=== PATIENT | female | born 1960 | race Caucasian/White ===

== ENCOUNTER → 2016-11-30 | Outpatient (CLI) | payer MEDICARE, OTHER | END | disposition home or self-care (01) | LOC: LABPAT 15:49 | PROVIDERS: ATTEND Orthopaedic Surgery | DX: Z01.812 Encounter for preprocedural laboratory examination (principal) | CPT/HCPCS: 87070 ==

== ENCOUNTER 2016-12-05 06:22 | Inpatient (IN) | payer MEDICARE, OTHER ==
[2016-12-01 11:26] VITALS: BMI 29.3
--- NOTE | 2016-12-04 13:38 | HP ---
DATE OF ADMISSION: CHIEF COMPLAINT: Right knee pain. HISTORY OF PRESENT ILLNESS: Patient is a 56-year-old female on permanent disability who presents with right knee pain secondary to osteoarthrosis despite extensive conservative measures. She notes that it severely limits her function and activities. She has had previous injections along with multiple medications with only partial temporary relief. PAST MEDICAL HISTORY: Significant for hypertension, depression, arthritis, reflux disease and hyperlipidemia. PAST SURGICAL HISTORY: Significant for right total hip arthroplasty, lumbar laminectomy, carpal tunnel release, tubal ligation. CURRENT MEDICATIONS: 1. Amitriptyline. 2. Baclofen. 3. Effexor. 4. Oral morphine. 5. Mobic. 6. Neurontin. 7. [place]. 8. Simvastatin. She denies drug allergies. FAMILY HISTORY: Significant for cancer, stroke, diabetes and heart disease. SOCIAL HISTORY: Negative for current tobacco or alcohol use. Sixteen-point review of systems otherwise reviewed and is noncontributory. On examination, the patient is approximately 5 foot 6, 170 pounds of endomorphic habitus. HEENT exam is nonfocal. Neck is supple. She has painless passive motion of her right hip. Straight leg raise is negative. Active motion of the right knee -12 to 110 degrees of flexion. She has a moderate effusion. She is tender about the medial and lateral joint line. Collaterals are stable, Lv's negative, Preethi's is equivocal. Her distal neurovascular exam appears to be intact in the right lower extremity. Previous weight-bearing notch, lateral, and merchant views of the right knee obtained in the office show severe tricompartmental osteoarthrosis. IMPRESSION: 1. Right knee severe tricompartmental osteoarthrosis. 2. Increased body mass index. RECOMMENDATIONS: I talked to the patient at length regarding her treatment options. At this point, she is quite symptomatic despite conservative measures. After thorough discussion, she opts to proceed with surgery. We will plan to proceed with right total knee arthroplasty. Risks and benefits are discussed at length in layman terms. The patient underwent preoperative medical evaluation by Dr. Skinner. We will institute DVT prophylaxis postoperatively.
[~2016-12-05 06:22] MED LIST: ACETAMINOPHEN TAB 500 MG TAB PO ONE; DEXAMETHASONE SOD PHOSPHATE 10 MG/ML 1 ML VIAL IV ONE; HYDROmorphone 1 MG/ML 1 ML SYRINGE IVP PRN; LACTATED RINGERS 1,000 ML IV SCH; LIDOCAINE 1% 20 ML VIAL (10MG/ML) FOR IV START INTRADERMA PRN; MELOXICAM 7.5 MG TAB PO ONE; MIDAZOLAM 2 MG/2 ML VIAL IV PRN; SCOPOLAMINE 1.5MG/72HR PATCH TRANSDERM ONE; TRANEXAMIC ACID 1,000 MG in SODIUM CHLORIDE 0.9% 100 ML IVPB ONE; ceFAZolin 2 GM in SODIUM CHLORIDE 0.9% 100 ML IVPB ONE
[2016-12-05] MEDS: ONDANSETRON 4 MG/2 ML VIAL IVP ONE ×2 (07:36→11:53)
[2016-12-05] MEDS ORDERED: ROPIVACAINE 246.25 MG, EPINEPHrine 0.5 MG, KETOROLAC 30 MG, cloNIDine HCL/PF 80 MCG, WA... MISCELLANE ONE ×5 (07:53)
[2016-12-05] MEDS ORDERED: PROPOFOL 10 MG/ML 20 ML VIAL IV ONE (08:02)
[2016-12-05] MEDS ORDERED: LIDOCAINE 1% INJ 10MG/ML (20 ML MDV) ONE (08:02)
[2016-12-05] MEDS ORDERED: TRANEXAMIC ACID 1,000 MG/10 ML VIAL ONE (08:02)
[2016-12-05] MEDS ORDERED: fentaNYL (PF) 50 MCG/ML 2 ML AMP ONE (08:02)
[2016-12-05] MEDS ORDERED: PHENYLEPHRINE-0.9% NACL SYG 1 MG/10 ML SYRINGE ONE (08:02)
[2016-12-05] MEDS ORDERED: MIDAZOLAM 2 MG/2 ML VIAL ONE (08:02)
[2016-12-05] MEDS ORDERED: SODIUM CHLORIDE 0.9% 100 ML BAG ONE (08:02)
[2016-12-05 08:04] LABS: Basophils % (A) 1 %; CH 30.1; CHCM 34.6; Eosinophils # (A) 0.1 k/uL (0-0.7); Eosinophils % (A) 3 %; HCT 37.4 % (34.0-46.0); HDW 2.99; HGB 12.6 gm/dL (11.4-16.0); Luc # (Auto) 0.12; Luc % (Auto) 2; Lymphocytes # (A) 1.8 k/uL (1.0-4.8); Lymphocytes % (A) 33 %; MCH 29.6 pg (25.0-35.0); MCHC 33.8 g/dL (31.0-37.0); MCV 87.6 fL (80.0-100.0); Mean Platelet Volume 7.4; Monocytes # (A) 0.4 k/uL (0-1.0); Monocytes % (A) 7 %; Neutrophils % (A) 55 %; RBC 4.27 m/uL (3.80-5.40); RDW 13.1 % (11.5-15.5); WBC 5.4 k/uL (3.8-10.6)
[2016-12-05] MEDS ORDERED: ceFAZolin 3,000 MG in SODIUM CHLORIDE 0.9% IRRIGATIO 3,000 ML IRRIGATION ONE (08:37)
[2016-12-05] MEDS ORDERED: LACTATED RINGERS 1,000 ML IV ONE (09:08)
[2016-12-05] MEDS ORDERED: HYDROmorphone 1 MG/ML 1 ML SYRINGE IVP PRN (10:02)
[2016-12-05] MEDS ORDERED: HYDROcodone/APAP 10-325MG 1 EACH TAB PO PRN ×2 (10:02→19:38)
[2016-12-05] MEDS ORDERED: NALOXONE 0.4 MG/ML 1 ML VIAL IV PRN (10:02)
[2016-12-05] MEDS ORDERED: MAGNESIUM HYDROXIDE 2,400 MG/10 ML CUP PO PRN (10:02)
[2016-12-05] MEDS ORDERED: ONDANSETRON 4 MG/2 ML VIAL IVP PRN (10:02)
[2016-12-05] MEDS ORDERED: ROPIVACAINE 1,100 MG, SODIUM CHLORIDE 0.9% 330 ML MISCELLANE PRN ×2 (10:24)
--- NOTE | 2016-12-05 10:27 | P.ONQ ---
Anesthesiology Proc Note - PNB - Peripheral Nerve Block Performed Right Adductor Canal Infusion Time Out Performed: Yes Procedure Start Time: : Procedure Stop Time: :30 Indication: Acute Post-Operative Pain, Requested by physician Sedation Type: Awake Preparation: Sterile Dressing Position: Supine Needle Size: 100mm (4") Needle Gauge: 21 Technique: Ultrasound Injectate: 0.5% Ropivacaine (see comment for volume) (ropi .5% 20cc) Blood Aspirated: No Pain Paresthesia on Injection Noted: No Resistance on Injection: Normal Events: Uneventful and Well Tolerated
--- NOTE | 2016-12-05 10:33 | P.OP ---
Date of Procedure: 12/05/16 Preoperative Diagnosis: Right knee severe tricompartmental osteoarthrosis Postoperative Diagnosis: Same Procedure(s) Performed: Right total knee [id number] substituting Implants: Depuy Attune size 6 cemented femoral component, size 5 cemented tibial component , 9 mm articular surface, 35 mm cemented patellar component. This is a posterior stabilized implant. Anesthesia: regional, local, spinal Surgeon: Angel Moon Carbon Brusher Assembler #1: Dewayne Ramirez Estimated Blood Loss (ml): 50 Pathology: other (Bone fragments) Condition: stable Disposition: PACU Indications for Procedure: Patient is a 56-year-old female presents with progressive right knee pain secondary to osteoarthrosis despite conservative measures. A discussion of the risks and benefits of operative intervention versus continued conservative measures was made with the patient. She opted to proceed with surgery. Operative risks to include infection, neurovascular injury, development of blood clots, possible component loosening, possible component failure and need for subsequent procedures was discussed. Informed consent was obtained. Operative Findings: As below Description of Procedure: The patient was brought to the operating room, and after induction of spinal anesthesia the right lower extremity was prepped and draped in normal fashion. The limb was elevated to facilitate exsanguination. The tourniquet was inflated to 270 mmHg. A longitudinal incision extending 3 finger breaths above the superior pole of the patella extending to the medial aspect of the tibial tubercle was then made. The skin and subcutaneous tissues were divided sharply. Electrocautery was used for hemostasis. A medial parapatellar arthrotomy was performed. The medial soft tissues to include the superficial and deep portions of the medial collateral ligament as well as the medial hamstring tendons were elevated subperiosteally. The proximal medial tibial osteophytes were carefully removed. Patella was everted. The knee was then flexed. The anterior cruciate ligament was sacrificed. A portion of the retropatellar fat pad was excised sharply. A starting hole was made in the distal femur 1 cm anterior to the posterior cruciate ligament origin. An intramedullary femoral guide was gently inserted planning on 5 valgus distal cut with 9 mm distal resection. The cutting block was pinned in place. The distal cut was made. The posterior referencing sizing guide was utilized. I felt size 6 was most appropriate. 3 of external rotation was built into the system and verified off the trans-epicondylar axis and the posterior condyles. The cutting block was pinned in place. The anterior, posterior, and chamfer cuts were then made. The bone fragments were removed. Residual osteophytes were removed. The intercondylar block was placed and the notch cut was made with a reciprocating saw. The bone fragment was removed. The trial size 6 femoral component was placed and was fully seated. There is good anterior to posterior and medial to lateral fit. The distal peg holes were drilled. The trial component was removed. Attention was then paid towards preparing the proximal tibia. An extra medullary guide was utilized in line with the tibial shaft and second metatarsal distally. A 0 posterior slope cutting block was utilized. I planned on 2 mm resection from the medial compartment. The cutting block was pinned in place. The proximal tibial cut was then made. The bone was removed in one fragment. This appeared to be inadequate therefore an additional 2 mm was resected utilizing the cutting block. Bone fragments were removed. The tibia sized most appropriate size 5. The trial femoral and tibial components were placed along with a 9 mm posterior stabilized articular surface. I was able to obtain full flexion and extension with good stability with varus and valgus stress. After several flexion and extension cycles, the tibial rotation was marked in line with the medial one third of the tibial tubercle. Attention was then paid towards preparing the patella. A patella reamer was utilized taking senna 14 mm of bone stock. A good flush cut was made. The patella sized most appropriately 35 mm. The peg holes were drilled. The trial component was placed. The knee was taken through range of motion. I had good patellofemoral tracking with no hands technique. The trial components were then removed. The flexion and extension gaps were checked and felt to be symmetric. The residual osteophytes off the posterior femur were carefully removed with a curved osteotome. The tibia was prepared in the appropriate rotation with appropriate drill and keel punch. The posterior soft tissues were injected with ropivacaine. The bony surfaces were prepared with pulsatile lavage and dried. The tibial component was then cemented in placed and was fully seated. Excess cement was removed. The femoral component was cemented in placed and was fully seated. Excess cement was removed. The trial 9 mm articular surface was placed in the knee was put in full extension. The patella component was cemented in placed and was fully seated. Excess cement was removed. After the cement had sufficiently hardened, the knee was again taken through range of motion. I felt I had good stability in flexion and extension and was able to obtain full motion. The trial articular surface was removed and the final one inserted. This was impacted. Care was taken to avoid any soft tissue interposition. Pulsatile lavage was again utilized. The medial parapatellar arthrotomy was repaired utilizing #2 Ethibond suture. A deep drain was placed exiting laterally. Prior to final arthrotomy closure the tourniquet was deflated with a proximally 70 minutes total tourniquet time. Second dose of IV TXA was given. The subcutaneous tissues were reapproximated with interrupted 2-0 Vicryl sutures. Skin was reapproximated with 3-0 subcuticular strata fix suture. Skin tape and adhesive was applied. A sterile dressing was applied. The patient was awoken from sedation and transferred to the recovery room in good condition. Blood loss was estimated at 50 mL. No complications were incurred. Sponge and needle counts were correct at the end the case.
[2016-12-05] MEDS ORDERED: ROPIVACAINE 5 MG/ML 30 ML VIAL MISCELLANE ONE (10:56)
--- NOTE | 2016-12-05 11:00 | XR ---
EXAMINATION TYPE: XR knee limited RT DATE OF EXAM: 12/05/2016 10:49 AM CLINICAL HISTORY: Right knee pain and arthritis status post total knee replacement. TECHNIQUE: Portable AP and crosstable lateral views of the right knee are obtained immediately posto peratively. COMPARISON: Right knee x-ray May 21, 2012 FINDINGS: Metallic hardware from total right knee arthroplasty is seen and appears satisfactory in a lignment and position. There is evidence of recent surgery with diffuse subcutaneous gas and suprapa tellar surgical drain noted. IMPRESSION: METALLIC HARDWARE FROM TOTAL RIGHT KNEE ARTHROPLASTY IS SATISFACTORY IN ALIGNMENT.
[2016-12-05] MEDS: traMADol 50 MG TAB PO SCH ×3 (13:13→20:55)
[2016-12-05] MEDS: HYDROmorphone 1 MG/ML 1 ML SYRINGE IVP PRN ×3 (14:17→22:06)
[2016-12-05] MEDS: MORPHINE SULFATE ER 30 MG TABLET PO SCH ×2 (16:05→23:40)
[2016-12-05] MEDS: ceFAZolin 2 GM in SODIUM CHLORIDE 0.9% 100 ML IVPB SCH (16:05)
[2016-12-05] MEDS: HYDROcodone/APAP 10-325MG 1 EACH TAB PO PRN (19:35)
[2016-12-05] MEDS ORDERED: MORPHINE SULFATE ER 30 MG TABLET PO SCH (19:45)
--- NOTE | 2016-12-05 19:46 | P.HPIM ---
History of Present Illness H&P Date: 12/05/16 Chief Complaint: Right knee pain Patient is a 56-year-old female with known history of osteoarthritis of the right knee failed conservative management she was evaluated by Dr. Ochoa and decision was made to proceed with right total knee arthroplasty which was done on admission medical consultation was requested for management while hospitalized. Past Medical History Past Medical History: Eye Disorder, Hyperlipidemia, Hypertension, Osteoarthritis (OA), Pneumonia, Renal Disease, Skin Disorder Additional Past Medical History / Comment(s): 06/2015 Rt lung pneumonia, Renal Failure D/T Dehydration, UTI. Osteomylitis after back surgery in 1988. Heart Murmur. LOWER Back Pain, NECK PAIN; HAD NERVE PAIN IN FEET. PIGMENTARY DISPERSION SYNDROME, FELIX. BUG BITES, SORES NOW. Chronic back pain requiring chronic narcotic treatment patient is maintained on morphine and [place] at home History of Any Multi-Drug Resistant Organisms: MRSA Date of last positivie culture/infection: 2009 MDRO Source:: chin Past Surgical History: Back Surgery, Breast Surgery, Section, Joint Replacement, Orthopedic Surgery, Tubal Ligation Additional Past Surgical History / Comment(s): 08/10/15 Total R Hip Arthroplasty Anterior Approach. RF Back Procedures. Mult Breast Biopsies. FELXI CTR. Past Anesthesia/Blood Transfusion Reactions: No Reported Reaction Additional Past Anesthesia/Blood Transfusion Reaction / Comment(s): Pt has never received blood. Past Psychological History: Depression Additional Psychological History / Comment(s): "USUAL BLUES" Smoking Status: Former smoker Past Alcohol Use History: None Reported Additional Past Alcohol Use History / Comment(s): Pt started smoking in 1971, 1 08/14 PPD, Quit in 2007 Past Drug Use History: None Reported - Past Family History Sister(s) Family Medical History: Cancer Additional Family Medical History / Comment(s): BREAST Mother Family Medical History: Cancer Additional Family Medical History / Comment(s): colon cancer. Mother in her 70's. Father Family Medical History: CVA/TIA Medications and Allergies Home Medications Medication Instructions Recorded Confirmed Type Simvastatin [Zocor] 40 mg PO HS 02/18/15 12/05/16 History Venlafaxine HCl 150 mg PO BID 02/18/15 12/05/16 History Gabapentin [Neurontin] 100 mg PO QAM 03/30/15 12/05/16 History Gabapentin [Neurontin] 200 mg PO HS 03/30/15 12/05/16 History Meloxicam 15 mg PO HS 03/30/15 12/05/16 History HYDROcodone/APAP 10-325MG [[place] 1 tab PO Q8H PRN 04/15/15 12/05/16 History 10-325] Ciprofloxacin HCl [Cipro] 250 mg PO Q12HR 12/01/16 12/05/16 History Fenofibrate,Micronized 134 mg PO HS 12/01/16 12/05/16 History [Fenofibrate] Allergies Allergy/AdvReac Type Severity Reaction Status Date / Time No Known Allergies Allergy Verified 12/05/16 13:25 Physical Exam Vitals: Vital Signs Temp Pulse Resp BP BP Pulse Ox 12/05/16 19:28 98.8 F 105 H 17 143/68 95 12/05/16 16:00 16 12/05/16 13:15 90 137/76 12/05/16 13:00 91 134/79 12/05/16 12:45 89 136/87 12/05/16 12:30 86 130/68 12/05/16 12:15 82 121/73 12/05/16 12:00 81 128/70 12/05/16 11:45 97.4 F L 80 16 118/68 91 L 12/05/16 11:14 75 16 140/79 94 L 12/05/16 10:57 78 16 142/75 94 L 12/05/16 10:42 85 16 148/73 96 12/05/16 10:23 97.1 F L 84 16 152/74 98 12/05/16 06:49 96.6 F L 88 16 157/79 98 Intake and Output 12/05/16 12/05/16 12/05/16 06:59 14:59 22:59 Intake Total 1901 Output Total 525 1350 Balance 1376 -1350 Intake: IV 1901 Lactated Ringers 1,000 ml 500 @ 50 mls/hr IV .Q20H [facility] Rx#:[id number] Output: Drainage 150 Right Knee 150 Urine 475 1200 Estimated Blood Loss 50 Other: Voiding Method Indwelling Catheter Weight 82.554 kg Patient Weight 12/06/16 06:59 Weight 82.554 kg In general patient is alert and oriented 3 in no apparent distress HEENT head normocephalic and atraumatic Neck is supple no JVD no goiter no lymphadenopathy Chest exam is clear to auscultation no crackles no wheezing Cardiac exam reveals regular heart sounds no gallops no murmurs Abdomen is soft nontender no organomegaly Extremity exam reveals no edema no cyanosis or clubbing Results CBC & Chem 7: 12/05/16 07:10 Thrombosis Risk Factor Assmnt - Choose All That Apply Each Factor Represents 1 point: Age 41-60 years, Obesity (BMI >25) Each Risk Factor Represents 2 Points: Major surgery Each Risk Factor Represents 5 Points: Elective major lower extremity arthoplasty Thrombosis Risk Factor Assessment Total Risk Factor Score: 9 Thrombosis Risk Factor Assessment Level: High Risk Assessment and Plan Plan: #1 status post right total knee arthroplasty #2 chronic back pain Will resume home medications including morphine and [place] and baclofen #3 recent UTI patient completed a course of Cipro prior to admission Will check urine analysis #4 for DVT prophylaxis patient was started on Cytomel 1210 mg by mouth daily Medication and labs were reviewed will continue was current management will follow closely during this hospitalization
[2016-12-05] MEDS: VENLAFAXINE HCL 75 MG TAB PO SCH (20:42)
[2016-12-05] MEDS: ATORVASTATIN 20 MG TAB PO SCH (20:44)
[2016-12-05] MEDS: FENOFIBRATE 160 MG TAB PO SCH (20:44)
[2016-12-05] MEDS: AMITRIPTYLINE HCL 50 MG TAB PO SCH (20:44)
[2016-12-05] MEDS: GABAPENTIN 100 MG CAP PO SCH (20:44)
[2016-12-05] MEDS: SENNOSIDES-DOCUSATE SODIUM 1 EACH TAB PO SCH (20:45)
[2016-12-05] MEDS: BACLOFEN 10 MG TAB PO SCH (20:51)
[2016-12-06] MEDS: ceFAZolin 2 GM in SODIUM CHLORIDE 0.9% 100 ML IVPB SCH (00:44)
[2016-12-06] MEDS: HYDROcodone/APAP 10-325MG 1 EACH TAB PO PRN ×5 (01:00→21:50)
[2016-12-06] MEDS: HYDROmorphone 1 MG/ML 1 ML SYRINGE IVP PRN ×3 (03:06→17:35)
[2016-12-06] MEDS: MORPHINE SULFATE ER 30 MG TABLET PO SCH ×3 (07:41→23:53)
[2016-12-06] MEDS: GABAPENTIN 100 MG CAP PO SCH ×2 (07:41→20:08)
[2016-12-06] MEDS: FAMOTIDINE 20 MG TAB PO SCH (07:42)
[2016-12-06] MEDS: BACLOFEN 10 MG TAB PO SCH ×3 (07:42→21:42)
[2016-12-06] MEDS: METOPROLOL SUCCINATE (ER) 25 MG TAB.ER.24H PO SCH (07:42)
[2016-12-06] MEDS: VENLAFAXINE HCL 75 MG TAB PO SCH ×2 (07:43→20:06)
[2016-12-06] MEDS: RIVAROXABAN 10 MG TAB PO SCH (07:43)
--- NOTE | 2016-12-06 08:35 | P.PN ---
Progress Note - Text 12/06 651 am 56-year-old female status post total knee replacement by Dr. Moon. Patient seen and evaluated for pain control this morning, patient has an On-Q pump running at . Patient rates the pain score at 8, not comfortable, patient has On -Q pump running at 14 mL an hour. Patient also has a history of chronic pain and use of narcotics.
[2016-12-06 08:50] LABS: Basophils % (A) 0 %; CHCM 33.8; Eosinophils % (A) 0 %; HCT 32.1 % (34.0-46.0); HDW 2.97; HGB 11.2 gm/dL (11.4-16.0); Luc # (Auto) 0.14; Luc % (Auto) 2; Lymphocytes # (A) 2.5 k/uL (1.0-4.8); Lymphocytes % (A) 28 %; MCH 31.2 pg (25.0-35.0); MCV 89.1 fL (80.0-100.0); Mean Platelet Volume 7.5; Monocytes # (A) 0.4 k/uL (0-1.0); Monocytes % (A) 5 %; Neutrophils # (A) 5.8 k/uL (1.3-7.7); Neutrophils % (A) 65 %; RDW 13.1 % (11.5-15.5); WBC (Perox) 9.26
[2016-12-06] MEDS: traMADol 50 MG TAB PO SCH ×4 (08:55→21:42)
[2016-12-06] MEDS ORDERED: MELOXICAM 7.5 MG TAB PO SCH ×2 (09:00→21:00)
[2016-12-06 09:15] LABS: Anion Gap 15 mmol/L; Calcium 9.1 mg/dL (8.4-10.2); Carbon Dioxide 23 mmol/L (22-30); Chloride 100 mmol/L (98-107); Glucose 287 mg/dL (74-99); Non-African American GFR(MDRD) >60 (>60 ml/min/1.73 sqM); Sodium 138 mmol/L (137-145); Total Bilirubin 0.6 mg/dL (0.2-1.3)
[2016-12-06 09:25] LABS: ALT 34 U/L (9-52); AST 31 U/L (14-36); Blood Urea Nitrogen 12 mg/dL (7-17); Potassium 3.8 mmol/L (3.5-5.1)
[2016-12-06 09:26] LABS: Alkaline Phosphatase 70 U/L (38-126)
--- NOTE | 2016-12-06 09:58 | P.PN ---
Subjective Principal diagnosis: s/p right total knee arthroplasty Patient is seen today resting in hospital bed, no acute distress. Slight increase in pain noted. She denies chest pain, shortness of breath, lightheadedness, headaches, fever or chills. Objective - Vital Signs Vital signs: Vital Signs Temp 98.5 F 12/06/16 07:00 Pulse 86 12/06/16 07:00 Resp 16 12/06/16 07:00 BP 166/79 12/06/16 07:00 Pulse Ox 95 12/06/16 07:00 Intake & Output 12/05/16 12/06/16 12/06/16 18:59 06:59 18:59 Intake Total 1901 300 Output Total 1875 1860 2800 Balance 26 -1560 -2800 Weight 82.554 kg Intake: IV 1901 300 Lactated Ringers 1,000 ml 500 200 @ 50 mls/hr IV .Q20H [facility] Rx#:[id number] ceFAZolin 2 gm In Sodium 100 Chloride 0.9% 100 ml @ 100 mls/hr IVPB Q8HR [facility] Rx#:[id number] Output: Drainage 150 160 Right Knee 150 160 Urine 1675 1700 2800 Uretheral (Nieves) 1700 2500 Estimated Blood Loss 50 Other: Voiding Method Indwelling Catheter Indwelling Catheter - Exam Right lower extremity: Incision is clean, dry, and intact. Calf is soft, no tenderness with palpation. Plantar flexion, dorsiflexion, EHL, FHL are intact. Sensory exam to light touch throughout the extremities intact, dorsal pedis pulses 2+ - Labs CBC & Chem 7: 12/06/16 08:28 12/06/16 08:25 Labs: Abnormal Lab Results - Last 24 Hours (Table) 12/06/16 12/06/16 Range/Units 08:25 08:28 RBC 3.60 L (3.80-5.40) m/uL Hgb 11.2 L (11.4-16.0) gm/dL Hct 32.1 L (34.0-46.0) % Glucose 287 H (74-99) mg/dL Assessment and Plan Plan: Assessment: 1. Postop day #1 status post right total knee arthroplasty Plan: 1. Pain control, continue use of oral medication. Okay to utilize IV medication sparingly 2. Continue with therapy 3. Daily dressing changes/ice and elevate 4. Encourage incentive spirometer 5. GI and DVT prophylaxis, continue xarelto 6. Medical management 7. Discharge planning: patient will likely be discharged home tomorrow Time with Patient: Less than 30
--- NOTE | 2016-12-06 18:02 | P.PN ---
Subjective Principal diagnosis: status post right total knee arthroplasty patient is doing well today she is complaining of her right knee pain otherwise no complaints Since yesterday Nieves catheter has been removed Objective - Vital Signs Vital signs: Vital Signs Temp 98.7 F 12/06/16 13:54 Pulse 86 12/06/16 07:00 Resp 16 12/06/16 13:54 BP 183/95 12/06/16 13:54 Pulse Ox 94 L 12/06/16 13:54 Intake & Output 12/05/16 12/06/16 12/06/16 18:59 06:59 18:59 Intake Total 1901 300 Output Total 1875 1860 2800 Balance 26 -1560 -2800 Weight 82.554 kg Intake: IV 1901 300 Lactated Ringers 1,000 ml 500 200 @ 50 mls/hr IV .Q20H [facility] Rx#:[id number] ceFAZolin 2 gm In Sodium 100 Chloride 0.9% 100 ml @ 100 mls/hr IVPB Q8HR [facility] Rx#:[id number] Output: Drainage 150 160 Right Knee 150 160 Urine 1675 1700 2800 Uretheral (Nieves) 1700 2500 Estimated Blood Loss 50 Other: Voiding Method Indwelling Catheter Indwelling Catheter - Exam HEENT head normocephalic and atraumatic Neck is supple no JVD no goiter no lymphadenopathy Chest is clear to auscultation no wheezing Cardiac exam reveals regular heart sounds no murmurs Abdomen is soft nontender no organomegaly Extremity exam reveals minimal edema - Labs CBC & Chem 7: 12/06/16 08:28 12/06/16 08:25 Labs: Abnormal Lab Results - Last 24 Hours (Table) 12/06/16 12/06/16 Range/Units 08:25 08:28 RBC 3.60 L (3.80-5.40) m/uL Hgb 11.2 L (11.4-16.0) gm/dL Hct 32.1 L (34.0-46.0) % Glucose 287 H (74-99) mg/dL Assessment and Plan Plan: #1 status post right total knee arthroplasty #2 chronic back pain Will resume home medications including morphine and [place] and baclofen #3 recent UTI patient completed a course of Cipro prior to admission Will check urine analysis #4 for DVT prophylaxis patient was started on Cytomel 1210 mg by mouth daily Medication and labs were reviewed will continue with current management will follow closely during this hospitalization continue with current management possible discharge to home tomorrow
[2016-12-06] MEDS: ATORVASTATIN 20 MG TAB PO SCH (20:07)
[2016-12-06] MEDS: AMITRIPTYLINE HCL 50 MG TAB PO SCH (20:07)
[2016-12-06] MEDS: FENOFIBRATE 160 MG TAB PO SCH (20:07)
[2016-12-06] MEDS: SENNOSIDES-DOCUSATE SODIUM 1 EACH TAB PO SCH (20:08)
[2016-12-06 22:20] LABS: Appearance,Urine Clear (Clear); Bilirubin,Urine Negative (Negative); Glucose,Urine (UA) 3+ (Negative); Ketones,Urine Negative (Negative); Leukocyte Esterase,Urine Negative (Negative); Nitrite,Urine Negative (Negative); Protein,Urine Negative (Negative); Specific Gravity,Urine 1.004 (1.001-1.035); UA Billing (MACRO vs. MICRO) CHEM; Urobilinogen,Urine <2.0 mg/dL (<2.0)
[2016-12-07 02:01] VITALS: RESP 16
[2016-12-07] MEDS: HYDROcodone/APAP 10-325MG 1 EACH TAB PO PRN ×2 (03:28→10:58)
[2016-12-07 07:41] VITALS: BP 160/76; PULSE 91; TEMP 99.1
[2016-12-07 07:43] LABS: ALT 29 U/L (9-52); AST 22 U/L (14-36); Alkaline Phosphatase 86 U/L (38-126); Anion Gap 11 mmol/L; Blood Urea Nitrogen 10 mg/dL (7-17); Calcium 9.2 mg/dL (8.4-10.2); Carbon Dioxide 29 mmol/L (22-30); Chloride 100 mmol/L (98-107); Glucose 180 mg/dL (74-99); Non-African American GFR(MDRD) >60 (>60 ml/min/1.73 sqM); Potassium 3.6 mmol/L (3.5-5.1); Sodium 140 mmol/L (137-145); Total Bilirubin 0.6 mg/dL (0.2-1.3)
[2016-12-07 08:22] LABS: Basophils % (A) 1 %; CH 30.2; Eosinophils # (A) 0.1 k/uL (0-0.7); Eosinophils % (A) 1 %; HCT 34.3 % (34.0-46.0); HGB 11.7 gm/dL (11.4-16.0); Luc # (Auto) 0.15; Luc % (Auto) 2; Lymphocytes # (A) 2.3 k/uL (1.0-4.8); Lymphocytes % (A) 32 %; MCH 30.4 pg (25.0-35.0); MCV 89.4 fL (80.0-100.0); Mean Platelet Volume 7.3; Monocytes # (A) 0.6 k/uL (0-1.0); Monocytes % (A) 8 %; Neutrophils % (A) 57 %; RBC 3.84 m/uL (3.80-5.40); RDW 13.4 % (11.5-15.5); WBC 7.1 k/uL (3.8-10.6); WBC (Perox) 7.78
[2016-12-07] MEDS: traMADol 50 MG TAB PO SCH (08:26)
[2016-12-07] MEDS: MORPHINE SULFATE ER 30 MG TABLET PO SCH (08:27)
[2016-12-07] MEDS: BACLOFEN 10 MG TAB PO SCH (08:28)
[2016-12-07] MEDS: RIVAROXABAN 10 MG TAB PO SCH (08:28)
[2016-12-07] MEDS: GABAPENTIN 100 MG CAP PO SCH (08:28)
[2016-12-07] MEDS: METOPROLOL SUCCINATE (ER) 25 MG TAB.ER.24H PO SCH (08:29)
[2016-12-07] MEDS: VENLAFAXINE HCL 75 MG TAB PO SCH (08:29)
[2016-12-07] MEDS: FAMOTIDINE 20 MG TAB PO SCH (08:29)
--- NOTE | 2016-12-07 10:44 | P.PN ---
Subjective status post right total knee arthroplasty Patient has no new complaints. She is scheduled for discharge today. Objective - Vital Signs Vital signs: Vital Signs Temp 99.1 F 12/07/16 07:00 Pulse 91 12/07/16 07:00 Resp 16 12/07/16 07:00 BP 160/76 12/07/16 07:00 Pulse Ox 93 L 12/07/16 07:00 Intake & Output 12/06/16 12/07/16 12/07/16 18:59 06:59 18:59 Intake Total 480 Output Total 2800 Balance -2320 Intake: Oral 480 Output: Urine 2800 Uretheral (Nieves) 2500 Other: Voiding Method Indwelling Catheter Toilet Toilet # Voids 2 1 - Labs CBC & Chem 7: 12/07/16 06:51 12/07/16 06:48 Labs: Abnormal Lab Results - Last 24 Hours (Table) 12/06/16 12/07/16 Range/Units 22:00 06:48 Glucose 180 H (74-99) mg/dL Urine Glucose (UA) 3+ H (Negative) Assessment and Plan Plan: #1 status post right total knee arthroplasty. Continue Xarelto for DVT prophylaxis #2 chronic back pain Will resume home medications including morphine and [place] and baclofen #3 recent UTI patient completed a course of Cipro prior to admission . Urinalysis shows no evidence of UTI Patient is medically stable for discharge. We'll patient follow-up with Dr. Skinner are in 1 week.
--- NOTE | 2016-12-07 10:50 | P.PN ---
Subjective Principal diagnosis: s/p right total knee arthroplasty Patient is seen today resting in hospital bed, no acute distress. She denies chest pain, shortness of breath, lightheadedness, headaches, fever or chills. Objective - Vital Signs Vital signs: Vital Signs Temp 99.1 F 12/07/16 07:00 Pulse 91 12/07/16 07:00 Resp 16 12/07/16 07:00 BP 160/76 12/07/16 07:00 Pulse Ox 93 L 12/07/16 07:00 Intake & Output 12/06/16 12/07/16 12/07/16 18:59 06:59 18:59 Intake Total 480 Output Total 2800 Balance -2320 Weight 82.554 kg Intake: Oral 480 Output: Urine 2800 Uretheral (Nieves) 2500 Other: Voiding Method Indwelling Catheter Toilet Toilet # Voids 2 1 - Exam Right lower extremity: Incision is clean, dry, and intact. Calf is soft, no tenderness with palpation. Plantar flexion, dorsiflexion, EHL, FHL are intact. Sensory exam to light touch throughout the extremities intact, dorsal pedis pulses 2+ - Labs CBC & Chem 7: 12/07/16 06:51 12/07/16 06:48 Labs: Abnormal Lab Results - Last 24 Hours (Table) 12/06/16 12/07/16 Range/Units 22:00 06:48 Glucose 180 H (74-99) mg/dL Urine Glucose (UA) 3+ H (Negative) Assessment and Plan Plan: Assessment: 1. Postop day #2 status post right total knee arthroplasty Plan: 1. Pain control, continue use of oral medication 2. Continue with therapy 3. Daily dressing changes/ice and elevate 4. Encourage incentive spirometer 5. GI and DVT prophylaxis, continue xarelto 6. Medical management 7. Discharge planning: Patient will be discharged home today Time with Patient: Less than 30
--- NOTE | 2016-12-07 10:52 | P.DS ---
Providers Date of admission: 12/05/16 06:22 Expected date of discharge: 12/07/16 Attending physician: Agnel Moon Consults: 12/05/16 10:02 Consult Physician Routine Consulting Provider: Milton Skinner Consult Reason/Comments: medical management Do you want consulting provider notified?: Yes Primary care physician: Milton Skinner [facility] Course: Date of admission: 12/05/2016 Date of discharge: 12/07/2016 Admission diagnosis: Status post right total knee arthroplasty Discharge diagnosis: Same Attending physician: Dr. Moon Surgical procedures: Right total knee arthroplasty Brief history: Patient is a 56-year-old female with a history of progressive primary right knee osteoarthritis. At this point patient has failed conservative treatment measures and has opted to proceed with a elective right total knee arthroplasty. Hospital course: Details of patient's surgery can be found in operative report. Patient tolerated the procedure well and was subsequently transported to orthopedic floor. Patient's orthopeidc and medical care was provided daily. Patient had daily laboratory tests performed for evaluation of overall blood counts. Patient had daily physical therapy to include strengthening range of motion as well as education with walker ambulation. Patient had daily CPM usage as part of their physical therapy program. Patient was treated with Xarelto for their postoperative DVT prophylaxis during their inpatient stay. Patient was noted to have a relatively uneventful postoperative course. Patient reported satisfactory pain control with oral pain medications by postoperative day 0. Patient showed satisfactory progress with physical therapy. Patient moved steadily through the program and had no difficulty meeting the goals by postoperative day 2. Given patient's otherwise satisfactory course and having met physical therapy goals, plan is to discharge patient home on postoperative day 2. Discharge condition/disposition: Patient will be discharged home in stable condition. Discharge medications: Instructions are given on resumption of patient's normal daily medications per primary care recommendation, in addition patient will be prescribed [place] 10 mg/325 mg, Xarelto 10 mg. Discharge instructions: 1. Wound care and infection precautions, keep incision dry and covered while showering, no lotions, creams, moisturizers. No soaking, tubs, pools, hottubs. Do not scrub over the incision. 2. Weight-bear as tolerated with walker / cane until follow-up. 3. Ice and elevate when necessary. Do not exceed 20 minutes per hour with ice pack. 4. Utilize compression sleeve until seen at first follow up appointment. 5. Visiting nursing care. 6. Home physical therapy including home CPM. 7. Pain meds and anticoagulants per prescription. 8. Pain medication has potential to cause constipation. Increase oral fluid and fiber intake. Contact primary care provider if you have not had a bowel movement within 48 hours after discharge 9. No anti-inflammatory medication until discussed at first post operative visit, this including Motrin, Aleve, Mobic, Diclofenac. 10. Follow up in office at 2 weeks postop with Sae Ramirez PA-C 11. Follow up with your primary care doctor 7-10 days after discharge. 12. Contact [facility] with any questions, . Procedures: Right total knee arthroplasty Patient Condition at Discharge: Good Plan - Discharge Summary New Discharge Prescriptions: Hydrocodone/Acetaminophen [[place] 10-325] 1 - 2 each PO Q6H PRN #60 tab PRN Reason: Pain Rivaroxaban [Xarelto] 10 mg PO DAILY #12 tab Discharge Medication List Simvastatin [Zocor] 40 mg PO HS 02/18/15 [History] Venlafaxine HCl 150 mg PO BID 02/18/15 [History] Amitriptyline HCl 50 mg PO HS #30 tablet 03/22/15 [Rx] Baclofen [Lioresal] 10 mg PO TID #90 tab 03/22/15 [Rx] Morphine Sulfate ER [Ms Contin] 30 mg PO Q8H #90 tablet 03/22/15 [Rx] Gabapentin [Neurontin] 100 mg PO QAM 03/30/15 [History] Gabapentin [Neurontin] 200 mg PO HS 03/30/15 [History] Meloxicam 15 mg PO HS 03/30/15 [History] Metoprolol Succinate (ER) [Toprol XL] 25 mg PO DAILY #90 tab.er.24h 08/12/15 [Rx ] Fenofibrate,Micronized [Fenofibrate] 134 mg PO HS 12/01/16 [History] Rivaroxaban [Xarelto] 10 mg PO DAILY #12 tab 12/05/16 [Rx] Hydrocodone/Acetaminophen [[place] 10-325] 1 - 2 each PO Q6H PRN #60 tab 12/07/16 [Rx] Follow up Appointment(s)/Referral(s): Dewayne Ramirez PAC [PHYSICIAN DISPLAY MANAGER] - 12/22/16 1:30 pm Milton Skinner MD [Primary Care Provider] - 1 Week Activity/Diet/Wound Care/Special Instructions: pt has Xaralto in pharmacy with a co-pay of $1.44 [facility] - pt has CPM at home already Orthopedic Discharge Instructions: 1. Wound care and infection precautions, keep incision dry and covered while showering, no lotions, creams, moisturizers. No soaking, pools, hot tubs. Do not scrub over incision. 2. Weight-bear as tolerated with walker / cane until follow-up. 3. Ice and elevate when necessary. Do not exceed 20 minutes per hour with ice pack. 4. Utilize compression sleeve until seen at first follow up appointment. 5. Visiting nursing care. 6. Home physical therapy including home CPM. 7. Pain meds and anticoagulants per prescription. 8. Pain medication has potential to cause constipation. Increase oral fluid and fiber intake. Contact primary care provider if you have not had a bowel movement within 48 hours after discharge. 9. No anti-inflammatory medication until discussed at first post operative visit, this including Motrin, Aleve, Mobic, Diclofenac. 10. Follow up in office at 2 weeks postop with Sae Ramirez PA-C 11. Follow up with your primary care doctor 7-10 days after discharge. 12. Contact [facility] with any questions, . Discharge Disposition: HOME WITH HOME HEALTH SERVICES
== END 2016-12-07 13:06 | disposition home health service (06) | DRG 470 ==
LOC: 2ORMAIN 06:22 → 3SUR 10:21
PROVIDERS: ADMIT Orthopaedic Surgery; ATTEND Orthopaedic Surgery
PROC: 0SRC0J9 Replacement of Right Knee Joint with Synthetic Substitute, Cemented, Open Approach (ICD-10-PCS; principal; 2016-12-05 08:00)
DX: M17.11 Unilateral primary osteoarthritis, right knee (principal); I10 Essential (primary) hypertension; F32.9 Major depressive disorder, single episode, unspecified; E78.5 Hyperlipidemia, unspecified; G89.29 Other chronic pain; K21.9 Gastro-esophageal reflux disease without esophagitis; Z79.899 Other long term (current) drug therapy; Z87.891 Personal history of nicotine dependence
CPT/HCPCS: 80053; 81003; 85025; 88300

== ENCOUNTER → 2017-06-21 | Outpatient (CLI) | payer MEDICARE, OTHER ==
--- NOTE | 2017-06-22 14:12 | MM ---
Reason for exam: screening (asymptomatic). Last mammogram was performed 1 year and 3 months ago. History: Patient is postmenopausal. Family history of breast cancer in maternal aunt and breast cancer in sister at age 43. Benign excisional biopsy of both breasts. Physical Findings: A clinical breast exam by your physician is recommended on an annual basis and results should be correlated with mammographic findings. MG 3D Screening Mammo W/Cad Bilateral CC and MLO view(s) were taken. Prior study comparison: March 20, 2016, bilateral MG 3d screening mammo w/cad. August 05, 2014, bilateral MG screening mammo w CAD. The breast tissue is heterogeneously dense. This may lower the sensitivity of mammography. No suspicious abnormality. No significant changes when compared with prior studies. ASSESSMENT: Negative, BI-RAD 1 RECOMMENDATION: Routine screening mammogram of both breasts in 1 year.
== END | disposition home or self-care (01) ==
LOC: RADMAMWWP 10:45
PROVIDERS: ATTEND Internal Medicine
DX: Z12.31 Encounter for screening mammogram for malignant neoplasm of breast (principal)
CPT/HCPCS: 77063; G0202

== ENCOUNTER → 2017-09-25 | Outpatient (CLI) | payer MEDICARE, OTHER ==
--- NOTE | 2017-09-25 11:33 | MR ---
MR left hip HISTORY: Pain in left hip Multiplanar multisequence imaging through the pelvis with small hlpvy-ge-zijy images obtained through the left hip. Correlation to plain film dated 09/07/2017 Susceptibility artifact is present likely due to prior infarct posteriorly on the right. Some degener ative disc changes are noted in the lower lumbar spine, difficult to exclude a disc herniation which is incompletely evaluated. There is associated facet arthropathy. Fibroid uterus noted incidentally. Question some thickening of the rectosigmoid junction, difficult to exclude mucosal lesion. There is marginal spurring in the left hip, there is a joint effusion, difficult to exclude small loo se bodies. Suspect grade 2 to grade III chondromalacia is present, although, there may be some motion artifact on the small vvesq-hl-mthd images, remodeling of the femoral head is present. There may be a component of femoral acetabular impingement. Possible reactive marrow signal change anterior aspect of the femoral head on the left towards the femoral neck. IMPRESSION: Osteoarthritis, degenerative disc disease, correlate for femoral acetabular impingement. Additional findings above, consider bowel surveillance if this has not been performed.
== END | disposition home or self-care (01) ==
LOC: RADMRIMAIN 09:15
PROVIDERS: ATTEND Orthopaedic Surgery
DX: M16.12 Unilateral primary osteoarthritis, left hip (principal)

== ENCOUNTER → 2017-12-31 | Outpatient (CLI) | payer MEDICARE, OTHER | END | disposition home or self-care (01) | LOC: LABPAT 14:33 | PROVIDERS: ATTEND Orthopaedic Surgery | DX: Z01.812 Encounter for preprocedural laboratory examination (principal); M16.12 Unilateral primary osteoarthritis, left hip | CPT/HCPCS: 87070 ==

== ENCOUNTER → 2018-01-02 | Outpatient (CLI) | payer MEDICARE, OTHER ==
[2018-01-02 15:56] LABS: Basophils # (A) 0.1 k/uL (0-0.2); Basophils % (A) 1 %; Eosinophils # (A) 0.2 k/uL (0-0.7); Eosinophils % (A) 2 %; HCT 40.3 % (34.0-46.0); HGB 13.4 gm/dL (11.4-16.0); Lymphocytes # (A) 3.3 k/uL (1.0-4.8); Lymphocytes % (A) 48 %; MCH 28.4 pg (25.0-35.0); MCHC 33.3 g/dL (31.0-37.0); MCV 85.3 fL (80.0-100.0); Mean Platelet Volume 7.1; Monocytes # (A) 0.5 k/uL (0-1.0); Monocytes % (A) 7 %; Neutrophils # (A) 2.7 k/uL (1.3-7.7); Neutrophils % (A) 40 %; Platelet Count 292 k/uL (150-450); RBC 4.72 m/uL (3.80-5.40); RDW 13.6 % (11.5-15.5); WBC 6.8 k/uL (3.8-10.6)
[2018-01-02 16:07] LABS: Partial Thromboplastin Time 22.4 sec (22.0-30.0); Prothrombin Time 9.9 sec (9.0-12.0)
[2018-01-02 16:10] LABS: Potassium 4.3 mmol/L (3.5-5.1)
== END | disposition home or self-care (01) ==
LOC: LABPAT 14:53
PROVIDERS: ATTEND Orthopaedic Surgery
DX: Z01.812 Encounter for preprocedural laboratory examination (principal); M16.12 Unilateral primary osteoarthritis, left hip
CPT/HCPCS: 36415; 80051; 85025; 85610; 85730

== ENCOUNTER 2018-01-08 08:00 | Inpatient (IN) | payer MEDICARE, OTHER ==
[2017-12-26 14:03] VITALS: BMI 28.7
--- NOTE | 2018-01-07 11:57 | HP ---
HISTORY AND PHYSICAL CHIEF COMPLAINT: Left hip pain. HISTORY OF PRESENT ILLNESS: The patient is a 57-year-old female on disability, who presents with progressive left hip pain. She notes worsening pain with weightbearing activities. She has tried medications in addition to therapy without significant relief. She notes she does limp. PAST MEDICAL HISTORY: Significant for vitamin D deficiency, depression, hypertension, diabetes, chronic low back pain, reflux disease, hyperlipidemia. PAST SURGICAL HISTORY: Significant for breast biopsy, lumbar spine surgery, right total hip arthroplasty, left carpal tunnel release. CURRENT MEDICATIONS: Amitriptyline, Effexor, morphine, Mobic, baclofen, [place], metformin, metoprolol. FAMILY HISTORY: Significant for cancer, diabetes and heart disease. SOCIAL HISTORY: Negative for current tobacco or alcohol use. REVIEW OF SYSTEMS: Sixteen point review of systems otherwise reviewed and is noncontributory. PHYSICAL EXAMINATION: GENERAL: On examination, the patient is approximately 5 foot 6, 178 pounds of endomorphic habitus. HEENT exam is nonfocal. NECK is supple. EXTREMITIES: Passive motion left hip flexion 80 degrees, external rotation with the hip flexed 60 degrees, internal rotation 0 degrees with pain. Clinically, she is a 0.5 cm short on the left compared to the right. Her distal neurovascular appears intact in the left lower extremity. An AP of the pelvis obtained in the office shows moderate left hip osteoarthrosis and MRI of the left hip show severe left hip osteoarthrosis with possible loose bodies. IMPRESSION: 1. Left hip osteoarthrosis-symptomatic. 2. History of lumbar radiculopathy. 3. Ipb-skapuev-rwiojnoou diabetes. RECOMMENDATIONS: I talked to the patient at length regarding her condition and treatment options. At this point she notes she is fairly limited because of pain related to her osteoarthrosis despite conservative measures. After thorough discussion, she opts to proceed with surgery. We will plan to proceed with left total hip arthroplasty. We will institute DVT prophylaxis postoperatively. The patient underwent preoperative medical evaluation by Dr. Skinner. MMSEGUNL / SARAN: [id number] /
[~2018-01-08 08:00] MED LIST changes: -DEXAMETHASONE SOD PHOSPHATE 10 MG/ML 1 ML VIAL IV ONE; -HYDROmorphone 1 MG/ML 1 ML SYRINGE IVP PRN; -LACTATED RINGERS 1,000 ML IV SCH; -SCOPOLAMINE 1.5MG/72HR PATCH TRANSDERM ONE; -TRANEXAMIC ACID 1,000 MG in SODIUM CHLORIDE 0.9% 100 ML IVPB ONE; +TRANEXAMIC ACID 1,000 MG in SODIUM CHLORIDE 0.9% 50 ML IVPB ONE; +VANCOMYCIN 1,250 MG in SODIUM CHLORIDE 0.9% 250 ML IVPB ONE; -ceFAZolin 2 GM in SODIUM CHLORIDE 0.9% 100 ML IVPB ONE
[2018-01-08] MEDS: LACTATED RINGERS 1,000 ML IV SCH (11:05)
[2018-01-08 11:10] LABS: Glucose,Whole Blood 122 mg/dL (75-99)
[2018-01-08] MEDS ORDERED: MIDAZOLAM 2 MG/2 ML VIAL ONE (14:06)
[2018-01-08] MEDS ORDERED: PROPOFOL 10 MG/ML 20 ML VIAL IV ONE (14:06)
[2018-01-08] MEDS ORDERED: HEPARIN SODIUM,PORCINE 10,000 UNIT/ML 1 ML VIAL ONE (14:06)
[2018-01-08] MEDS ORDERED: SUCCINYLCHOLINE CHLORIDE 100 MG/5 ML SYR IV ONE (14:06)
[2018-01-08] MEDS ORDERED: ROCURONIUM BROMIDE 10 MG/ML 10 ML VIAL IV ONE (14:06)
[2018-01-08] MEDS ORDERED: SODIUM CHLORIDE 0.9% IRRIG 1,000 ML BTL IRRIGATION ONE (14:06)
[2018-01-08] MEDS ORDERED: TRANEXAMIC ACID 1,000 MG/10 ML VIAL ONE (14:06)
[2018-01-08] MEDS ORDERED: SODIUM CHLORIDE 0.9% 100 ML BAG ONE (14:06)
[2018-01-08] MEDS ORDERED: fentaNYL (PF) 50 MCG/ML 2 ML AMP ONE (14:06)
[2018-01-08] MEDS ORDERED: GLYCOPYRROLATE 0.2 MG/ML 2 ML VIAL ONE (14:06)
[2018-01-08] MEDS ORDERED: NEOSTIGMINE 1 MG/ML 10 ML VIAL ONE (14:06)
[2018-01-08] MEDS ORDERED: ceFAZolin 3,000 MG in SODIUM CHLORIDE 0.9% IRRIGATIO 3,000 ML IRRIGATION ONE (14:56)
[2018-01-08] MEDS ORDERED: LACTATED RINGERS 1,000 ML IV ONE (15:37)
[2018-01-08] MEDS ORDERED: HYDROcodone/APAP 10-325MG 1 EACH TAB PO PRN (16:23)
[2018-01-08] MEDS ORDERED: MORPHINE SULFATE 4 MG/ML SYRINGE IVP PRN ×2 (16:23)
[2018-01-08] MEDS ORDERED: MORPHINE SULFATE 4 MG/ML SYRINGE IV PRN ×2 (16:23)
[2018-01-08] MEDS ORDERED: NALOXONE 0.4 MG/ML 1 ML VIAL IV PRN (16:23)
[2018-01-08] MEDS ORDERED: MAGNESIUM HYDROXIDE 2,400 MG/10 ML CUP PO PRN (16:23)
--- NOTE | 2018-01-08 16:45 | FL ---
EXAMINATION TYPE: FL guidance operating room, XR Hip Limited LT DATE OF EXAM: 01/08/2018 CLINICAL HISTORY: Left hip replacement earlier today. TECHNIQUE: Fluoroscopy. Intraoperative limited views left hip. COMPARISON: MRI left hip September 25, 2017. FINDINGS: Fluoroscopic guidance was provided during left hip replacement procedure performed by Dr. Moon. A total of 26 seconds of fluoroscopic time was utilized during the procedure and single spot intraoperative image is acquired. Single image acquired shows metallic hardware from left hip arthroplasty that appears satisfactory in position on frontal view. IMPRESSION: As Above.
--- NOTE | 2018-01-08 16:51 | P.OP ---
Date of Procedure: 01/08/18 Preoperative Diagnosis: left hip severe osteoarthrosis Postoperative Diagnosis: same Procedure(s) Performed: left total hip arthroplasty- anterior approach Implants: Depuy Corail size 10 standard press-fit collared femoral stem, 32 mm +1 cobalt chrome femoral head, 52 mm Lydia acetabular shell with neutral polyethylene liner. Anesthesia: EDDIE Surgeon: Angel Moon Duct Layer #1: Dewayne Rmairez Estimated Blood Loss (ml): 150 Pathology: other (femoral head) Condition: stable Disposition: PACU Indications for Procedure: the patient's a 57-year-old female who presents with progressive left hip pain secondary to osteoarthrosis despite conservative measures. A discussion of the risks and benefits of continued conservative measures versus operative intervention was made with the patient. She opted to proceed with surgery. Operative risks to include infection, neurovascular injury, fracture, dislocation, possible leg length discrepancy and need for surgical procedures was discussed. Informed consent was obtained. Operative Findings: as below Description of Procedure: the patient was brought to the operating room, felipa spinal was attempted and was unsuccessful and was converted to a general anesthetic. She was then positioned supine on the Mary Lou table. Fluoroscopy was used to check that the pelvis was level.the left hip was then prepped and draped in a normal fashion. Preoperative templating was previously performed to estimate component positioning and sizes.a 12 cm incision was then made starting 3 finger breaths posterior and distal to the ASIS. The skin was incised sharply. Subcutaneous tissues were divided bluntly. Electrocautery was used for hemostasis. The fascia was identified and opened anterior to the perforators. The interval between the sartorius and tensor fascia chandni was then bluntly developed. The posterior fascia was opened. The lateral circumflex vessels were identified and cauterized prior to sectioning. A blunt retractors placed along the superior femoral neck and anterior acetabular rim. the rectus was then elevated off the anterior capsule. A wide capsulotomy was performed. The femoral neck cut was then made at a 45 shaft with a sagittal saw and completed with an osteotome.the femoral head was then extracted.the acetabulum was inspected. An anterior and posterior retractor was placed. The remaining labral capsular tissue was sharply debrided clearly defining the acetabular margins. I began reaming with a 43 mm reamer taking care to initially medialize and then reaming at 45 of abduction and 20 of anteversion. Sequential reaming was performed up to 51 mm. A trial 52 mm acetabular shell was inserted in the same orientation and was verified with fluoroscopy. Good rim fit and stability was noted. The final 52 mm acetabular shell was inserted at 45 of abduction and 20 of anteversion. Again there was good rim fit and stability. A neutral polyethylene liner was gently impacted. Care was taken to avoid any soft tissue interposition.attention was then paid towards preparing the proximal femur. The soft tissue in the saddle region was debrided sharply. The leg was externally rotated 130, then fully extended, then adducted. A retractor was placed along the medial calcar And greater trochanter. A femoral hook was used to elevate the femur. A box chisel was used to open the metaphyseal region. A canal finder was used to find the femoral canal. Sequential broaching was performed up to a size 10 broach. This was parallel to the posterior cortex. A calcar mill was used to fashion a medial calcar. A standard neck along with a 32 mm +1 trial head was placed. The hip was gently reduced. Fluoroscopy was used to check overall component positioning along with leg length. Using the overlay technique I felt I restored previous leg length. The hip was gently dislocated. The trial components were removed. The final size 10 standard collared femoral stem was inserted parallel to the posterior cortex and was fully seated. There was good rotational stability. A 32 mm +1 cobalt chrome femoral head was gently impacted. The hip was gently reduced. Final fluoroscopic view showed adequate placement of the implants along with oriental orthodox of leg length. Stability was checked at 60 of external rotation and 50 of extension. Pulsatile lavage was utilized. The fascia was closed with running 0 Vicryl suture. There was minimal drainage therefore a deep drain was not placed. The subcu tissues were reapproximated interrupted 2-0 Vicryl sutures. Skin was repaired with 3-0 subcuticular strata fix suture. Skin tape and adhesive was applied. A sterile dressing was applied. The patient was then awoken from general anesthesia and transferred to recovery room in good condition. Blood loss was estimated at 150 mL. No complications were incurred. Sponge and needle counts were correct at the end of the case.
[2018-01-08] MEDS ORDERED: HYDROmorphone 0.5 MG/0.5 ML SYRINGE IVP ONE ×3 (16:57→17:32)
[2018-01-08] MEDS ORDERED: MEPERIDINE 50 MG/ML SYRINGE IVP ONE (16:59)
[2018-01-08] MEDS ORDERED: diphenhydrAMINE 50 MG/ML 1 ML VIAL IVP ONE (17:33)
[2018-01-08] MEDS: HYDROcodone/APAP 10-325MG 1 EACH TAB PO PRN (18:15)
--- NOTE | 2018-01-08 18:21 | XR ---
Left hip Limited HISTORY: Post arthroplasty Single frontal view of the left hip Patient is status post left hip arthroplasty. There is anatomic alignment. Lucency present in the sof t tissues. IMPRESSION: Orthopedic follow-up.
[2018-01-08 20:41] LABS: Glucose,Whole Blood 200 mg/dL (75-99)
[2018-01-08] MEDS: INSULIN ASPART 100 UNIT/ML 1 ML 10 ML VIAL SQ SCH (22:03)
[2018-01-08] MEDS: MORPHINE SULFATE ER 30 MG TABLET PO SCH (22:03)
[2018-01-08] MEDS: SENNOSIDES-DOCUSATE SODIUM 1 EACH TAB PO SCH (22:03)
[2018-01-08] MEDS: MUPIROCIN 2% OINT 22 GM TUBE TOPICAL SCH (22:04)
[2018-01-08 22:05] VITALS: RESP 16
[2018-01-08] MEDS: GABAPENTIN 100 MG CAP PO SCH (22:05)
[2018-01-08] MEDS: VENLAFAXINE HCL 75 MG TAB PO SCH (22:05)
[2018-01-08] MEDS: ATORVASTATIN 20 MG TAB PO SCH (22:06)
[2018-01-08] MEDS: AMITRIPTYLINE HCL 50 MG TAB PO SCH (22:06)
[2018-01-08] MEDS: FENOFIBRATE 160 MG TAB PO SCH (22:06)
[2018-01-09] MEDS ORDERED: VANCOMYCIN 1,250 MG in SODIUM CHLORIDE 0.9% 250 ML IVPB ONE ×2
[2018-01-09] MEDS: BACLOFEN 10 MG TAB PO SCH ×3 (00:28→16:02)
[2018-01-09] MEDS: HYDROcodone/APAP 10-325MG 1 EACH TAB PO PRN ×4 (00:28→19:36)
[2018-01-09] MEDS: LACTATED RINGERS 1,000 ML IV SCH ×2 (05:05→22:17)
[2018-01-09 07:32] LABS: Glucose,Whole Blood 167 mg/dL (75-99)
[2018-01-09 07:40] LABS: Basophils % (A) 0 %; Eosinophils # (A) 0.1 k/uL (0-0.7); Eosinophils % (A) 1 %; HCT 31.6 % (34.0-46.0); HGB 10.5 gm/dL (11.4-16.0); Lymphocytes # (A) 1.6 k/uL (1.0-4.8); Lymphocytes % (A) 23 %; MCHC 33.3 g/dL (31.0-37.0); Mean Platelet Volume 6.8; Monocytes # (A) 0.5 k/uL (0-1.0); Monocytes % (A) 7 %; Neutrophils # (A) 4.7 k/uL (1.3-7.7); Neutrophils % (A) 67 %; Platelet Count 189 k/uL (150-450); RBC 3.63 m/uL (3.80-5.40); RDW 13.7 % (11.5-15.5)
[2018-01-09] MEDS: MORPHINE SULFATE ER 30 MG TABLET PO SCH ×2 (08:31→16:02)
[2018-01-09] MEDS: VENLAFAXINE HCL 75 MG TAB PO SCH ×2 (08:32→22:16)
[2018-01-09] MEDS: METOPROLOL SUCCINATE (ER) 25 MG TAB.ER.24H PO SCH (08:32)
[2018-01-09] MEDS: RIVAROXABAN 10 MG TAB PO SCH (08:32)
[2018-01-09] MEDS: INSULIN ASPART 100 UNIT/ML 1 ML 10 ML VIAL SQ SCH ×4 (08:33→22:15)
[2018-01-09] MEDS: MUPIROCIN 2% OINT 22 GM TUBE TOPICAL SCH ×2 (09:47→22:08)
[2018-01-09 11:18] LABS: Glucose,Whole Blood 225 mg/dL (75-99)
--- NOTE | 2018-01-09 12:45 | P.CONS ---
History of Present Illness - Reason for Consult Consult date: 01/09/18 Requesting physician: Angel Moon - History of Present Illness Yuliya North is a 57-year-old female well known to my practice who was admitted to [facility] by Dr. Angel Ochoa for left hip arthroplasty, patient had degenerative osteoarthritis was severe pain that was not improving with medical management, decision was made to proceed with total left hip arthroplasty. Past medical history significant for: #1 degenerative osteoarthritis #2 diabetes mellitus type 2 #3 vitamin D deficiency #4 herniated disc with chronic back pain #5 gastroesophageal reflux disease #6 previous history of MRSA infection #7 history of hyperlipidemia #8 history of hypertension #9 history of depression Past surgical history significant for #1 history of back surgery, with laminectomy L5-S1 #2 history of bilateral breast biopsies #3 previous history of right total knee replacement #4 previous history of right carpal tunnel surgery #5 history of Social history patient lives at home she is able to ambulate and take care of her daily needs, she used to smoke, she quit many years ago she is , she drinks alcohol rarely. Past Medical History Past Medical History: Diabetes Mellitus, Eye Disorder, Hyperlipidemia, Hypertension, Osteoarthritis (OA), Pneumonia Additional Past Medical History / Comment(s): Osteomylitis after back surgery in 1988. 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 on - pt states sores now mostly heeled History of Any Multi-Drug Resistant Organisms: MRSA Year Discovered:: 2009 MDRO Source:: chin Past Surgical History: Back Surgery, Breast Surgery, Section, Joint Replacement, Orthopedic Surgery, Tubal Ligation Additional Past Surgical History / Comment(s): Total R hip arthroplasty anterior approach. rt knee replacement, mult breast biopsies, regina carpal tunnel. regina cataracts Past Anesthesia/Blood Transfusion Reactions: No Reported Reaction Additional Past Anesthesia/Blood Transfusion Reaction / Comm: Pt has never received blood. Past Psychological History: Depression Additional Psychological History / Comment(s): . Smoking Status: Former smoker Past Alcohol Use History: None Reported Additional Past Alcohol Use History / Comment(s): Pt started smoking in 1971 and quit in 2007, 1 PPD Past Drug Use History: None Reported - Past Family History Sister(s) Family Medical History: Cancer Additional Family Medical History / Comment(s): BREAST Mother Family Medical History: Cancer Additional Family Medical History / Comment(s): colon cancer Father Family Medical History: CVA/TIA Medications and Allergies Home Medications Medication Instructions Recorded Confirmed Type Simvastatin [Zocor] 40 mg PO HS 02/18/15 01/08/18 History Venlafaxine HCl 150 mg PO BID 02/18/15 01/08/18 History Amitriptyline HCl 50 mg PO HS #30 tablet 03/22/15 01/08/18 Rx Morphine Sulfate ER [Ms Contin] 30 mg PO Q8H #90 tablet 03/22/15 01/08/18 Rx Gabapentin [Neurontin] 100 mg PO QAM 03/30/15 01/08/18 History Gabapentin [Neurontin] 200 mg PO HS 03/30/15 01/08/18 History Meloxicam 15 mg PO HS 03/30/15 01/08/18 History Metoprolol Succinate (ER) [Toprol 25 mg PO DAILY #90 tab.er.24h 08/12/15 Rx XL] Fenofibrate,Micronized 134 mg PO HS 12/01/16 01/08/18 History [Fenofibrate] Baclofen [Lioresal] 10 mg PO Q8HR 12/26/17 01/08/18 History Hydrocodone/Acetaminophen [[place] 1 tab PO Q8HR PRN 12/26/17 01/08/18 History 10-325] metFORMIN HCL [Glucophage] 500 mg PO BID 12/26/17 01/08/18 History Ergocalciferol [Vitamin D2] 50,000 unit PO FR 01/01/18 01/08/18 History Sulfamethox-Tmp 800-160Mg [Bactrim 1 tab PO Q12HR 01/03/18 01/08/18 History DS 800-160 mg] Mupirocin Calcium 2% Cream 1 applic TOPICAL BID 01/08/18 01/08/18 History [Bactroban 2% Cream] Rivaroxaban [Xarelto] 10 mg PO DAILY #28 tab 01/08/18 Rx Allergies Allergy/AdvReac Type Severity Reaction Status Date / Time No Known Allergies Allergy Verified 01/08/18 18:02 Physical Exam Vitals: Vital Signs Temp Pulse Resp BP Pulse Ox 01/09/18 11:51 96 01/09/18 07:29 110 H 01/09/18 03:40 16 01/09/18 01:05 98.5 F 96 16 139/75 94 L 01/08/18 22:07 97 147/79 01/08/18 20:00 95 143/76 01/08/18 19:30 97 147/75 01/08/18 19:15 97 143/74 01/08/18 19:00 85 145/72 01/08/18 18:45 86 136/67 01/08/18 18:30 83 135/89 01/08/18 18:15 88 129/88 01/08/18 18:00 96.9 F L 78 16 142/78 94 L 01/08/18 17:45 85 14 127/65 96 01/08/18 17:30 88 15 127/65 96 01/08/18 17:15 87 16 136/63 98 01/08/18 17:00 87 16 129/58 99 01/08/18 16:43 97 F L 79 14 140/65 99 Intake and Output 01/08/18 01/09/18 01/09/18 22:59 06:59 14:59 Intake Total 300 650 200 Output Total 975 3100 1850 Balance -675 -2450 -1650 Intake: IV 300 Intake, IV Titration 650 Amount Lactated Ringers 1,000 ml 400 @ 50 mls/hr IV .Q20H [facility] Rx#:[id number] Vancomycin 1,250 mg In 250 Sodium Chloride 0.9% 250 ml @ 125 mls/hr IVPB ONCE ONE Rx#:[id number] Oral 200 Output: Urine 825 3100 1850 Uretheral (Ineves) 2100 1250 Estimated Blood Loss 150 Other: Voiding Method Indwelling Catheter In general patient is alert and oriented 3 in no apparent distress HEENT head normocephalic and atraumatic Neck is supple no JVD no goiter no lymphadenopathy Chest exam reveals a few scattered rhonchi no wheezing Cardiac exam reveals regular heart sounds S1 and S2 no gallops no murmurs Abdomen is soft nontender no organomegaly Extremity exam reveals no edema no cyanosis or clubbing Results CBC & Chem 7: 01/09/18 06:33 05/30/18 06:33 Labs: Abnormal Lab Results - Last 24 Hours (Table) 01/08/18 01/09/18 01/09/18 Range/Units 20:33 06:33 07:30 RBC 3.63 L (3.80-5.40) m/uL Hgb 10.5 L (11.4-16.0) gm/dL Hct 31.6 L (34.0-46.0) % POC Glucose (mg/dL) 200 H 167 H (75-99) mg/dL 01/09/18 Range/Units 11:13 RBC (3.80-5.40) m/uL Hgb (11.4-16.0) gm/dL Hct (34.0-46.0) % POC Glucose (mg/dL) 225 H (75-99) mg/dL Assessment and Plan Plan: #1 osteoarthritis of the left hip status post total left hip arthroplasty #2 underlying history of hypertension well-controlled #3 tox-[id number]-wkljjbkvq diabetes mellitus well-controlled #4 history of chronic back pain, on chronic narcotics for pain management Medication and labs were reviewed continue was current management Will follow while hospitalized
--- NOTE | 2018-01-09 13:59 | P.PN ---
Subjective Progress Note Date: 01/09/18 Principal diagnosis: Status post left total hip arthroplasty Patient seen today resting in her hospital bed, she appears comfortable. She is having some increase in pain of the left hip. She denies any headaches, lightheadedness, chest pain or shortness of breath. Objective - Vital Signs Vital signs: Vital Signs Temp 98.5 F 01/09/18 01:05 Pulse 110 H 01/09/18 07:29 Resp 16 01/09/18 03:40 BP 139/75 01/09/18 01:05 Pulse Ox 96 01/09/18 11:51 Intake & Output 01/08/18 01/09/18 01/09/18 18:59 06:59 18:59 Intake Total 1551 650 200 Output Total 500 3575 1850 Balance 1051 -1210 -1650 Intake: IV 1551 Intake, IV Titration 650 Amount Lactated Ringers 1,000 ml 400 @ 50 mls/hr IV .Q20H [facility] Rx#:[id number] Vancomycin 1,250 mg In 250 Sodium Chloride 0.9% 250 ml @ 125 mls/hr IVPB ONCE ONE Rx#:[id number] Oral 200 Output: Urine 350 3575 1850 Uretheral (Nieves) 2100 1250 Estimated Blood Loss 150 Other: Voiding Method Indwelling Catheter - Exam Left lower extremity: Incision is clean, dry, and intact. The prineo tape is in good condition. There is minimal soft tissue swelling and ecchymosis surrounding the medial and lateral aspects of the incision. Calf is soft, no tenderness with palpation. Plantar flexion, dorsiflexion, EHL, FHL are intact. Sensory exam to light touch throughout the extremity is intact, dorsal pedis pulses 2+. - Labs CBC & Chem 7: 01/09/18 06:33 01/09/18 06:33 Labs: Abnormal Lab Results - Last 24 Hours (Table) 01/08/18 01/09/18 01/09/18 Range/Units 20:33 06:33 07:30 RBC 3.63 L (3.80-5.40) m/uL Hgb 10.5 L (11.4-16.0) gm/dL Hct 31.6 L (34.0-46.0) % POC Glucose (mg/dL) 200 H 167 H (75-99) mg/dL 01/09/18 Range/Units 11:13 RBC (3.80-5.40) m/uL Hgb (11.4-16.0) gm/dL Hct (34.0-46.0) % POC Glucose (mg/dL) 225 H (75-99) mg/dL Assessment and Plan Plan: Assessment: 1. Postop day #1 status post left total hip arthroplasty Plan: Pain control, continue use of oral medication Continue works physical therapy Daily dressing changes GI and DVT prophylaxis, continue Xarelto Encourage incentive spirometer Medical recommendations Plan for discharge home tomorrow Time with Patient: Less than 30
[2018-01-09 17:02] LABS: Glucose,Whole Blood 168 mg/dL (75-99)
[2018-01-09 20:40] LABS: Glucose,Whole Blood 205 mg/dL (75-99)
[2018-01-09] MEDS: GABAPENTIN 100 MG CAP PO SCH (22:16)
[2018-01-09] MEDS: SENNOSIDES-DOCUSATE SODIUM 1 EACH TAB PO SCH (22:16)
[2018-01-09] MEDS: ATORVASTATIN 20 MG TAB PO SCH (22:16)
[2018-01-09] MEDS: FENOFIBRATE 160 MG TAB PO SCH (22:16)
[2018-01-09] MEDS: AMITRIPTYLINE HCL 50 MG TAB PO SCH (22:16)
[2018-01-09 22:17] LABS: Hemoglobin A1C 6.4 % (4.0-6.0)
[2018-01-10] MEDS: BACLOFEN 10 MG TAB PO SCH ×2 (00:01→09:16)
[2018-01-10] MEDS: MORPHINE SULFATE ER 30 MG TABLET PO SCH ×2 (00:02→09:15)
[2018-01-10] MEDS: HYDROcodone/APAP 10-325MG 1 EACH TAB PO PRN ×2 (05:49→12:01)
[2018-01-10 07:25] LABS: Glucose,Whole Blood 179 mg/dL (75-99)
[2018-01-10 07:35] VITALS: BP 143/68; PULSE 106; TEMP 97.8
[2018-01-10] MEDS: INSULIN ASPART 100 UNIT/ML 1 ML 10 ML VIAL SQ SCH ×2 (09:16→13:45)
[2018-01-10] MEDS: MUPIROCIN 2% OINT 22 GM TUBE TOPICAL SCH (09:17)
[2018-01-10] MEDS: METOPROLOL SUCCINATE (ER) 25 MG TAB.ER.24H PO SCH (09:17)
[2018-01-10] MEDS: RIVAROXABAN 10 MG TAB PO SCH (09:17)
[2018-01-10] MEDS: VENLAFAXINE HCL 75 MG TAB PO SCH (09:18)
[2018-01-10] MEDS: LACTATED RINGERS 1,000 ML IV SCH (09:18)
[2018-01-10] MEDS ORDERED: MORPHINE ORAL SOLN 10 MG/5 ML CUP PO PRN ×4 (09:49→09:53)
--- NOTE | 2018-01-10 10:41 | P.PN ---
Subjective Progress Note Date: 01/10/18 Principal diagnosis: Status post left total hip arthroplasty Patient seen today resting in her hospital bed, she appears comfortable. Pain is better controlled today. She denies any headaches, lightheadedness, chest pain or shortness of breath. Objective - Vital Signs Vital signs: Vital Signs Temp 97.8 F 01/10/18 07:05 Pulse 106 H 01/10/18 07:05 Resp 16 01/10/18 07:05 BP 143/68 01/10/18 07:05 Pulse Ox 94 L 01/10/18 07:05 Intake & Output 01/09/18 01/10/18 01/10/18 18:59 06:59 18:59 Intake Total 1160 275 Output Total 1850 Balance -690 275 Intake: Oral 1160 275 Output: Urine 1850 Uretheral (Nieves) 1250 Other: # Voids 3 2 - Exam Left lower extremity: Incision is clean, dry, and intact. The prineo tape is in good condition. There is minimal soft tissue swelling and ecchymosis surrounding the medial and lateral aspects of the incision. Calf is soft, no tenderness with palpation. Plantar flexion, dorsiflexion, EHL, FHL are intact. Sensory exam to light touch throughout the extremity is intact, dorsal pedis pulses 2+. - Labs CBC & Chem 7: 01/09/18 06:33 01/09/18 06:33 Labs: Abnormal Lab Results - Last 24 Hours (Table) 01/09/18 01/09/18 01/09/18 Range/Units 06:33 11:13 16:57 POC Glucose (mg/dL) 225 H 168 H (75-99) mg/dL Hemoglobin A1c 6.4 H (4.0-6.0) % 01/09/18 01/10/18 Range/Units 20:35 07:21 POC Glucose (mg/dL) 205 H 179 H (75-99) mg/dL Hemoglobin A1c (4.0-6.0) % Assessment and Plan Plan: Assessment: 1. Postop day #2 status post left total hip arthroplasty Plan: Pain control, continue use of oral medication Continue works physical therapy Daily dressing changes GI and DVT prophylaxis, continue Xarelto Encourage incentive spirometer Medical recommendations Plan for discharge home today Time with Patient: Less than 30
--- NOTE | 2018-01-10 10:43 | P.DS ---
Providers Date of admission: 01/08/18 10:12 Expected date of discharge: 01/10/18 Attending physician: Angel Moon Primary care physician: Milton Susanne [facility] Course: Date of admission: 01/08/2018 Date of discharge: 01/10/2018 Admission diagnosis: Status post left total hip arthroplasty Discharge diagnosis: Same Attending physician: Dr. Moon Surgical procedures: Left total hip arthroplasty Brief history: Patient is a 57-year-old female with a history of progressive primary left hip osteoarthritis. At this point patient has failed conservative treatment measures and has opted to proceed with a elective left total hip arthroplasty. Hospital course: Details of patient's surgery can be found in operative report. Patient tolerated the procedure well and was subsequently transported to orthopedic floor. Patient's orthopeidc and medical care was provided daily. Patient had daily laboratory tests performed for evaluation of overall blood counts. Patient had daily physical therapy to include strengthening range of motion as well as education with walker ambulation. Patient was treated with Xarelto for their postoperative DVT prophylaxis during their inpatient stay. Patient was noted to have a relatively uneventful postoperative course. Patient reported satisfactory pain control with oral pain medications by postoperative day 0. Patient showed satisfactory progress with physical therapy. Patient moved steadily through the program and had no difficulty meeting the goals by postoperative day 2. Given patient's otherwise satisfactory course and having met physical therapy goals, plan is to discharge patient home on postoperative day 2. Discharge condition/disposition: Patient will be discharged home in stable condition. Discharge medications: Instructions are given on resumption of patient's normal daily medications per primary care recommendation, in addition patient will be prescribed [place] 10 mg/325 mg, Xarelto 10 mg. Discharge instructions: 1. Wound care and infection precautions, keep incision dry and covered while showering, no lotions, creams, moisturizers. No soaking, tubs, pools, hottubs. Do not scrub over the incision. 2. Weight-bear as tolerated with walker / cane until follow-up. 3. Ice and elevate when necessary. Do not exceed 20 minutes per hour with ice pack. 4. Utilize compression sleeve until seen at first follow up appointment. 5. Visiting nursing care. 6. Home physical therapy. 7. Pain meds and anticoagulants per prescription. 8. Pain medication has potential to cause constipation. Increase oral fluid and fiber intake. Contact primary care provider if you have not had a bowel movement within 48 hours after discharge 9. No anti-inflammatory medication until discussed at first post operative visit, this including Motrin, Aleve, Mobic, Diclofenac. 10. Follow up in office at 2 weeks postop with Sae Ramirez PA-C 11. Follow up with your primary care doctor 7-10 days after discharge. 12. Contact [facility] with any questions, . Procedures: Left total hip arthroplasty Patient Condition at Discharge: Good Plan - Discharge Summary Discharge Rx Participant: Yes New Discharge Prescriptions: New Rivaroxaban [Xarelto] 10 mg PO DAILY #28 tab Hydrocodone/Acetaminophen [[place] 10-325] 1 - 2 each PO Q6H PRN #40 tab PRN Reason: Pain No Action Simvastatin [Zocor] 40 mg PO HS Venlafaxine HCl 150 mg PO BID Amitriptyline HCl 50 mg PO HS #30 tablet Morphine Sulfate ER [Ms Contin] 30 mg PO Q8H #90 tablet Meloxicam 15 mg PO HS Gabapentin [Neurontin] 100 mg PO QAM Gabapentin [Neurontin] 200 mg PO HS Metoprolol Succinate (ER) [Toprol XL] 25 mg PO DAILY #90 tab.er.24h Fenofibrate,Micronized [Fenofibrate] 134 mg PO HS metFORMIN HCL [Glucophage] 500 mg PO BID Baclofen [Lioresal] 10 mg PO Q8HR Hydrocodone/Acetaminophen [[place] 10-325] 1 tab PO Q8HR PRN PRN Reason: Breakthrough Pain Ergocalciferol [Vitamin D2] 50,000 unit PO FR Sulfamethox-Tmp 800-160Mg [Bactrim DS 800-160 mg] 1 tab PO Q12HR Mupirocin Calcium 2% Cream [Bactroban 2% Cream] 1 applic TOPICAL BID Discharge Medication List Simvastatin [Zocor] 40 mg PO HS 02/18/15 [History] Venlafaxine HCl 150 mg PO BID 02/18/15 [History] Amitriptyline HCl 50 mg PO HS #30 tablet 03/22/15 [Rx] Morphine Sulfate ER [Ms Contin] 30 mg PO Q8H #90 tablet 03/22/15 [Rx] Gabapentin [Neurontin] 100 mg PO QAM 03/30/15 [History] Gabapentin [Neurontin] 200 mg PO HS 03/30/15 [History] Meloxicam 15 mg PO HS 03/30/15 [History] Metoprolol Succinate (ER) [Toprol XL] 25 mg PO DAILY #90 tab.er.24h 08/12/15 [Rx ] Fenofibrate,Micronized [Fenofibrate] 134 mg PO HS 12/01/16 [History] Baclofen [Lioresal] 10 mg PO Q8HR 12/26/17 [History] metFORMIN HCL [Glucophage] 500 mg PO BID 12/26/17 [History] Ergocalciferol [Vitamin D2] 50,000 unit PO FR 01/01/18 [History] Sulfamethox-Tmp 800-160Mg [Bactrim DS 800-160 mg] 1 tab PO Q12HR 01/03/18 [ History] Mupirocin Calcium 2% Cream [Bactroban 2% Cream] 1 applic TOPICAL BID 01/08/18 [ History] Rivaroxaban [Xarelto] 10 mg PO DAILY #28 tab 01/08/18 [Rx] Hydrocodone/Acetaminophen [[place] 10-325] 1 - 2 each PO Q6H PRN #40 tab 01/10/18 [Rx] Follow up Appointment(s)/Referral(s): Dewayne Ramirez PAC [PHYSICIAN GRINDER SET UP OPERATOR JIG] - 01/23/18 1:50 pm Milton Skinner MD [Primary Care Provider] - 01/15/18 4:00 pm Activity/Diet/Wound Care/Special Instructions: [facility] - [phone] Orthopedic Discharge Instructions: 1. Wound care and infection precautions, keep incision dry and covered while showering, no lotions, creams, moisturizers. No soaking, pools, hot tubs. Do not scrub over incision. 2. Weight-bear as tolerated with walker / cane until follow-up. 3. Ice and elevate when necessary. Do not exceed 20 minutes per hour with ice pack. 4. Utilize compression sleeve until seen at first follow up appointment. 5. Visiting nursing care. 6. Home physical therapy. 7. Pain meds and anticoagulants per prescription. 8. Pain medication has potential to cause constipation. Increase oral fluid and fiber intake. Contact primary care provider if you have not had a bowel movement within 48 hours after discharge. 9. No anti-inflammatory medication until discussed at first post operative visit, this including Motrin, Aleve, Mobic, Diclofenac. 10. Follow up in office at 2 weeks postop with Sae Ramirez PA-C 11. Follow up with your primary care doctor 7-10 days after discharge. 12. Contact [facility] with any questions, . Discharge Disposition: HOME WITH HOME HEALTH SERVICES
[2018-01-10 11:38] LABS: Glucose,Whole Blood 173 mg/dL (75-99)
--- NOTE | 2018-01-10 11:45 | P.PN ---
Subjective Progress Note Date: 01/10/18 Status post left total hip arthroplasty No new complaints. Reports having bowel movements no difficulty urinating. Has been up and ambulating. No chest pain or shortness of breath. Objective - Vital Signs Vital signs: Vital Signs Temp 97.8 F 01/10/18 07:05 Pulse 106 H 01/10/18 07:05 Resp 16 01/10/18 07:05 BP 143/68 01/10/18 07:05 Pulse Ox 94 L 01/10/18 07:05 Intake & Output 01/09/18 01/10/18 01/10/18 18:59 06:59 18:59 Intake Total 1160 275 Output Total 1850 Balance -690 275 Intake: Oral 1160 275 Output: Urine 1850 Uretheral (Nieves) 1250 Other: # Voids 3 2 - Exam Head normocephalic Neck supple Lungs clear to auscultation bilaterally no wheezing or crackles Heart regular rate and rhythm S1-S2, no rub or gallop Abdomen is soft nontender nondistended positive bowel sounds no hepatosplenomegaly Extremities no edema Neuro alert and orientated to 3 - Labs CBC & Chem 7: 01/09/18 06:33 01/09/18 06:33 Labs: Abnormal Lab Results - Last 24 Hours (Table) 01/09/18 01/09/18 01/09/18 Range/Units 06:33 16:57 20:35 POC Glucose (mg/dL) 168 H 205 H (75-99) mg/dL Hemoglobin A1c 6.4 H (4.0-6.0) % 01/10/18 01/10/18 Range/Units 07:21 11:26 POC Glucose (mg/dL) 179 H 173 H (75-99) mg/dL Hemoglobin A1c (4.0-6.0) % Assessment and Plan Assessment: #1 osteoarthritis of the left hip status post total left hip arthroplasty #2 underlying history of hypertension well-controlled #3 hsy-[id number] diabetes mellitus well-controlled #4 history of chronic back pain, on chronic narcotics for pain management #5 suspected acute blood loss anemia after surgery. Hemoglobin 10.5. Patient will be placed on ferrous sulfate 3 and 25 mg daily. Repeat CBC in 1 week Patient is medically stable for discharge. We'll have her follow up with Dr. Skinner in 1 week. I performed an examination of the patient and discussed their management with the physician Salesperson Furniture. I have reviewed the Physician Salesperson Furniture's notes and agree with the documented findings and plan of care
== END 2018-01-10 14:10 | disposition home health service (06) | DRG 470 ==
LOC: 2ORMAIN 10:12 → 3SUR 16:47
PROVIDERS: ADMIT Orthopaedic Surgery; ATTEND Orthopaedic Surgery
PROC: 0SRB02A Replacement of Left Hip Joint with Metal on Polyethylene Synthetic Substitute, Uncemented, Open Approach (ICD-10-PCS; principal; 2018-01-08 13:30)
DX: M16.12 Unilateral primary osteoarthritis, left hip (principal); D62 Acute posthemorrhagic anemia; E11.9 Type 2 diabetes mellitus without complications; E55.9 Vitamin D deficiency, unspecified; E78.5 Hyperlipidemia, unspecified; G89.29 Other chronic pain; I10 Essential (primary) hypertension; K21.9 Gastro-esophageal reflux disease without esophagitis; F32.9 Major depressive disorder, single episode, unspecified; M54.5 Low back pain; I05.9 Rheumatic mitral valve disease, unspecified; Z79.01 Long term (current) use of anticoagulants; Z79.84 Long term (current) use of oral hypoglycemic drugs; Z79.891 Long term (current) use of opiate analgesic; Z79.899 Other long term (current) drug therapy; Z96.651 Presence of right artificial knee joint; Z96.641 Presence of right artificial hip joint; Z87.891 Personal history of nicotine dependence; Z86.14 Personal history of Methicillin resistant Staphylococcus aureus infection; Z83.3 Family history of diabetes mellitus; Z80.0 Family history of malignant neoplasm of digestive organs; Z82.49 Family history of ischemic heart disease and other diseases of the circulatory system; Z98.42 Cataract extraction status, left eye; Z98.41 Cataract extraction status, right eye; Z96.1 Presence of intraocular lens
CPT/HCPCS: 36415; 73501; 82565; 83036; 85025; 86850; 86891; 86900; 86901; 88300; 94760

== ENCOUNTER → 2018-01-21 | Outpatient (CLI) | payer MEDICARE, OTHER ==
[2018-01-21 17:38] LABS: HGB 9.7 gm/dL (11.4-16.0); Hypochromasia Slight; MCH 28.3 pg (25.0-35.0); MCHC 33.4 g/dL (31.0-37.0); MCV 84.7 fL (80.0-100.0); Mean Platelet Volume 6.7; Poikilocytosis Slight; RBC 3.42 m/uL (3.80-5.40); WBC 7.4 k/uL (3.8-10.6)
[2018-01-21 18:13] LABS: Platelet Count 460 k/uL (150-450)
== END | disposition home or self-care (01) ==
LOC: LABWHC1 16:27
PROVIDERS: ATTEND Physician Assistant
DX: M16.12 Unilateral primary osteoarthritis, left hip (principal)
CPT/HCPCS: 36415; 85027

== ENCOUNTER → 2018-04-30 | Outpatient (CLI) | payer MEDICARE, OTHER | END | disposition home or self-care (01) | LOC: LABPAT 14:22 | PROVIDERS: ATTEND Orthopaedic Surgery | DX: Z01.812 Encounter for preprocedural laboratory examination (principal); T84.84XD Pain due to internal orthopedic prosthetic devices, implants and grafts, subsequent encounter; Z96.642 Presence of left artificial hip joint | CPT/HCPCS: 36415; 86850; 86900; 86901 ==

== ENCOUNTER 2018-05-07 08:00 | Inpatient (IN) | payer MEDICARE, OTHER ==
[2018-04-29 14:45] VITALS: BMI 27.1
--- NOTE | 2018-05-06 09:19 | HP ---
HISTORY AND PHYSICAL CHIEF COMPLAINT: Left hip pain. HISTORY OF PRESENT ILLNESS: The patient is a 58-year-old female on disability who underwent previous left total hip arthroplasty in December of 2017, who initially did well, however, has had increasing thigh pain with weightbearing activities over the past month. She denies fevers or chills. She has regressed to using a walker. She does take multiple pain medications for her back. She was started on a Medrol dose pack with initial reasonable relief. PAST MEDICAL HISTORY: Significant for arthritis, hypertension, and chronic low back pain along with non- insulin-dependent diabetes. PAST SURGICAL HISTORY: Significant for lumbar laminectomy with subsequent osteomyelitis, I and D of a left palmar abscess, left carpal tunnel release and left total hip arthroplasty. CURRENT MEDICATIONS: Amitriptyline, Effexor, morphine, Mobic, baclofen, [place], metformin, metoprolol. ALLERGIES: She denies drug allergies. FAMILY HISTORY: Significant for cancers, Alzheimer's, diabetes, stroke and heart disease. SOCIAL HISTORY: Negative for current tobacco or alcohol use. REVIEW OF SYSTEMS: Sixteen-point review of systems otherwise reviewed and is noncontributory. PHYSICAL EXAMINATION: On examination, the patient is approximately 5 feet 6 inches, 171 pounds of endomorphic habitus. HEENT exam is nonfocal. Neck is supple. On examination of her left hip. There is no warmth or erythema. She does have some anterior tenderness. The incision site is well healed. Passive motion, flexion 90 degrees, external rotation with hip flex 60 degrees, internal rotation 20 degrees with pain. She has no significant leg length discrepancy. She has limited lumbar spine motion. Her distal neurovascular exam appears intact. AP and lateral views of the left hip obtained in the office show a total hip arthroplasty in good alignment. There appears to be lucency surrounding the femoral component. IMPRESSION: Painful left total hip arthroplasty with probable aseptic loosening of femoral component. RECOMMENDATIONS: I talked to the patient at length regarding her condition and treatment options. At this point, she does not appear to have ingrowth of her femoral component. She opts to proceed with revision left total hip arthroplasty. Risks and benefits were discussed at length in layman's terms. We will institute DVT prophylaxis postoperatively. MMODL / IJN: [id number] /
[~2018-05-07 08:00] MED LIST changes: +DEXAMETHASONE SOD PHOSPHATE 10 MG/ML 1 ML VIAL IV ONE; -LIDOCAINE 1% 20 ML VIAL (10MG/ML) FOR IV START INTRADERMA PRN; +ONDANSETRON 4 MG/2 ML VIAL IVP ONE; +VANCOMYCIN 1,000 MG in SODIUM CHLORIDE 0.9% 250 ML IVPB ONE; -VANCOMYCIN 1,250 MG in SODIUM CHLORIDE 0.9% 250 ML IVPB ONE; +fentaNYL (PF) 50 MCG/ML 2 ML AMP IV PRN
[2018-05-07 11:08] LABS: Glucose,Whole Blood 165 mg/dL (75-99)
[2018-05-07] MEDS: LACTATED RINGERS 1,000 ML IV SCH (11:12)
[2018-05-07] MEDS ORDERED: PHENYLEPHRINE-0.9% NACL SYG 1 MG/10 ML SYRINGE ONE (14:31)
[2018-05-07] MEDS ORDERED: MIDAZOLAM 2 MG/2 ML VIAL ONE (14:31)
[2018-05-07] MEDS ORDERED: PROPOFOL 10 MG/ML 20 ML VIAL IV ONE (14:31)
[2018-05-07] MEDS ORDERED: ceFAZolin 3,000 MG in SODIUM CHLORIDE 0.9% IRRIGATIO 3,000 ML IRRIGATION ONE (15:07)
[2018-05-07] MEDS ORDERED: LACTATED RINGERS 1,000 ML IV ONE (16:06)
[2018-05-07] MEDS ORDERED: TOBRAMYCIN SULFATE 1.2 GM VIAL MISCELLANE ONE ×2 (16:29→16:30)
[2018-05-07] MEDS ORDERED: VANCOMYCIN 1,000 MG VIAL MISCELLANE ONE ×2 (16:29→16:30)
[2018-05-07] MEDS ORDERED: NALOXONE 0.4 MG/ML 1 ML VIAL IV PRN (17:01)
[2018-05-07] MEDS ORDERED: ONDANSETRON 4 MG/2 ML VIAL IVP PRN (17:01)
[2018-05-07] MEDS ORDERED: HYDROmorphone 1 MG/ML 1 ML SYRINGE IVP PRN (17:01)
[2018-05-07] MEDS ORDERED: MAGNESIUM HYDROXIDE 2,400 MG/10 ML CUP PO PRN (17:01)
[2018-05-07] MEDS ORDERED: HYDROcodone/APAP 10-325MG 1 EACH TAB PO PRN (17:01)
[2018-05-07] MEDS ORDERED: VANCOMYCIN IV PER PHARMACY 1 EACH MISC MISCELLANE SCH (17:15)
--- NOTE | 2018-05-07 17:24 | P.OP ---
Date of Procedure: 05/07/18 Preoperative Diagnosis: Painful left total hip arthroplasty Postoperative Diagnosis: Loosening left total hip arthroplasty/possible deep infection Procedure(s) Performed: Revision left total hip arthroplasty/irrigation and debridement with antibody bead placement Implants: Corail size 12 revision collared femoral stem, 36 mm +5 cobalt chrome femoral head, neutral polyethylene liner Anesthesia: spinal Surgeon: Angel Moon Director Business Integration #1: Dewayne Ramirez Estimated Blood Loss (ml): 100 Pathology: other (Frozen section/synovium/deep cultures) Condition: stable Disposition: PACU Indications for Procedure: The patient is a 58-year-old female who presents with progressive left hip pain for the past month after going a prior total hip arthroplasty 4 months ago. Initially she did quite well. She's had progressive pain recently. X-rays showed possible loosening of the femoral component. Laboratory studies shows slightly elevated C-reactive protein and sed rate with a normal white count. A discussion of the risks and benefits of operative intervention was made with patient. She opted to proceed with surgery. Operative risks to include infection, neurovascular injury, development of blood clots, possible component loosening, possible leg length discrepancy and instability and possible need for subsequent procedures was discussed. Informed consent was obtained. Operative Findings: No gross purulence or fluid collection, fibrous tissue in the femoral canal Description of Procedure: The patient was brought to the operating room, and after induction of spinal anesthesia was placed in the lateral decubitus position. The pelvis was stabilized perpendicular to the floor with a pegboard. The bony prominences were appropriately padded. The left lower extremity was prepped and draped in normal fashion. A lateral incision was then made centered over the greater trochanter extending superiorly to level ASIS and distally in line with the femoral shaft. Skin and subcutaneous tissues were divided sharply. Electrocautery was used for hemostasis. The fascia chandni and gluteus javed fascia was split in line with the skin incision. The muscle fibers were bluntly dissected proximally. A self-retaining retractor was placed. The anterior, posterior margins of the gluteus medius muscles identified and the anti-two thirds detached from the greater trochanter with electrocautery. The gluteus minimus tendon was identified and detached in a similar fashion. The pseudocapsule was identified and excised. There is no significant fluid or purulence in the joint space. Hip was gently dislocated. The head was extracted. The femoral stem was then extracted easily with fibrous tissue noted at the implant bone interface. This tissue was sent for pathology which showed acute inflammation and greater than 5 neutrophils per high powered field. The polyethylene was extracted. The wound was copiously irrigated with 6 L of fluid utilizing a Pulsavac. Deep cultures were obtained. The acetabular component appear well fixed. A neutral polyethylene liner was gently impacted. Care was taken to avoid any soft tissue interposition. The femoral canal was reamed by hand up to a size 12. It was then broached up to a size 12 revision arise stem. The trial components placed with the leg perpendicular to the floor in 15 of anteversion. There was good rotational stability. A 36 mm +5 mL trial head was placed. The hip was gently reduced. I felt there was good stability in flexion and extension with internal and external rotation. I felt there is adequate zoroastrian of soft tissue tension. The hip was gently dislocated. The trial components were then removed. The final size 12 revision femoral stem was inserted again with the leg perpendicular to the floor in 15 of anteversion. This was fully seated. There was good rotational stability. A 36 mm +5 cobalt chrome femoral head was gently impacted. The hip was gently reduced. Again it was taken through range of motion felt to be stable in flexion and extension with internal and external rotation. Again I felt there is adequate zoroastrian of soft tissue tension. Pulsatile lavage was again utilized. Stimulan beads with tobramycin/vancomycin were then placed in the joint space. The gluteus medius/minimus muscles were reattached the greater trochanter with #2 Ethibond suture. The fascia chandni and gluteus javed fascia was closed in a similar fashion. The subcutaneous tissues were reapproximated with interrupted 2-0 Vicryl sutures. Skin was reapproximated with 3-0 subcuticular strata fix suture. Skin tape and adhesive was applied. A sterile dressing was applied. The patient was then awoken from sedation and transferred to recovery room in fair condition. Blood loss was estimated 100 mL. No complications were incurred. Sponge and needle counts were correct at the end the case. Sae FELIPE assisted during the major components this case to include component extraction/exposure/implantation.
--- NOTE | 2018-05-07 17:49 | XR ---
PROCEDURE: XR Hip Limited LT 1 view DATE AND TIME: 05/07/2018 5:27 PM CLINICAL INDICATION: Postoperative chest; Status post hip surgery, assess surgical alignment TECHNIQUE: AP view COMPARISON: 01/08/2018 FINDINGS: Single AP view shows the prosthesis to be in anatomic positioning and alignment as seen. Hi gh density subcentimeter multifocal predominantly rounded opacities are noted lateral to the hip and throughout the overlying lateral soft tissues. Soft tissue emphysema also noted. IMPRESSION: Postoperative AP view.
[2018-05-07 17:56] LABS: Glucose,Whole Blood 171 mg/dL (75-99)
[2018-05-07] MEDS ORDERED: MUPIROCIN 2% OINT 22 GM TUBE TOPICAL PRN (18:25)
[2018-05-07] MEDS: MORPHINE SULFATE ER 30 MG TABLET PO SCH (19:20)
[2018-05-07 20:10] LABS: Glucose,Whole Blood 268 mg/dL (75-99)
[2018-05-07] MEDS: AMITRIPTYLINE HCL 50 MG TAB PO SCH (20:28)
[2018-05-07] MEDS: VENLAFAXINE HCL 75 MG TAB PO SCH (20:29)
[2018-05-07] MEDS: SENNOSIDES-DOCUSATE SODIUM 1 EACH TAB PO SCH (20:29)
[2018-05-07] MEDS: GABAPENTIN 100 MG CAP PO SCH (20:29)
[2018-05-07] MEDS: metFORMIN 500 MG TAB PO SCH (20:29)
[2018-05-07] MEDS: INSULIN ASPART 100 UNIT/ML 1 ML 10 ML VIAL SQ SCH (20:29)
[2018-05-07] MEDS: FENOFIBRATE 160 MG TAB PO SCH (20:29)
[2018-05-07] MEDS: ATORVASTATIN 20 MG TAB PO SCH (20:29)
[2018-05-07] MEDS: HYDROmorphone 1 MG/ML 1 ML SYRINGE IVP PRN ×2 (20:30→23:38)
[2018-05-07] MEDS: BACLOFEN 10 MG TAB PO SCH (23:39)
[2018-05-07] MEDS: VANCOMYCIN 1,500 MG in SODIUM CHLORIDE 0.9% 250 ML IVPB SCH (23:39)
[2018-05-08] MEDS: MORPHINE SULFATE ER 30 MG TABLET PO SCH ×3 (02:54→18:09)
[2018-05-08] MEDS: HYDROmorphone 1 MG/ML 1 ML SYRINGE IVP PRN ×6 (02:59→21:19)
[2018-05-08] MEDS: LACTATED RINGERS 1,000 ML IV SCH (05:54)
[2018-05-08 07:01] LABS: Glucose,Whole Blood 119 mg/dL (75-99)
[2018-05-08 08:01] LABS: Basophils % (A) 0 %; Eosinophils % (A) 0 %; HCT 29.3 % (34.0-46.0); Hypochromasia Moderate; Lymphocytes # (A) 2.5 k/uL (1.0-4.8); Lymphocytes % (A) 32 %; MCH 26.1 pg (25.0-35.0); MCHC 32.4 g/dL (31.0-37.0); MCV 80.8 fL (80.0-100.0); Mean Platelet Volume 6.9; Monocytes # (A) 0.6 k/uL (0-1.0); Monocytes % (A) 8 %; Neutrophils # (A) 4.6 k/uL (1.3-7.7); Neutrophils % (A) 59 %; Platelet Count 285 k/uL (150-450); RBC 3.63 m/uL (3.80-5.40); RDW 15.2 % (11.5-15.5); WBC 7.9 k/uL (3.8-10.6)
[2018-05-08 08:04] LABS: HGB 9.5 gm/dL (11.4-16.0)
[2018-05-08] MEDS: INSULIN ASPART 100 UNIT/ML 1 ML 10 ML VIAL SQ SCH ×4 (08:08→20:24)
[2018-05-08] MEDS: VENLAFAXINE HCL 75 MG TAB PO SCH ×2 (08:14→20:21)
[2018-05-08] MEDS: HYDROcodone/APAP 10-325MG 1 EACH TAB PO PRN ×3 (08:14→20:26)
[2018-05-08] MEDS: BACLOFEN 10 MG TAB PO SCH ×3 (08:16→23:26)
[2018-05-08] MEDS: metFORMIN 500 MG TAB PO SCH ×2 (08:16→20:20)
[2018-05-08] MEDS: RIVAROXABAN 10 MG TAB PO SCH (08:17)
[2018-05-08] MEDS: GABAPENTIN 100 MG CAP PO SCH ×2 (08:17→20:20)
[2018-05-08] MEDS: METOPROLOL SUCCINATE (ER) 25 MG TAB.ER.24H PO SCH (08:18)
[2018-05-08 09:13] LABS: ALT 14 U/L (9-52); AST 20 U/L (14-36); Albumin 3.4 g/dL (3.5-5.0); Alkaline Phosphatase 88 U/L (38-126); Anion Gap 11 mmol/L; Blood Urea Nitrogen 9 mg/dL (7-17); Calcium 9.4 mg/dL (8.4-10.2); Carbon Dioxide 26 mmol/L (22-30); Chloride 103 mmol/L (98-107); Glucose 103 mg/dL (74-99); Sodium 140 mmol/L (137-145); Total Bilirubin 0.3 mg/dL (0.2-1.3); Total Protein 6.5 g/dL (6.3-8.2)
--- NOTE | 2018-05-08 10:41 | P.PN ---
Subjective Progress Note Date: 05/08/18 Principal diagnosis: Status post revision left total hip arthroplasty Patient is examined today at bedside, she appears to be in no acute distress. She is ambulating with therapy. She notes no fevers or chills. She does note some discomfort in the left hip region. Objective - Vital Signs Vital signs: Vital Signs Temp 99.0 F 05/08/18 07:32 Pulse 106 H 05/08/18 07:32 Resp 16 05/08/18 07:32 BP 121/72 05/08/18 07:32 Pulse Ox 94 L 05/08/18 07:32 Intake & Output 05/07/18 05/08/18 05/08/18 18:59 06:59 18:59 Intake Total 1462 363 Output Total 400 1650 1550 Balance 1062 -1287 -1550 Intake: IV 1462 Intake, IV Titration 245 Amount Lactated Ringers 1,000 ml 245 @ 70 mls/hr IV .[id number] [facility] Rx#:[id number] Oral 118 Output: Urine 300 1650 1550 Uretheral (Nieves) 1550 Estimated Blood Loss 100 Other: Voiding Method Indwelling Catheter Indwelling Catheter - Exam Left lower extremity: Incision is clean, dry, and intact. The prineo tape is in good condition. There is minimal soft tissue swelling and ecchymosis surrounding the medial and lateral aspects of the incision. Calf is soft, no tenderness with palpation. Plantar flexion, dorsiflexion, EHL, FHL are intact. Sensory exam to light touch throughout the extremity is intact, dorsal pedis pulses 2+. - Labs CBC & Chem 7: 05/08/18 06:48 05/08/18 06:48 Labs: Abnormal Lab Results - Last 24 Hours (Table) 05/07/18 05/07/18 05/07/18 Range/Units 10:49 17:54 20:08 RBC (3.80-5.40) m/uL Hgb (11.4-16.0) gm/dL Hct (34.0-46.0) % Glucose (74-99) mg/dL POC Glucose (mg/dL) 165 H 171 H 268 H (75-99) mg/dL Albumin (3.5-5.0) g/dL 05/08/18 05/08/18 05/08/18 Range/Units 06:48 06:48 07:00 RBC 3.63 L (3.80-5.40) m/uL Hgb 9.5 L D (11.4-16.0) gm/dL Hct 29.3 L (34.0-46.0) % Glucose 103 H (74-99) mg/dL POC Glucose (mg/dL) 119 H (75-99) mg/dL Albumin 3.4 L (3.5-5.0) g/dL Microbiology - Last 24 Hours (Table) 05/07/18 16:12 Gram Stain - Preliminary Hip - Left Wound Culture - Preliminary 05/07/18 16:12 Gram Stain - Preliminary Hip - Left Wound Culture - Preliminary 05/07/18 16:12 Anaerobic Culture - Preliminary Hip - Left 05/07/18 16:12 Anaerobic Culture - Preliminary Hip - Left Assessment and Plan Plan: Assessment: 1. Postop day #1 status post revision left total hip arthroplasty 2. Possible deep infection left hip Plan: Pain control, continue use of oral medications Daily dressing changes Continue daily work with physical therapy Await culture and sensitivity results. Infectious disease recommendations. I did leave the patient on vancomycin due to the pathology results from surgery GI and DVT prophylaxis, continue current medication Medical recommendations Further recommendations to follow Time with Patient: Less than 30
[2018-05-08 12:21] LABS: Glucose,Whole Blood 193 mg/dL (75-99)
--- NOTE | 2018-05-08 12:42 | CONS ---
CONSULTATION DATE OF SERVICE: 05/08/2018 REASON FOR CONSULTATION: Possible left hip infection. HISTORY OF PRESENT ILLNESS: The patient is a 58-year-old female who is status post left hip arthroplasty in December of 2017. The patient has done well post surgery and the incision has healed. However, the last month the patient seemed to be having more problem with pain to the left hip area, especially on walking in such a position of movement of the hip. The pain describing to be sharp at times dull aching, with at times almost at 10 out of 10 when severe with no radiation down to the leg. The patient denies any associated fever, rigors and chills. With concern for possible loosening of the prosthetic joint, she was advised admission to the hospital for surgery for the same. The patient apparently did have a elevated Sed rate and CRP in the outpatient setting, but the white count was normal. The patient was taken to the OR yesterday and at the time of surgery no purulence or pus was noted on entering the capsule. However, the pathology did show evidence of acute inflammation of more than 5 neutrophils; hence, decision was made for excision arthroplasty and placement of antibiotic spacer. She was started on vancomycin. Infectious Disease was consulted for further recommendation regarding antibiotic therapy. As of this morning, the patient did have a low-grade fever of 99.8, however, denies any high-grade fever, rigors or chills. The patient denies having any headache. Denies having any chest pain, shortness of breath or cough. No abdominal pain. No diarrhea. Pain to the left hip is currently controlled with pain medication. REVIEW OF SYSTEMS: CONSTITUTIONAL: Positive for weakness, but denies any high-grade fever. EYES: No complaint. ENT: No complaint. RESPIRATORY: No complaint. CARDIOVASCULAR: No complaint. GENITOURINARY: No complaint. GASTROINTESTINAL: No complaint. MUSCULOSKELETAL: As per HPI. INTEGUMENTARY: As per HPI. PSYCHOLOGICAL: No complaint. ENDOCRINE: No complaint. NEUROLOGIC: No complaint. PAST MEDICAL HISTORY: Significant for osteoarthritis, hypertension, chronic back pain, and type 2 diabetes mellitus. PAST SURGICAL HISTORY: Lumbar laminectomy and did have osteomyelitis afterwards, I and D of the left palmar abscess, left carpal tunnel release, left hip arthroplasty in December of 2017. SOCIAL HISTORY: Denies smoking, drinking, or drug use. FAMILY HISTORY: No pertinent findings noticed. ALLERGIES: No known drug allergies. MEDICATION: Medications currently include the patient is on [place], Elavil, Lipitor, baclofen, vitamin D2, fenofibrate, Neurontin, Dilaudid, NovoLog, Glucophage, Toprol-XL, MS Contin, Narcan, Zofran, Xarelto, vancomycin and Effexor. PHYSICAL EXAMINATION: On examination, blood pressure is 121/72 with a pulse of 106, temperature of 99, T 99.8. She is 94% on room air. General description is a middle-aged female up in the bed in no distress. No tachypnea or accessory muscle of respiration use. HEENT examination shows slight pallor. No scleral icterus. Oral mucous membrane is dry. No pharyngeal erythema or thrush. NECK: Trachea central. No thyromegaly. LUNGS: Unlabored breathing, clear to auscultation. No wheeze or crackle. HEART: S1, S2. Regular rate and rhythm. ABDOMEN: Soft, no tenderness. No guarding or rigidity. EXTREMITIES: No edema of feet. SKIN EXAMINATION: No rash or mass palpable. NEUROLOGICAL: Patient is awake, alert, oriented x3. Mood and affect normal. MUSCULOSKELETAL: Left hip incision is currently dressed up, no obvious drainage on the dressing. LABS: Hemoglobin is 9.5, white count 7.9 with a BUN of 9, creatinine 0.60. Electrolytes have been normal. Liver enzymes are normal. OR cultures pending. No blood cultures done. DIAGNOSTIC IMPRESSION AND PLAN: The patient admitted to the hospital with left hip pain with concern for possible loosening of the prosthetic joint; however, at time of surgery she was noticed to have inflammation with more than 5 neutrophils per high-power field with concern for possible infected joint, status post I and D in a patient who did not have any high-grade fever and the patient did not have any cellulitis at the site with a question of inflammation related to the loosening of the joint versus an infectious etiology in which case we should have seen a high-grade fever, more purulence at that site. Infection less likely but not entirely excluded. PLAN: 1. Blood cultures x1. 2. We will check a baseline Sed rate and CRP. 3. We will keep the patient on vancomycin pharmacy to dose, target of 15, however, add Fortaz 2 grams q.8 while waiting for the cultures to finalize. 4. Depending upon the clinical response as well as cultures will determine her discharge antibiotic. Thank you for this consultation. Will follow this patient along with you. MMODL / IJN: [id number] /
[2018-05-08] MEDS: VANCOMYCIN 1,500 MG in SODIUM CHLORIDE 0.9% 250 ML IVPB SCH (14:00)
--- NOTE | 2018-05-08 14:39 | P.CONS ---
History of Present Illness - Reason for Consult Consult date: 05/08/18 medical management Requesting physician: Dewayne Ramirez - Chief Complaint Left total hip arthroplasty with debridement - History of Present Illness This is a 58-year-old female patient who recently underwent a previous left total hip arthroplasty on December 2017. Patient had increasing thigh pain with weightbearing activities of the past month. Patient presented to the surgical office in [place] and lateral views of left hips were obtained showing a total hip arthroplasty in good alignment. There appears to be lucency surrounding the femoral component. Patient presented to the hospital for an elective revision left total hip arthroplasty and irrigation and debridement with antibody bead placement. Patient has known past medical history of diabetes mellitus, eye disorder, hyperlipidemia, hypertension, osteoporosis, pneumonia, back surgery, and depression. Dr. Almodovar has been consulted for infectious disease. Patient currently on Fortaz and vancomycin for antibiotic. Left hip wound cultures obtained. At this time patient is resting comfortably bed. Does complain of some pain to hip. Patient denies chest pain or shortness breath. Patient denies any urinary burning or frequency. Patient denies nausea vomiting or diarrhea. Patient has been up walking. 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 rt knee replacement, mult breast biopsies, regina carpal tunnel. regina cataracts, left hip replaced December 2017 Past Anesthesia/Blood Transfusion Reactions: No Reported Reaction Additional Past Anesthesia/Blood Transfusion Reaction / Comm: Pt has never received blood. Past Psychological History: Depression Additional Psychological History / Comment(s): . Smoking Status: Former smoker Past Alcohol Use History: None Reported Additional Past Alcohol Use History / Comment(s): Pt started smoking in 1971 and quit in 2007, 1 PPD Past Drug Use History: Marijuana - Past Family History Sister(s) Family Medical History: Cancer Additional Family Medical History / Comment(s): BREAST Mother Family Medical History: Cancer Additional Family Medical History / Comment(s): colon cancer Father Family Medical History: CVA/TIA Medications and Allergies Home Medications Medication Instructions Recorded Confirmed Type Simvastatin [Zocor] 40 mg PO HS 02/18/15 05/07/18 History Venlafaxine HCl 150 mg PO BID 02/18/15 05/07/18 History Amitriptyline HCl 50 mg PO HS #30 tablet 03/22/15 05/07/18 Rx Morphine Sulfate ER [Ms Contin] 30 mg PO Q8H #90 tablet 03/22/15 05/07/18 Rx Gabapentin [Neurontin] 100 mg PO QAM 03/30/15 05/07/18 History Gabapentin [Neurontin] 200 mg PO HS 03/30/15 05/07/18 History Metoprolol Succinate (ER) [Toprol 25 mg PO DAILY #90 tab.er.24h 08/12/15 Rx XL] Fenofibrate,Micronized 134 mg PO HS 12/01/16 05/07/18 History [Fenofibrate] Baclofen [Lioresal] 10 mg PO Q8HR 12/26/17 05/07/18 History metFORMIN HCL [Glucophage] 500 mg PO BID 12/26/17 05/07/18 History Ergocalciferol [Vitamin D2 50,000 unit PO FR 01/01/18 05/07/18 History (DRISDOL)] Mupirocin Calcium 2% Cream 1 applic TOPICAL BID PRN 01/08/18 05/07/18 History [Bactroban 2% Cream] Meloxicam [Mobic] 15 mg PO DAILY 04/29/18 05/07/18 History Hydrocodone/Acetaminophen [Olden 1 - 2 tab PO Q6H PRN 05/07/18 05/07/18 History 10-325] Allergies Allergy/AdvReac Type Severity Reaction Status Date / Time No Known Allergies Allergy Verified 05/07/18 18:12 Physical Exam Vitals: Vital Signs Temp Pulse Pulse Resp BP Pulse Ox 05/08/18 07:32 99.0 F 106 H 16 121/72 94 L 05/08/18 00:00 99.8 F H 110 H 18 177/61 92 L 05/07/18 20:15 106 H 130/67 05/07/18 20:00 106 H 141/80 05/07/18 19:45 103 H 133/71 05/07/18 19:30 99 127/72 05/07/18 19:15 94 129/74 05/07/18 18:00 85 16 125/71 92 L 05/07/18 17:45 87 16 117/62 92 L 05/07/18 17:30 86 16 118/68 98 05/07/18 17:16 98.5 F 83 14 109/60 100 05/07/18 16:45 88 124/72 05/07/18 16:30 93 115/69 05/07/18 16:15 87 112/54 05/07/18 16:00 98.8 F 92 16 115/80 97 Intake and Output 05/07/18 05/08/18 05/08/18 22:59 06:59 14:59 Intake Total 1425 1650 Output Total 400 1650 1550 Balance 1025 -1650 100 Intake: IV 1062 Intake, IV Titration 245 650 Amount Lactated Ringers 1,000 ml 245 @ 70 mls/hr IV .[id number] [facility] Rx#:[id number] cefTAZidime 2 gm In 650 Sodium Chloride 0.9% 100 ml @ 100 mls/hr IVPB Q8HR [facility] Rx#:[id number] Oral 118 1000 Output: Urine 300 1650 1550 Uretheral (Nieves) 1550 Estimated Blood Loss 100 Other: Voiding Method Indwelling Catheter Indwelling Catheter Head normocephalic Neck supple Lungs clear to auscultation bilaterally no wheezing or crackles Heart regular rate and rhythm S1-S2, no rub or gallop Abdomen is soft nontender nondistended positive bowel sounds no hepatosplenomegaly Extremities no edema. Left hip dressing clean dry and intact Neuro alert and orientated to 3 Results CBC & Chem 7: 05/08/18 06:48 05/08/18 06:48 Labs: Abnormal Lab Results - Last 24 Hours (Table) 05/07/18 05/07/18 05/08/18 Range/Units 17:54 20:08 06:48 RBC 3.63 L (3.80-5.40) m/uL Hgb 9.5 L D (11.4-16.0) gm/dL Hct 29.3 L (34.0-46.0) % ESR (0-20) mm/hr Glucose (74-99) mg/dL POC Glucose (mg/dL) 171 H 268 H (75-99) mg/dL Albumin (3.5-5.0) g/dL 05/08/18 05/08/18 05/08/18 Range/Units 06:48 07:00 10:20 RBC (3.80-5.40) m/uL Hgb (11.4-16.0) gm/dL Hct (34.0-46.0) % ESR 35 H (0-20) mm/hr Glucose 103 H (74-99) mg/dL POC Glucose (mg/dL) 119 H (75-99) mg/dL Albumin 3.4 L (3.5-5.0) g/dL 05/08/18 Range/Units 12:18 RBC (3.80-5.40) m/uL Hgb (11.4-16.0) gm/dL Hct (34.0-46.0) % ESR (0-20) mm/hr Glucose (74-99) mg/dL POC Glucose (mg/dL) 193 H (75-99) mg/dL Albumin (3.5-5.0) g/dL Microbiology - Last 24 Hours (Table) 05/07/18 16:12 Gram Stain - Preliminary Hip - Left Wound Culture - Preliminary 05/07/18 16:12 Gram Stain - Preliminary Hip - Left Wound Culture - Preliminary 05/07/18 16:12 Anaerobic Culture - Preliminary Hip - Left 05/07/18 16:12 Anaerobic Culture - Preliminary Hip - Left Assessment and Plan Assessment: 1. Status post revision of left total hip arthroplasty and irrigation and debridement with antibiotic bead placement. Patient currently on Fortaz and vancomycin. Infectious disease consulted. Left hip wound cultures obtained. Patient currently on Zaroxolyn for DVT prophylaxis. Temp 99.8. White blood cell 7.9. 2. History of diabetes mellitus. Metformin and sliding scale has been ordered 3. History of hyperlipidemia. Continue Lipitor 4. Essential hypertension 5. Osteoarthritis 6. history of depression. Continue Elavil and Effexor 7. History of chronic back pain DVT prophylaxis xarelto. GI prophylaxis Pepcid A.m. labs have been ordered Thank you for this consultation we'll continue to follow patient closely throughout stay Time with Patient: Greater than 30 (Greater than 60% of the total time spent in counseling and coordination of care. I performed an examination of the patient and discussed their management with the Nurse Practitioner. I have reviewed the Nurse Practitioner's notes and agree with the documented findings and plan of care)
[2018-05-08 17:51] LABS: Glucose,Whole Blood 179 mg/dL (75-99)
[2018-05-08 20:02] LABS: Glucose,Whole Blood 204 mg/dL (75-99)
[2018-05-08] MEDS: SENNOSIDES-DOCUSATE SODIUM 1 EACH TAB PO SCH (20:18)
[2018-05-08] MEDS: FENOFIBRATE 160 MG TAB PO SCH (20:20)
[2018-05-08] MEDS: ATORVASTATIN 20 MG TAB PO SCH (20:20)
[2018-05-08] MEDS: AMITRIPTYLINE HCL 50 MG TAB PO SCH (20:21)
[2018-05-09] MEDS: VANCOMYCIN 1,500 MG in SODIUM CHLORIDE 0.9% 250 ML IVPB SCH ×2 (00:42→12:43)
[2018-05-09] MEDS: HYDROmorphone 1 MG/ML 1 ML SYRINGE IVP PRN ×5 (00:52→18:45)
[2018-05-09] MEDS: MORPHINE SULFATE ER 30 MG TABLET PO SCH ×3 (02:34→18:46)
[2018-05-09] MEDS: HYDROcodone/APAP 10-325MG 1 EACH TAB PO PRN ×4 (03:07→22:40)
[2018-05-09] MEDS: LACTATED RINGERS 1,000 ML IV SCH (05:43)
[2018-05-09 06:55] LABS: Glucose,Whole Blood 144 mg/dL (75-99)
[2018-05-09 07:12] LABS: Basophils % (A) 1 %; Eosinophils # (A) 0.2 k/uL (0-0.7); Eosinophils % (A) 2 %; HCT 29.1 % (34.0-46.0); Hypochromasia Moderate; Lymphocytes % (A) 30 %; MCH 25.4 pg (25.0-35.0); MCV 82.1 fL (80.0-100.0); Mean Platelet Volume 6.4; Monocytes # (A) 0.5 k/uL (0-1.0); Monocytes % (A) 8 %; Neutrophils # (A) 3.9 k/uL (1.3-7.7); Neutrophils % (A) 57 %; Platelet Count 239 k/uL (150-450); RBC 3.54 m/uL (3.80-5.40); RDW 15.3 % (11.5-15.5); WBC 6.8 k/uL (3.8-10.6)
[2018-05-09] MEDS: BACLOFEN 10 MG TAB PO SCH ×3 (07:32→23:35)
[2018-05-09 07:46] LABS: ALT 19 U/L (9-52); AST 22 U/L (14-36); Albumin 3.2 g/dL (3.5-5.0); Alkaline Phosphatase 84 U/L (38-126); Anion Gap 6 mmol/L; Blood Urea Nitrogen 8 mg/dL (7-17); Calcium 9.3 mg/dL (8.4-10.2); Carbon Dioxide 32 mmol/L (22-30); Chloride 103 mmol/L (98-107); Glucose 143 mg/dL (74-99); Potassium 4.2 mmol/L (3.5-5.1); Sodium 141 mmol/L (137-145); Total Bilirubin 0.4 mg/dL (0.2-1.3); Total Protein 6.2 g/dL (6.3-8.2)
[2018-05-09] MEDS: INSULIN ASPART 100 UNIT/ML 1 ML 10 ML VIAL SQ SCH ×4 (08:44→20:36)
[2018-05-09] MEDS: metFORMIN 500 MG TAB PO SCH ×2 (08:52→20:37)
[2018-05-09] MEDS: FAMOTIDINE 20 MG TAB PO SCH (08:52)
[2018-05-09] MEDS: GABAPENTIN 100 MG CAP PO SCH ×2 (08:52→20:36)
[2018-05-09] MEDS: RIVAROXABAN 10 MG TAB PO SCH (08:53)
[2018-05-09] MEDS: VENLAFAXINE HCL 75 MG TAB PO SCH ×2 (08:53→20:41)
[2018-05-09] MEDS: METOPROLOL SUCCINATE (ER) 25 MG TAB.ER.24H PO SCH (08:53)
--- NOTE | 2018-05-09 09:07 | P.PN ---
Subjective Progress Note Date: 05/09/18 Principal diagnosis: Status post revision left total hip arthroplasty Patient is examined today at bedside, she appears to be in no acute distress. She is ambulating with therapy. She notes no fevers or chills. She does note some discomfort in the left hip region. Objective - Vital Signs Vital signs: Vital Signs Temp 99.3 F 05/09/18 07:00 Pulse 91 05/09/18 07:00 Resp 14 05/09/18 07:00 BP 152/79 05/09/18 07:00 Pulse Ox 99 05/09/18 07:00 Intake & Output 05/08/18 05/09/18 05/09/18 18:59 06:59 18:59 Intake Total 2250 978 Output Total 1550 Balance 700 978 Intake: Intake, IV Titration 650 560 Amount Lactated Ringers 1,000 ml 560 @ 70 mls/hr IV .[id number] [facility] Rx#:[id number] cefTAZidime 2 gm In 650 Sodium Chloride 0.9% 100 ml @ 100 mls/hr IVPB Q8HR [facility] Rx#:[id number] Oral 1600 118 Other 300 Output: Urine 1550 Uretheral ([place]ieves) 1550 Other: Voiding Method Indwelling Catheter # Voids 1 5 - Exam Left lower extremity: Incision is clean, dry, and intact. The prineo tape is in good condition. There is minimal soft tissue swelling and ecchymosis surrounding the medial and lateral aspects of the incision. Calf is soft, no tenderness with palpation. Plantar flexion, dorsiflexion, EHL, FHL are intact. Sensory exam to light touch throughout the extremity is intact, dorsal pedis pulses 2+. - Labs CBC & Chem 7: 05/09/18 06:40 05/09/18 06:40 Labs: Abnormal Lab Results - Last 24 Hours (Table) 05/08/18 05/08/18 05/08/18 Range/Units 06:48 10:20 10:20 RBC (3.80-5.40) m/uL Hgb (11.4-16.0) gm/dL Hct (34.0-46.0) % ESR 35 H (0-20) mm/hr Carbon Dioxide (22-30) mmol/L Glucose 103 H (74-99) mg/dL POC Glucose (mg/dL) (75-99) mg/dL C-Reactive Protein 19.5 H (<10.0) mg/L Total Protein (6.3-8.2) g/dL Albumin 3.4 L (3.5-5.0) g/dL 05/08/18 05/08/18 05/08/18 Range/Units 12:18 17:50 19:57 RBC (3.80-5.40) m/uL Hgb (11.4-16.0) gm/dL Hct (34.0-46.0) % ESR (0-20) mm/hr Carbon Dioxide (22-30) mmol/L Glucose (74-99) mg/dL POC Glucose (mg/dL) 193 H 179 H 204 H (75-99) mg/dL C-Reactive Protein (<10.0) mg/L Total Protein (6.3-8.2) g/dL Albumin (3.5-5.0) g/dL 05/09/18 05/09/18 05/09/18 Range/Units 06:40 06:40 06:53 RBC 3.54 L (3.80-5.40) m/uL Hgb 9.0 L (11.4-16.0) gm/dL Hct 29.1 L (34.0-46.0) % ESR (0-20) mm/hr Carbon Dioxide 32 H (22-30) mmol/L Glucose 143 H (74-99) mg/dL POC Glucose (mg/dL) 144 H (75-99) mg/dL C-Reactive Protein (<10.0) mg/L Total Protein 6.2 L (6.3-8.2) g/dL Albumin 3.2 L (3.5-5.0) g/dL Microbiology - Last 24 Hours (Table) 05/07/18 16:12 Gram Stain - Preliminary Hip - Left Wound Culture - Preliminary 05/07/18 16:12 Gram Stain - Preliminary Hip - Left Wound Culture - Preliminary Assessment and Plan Plan: Assessment: 1. Postop day #2 status post revision left total hip arthroplasty 2. Possible deep infection left hip Plan: Pain control, continue use of oral medications Daily dressing changes Continue daily work with physical therapy Await culture and sensitivity results. Infectious disease recommendations GI and DVT prophylaxis, continue current medication Medical recommendations Further recommendations to follow Time with Patient: Less than 30
[2018-05-09] MEDS ORDERED: VANCOMYCIN TROUGH DUE 1 EACH MISC MISCELLANE ONE (11:00)
[2018-05-09 12:25] LABS: Glucose,Whole Blood 104 mg/dL (75-99)
--- NOTE | 2018-05-09 13:52 | P.PN ---
Subjective Progress Note Date: 05/09/18 This is a 58-year-old female patient who recently underwent a previous left total hip arthroplasty on December 2017. Patient had increasing thigh pain with weightbearing activities of the past month. Patient presented to the surgical office in [place] and lateral views of left hips were obtained showing a total hip arthroplasty in good alignment. There appears to be lucency surrounding the femoral component. Patient presented to the hospital for an elective revision left total hip arthroplasty and irrigation and debridement with antibody bead placement. Patient has known past medical history of diabetes mellitus, eye disorder, hyperlipidemia, hypertension, osteoporosis, pneumonia, back surgery, and depression. Dr. Almodovar has been consulted for infectious disease. Patient currently on Fortaz and vancomycin for antibiotic. Left hip wound cultures obtained. At this time patient is resting comfortably bed. Does complain of some pain to hip. Patient denies chest pain or shortness breath. Patient denies any urinary burning or frequency. Patient denies nausea vomiting or diarrhea. Patient has been up walking. incentive spirometer encouraged 05/09/2018 patient is still requiring IV Dilaudid to help with pain control that left hip. Cultures are pending. Remains on vancomycin for her hypertension. Hemoglobin has dropped from 9.5 down to 9. She'll be placed on ferrous sulfate. She reports no bowel movement yet. Denies any chest pain shortness of breath. Denies any nausea or vomiting. Denies any burning with urination. Objective - Vital Signs Vital signs: Vital Signs Temp 99.3 F 05/09/18 07:00 Pulse 91 05/09/18 07:00 Resp 14 05/09/18 07:00 BP 152/79 05/09/18 07:00 Pulse Ox 99 05/09/18 07:00 Intake & Output 05/08/18 05/09/18 05/09/18 18:59 06:59 18:59 Intake Total 2250 978 250 Output Total 1550 Balance 700 978 250 Intake: Intake, IV Titration 650 560 250 Amount Lactated Ringers 1,000 ml 560 @ 70 mls/hr IV .[id number] [facility] Rx#:[id number] Vancomycin 1,250 mg In 250 Sodium Chloride 0.9% 250 ml @ 125 mls/hr IVPB Q8H [facility] Rx#:[id number] cefTAZidime 2 gm In 650 Sodium Chloride 0.9% 100 ml @ 100 mls/hr IVPB Q8HR [facility] Rx#:[id number] Oral 1600 118 Other 300 Output: Urine 1550 Uretheral (Nieves) 1550 Other: Voiding Method Indwelling Catheter # Voids 1 5 2 - Exam Head normocephalic Neck supple Lungs clear to auscultation bilaterally no wheezing or crackles Heart regular rate and rhythm S1-S2, no rub or gallop Abdomen is soft nontender nondistended positive bowel sounds no hepatosplenomegaly Extremities tenderness to palpation of the left hip. Incision site clean dry and intact. Neuro alert and orientated to 3 - Labs CBC & Chem 7: 05/09/18 06:40 05/09/18 06:40 Labs: Abnormal Lab Results - Last 24 Hours (Table) 05/08/18 05/08/18 05/08/18 Range/Units 10:20 17:50 19:57 RBC (3.80-5.40) m/uL Hgb (11.4-16.0) gm/dL Hct (34.0-46.0) % Carbon Dioxide (22-30) mmol/L Glucose (74-99) mg/dL POC Glucose (mg/dL) 179 H 204 H (75-99) mg/dL C-Reactive Protein 19.5 H (<10.0) mg/L Total Protein (6.3-8.2) g/dL Albumin (3.5-5.0) g/dL 05/09/18 05/09/18 05/09/18 Range/Units 06:40 06:40 06:53 RBC 3.54 L (3.80-5.40) m/uL Hgb 9.0 L (11.4-16.0) gm/dL Hct 29.1 L (34.0-46.0) % Carbon Dioxide 32 H (22-30) mmol/L Glucose 143 H (74-99) mg/dL POC Glucose (mg/dL) 144 H (75-99) mg/dL C-Reactive Protein (<10.0) mg/L Total Protein 6.2 L (6.3-8.2) g/dL Albumin 3.2 L (3.5-5.0) g/dL 05/09/18 Range/Units 12:23 RBC (3.80-5.40) m/uL Hgb (11.4-16.0) gm/dL Hct (34.0-46.0) % Carbon Dioxide (22-30) mmol/L Glucose (74-99) mg/dL POC Glucose (mg/dL) 104 H (75-99) mg/dL C-Reactive Protein (<10.0) mg/L Total Protein (6.3-8.2) g/dL Albumin (3.5-5.0) g/dL Microbiology - Last 24 Hours (Table) 05/08/18 10:20 Blood Culture - Preliminary Blood No Growth after 24 hours 05/07/18 16:12 Gram Stain - Preliminary Hip - Left Wound Culture - Preliminary 05/07/18 16:12 Gram Stain - Preliminary Hip - Left Wound Culture - Preliminary Assessment and Plan Assessment: 1. Status post revision of left total hip arthroplasty and irrigation and debridement with antibiotic bead placement. Patient currently on Fortaz and vancomycin. Infectious disease consulted. Left hip wound cultures obtained. Patient currently on Xarelto for DVT prophylaxis. Temp 99.8. White blood cell 7.9. 2. History of diabetes mellitus. Metformin and sliding scale has been ordered 3. History of hyperlipidemia. Continue Lipitor 4. Essential hypertension 5. Osteoarthritis 6. history of depression. Continue Elavil and Effexor 7. History of chronic back pain DVT prophylaxis xarelto. GI prophylaxis Pepcid I performed an examination of the patient and discussed their management with the physician On Site Services Specialist. I have reviewed the Physician On Site Services Specialist's notes and agree with the documented findings and plan of care
[2018-05-09 16:53] LABS: Glucose,Whole Blood 172 mg/dL (75-99)
[2018-05-09] MEDS: FERROUS SULFATE 325 MG TAB PO SCH (17:28)
[2018-05-09 20:06] LABS: Glucose,Whole Blood 180 mg/dL (75-99)
[2018-05-09] MEDS: AMITRIPTYLINE HCL 50 MG TAB PO SCH (20:35)
[2018-05-09] MEDS: FENOFIBRATE 160 MG TAB PO SCH (20:36)
[2018-05-09] MEDS: ATORVASTATIN 20 MG TAB PO SCH (20:36)
[2018-05-09] MEDS: SENNOSIDES-DOCUSATE SODIUM 1 EACH TAB PO SCH (20:37)
[2018-05-09] MEDS: VANCOMYCIN 1,250 MG in SODIUM CHLORIDE 0.9% 250 ML IVPB SCH (20:37)
--- NOTE | 2018-05-09 22:34 | PN ---
PROGRESS NOTE DATE OF SERVICE: 05/09/2018 REASON FOR FOLLOWUP: Possible left hip septic arthritis. INTERVAL HISTORY: The patient did have a low-grade fever of 100.2 this afternoon. The patient complaining of pain to the left hip area, more of a throbbing to dull aching pain. The patient denies having any chest pain or shortness of breath or cough. No abdominal pain or diarrhea. PHYSICAL EXAMINATION: Blood pressure 125/71 with a pulse of 106, temperature 100.2. She is 96% on room air. General description is a middle-aged female up in the bed in no distress. RESPIRATORY SYSTEM: Unlabored breathing. Clear to auscultation anteriorly. HEART: S1, S2. Regular rate and rhythm. ABDOMEN: Soft. No tenderness. Left foot wound is currently dressed up; no obvious drainage on the dressing. DIAGNOSTIC IMPRESSION AND PLAN: Patient with left hip pain with initial concern about possible loosening of the prosthesis; at the time of surgery noticed to have a high neutrophil count status post arthroplasty. We are waiting for the culture to finalize to determine discharge antibiotic. Will keep the patient on the Fortaz and vancomycin in view of her new fever. Blood cultures will be repeated and monitored closely. Continue supportive care. MMODL / IJN: [id number] /
[2018-05-10 00:56] VITALS: RESP 16
[2018-05-10] MEDS: MORPHINE SULFATE ER 30 MG TABLET PO SCH ×2 (02:33→10:38)
[2018-05-10] MEDS: HYDROmorphone 1 MG/ML 1 ML SYRINGE IVP PRN ×2 (02:47→09:37)
[2018-05-10] MEDS: VANCOMYCIN 1,250 MG in SODIUM CHLORIDE 0.9% 250 ML IVPB SCH ×2 (04:44→15:40)
[2018-05-10] MEDS: LACTATED RINGERS 1,000 ML IV SCH (05:21)
[2018-05-10] MEDS: HYDROcodone/APAP 10-325MG 1 EACH TAB PO PRN ×2 (06:19→13:04)
[2018-05-10 06:53] LABS: Glucose,Whole Blood 166 mg/dL (75-99)
[2018-05-10] MEDS: FERROUS SULFATE 325 MG TAB PO SCH (07:37)
[2018-05-10] MEDS: INSULIN ASPART 100 UNIT/ML 1 ML 10 ML VIAL SQ SCH ×2 (07:37→13:00)
[2018-05-10] MEDS: BACLOFEN 10 MG TAB PO SCH ×2 (07:37→15:22)
[2018-05-10 08:04] LABS: Basophils % (A) 0 %; Eosinophils # (A) 0.2 k/uL (0-0.7); Eosinophils % (A) 3 %; HCT 28.4 % (34.0-46.0); HGB 8.8 gm/dL (11.4-16.0); Hypochromasia Slight; Lymphocytes # (A) 1.9 k/uL (1.0-4.8); Lymphocytes % (A) 32 %; MCH 24.8 pg (25.0-35.0); MCV 80.1 fL (80.0-100.0); Mean Platelet Volume 7.2; Monocytes # (A) 0.5 k/uL (0-1.0); Monocytes % (A) 8 %; Neutrophils # (A) 3.3 k/uL (1.3-7.7); Neutrophils % (A) 55 %; Platelet Count 248 k/uL (150-450); RBC 3.55 m/uL (3.80-5.40); RDW 15.5 % (11.5-15.5)
[2018-05-10 08:18] LABS: ALT 24 U/L (9-52); AST 25 U/L (14-36); Albumin 3.2 g/dL (3.5-5.0); Alkaline Phosphatase 91 U/L (38-126); Anion Gap 9 mmol/L; Blood Urea Nitrogen 8 mg/dL (7-17); Calcium 9.2 mg/dL (8.4-10.2); Carbon Dioxide 31 mmol/L (22-30); Chloride 101 mmol/L (98-107); Glucose 125 mg/dL (74-99); Potassium 4.3 mmol/L (3.5-5.1); Sodium 141 mmol/L (137-145); Total Bilirubin 0.4 mg/dL (0.2-1.3); Total Protein 6.4 g/dL (6.3-8.2)
[2018-05-10] MEDS: METOPROLOL SUCCINATE (ER) 25 MG TAB.ER.24H PO SCH (10:34)
[2018-05-10] MEDS: GABAPENTIN 100 MG CAP PO SCH (10:34)
[2018-05-10] MEDS: RIVAROXABAN 10 MG TAB PO SCH (10:34)
[2018-05-10] MEDS: FAMOTIDINE 20 MG TAB PO SCH (10:34)
[2018-05-10] MEDS: metFORMIN 500 MG TAB PO SCH (10:35)
[2018-05-10] MEDS: VENLAFAXINE HCL 75 MG TAB PO SCH (10:38)
[2018-05-10 11:27] LABS: Glucose,Whole Blood 115 mg/dL (75-99)
[2018-05-10] MEDS ORDERED: ERGOCALCIFEROL 50,000 UNIT CAP PO SCH (12:00)
--- NOTE | 2018-05-10 12:55 | P.PN ---
Progress Note - Text Progress Note Date: 05/10/18 S: The patient has no complaints. They deny shortness of breath or chest pain. O: Afebrile, vital signs stable Homans negative left lower extremity Distal neurovascular status intact left lower extremity Incision clean, dry , and intact left hip Deep cultures negative/final A/P: Postoperative day 3 status post left revision total hip arthroplasty Discharge home today Weightbearing as tolerated with walker Bactrim DS twice daily as prescribed by infectious disease Follow-up 2 weeks Xarelto as prescribed
--- NOTE | 2018-05-10 13:08 | P.PN ---
Subjective Progress Note Date: 05/10/18 This is a 58-year-old female patient who recently underwent a previous left total hip arthroplasty on December 2017. Patient had increasing thigh pain with weightbearing activities of the past month. Patient presented to the surgical office in [place] and lateral views of left hips were obtained showing a total hip arthroplasty in good alignment. There appears to be lucency surrounding the femoral component. Patient presented to the hospital for an elective revision left total hip arthroplasty and irrigation and debridement with antibody bead placement. Patient has known past medical history of diabetes mellitus, eye disorder, hyperlipidemia, hypertension, osteoporosis, pneumonia, back surgery, and depression. Dr. Almodovar has been consulted for infectious disease. Patient currently on Fortaz and vancomycin for antibiotic. Left hip wound cultures obtained. At this time patient is resting comfortably bed. Does complain of some pain to hip. Patient denies chest pain or shortness breath. Patient denies any urinary burning or frequency. Patient denies nausea vomiting or diarrhea. Patient has been up walking. incentive spirometer encouraged 05/09/2018 patient is still requiring IV Dilaudid to help with pain control that left hip. Cultures are pending. Remains on vancomycin for her hypertension. Hemoglobin has dropped from 9.5 down to 9. She'll be placed on ferrous sulfate. She reports no bowel movement yet. Denies any chest pain shortness of breath. Denies any nausea or vomiting. Denies any burning with urination. 05/10/2018 patient will likely be discharged later today. Wound culture and blood cultures are negative. Infectious diseases recommending Bactrim. Patient was asking for prescription for her pain medications. Hemoglobin is down to 8.8. Continue iron supplement. Recommend checking CBC in 1 week. Temp 100.2 yesterday Objective - Vital Signs Vital signs: Vital Signs Temp 99.2 F 05/10/18 07:00 Pulse 90 05/10/18 07:00 Resp 16 05/10/18 07:00 BP 125/65 05/10/18 07:00 Pulse Ox 96 05/10/18 00:30 Intake & Output 05/09/18 05/10/18 05/10/18 18:59 06:59 18:59 Intake Total 250 350 200 Balance 250 350 200 Intake: Intake, IV Titration 250 350 Amount Vancomycin 1,250 mg In 250 250 Sodium Chloride 0.9% 250 ml @ 125 mls/hr IVPB Q8H [facility] Rx#:[id number] cefTAZidime 2 gm In 100 Sodium Chloride 0.9% 100 ml @ 100 mls/hr IVPB Q8HR [facility] Rx#:[id number] Oral 200 Other: Voiding Method Toilet # Voids 2 5 - Exam Head normocephalic Neck supple Lungs clear to auscultation bilaterally no wheezing or crackles Heart regular rate and rhythm S1-S2, no rub or gallop Abdomen is soft nontender nondistended positive bowel sounds no hepatosplenomegaly Extremities tenderness to palpation of the left hip. Incision site clean dry and intact. Neuro alert and orientated to 3 - Labs CBC & Chem 7: 05/10/18 07:03 05/10/18 07:03 Labs: Abnormal Lab Results - Last 24 Hours (Table) 05/09/18 05/09/18 05/10/18 Range/Units 16:52 20:05 06:51 RBC (3.80-5.40) m/uL Hgb (11.4-16.0) gm/dL Hct (34.0-46.0) % MCH (25.0-35.0) pg Carbon Dioxide (22-30) mmol/L Glucose (74-99) mg/dL POC Glucose (mg/dL) 172 H 180 H 166 H (75-99) mg/dL Albumin (3.5-5.0) g/dL 05/10/18 05/10/18 05/10/18 Range/Units 07:03 07:03 11:18 RBC 3.55 L (3.80-5.40) m/uL Hgb 8.8 L (11.4-16.0) gm/dL Hct 28.4 L (34.0-46.0) % MCH 24.8 L (25.0-35.0) pg Carbon Dioxide 31 H (22-30) mmol/L Glucose 125 H (74-99) mg/dL POC Glucose (mg/dL) 115 H (75-99) mg/dL Albumin 3.2 L (3.5-5.0) g/dL Microbiology - Last 24 Hours (Table) 05/08/18 10:20 Blood Culture - Preliminary Blood No Growth after 48 hours 05/07/18 16:12 Anaerobic Culture - Preliminary Hip - Left 05/07/18 16:12 Gram Stain - Final Hip - Left Wound Culture - Final 05/07/18 16:12 Gram Stain - Final Hip - Left Wound Culture - Final Assessment and Plan Assessment: 1. Status post revision of left total hip arthroplasty and irrigation and debridement with antibiotic bead placement. Patient currently on Fortaz and vancomycin. Infectious disease consulted. Wound cultures and blood cultures negative. Patient currently on Xarelto for DVT prophylaxis. White count normal. Patient did have a low-grade temperature yesterday 100.2. Infectious diseases recommending Bactrim 2. History of diabetes mellitus. Metformin and sliding scale has been ordered 3. History of hyperlipidemia. Continue Lipitor 4. Essential hypertension 5. Osteoarthritis 6. history of depression. Continue Elavil and Effexor 7. History of chronic back pain 8. Expected acute blood loss anemia secondary to surgery. Recommend continuing ferrous sulfate 325 mg twice a day. Hemoglobin is 8.8. We'll check a CBC in 1 week. DVT prophylaxis xarelto. GI prophylaxis Pepcid We'll have patient follow up with Dr. Skinner in 1 week I performed an examination of the patient and discussed their management with the physician Showcase Maker. I have reviewed the Physician Showcase Maker's notes and agree with the documented findings and plan of care
--- NOTE | 2018-05-10 13:54 | PN ---
PROGRESS NOTE DATE OF SERVICE: 05/10/2018 REASON FOR FOLLOWUP: Possible left hip septic arthritis. INTERVAL HISTORY: The patient is currently afebrile. She is breathing comfortably. She currently complained of pain to the left hip area, though no worsening. No nausea or vomiting. No abdominal pain. No diarrhea. PHYSICAL EXAMINATION: On examination, blood pressure 125/65 with a pulse of 90, temperature 98.2. She is 96% on room air. General description is a middle-aged female lying in bed in no distress. RESPIRATORY SYSTEM: Unlabored breathing, clear to auscultation anteriorly. HEART: S1, S2. Regular rate and rhythm. ABDOMEN: Soft, no tenderness. Left hip wound is currently dressed up, no obvious drainage on the dressing. LABS: The left hip culture remains to be negative. DIAGNOSTIC IMPRESSION AND PLAN: Patient admitted to the hospital with painful left hip with concern for loosening of the prosthesis with evidence of elevated concern for possible septic arthritis. However, the patient clinically not behaving as such with no fever and no significant elevated sedimentation rate. The intraoperative cultures remain to be negative. The patient was not on antibiotic in the outpatient setting, making it to be less likely a septic arthritis. Case was discussed in detail with the surgeon and Dr. Moon on the floor. She will be given a short course of oral Bactrim DS and close outpatient follow up. Questions and concerns were answered. MMODL / IJN: [id number] /
[2018-05-10 14:44] VITALS: BP 114/66; PULSE 94; TEMP 98.2
[2018-05-11] MEDS ORDERED: VANCOMYCIN TROUGH DUE 1 EACH MISC MISCELLANE ONE (04:00)
== END 2018-05-10 16:10 | disposition home health service (06) | DRG 467 ==
LOC: 2ORMAIN 10:06 → 3SUR 16:58
PROVIDERS: ADMIT Orthopaedic Surgery; ATTEND Orthopaedic Surgery
PROC: 3E0U029 Introduction of Other Anti-infective into Joints, Open Approach (ICD-10-PCS; principal; 2018-05-07 13:25)
PROC: 0SRB02A Replacement of Left Hip Joint with Metal on Polyethylene Synthetic Substitute, Uncemented, Open Approach (ICD-10-PCS; principal; 2018-05-07 13:25)
PROC: 0SPB0JZ Removal of Synthetic Substitute from Left Hip Joint, Open Approach (ICD-10-PCS; principal; 2018-05-07 13:25)
DX: T84.52XA Infection and inflammatory reaction due to internal left hip prosthesis, initial encounter (principal); D62 Acute posthemorrhagic anemia; Y79.2 Prosthetic and other implants, materials and accessory orthopedic devices associated with adverse incidents; E11.9 Type 2 diabetes mellitus without complications; E78.5 Hyperlipidemia, unspecified; I10 Essential (primary) hypertension; M19.90 Unspecified osteoarthritis, unspecified site; M81.0 Age-related osteoporosis without current pathological fracture; Z79.1 Long term (current) use of non-steroidal anti-inflammatories (NSAID); Z79.4 Long term (current) use of insulin; Z80.0 Family history of malignant neoplasm of digestive organs; Z82.0 Family history of epilepsy and other diseases of the nervous system; Z82.3 Family history of stroke; Z83.3 Family history of diabetes mellitus; Z87.891 Personal history of nicotine dependence; Z96.641 Presence of right artificial hip joint; Z96.651 Presence of right artificial knee joint; Z98.42 Cataract extraction status, left eye; Z98.41 Cataract extraction status, right eye
CPT/HCPCS: 36415; 73501; 80053; 80202; 83036; 85025; 85652; 86140; 86850; 86900; 86901; 87040; 87070; 87075; 87205; 88305; 88331

== ENCOUNTER → 2018-10-04 | Outpatient (CLI) | payer MEDICARE, OTHER ==
--- NOTE | 2018-10-07 10:28 | MM ---
Reason for exam: screening (asymptomatic). Last mammogram was performed 1 year and 3 months ago. History: Patient is postmenopausal. Family history of breast cancer in maternal aunt and breast cancer in sister at age 43. Benign excisional biopsy of both breasts. Physical Findings: A clinical breast exam by your physician is recommended on an annual basis and results should be correlated with mammographic findings. MG 3D Screening Mammo W/Cad Bilateral CC and MLO view(s) were taken. Prior study comparison: June 21, 2017, bilateral MG 3d screening mammo w/ cad. March 20, 2016, bilateral MG 3d screening mammo w/cad. The breast tissue is extremely dense which could obscure a lesion on mammography. There are benign appearing round calcifications bilaterally. Increased right breast skin thickening verses left and versus other older studies. ASSESSMENT: Incomplete: need additional imaging evaluation, BI-RAD 0 RECOMMENDATION: Ultrasound of the right breast. Manage on a clinical basis with regard to new right breast diffuse skin thickening consider venous obstruction or arterial narrowing. Surgical consultation to assess for possible punch biopsy. [facility] will attempt to contact patient to return for ultrasound. GEETHA
== END | disposition home or self-care (01) ==
LOC: RADMAMWWP 11:01
PROVIDERS: ATTEND Internal Medicine
DX: Z12.31 Encounter for screening mammogram for malignant neoplasm of breast (principal)
CPT/HCPCS: 77063; 77067

== ENCOUNTER → 2018-10-11 | Outpatient (CLI) | payer MEDICARE, OTHER ==
--- NOTE | 2018-10-11 12:11 | USB ---
Reason for exam: additional evaluation requested from abnormal screening. History: Patient is postmenopausal. Family history of breast cancer in maternal aunt at age 50 and breast cancer in sister at age 43. Benign excisional biopsy of both breasts. Physical Findings: Nurse Summary: 1.5cm firm nodule right breast 12 o'clock orange peel appearance prominent nipple puckered thickening, 1cm nodule 11 o'clock axilla (nurse mj). US Breast Workup RT Right complete breast ultrasound includes all four quadrants, the retroareolar region and axilla. Finding demonstrates a 1.0 x 1.0 x 1.1cm irregular, hypoechoic, vascular lesion at 12 o'clock BB. These results were verbally communicated with the patient and result sheet given to the patient on 10/11/18. ASSESSMENT: Suspicious, BI-RAD 4 RECOMMENDATION: Ultrasound core biopsy of the right breast. Called Dr. Skinner with mammographic findings and has scheduled an appointment for the patient for 11/22/18 at 8:[address] Rodriguez. Biopsy scheduled for 10/30/18 at 2:00. PRELIMINARY REPORT CALLED AND FAXED TO DR. RODRIGUEZ ON 10/11/18.
== END | disposition home or self-care (01) ==
LOC: RADUSWWP 10:11
PROVIDERS: ATTEND Internal Medicine
DX: R92.8 Other abnormal and inconclusive findings on diagnostic imaging of breast (principal)

== ENCOUNTER → 2018-10-30 | Day surgery (SDC) | payer MEDICARE, OTHER ==
[2018-10-30 13:18] VITALS: RESP 16; BMI 29.0
[2018-10-30 14:37] VITALS: BP 150/82; PULSE 82; TEMP 98.4
--- NOTE | 2018-10-30 14:41 | USB ---
EXAMINATION TYPE: US biopsy breast VAD RT, MG diagnostic mammo RT wo CAD DATE OF EXAM: 10/30/2018 CLINICAL HISTORY: R92.8 ABN Mammogram. TECHNIQUE: Ultrasound guided core biopsy of right breast. COMPARISON: NONE FINDINGS: The procedure of ultrasound guided core biopsy was explained to the patient. Benefits, alternatives, and risks were discussed. An informed consent was then obtained. The patient was placed in supine positioning for imaging and for the procedure. The overlying skin was prepped and draped in usual sterile fashion. Lidocaine buffered with bicarbonate was used as anesthetic into the skin and subcutaneous tissue up to area of concern in the right breast. A radhames was made with surgical scalpel. Under ultrasound guidance, a 12-gauge vacuum assisted biopsy gun device was used to obtain 5 core samples. Following this, a biopsy clip was left in lesion. Postprocedural mammogram demonstrates appropriate deployment of clip marker device. The patient tolerated the procedure well without any immediate complication. The patient was kept in the radiology department for short stay after the procedure and then discharged home in stable condition. IMPRESSION: Successful, uncomplicated ultrasound guided core biopsy of area of concern in the right breast, full pathology results to follow. 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 Recommendation Surgical consult of the right breast. Breast MRI is recommended prior to surgical intervention as greater extent of disease is suspected. Punch biopsy could also be considered as there is extensive skin thickening. MTDD
== END | disposition home or self-care (01) ==
LOC: RADUSWWP 12:45
PROVIDERS: ATTEND Surgery
DX: C50.211 Malignant neoplasm of upper-inner quadrant of right female breast (principal)
CPT/HCPCS: 77065; 88305; 88341; 88342

== ENCOUNTER → 2018-11-25 | Outpatient (CLI) | payer MEDICARE, OTHER ==
--- NOTE | 2018-11-27 06:23 | BMR ---
EXAMINATION TYPE: MR breast BILAT wo/w con DATE OF EXAM: 11/25/2018 COMPARISON: Mammograms dated 11/25/2018, 10/30/2018, 10/04/2018 and 09/25/2017. Ultrasound dated 10/11/2018 and 10/30/2018. HISTORY: Breast cancer rt breast, left breast thickening at nipple per patient TECHNIQUE: A series of fat and water weighted images in the long and short axis views of both breasts are obtained in conjunction with dynamic contrast MRI with subtraction technique. The patient was i njected with 7.5 mL intravenous Gadavist gadolinium contrast. Three-dimensional and additional post processing imaging is created on independent workstation and reviewed during official interpretation of this study. FINDINGS: The breasts are composed of extreme fibroglandular tissue, which limits sensitivity of exam ination. There is mild slightly asymmetric chronic parenchymal enhancement. At the 12:00 position the re is susceptibility artifact from a biopsy marker placed on the ultrasound guided core needle biopsy of 10/30/2018. There is asymmetric right breast trabecular and skin thickening. Skin thickening measures up to 4 mm. Within the trabecular thickening there are numerous enhancing right breast foci throughout the super ior breast with no focal enhancing mass seen. No suspicious mass or nonmass enhancement is seen withi n the left breast. No suspicious internal mammary or intramammary lymph nodes are seen within either breast. Axillary lymph nodes are within normal limits however cortical thickness on the right is slig htly greater than on the left. There is only minimal residual enhancement surrounding the posterior lateral aspect of the biopsy mar ker at 12:00 from the known adenocarcinoma. No suspicious enhancement or marked thickening is seen around the left nipple areolar complex. IMPRESSION: 1. BI-RADS 4-Suspicious. Asymmetric right breast skin thickening and trabecular thickening in the sup erior right breast is not fitting with this patient's localized disease (1.1 cm moderately differenti ated infiltrating ductal adenocarcinoma at 12:00). Inflammatory breast carcinoma remains a considerat ion and skin punch biopsy is recommended. Lymphatic obstruction, venous outlet obstruction, asymmetri c fluid overload, or lymphoma or other considerations. In addition to punch biopsy further workup con siderations could be given to second look superior right breast ultrasound and axillary ultrasound or MR guided superior breast biopsy to include some of the multiple enhancing foci. 2. No MRI evidence of malignancy on the left.
== END | disposition home or self-care (01) ==
LOC: RADMRIMAIN 19:35
PROVIDERS: ATTEND Surgery
DX: C50.911 Malignant neoplasm of unspecified site of right female breast (principal)
CPT/HCPCS: C8908; A9585; 77049

== ENCOUNTER → 2018-11-27 | Day surgery (SDC) | payer MEDICARE, OTHER ==
[~2018-11-27] MED LIST changes: -ACETAMINOPHEN TAB 500 MG TAB PO ONE; +ALPRAZolam 0.5 MG TAB PO ONE; -DEXAMETHASONE SOD PHOSPHATE 10 MG/ML 1 ML VIAL IV ONE; -MELOXICAM 7.5 MG TAB PO ONE; -MIDAZOLAM 2 MG/2 ML VIAL IV PRN; -ONDANSETRON 4 MG/2 ML VIAL IVP ONE; -TRANEXAMIC ACID 1,000 MG in SODIUM CHLORIDE 0.9% 50 ML IVPB ONE; -VANCOMYCIN 1,000 MG in SODIUM CHLORIDE 0.9% 250 ML IVPB ONE; -fentaNYL (PF) 50 MCG/ML 2 ML AMP IV PRN
[2018-11-27 09:53] VITALS: TEMP 98.2
[2018-11-27 11:28] VITALS: RESP 16
[2018-11-27 11:43] VITALS: BP 143/74; PULSE 83
--- NOTE | 2018-11-27 12:43 | US ---
ULTRASOUND GUIDED CORE BIOPSY LYMPH NODE RIGHT AXILLA: CLINICAL HISTORY: Right axillary lymphadenopathy FINDINGS: The procedure was explained to the patient. The risks, complications, benefits and alternatives were discussed and any questions were answered. Informed consent was obtained. Patient was placed supin e on the ultrasound table and prepped and draped in the usual sterile fashion. Utilizing a 18 gauge needle, 4 passes were made into the axilla lymphadenopathy. Patient was stable throughout the procedure. Pathology is pending. All elements of maximal barrier technique were utilized. IMPRESSION: 1. Successful ultrasound guided core biopsy right axillary lymphadenopathy
== END | disposition home or self-care (01) ==
LOC: RADPROMAIN 09:34
PROVIDERS: ATTEND Surgery
DX: C77.3 Secondary and unspecified malignant neoplasm of axilla and upper limb lymph nodes (principal); Z85.3 Personal history of malignant neoplasm of breast
CPT/HCPCS: 38505; A4648; 76942; 88305; 88341; 88342

== ENCOUNTER → 2018-12-07 | Outpatient (CLI) | payer MEDICARE, OTHER | END | disposition home or self-care (01) | LOC: RADPETMAIN 07:51 | PROVIDERS: ATTEND Internal Medicine Hematology & Oncology | DX: Z53.9 Procedure and treatment not carried out, unspecified reason (principal) ==

== ENCOUNTER → 2018-12-13 | Outpatient (CLI) | payer MEDICARE, OTHER ==
--- NOTE | 2018-12-13 19:03 | PE ---
EXAMINATION TYPE: PET CT fusion skull to thigh DATE OF EXAM: 12/13/2018 COMPARISON: Breast MRI November 25, 2018 HISTORY: Biopsy-proven right-sided breast cancer October 30, 2018 TECHNIQUE: Following the intravenous administration of 15.459 mCi of F-18 FDG, whole body images are performed from the skull base to the midthigh. Images are reviewed on the computer in the coronal, axial, and sagittal planes. Reconstructed rotating images are created on independent workstation and reviewed on the computer. A noncontrast CT is performed in conjunction with the PET scan. SCAN: Initial Scan FINDINGS: SKULL BASE AND NECK: No suspicious radiotracer uptake identified. CHEST, MEDIASTINUM, AND HILAR REGION: Biopsy clip right breast axial image 106 is noted. Asymmetric s kin thickening inferior to medial right breast is redemonstrated. No suspicious hypermetabolic uptake is seen near clip or in the area of abnormal skin thickening. No suspicious hypermetabolic uptake in either breast or axillary region. No suspicious hypermetabolic uptake in the thorax. ABDOMEN AND PELVIS: No suspicious hypermetabolic uptake. OSSEOUS STRUCTURES: No suspicious hypermetabolic uptake. Some mild uptake along the left hip prosthes is could reflect inflammatory change, correlate clinically. OTHER CT: There is right internal jugular Mediport catheter terminating in SVC. Mild to moderate coronary artery calcification which is noted marked underlying coronary artery disea se. Liver is diffusely low dense consistent with fatty infiltration. Metallic hardware from bilateral hip arthroplasties causes streak artifact limiting evaluation of pel candi structures. There is retroverted uterus with calcifications suggesting possible fibroid. IMPRESSION: No areas of suspicious hypermetabolic uptake even at area of biopsy-proven carcinoma in t he right breast. Would still advise punch biopsy of the abnormal skin thickening if has not been perf ormed mid to lower right breast. No abnormal hypermetabolic metastatic malignancy present.
== END | disposition home or self-care (01) ==
LOC: RADPETMAIN 16:09
PROVIDERS: ATTEND Internal Medicine Hematology & Oncology
DX: C50.111 Malignant neoplasm of central portion of right female breast (principal)
CPT/HCPCS: 78815; A9552

== ENCOUNTER 2019-05-08 10:41 | Day surgery (SDC) | payer MEDICARE, OTHER ==
[~2019-05-08 10:41] MED LIST changes: -ALPRAZolam 0.5 MG TAB PO ONE; +DEXAMETHASONE SOD PHOSPHATE 10 MG/ML 1 ML VIAL IV ONE; +HEPARIN SODIUM,PORCINE 5,000 UNIT/ML 1 ML VIAL SQ ONE; +LIDOCAINE 1% 20 ML VIAL (10MG/ML) FOR IV START INTRADERMA PRN; +MIDAZOLAM 2 MG/2 ML VIAL IV PRN; +ONDANSETRON 4 MG/2 ML VIAL IVP ONE; +Pre Op ABX Message 1 EACH MISC MISCELLANE ONE; +fentaNYL (PF) 50 MCG/ML 2 ML AMP IV PRN
--- NOTE | 2019-05-08 10:41 | P.GSHP ---
History of Present Illness H&P Date: 05/08/19 Chief Complaint: Right breast cancer 59-year-old female known to our service. Patient diagnosed in the spring with right breast cancer with regional adriel metastasis. Patient underwent biopsy of both the enlarged lymph node in the right breast abnormality. Additionally the patient had a skin biopsy benign. Patient's receptor status showed cancer to be ER/AL negative, HER-2/qaun positive. She has recently completed her neoadjuvant therapy regimen. PET scan had been negative other than known malignancy. Initially the patient was interested in mastectomy but has decided now on breast conservation. 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 History of Any Multi-Drug Resistant Organisms: MRSA Date of last positivie culture/infection: 2009 MDRO Source:: chin Past Surgical History: Back Surgery, Breast Surgery, Section, Joint Replacement, Orthopedic Surgery, Tubal Ligation Additional Past Surgical History / Comment(s): Total right hip, total right knee replacements, total left hip replacement with revision, multiple breast biopsies, bilateral carpal tunnel surgery, bilateral cataracts removed. Past Anesthesia/Blood Transfusion Reactions: No Reported Reaction Additional Past Anesthesia/Blood Transfusion Reaction / Comment(s): Pt has never received blood. Past Psychological History: Depression Smoking Status: Former smoker Past Alcohol Use History: None Reported Additional Past Alcohol Use History / Comment(s): Pt started smoking in 1971 and quit in 2007, 1 PPD. Past Drug Use History: Marijuana Additional Drug Use History / Comment(s): Occasional marijuana use. Aware no use 24 hrs prior to procedure. - Past Family History Sister(s) Family Medical History: Cancer Additional Family Medical History / Comment(s): BREAST Cancer. Mother Family Medical History: Cancer Additional Family Medical History / Comment(s): Colon cancer. Father Family Medical History: CVA/TIA Medications and Allergies Home Medications Medication Instructions Recorded Confirmed Type Simvastatin [Zocor] 40 mg PO HS 02/18/15 05/06/19 History Venlafaxine HCl 150 mg PO BID 02/18/15 05/06/19 History Amitriptyline HCl 50 mg PO HS #30 tablet 03/22/15 05/06/19 Rx Morphine Sulfate ER [Ms Contin] 30 mg PO Q8H #90 tablet 03/22/15 05/06/19 Rx Gabapentin [Neurontin] 300 mg PO TID 03/30/15 05/06/19 History Fenofibrate,Micronized 134 mg PO HS 12/01/16 05/06/19 History [Fenofibrate] Baclofen [Lioresal] 10 mg PO Q8HR 12/26/17 05/06/19 History metFORMIN HCL [Glucophage] 500 mg PO BID 12/26/17 05/06/19 History Ergocalciferol (Vitamin D2) 50,000 unit PO WEEKLY 10/14/18 05/06/19 History [Vitamin D2] Hydrocodone/Acetaminophen [[place] 1 tab PO TID 10/14/18 05/06/19 History 10-325] Meloxicam 15 mg PO DAILY 10/14/18 05/06/19 History Colestipol HCl 2 tab PO BID 05/06/19 05/06/19 History Metoprolol Succinate (ER) [Toprol 25 mg PO QAM 05/06/19 05/06/19 History XL] Omeprazole [PriLOSEC] 40 mg PO QAM 05/06/19 05/06/19 History hydrOXYzine HCL [Atarax] 10 mg PO TID 05/06/19 05/06/19 History Allergies Allergy/AdvReac Type Severity Reaction Status Date / Time No Known Allergies Allergy Verified 05/06/19 09:11 Surgical - Exam Physical exam: General: Well-developed, well-nourished HEENT: Normocephalic, sclerae nonicteric Left breast: No masses, no adenopathy Right breast: No residual edema, no masses, no adenopathy, right-sided Port-A-Cath induration Abdomen: Nontender, nondistended Extremities: No edema Neuro: Alert and oriented Assessment and Plan (1) Breast cancer, right Narrative/Plan: 59-year-old female with right breast cancer. Patient recently completed neoadjuvant regimen. Since her office visit I have discussed her case with oncology. Because of the receptor status and the associated breast edema and initially axillary adriel dissection for over sentinel biopsy. We'll proceed with right breast lumpectomy with wire localization, right axillary node dissection with wire localization of previously positive lymph node, Port-A-Cath removal and replacement, Port-A-Cath and complications reviewed. She understands and wishes to proceed Status: Acute Code(s): C50.911 - MALIGNANT NEOPLASM OF UNSP SITE OF RIGHT FEMALE BREAST SNOMED Code(s): 584957209
[2019-05-08] MEDS ORDERED: ALPRAZolam 0.5 MG TAB PO ONE (11:04)
[2019-05-08] MEDS: LACTATED RINGERS 1,000 ML IV SCH (11:10)
[2019-05-08 11:11] LABS: Glucose,Whole Blood 111 mg/dL (75-99)
[2019-05-08] MEDS ORDERED: LIDOCAINE 1% INJ 10MG/ML (20 ML MDV) SQ ONE (13:10)
[2019-05-08] MEDS ORDERED: HEPARIN SODIUM,PORCINE 5,000 UNIT/ML 1 ML VIAL SQ ONE (13:27)
[2019-05-08] MEDS ORDERED: ROCURONIUM BROMIDE 10 MG/ML 10 ML VIAL IV ONE (13:28)
[2019-05-08] MEDS ORDERED: NEOSTIGMINE 1 MG/ML 10 ML VIAL ONE (13:28)
[2019-05-08] MEDS ORDERED: MIDAZOLAM 2 MG/2 ML VIAL ONE (13:28)
[2019-05-08] MEDS ORDERED: SUCCINYLCHOLINE CHLORIDE 100 MG/5 ML SYR IV ONE (13:28)
[2019-05-08] MEDS ORDERED: fentaNYL (PF) 50 MCG/ML 2 ML AMP ONE (13:28)
[2019-05-08] MEDS ORDERED: PROPOFOL 10 MG/ML 20 ML VIAL IV ONE (13:28)
[2019-05-08] MEDS ORDERED: LIDOCAINE 1% INJ 10MG/ML (20 ML MDV) ONE (13:28)
[2019-05-08] MEDS ORDERED: GLYCOPYRROLATE 0.2 MG/ML 2 ML VIAL ONE (13:28)
--- NOTE | 2019-05-08 14:00 | NM ---
EXAMINATION TYPE: NM sentinel node injection DATE OF EXAM: 05/08/2019 COMPARISON: Right breast biopsy dated 10/30/2018 HISTORY: Right breast cancer with request for sentinel node injection. TECHNIQUE AND FINDINGS: The procedure of sentinel lymph node injection was explained to the patient. The benefits, alternatives, and risks were discussed. An informed consent was then obtained. Prepro cedural timeout was performed. Overlying skin is cleaned with sterile alcohol. Following this, 485 uCi Tc99m Tilmanocept was inject ed in the upper outer aspect of the right nipple intradermally. The patient tolerated the procedure well without any immediate complication. The patient was kept in the radiology department for short stay after the procedure and then taken to surgery for surgical p rocedure what is presumed intraoperative gamma probe will be used for sentinel lymph node detection. IMPRESSION: Right breast radiotracer injection for sentinel node localization as above.
[2019-05-08] MEDS ORDERED: LACTATED RINGERS 1,000 ML IV ONE (14:25)
[2019-05-08] MEDS ORDERED: LIDOCAINE (PF) 10 MG/ML 2 ML VIAL SQ ONE (14:26)
[2019-05-08] MEDS ORDERED: HEPARIN SODIUM,PORCINE 100 UNIT/ML 5 ML VIAL IV ONE ×3 (14:26)
--- NOTE | 2019-05-08 15:05 | USB ---
Attempt was made to localize the previously biopsied right axillary lymph node, however after chemoth erapy no definitive abnormal lymph node is seen and the biopsy marker is not identified. This was dis cussed with the surgeon. The decision was made to perform axillary node dissection. Ultrasound-guided needle localization of the right axillary lymph node was canceled. This was also discussed with the patient.
--- NOTE | 2019-05-08 16:10 | MM ---
EXAMINATION TYPE: MG pre op needle loc RT, MG surgical specimen RT DATE OF EXAM: 05/08/2019 COMPARISON: Right breast biopsy dated 10/30/2018 CLINICAL HISTORY: Right breast cancer with request for needle localization prior to lumpectomy. TECHNIQUE: Needle localization with wire placement and surgical excision of area of concern in the right breast. FINDINGS: The procedure of needle localization with wire placement and than surgical excision was explained to the patient. Benefits, alternatives, and risks were discussed. An informed consent was then obtained. Preprocedural timeout was performed. The shortest pathway for procedure was chosen. Shortest pathway was craniocaudal from above approach. The overlying skin was prepped and draped in usual sterile fashion. 10 cc of 1% lidocaine was used as anesthetic into the skin and subcutaneous tissue up to the level of area of concern. A 7 cm needle was used. It was placed via a CC from above approach under mammographic guidance. Subsequent 90 degrees mammogram show the needle to be in satisfactory position relative to the targeted area. At this point, wire was placed and the needle was withdrawn. The wire was fixed to patient's skin. Images were marked for surgeon. The patient tolerated the procedure well without any immediate complication. The patient was kept in the radiology department for short stay after the procedure and then taken to surgery for surgical excision. Targeted biopsy marker and wire are identified in specimen mammogram. The patient was kept in hospital for short stay after the procedure and then discharged home in stable condition. IMPRESSION: Successful, uncomplicated needle localization with wire placement and surgical excision of a biopsy marker demarcating the biopsy-proven right breast carcinoma, full pathology results to follow. Pathology Results: Malignant A. RIGHT BREAST LESION, NEEDLE LOCALIZATION, EXCISION: No residual adenocarcinoma following adjuvant chemotherapy. Zero of eight lymph nodes are involved by metastatic adenocarcinoma. See Surgical Pathology Summary Report. B. RIGHT BREAST, AXILLARY NODE CONTENTS: Eight lymph nodes negative for carcinoma, two nodes positive for scarring. Recommendation Surgical consult of the right breast. [facility]
[2019-05-08] MEDS ORDERED: ONDANSETRON 4 MG/2 ML VIAL IVP PRN (16:43)
[2019-05-08] MEDS ORDERED: NALOXONE 0.4 MG/ML 1 ML VIAL IV PRN (16:43)
[2019-05-08] MEDS ORDERED: HYDROcodone/APAP 5-325MG 1 EACH TAB PO PRN (16:43)
--- NOTE | 2019-05-08 16:54 | P.OP ---
Date of Procedure: 05/08/19 Procedure(s) Performed: REOPERATIVE DIAGNOSIS: Right breast cancer POSTOPERATIVE DIAGNOSIS: Same, infected right IJ Port-A-Cath PROCEDURE: Right Breast wire localization lumpectomy with axillary node dissection, Port-A-Cath removal, Port-A-Cath placement SURGEON: Jennifer EBL: Minimal ANESTHESIA: General COMPLICATIONS: None OPERATIVE PROCEDURE: Patient was placed on the operating room table in the supine position. The chest was prepped and draped in usual sterile fashion. The right axilla was addressed at that time. An incision was made in the right axilla along the inferior hairline. Dissection through the subcutaneous tissues took place using electrocautery. Entrance through the deltopectoral fascia took place. There were no clinically suspicious nodes. The course of the axillary vein was identified. This was protected throughout. Using a combination of 3-0 silk ties, Ligaclip, and Harmonic Scalpel the axillary contents were dissected and removed. The course of the thoracodorsal and long thoracic nerves were identified and preserved. Once the axillary contents were excised I performed an x-ray to evaluate for the clip placed at time of lymph node biopsy. Unfortunately there was not a clip seen in the specimen. We had fluoroscopy in the room for the upcoming Port-A-Cath placement. Using fluoroscopy I was able to identify that the previously biopsied node was inferior on the chest wall. This was able to be excised at that time and an x-ray of that specimen did reveal the clip present. The operative field was inspected. No bleeding was seen. A drain was placed exiting inferiorly. This drain was sutured to the skin using a 3-0 silk stitch. Subcutaneous tissues closed using 3-0 Vicryl sutures. Skin closed using a running 4-0 Monocryl stitch. The wire entrance site was then addressed. This was present at the 11:00 location. A curvilinear incision was made adjacent to the wire entrance site. I followed the wire down into the breast tissue. An adequate lumpectomy specimen then took place around the wire. Margins of 1.5-2 cm worth attempted to be achieved. The specimen was then painted the appropriate 6 colors. Clips were used to identify the lumpectomy cavity. The clip was confirmed to be within the lumpectomy specimen by radiology. The subcutaneous tissues were closed using 3-0 Vicryl sutures. The skin was closed using a running 4-0 Monocryl stitch. Skin glue and sterile dressings were then applied to both incision sites. Following that a new port was placed on the left chest. The ultrasound probe was used to identify the location of the left internal jugular vein. The Seldinger needle was advanced into the IJ under ultrasound guidance. The wire was advanced through the needle under fluoroscopic guidance into the superior vena cava. A port pocket was created in the left infraclavicular location. The catheter was tunneled from the wire entrance site to the port pocket. The port was then connected to the catheter. The dilator introducer was threaded over the guidewire. The guidewire and dilator were then removed. The catheter was advanced through the introducer and introducer was then removed. The tip was seen to be in the right atrial junction. Port was flushed with both saline and a Hep-Lock solution. There was good flow both in and out of the port. The port was sutured in underlying tissues using 3-0 silk sutures. The subcutaneous tissues were reapproximated using 3-0 Vicryl sutures and the skin at both locations using 4-0 Monocryl sutures. Skin glue and sterile dressings then applied. Following that after we had skin glue on all incisions the previous port incision was re- incised. As soon as I entered into the space around the port cloudy fluid that had a semi-purulent appearance was seen. Cultures were taken. The port was actually flipped upside down. The previously placed 3-0 silk sutures were no longer adherent to the chest wall. The port was removed bluntly. The catheter was fully intact. The course of the catheter was sutured using a 3-0 Vicryl [id number] stitch. The area was irrigated with saline. I then reapproximated skin using only 2 separate interrupted 4-0 Monocryl sutures. Sterile dressings were applied. DISPOSITION: Stable to recovery room
[2019-05-08] MEDS: HYDROmorphone 0.5 MG/0.5 ML SYRINGE IVP PRN ×5 (17:11→19:47)
[2019-05-08] MEDS ORDERED: KETOROLAC 30 MG/ML 1 ML VIAL IVP ONE (17:15)
--- NOTE | 2019-05-08 17:29 | XR ---
EXAMINATION TYPE: XR chest 1V DATE OF EXAM: 05/08/2019 COMPARISON: 10/05/2015 HISTORY: Catheter placement TECHNIQUE: Single frontal view of the chest is obtained. FINDINGS: Heart and mediastinum are normal. Lungs are clear. Diaphragm is normal. Bony thorax is int act. There is left-sided central venous catheter with tip in the superior vena cava. IMPRESSION: Normal chest. No change.
--- NOTE | 2019-05-08 18:02 | FL ---
Fluoroscopy HISTORY: Port-A-Cath placement and lumpectomy 2 minutes 21 seconds fluoroscopy time supplied to the referring clinician. 2 intraoperative C-arm i mages document the procedure. See dictated report from general surgery.
[2019-05-08] MEDS ORDERED: MORPHINE SULFATE ER 30 MG TABLET PO SCH (20:00)
[2019-05-08] MEDS: D5-0.45% NACL WITH KCL 20MEQ/L 1,000 ML IV SCH (21:59)
[2019-05-08] MEDS: FENOFIBRATE 160 MG TAB PO SCH (21:59)
[2019-05-08] MEDS: VENLAFAXINE HCL 75 MG TAB PO SCH (21:59)
[2019-05-08] MEDS: ATORVASTATIN 20 MG TAB PO SCH (22:00)
[2019-05-08] MEDS: AMITRIPTYLINE HCL 50 MG TAB PO SCH (22:00)
[2019-05-08] MEDS: GABAPENTIN 300 MG CAP PO SCH (22:00)
[2019-05-08] MEDS: hydrOXYzine HCL 10 MG TAB PO SCH (22:00)
[2019-05-08] MEDS: DIPHENOX-ATROP 2.5-0.025 MG 1 EACH TAB PO SCH (22:00)
[2019-05-08] MEDS: DOCUSATE 100 MG CAP PO SCH (22:17)
[2019-05-09] MEDS: MORPHINE SULFATE ER 30 MG TABLET PO SCH ×3 (00:27→16:30)
[2019-05-09] MEDS: HEPARIN SODIUM,PORCINE 5,000 UNIT/ML 1 ML VIAL SQ SCH ×3 (00:28→16:30)
[2019-05-09] MEDS: HYDROcodone/APAP 10-325MG 1 EACH TAB PO PRN (04:27)
[2019-05-09] MEDS: LACTATED RINGERS 1,000 ML IV SCH (05:40)
[2019-05-09 06:48] LABS: Basophils % (A) 0 %; Eosinophils % (A) 1 %; HCT 29.2 % (34.0-46.0); HGB 9.5 gm/dL (11.4-16.0); Hypochromasia Slight; Lymphocytes # (A) 1.7 k/uL (1.0-4.8); Lymphocytes % (A) 35 %; MCH 29.4 pg (25.0-35.0); MCHC 32.5 g/dL (31.0-37.0); MCV 90.4 fL (80.0-100.0); Mean Platelet Volume 8.3; Monocytes # (A) 0.3 k/uL (0-1.0); Monocytes % (A) 7 %; Neutrophils # (A) 2.8 k/uL (1.3-7.7); Neutrophils % (A) 56 %; Platelet Count 172 k/uL (150-450); RBC 3.23 m/uL (3.80-5.40); RDW 15.4 % (11.5-15.5)
[2019-05-09 07:06] LABS: African American GFR (CKD) >90 (>60 ml/min/1.73 sqM); Anion Gap 7 mmol/L; Blood Urea Nitrogen 19 mg/dL (7-17); Calcium 8.7 mg/dL (8.4-10.2); Carbon Dioxide 30 mmol/L (22-30); Chloride 105 mmol/L (98-107); Glucose 131 mg/dL (74-99); Potassium 3.7 mmol/L (3.5-5.1); Sodium 142 mmol/L (137-145)
[2019-05-09] MEDS: hydrOXYzine HCL 10 MG TAB PO SCH ×3 (08:08→20:13)
[2019-05-09] MEDS: DIPHENOX-ATROP 2.5-0.025 MG 1 EACH TAB PO SCH ×2 (08:09→20:13)
[2019-05-09] MEDS: METOPROLOL SUCCINATE (ER) 25 MG TAB.ER.24H PO SCH (08:09)
[2019-05-09] MEDS: DOCUSATE 100 MG CAP PO SCH ×3 (08:10→20:17)
[2019-05-09] MEDS: metFORMIN 500 MG TAB PO SCH ×2 (08:10→16:30)
[2019-05-09] MEDS: GABAPENTIN 300 MG CAP PO SCH ×3 (08:10→20:13)
[2019-05-09] MEDS: PANTOPRAZOLE 40 MG/10 ML VIAL IV SCH (08:11)
[2019-05-09] MEDS: VENLAFAXINE HCL 75 MG TAB PO SCH ×2 (08:11→20:12)
[2019-05-09] MEDS: MELOXICAM 7.5 MG TAB PO SCH (08:12)
[2019-05-09] MEDS: BACLOFEN 10 MG TAB PO PRN ×2 (08:28→17:05)
[2019-05-09] MEDS ORDERED: NON FORMULARY DRUG (Omeprazole 40 MG) PO SCH (09:00)
--- NOTE | 2019-05-09 10:56 | P.CONS ---
History of Present Illness - Reason for Consult Consult date: 05/09/19 Medical management Requesting physician: Ry Rodriguez - History of Present Illness This is a 59-year-old female patient with a known past medical history of right breast cancer with regional nodule metastasis. Patient was diagnosed in November. Patient recently completed her neoadjuvant therapy regime. Patient presented today for an right breast wire localization lumpectomy with axillary node dissection and Port-A-Cath removal and placement. Patient has a past medical history of diabetes mellitus, GERD, hyperlipidemia, essential hypertension, osteoarthritis, osteomyelitis, acute kidney injury, mitral valve leak and depression. Concerns for possible infection at all port site. Cultures were obtained. Patient maintained on cefazol. Patient has been afebrile. white Blood cell 5.0. At this time patient is resting comfortably in bed. Patient is complaining of some mild discomfort at surgical site. patient denies chest pain or shortness of breath. Patient denies nausea vomiting or diarrhea. Patient denies any urinary burning or frequency. 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 History of Any Multi-Drug Resistant Organisms: MRSA Year Discovered:: 2009 MDRO Source:: chin Past Surgical History: Back Surgery, Breast Surgery, Section, Joint Replacement, Orthopedic Surgery, Tubal Ligation Additional Past Surgical History / Comment(s): Total right hip, total right knee replacements, total left hip replacement with revision, multiple breast biopsies, bilateral carpal tunnel surgery, bilateral cataracts removed. Past Anesthesia/Blood Transfusion Reactions: No Reported Reaction Additional Past Anesthesia/Blood Transfusion Reaction / Comm: Pt has never received blood. Past Psychological History: Depression Additional Psychological History / Comment(s): . Smoking Status: Former smoker Past Alcohol Use History: None Reported Additional Past Alcohol Use History / Comment(s): Pt started smoking in 1971 and quit in 2007, 1 PPD. Past Drug Use History: Marijuana Additional Drug Use History / Comment(s): Occasional marijuana use. Aware no use 24 hrs prior to procedure. - Past Family History Sister(s) Family Medical History: Cancer Additional Family Medical History / Comment(s): BREAST Cancer. Mother Family Medical History: Cancer Additional Family Medical History / Comment(s): Colon cancer. Father Family Medical History: CVA/TIA, Diabetes Mellitus Additional Family Medical History / Comment(s): alcoholism Medications and Allergies Home Medications Medication Instructions Recorded Confirmed Type Simvastatin [Zocor] 40 mg PO HS 02/18/15 05/08/19 History Venlafaxine HCl 150 mg PO BID 02/18/15 05/08/19 History Amitriptyline HCl 50 mg PO HS #30 tablet 03/22/15 05/08/19 Rx Morphine Sulfate ER [Ms Contin] 30 mg PO Q8H #90 tablet 03/22/15 05/08/19 Rx Gabapentin [Neurontin] 300 mg PO TID 03/30/15 05/08/19 History Fenofibrate,Micronized 134 mg PO HS 12/01/16 05/08/19 History [Fenofibrate] Baclofen [Lioresal] 10 mg PO Q8HR 12/26/17 05/08/19 History metFORMIN HCL [Glucophage] 500 mg PO BID 12/26/17 05/08/19 History Ergocalciferol (Vitamin D2) 50,000 unit PO WEEKLY 10/14/18 05/08/19 History [Vitamin D2] Hydrocodone/Acetaminophen [[place] 1 tab PO TID 10/14/18 05/08/19 History 10-325] Meloxicam 15 mg PO DAILY 10/14/18 05/08/19 History Colestipol HCl 2 tab PO BID 05/06/19 05/08/19 History Metoprolol Succinate (ER) [Toprol 25 mg PO QAM 05/06/19 05/08/19 History XL] Omeprazole [PriLOSEC] 40 mg PO QAM 05/06/19 05/08/19 History hydrOXYzine HCL [Atarax] 10 mg PO TID 05/06/19 05/08/19 History Allergies Allergy/AdvReac Type Severity Reaction Status Date / Time No Known Allergies Allergy Verified 05/06/19 09:11 Physical Exam Vitals: Vital Signs Temp Pulse Pulse Pulse Resp BP BP 05/09/19 07:00 98.5 F 99 12 138/76 05/09/19 00:59 97.8 F 89 14 127/72 05/09/19 00:30 14 05/08/19 20:15 101 H 144/87 05/08/19 20:00 95 139/86 05/08/19 19:54 16 05/08/19 19:45 94 138/82 05/08/19 19:30 94 143/84 05/08/19 19:15 99 128/75 05/08/19 19:00 99 151/83 05/08/19 18:45 94 05/08/19 18:30 98 05/08/19 18:15 97.9 F 101 H 15 05/08/19 17:35 94 18 05/08/19 17:19 92 18 05/08/19 17:02 86 18 05/08/19 16:42 97 F L 85 16 05/08/19 12:54 98.0 F 82 12 116/73 05/08/19 12:03 98.4 F 89 12 134/78 05/08/19 11:10 98.4 F 92 17 BP Pulse Ox 05/09/19 07:00 97 05/09/19 00:59 97 05/09/19 00:30 05/08/19 20:15 05/08/19 20:00 05/08/19 19:54 05/08/19 19:45 05/08/19 19:30 05/08/19 19:15 05/08/19 19:00 05/08/19 18:45 144/79 05/08/19 18:30 156/90 05/08/19 18:15 164/76 94 L 05/08/19 17:35 140/65 94 L 05/08/19 17:19 168/75 95 05/08/19 17:02 131/63 100 05/08/19 16:42 144/81 97 05/08/19 12:54 05/08/19 12:03 05/08/19 11:10 1152/72 95 Intake and Output 05/08/19 05/09/19 05/09/19 22:59 06:59 14:59 Intake Total 400 Output Total 25 40 Balance 375 -40 Intake: IV 100 Oral 300 Output: Drainage 40 Right Breast 40 Estimated Blood Loss 25 Other: Voiding Method Toilet Toilet Toilet # Voids 1 1 Head normocephalic Neck supple Lungs clear to auscultation bilaterally no wheezing or crackles Heart regular rate and rhythm S1-S2, no rub or gallop Abdomen is soft nontender nondistended positive bowel sounds no hepatosplenomega ly Extremities no edema Neuro alert and orientated to 3 Right chest wall dressing is clean dry and intact. Incision showing no signs of drainage. Results CBC & Chem 7: 05/09/19 06:34 05/09/19 06:34 Labs: Abnormal Lab Results - Last 24 Hours (Table) 05/08/19 05/09/19 05/09/19 Range/Units 11:09 06:34 06:34 RBC 3.23 L (3.80-5.40) m/uL Hgb 9.5 L (11.4-16.0) gm/dL Hct 29.2 L (34.0-46.0) % BUN 19 H (7-17) mg/dL Glucose 131 H (74-99) mg/dL POC Glucose (mg/dL) 111 H (75-99) mg/dL Microbiology - Last 24 Hours (Table) 05/08/19 16:20 Gram Stain - Preliminary Chest Wound Culture - Preliminary 05/08/19 16:20 Anaerobic Culture - Preliminary Chest Assessment and Plan Assessment: 1. Right breast cancer with regional nodule metastasis. Patient was diagnosed in November 2018. Patient has recently completed her neoadjuvant therapy regime. Status post right breast wire localization lumpectomy with axillary node dissection, Port-A-Cath removal and Port-A-Cath placement. Patient is currently postop day 1 2. Infected right IJ Port-A-Cath. Removed and cultures obtained per surgical services. Infectious disease has been consulted. Patient has been maintained on kefzol 3. History of essential hypertension 4. History of hyperlipidemia. maintained on statin 5. History of osteoarthritis with total right hip and total right knee replacement 6. History of osteomyelitis after back surgery 1988 7. History of diabetes mellitus type 2 8. History of depression DVT prophylaxis heparin. Protonix for GI prophylaxis Thank you for this consultation we will continue to follow patient closely throughout stay Time with Patient: Greater than 30 (Greater than 60% of the total time spent in counseling and coordination of care. I performed an examination of the patient and discussed their management with the Nurse Practitioner. I have reviewed the Nurse Practitioner's notes and agree with the documented findings and plan of care)
--- NOTE | 2019-05-09 11:19 | P.PN ---
<Kenya Denney A - Last Filed: 05/09/19 11:13> Subjective Progress Note Date: 05/09/19 CHIEF COMPLAINT: Right breast cancer HISTORY OF PRESENT ILLNESS: 59-year-old female who is status post right breast wire localization lumpectomy with axillary node dissection, right Port-A-Cath removal and left chest wall Port-A-Cath placement. POD #1. Patient examined this morning at the bedside. She reports her pain is tolerable. Tolerating diet. Denies nausea or vomiting. URIEL with serosanguineous drainage. WBC 5.0. Hemoglobin 9.5. Vital signs stable. Afebrile. PHYSICAL EXAM: VITAL SIGNS: Reviewed. GENERAL: Well-developed in no acute distress. HEENT: No sclera icterus. Extraocular movements grossly intact. Moist buccal mucosa. Head is atraumatic, normocephalic. ABDOMEN: Soft. Nondistended. Nontender. NEUROLOGIC: Alert and oriented. Cranial nerves II through XII grossly intact. SKIN: Left port a cath site clean dry intact. Minimal tenderness. Right port a cath removal site dressing clean dry intact. Surgical sites on right breast and axilla clean dry intact. No drainage. Breast soft. No hematoma palpated. Mild tenderness near axillary incision site. URIEL drain noted with serosanguineous drainage ASSESSMENT: 1. Right breast cancer, status post right breast wire localization lumpectomy with axillary node dissection, right Port-A-Cath removal and left chest wall Port-A-Cath placement PLAN: 1. Pain control 2. Diet as tolerated 3. Activity as tolerated 4. Incentive spirometry 5. Continue antibiotics. Wound cultures pending 6. Possible discharge home this afternoon Nurse practitioner note has been reviewed by physician. Signing provider agrees with the documented findings, assessment, and plan of care. Objective - Vital Signs Vital signs: Vital Signs Temp 98.5 F 05/09/19 07:00 Pulse 99 05/09/19 07:00 Resp 12 05/09/19 07:00 BP 138/76 05/09/19 07:00 Pulse Ox 97 05/09/19 07:00 Intake & Output 05/08/19 05/09/19 05/09/19 18:59 06:59 18:59 Intake Total 1900 300 Output Total 25 40 Balance 1875 260 Intake: IV 1900 Oral 300 Output: Drainage 40 Right Breast 40 Estimated Blood Loss 25 Other: Voiding Method Toilet Toilet # Voids 1 - Labs CBC & Chem 7: 05/09/19 06:34 05/09/19 06:34 Labs: Abnormal Lab Results - Last 24 Hours (Table) 05/09/19 05/09/19 Range/Units 06:34 06:34 RBC 3.23 L (3.80-5.40) m/uL Hgb 9.5 L (11.4-16.0) gm/dL Hct 29.2 L (34.0-46.0) % BUN 19 H (7-17) mg/dL Glucose 131 H (74-99) mg/dL Microbiology - Last 24 Hours (Table) 05/08/19 16:20 Gram Stain - Preliminary Chest Wound Culture - Preliminary 05/08/19 16:20 Anaerobic Culture - Preliminary Chest <Ry Rodriguez - Last Filed: 05/09/19 12:19> Subjective As above. Patient doing well today. Possible discharge later today or tomorrow morning. Prescription for antibiotic and pain medication will be provided. Objective - Vital Signs Vital signs: Vital Signs Temp 98.5 F 05/09/19 07:00 Pulse 99 05/09/19 07:00 Resp 12 05/09/19 07:00 BP 138/76 05/09/19 07:00 Pulse Ox 97 05/09/19 07:00 Intake & Output 05/08/19 05/09/19 05/09/19 18:59 06:59 18:59 Intake Total 1900 300 Output Total 25 40 Balance 1875 260 Intake: IV 1900 Oral 300 Output: Drainage 40 Right Breast 40 Estimated Blood Loss 25 Other: Voiding Method Toilet Toilet # Voids 1 - Labs CBC & Chem 7: 05/09/19 06:34 05/09/19 06:34 Labs: Abnormal Lab Results - Last 24 Hours (Table) 05/09/19 05/09/19 Range/Units 06:34 06:34 RBC 3.23 L (3.80-5.40) m/uL Hgb 9.5 L (11.4-16.0) gm/dL Hct 29.2 L (34.0-46.0) % BUN 19 H (7-17) mg/dL Glucose 131 H (74-99) mg/dL Microbiology - Last 24 Hours (Table) 05/08/19 16:20 Gram Stain - Preliminary Chest Wound Culture - Preliminary 05/08/19 16:20 Anaerobic Culture - Preliminary Chest Assessment and Plan (1) Breast cancer, right Current Visit: No Status: Acute Code(s): C50.911 - MALIGNANT NEOPLASM OF UNSP SITE OF RIGHT FEMALE BREAST SNOMED Code(s): 791811612
[2019-05-09] MEDS: D5-0.45% NACL WITH KCL 20MEQ/L 1,000 ML IV SCH ×2 (11:55→21:39)
[2019-05-09] MEDS: HYDROmorphone 0.5 MG/0.5 ML SYRINGE IVP PRN ×2 (11:56→20:14)
[2019-05-09 13:20] VITALS: BMI 26.6
[2019-05-09] MEDS: FENOFIBRATE 160 MG TAB PO SCH (20:13)
[2019-05-09] MEDS: ATORVASTATIN 20 MG TAB PO SCH (20:13)
[2019-05-09] MEDS: AMITRIPTYLINE HCL 50 MG TAB PO SCH (20:14)
--- NOTE | 2019-05-09 23:52 | P.CONS ---
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 in November 2018 the patient is status post Port-A-Cath placement for chemotherapy the patient mentioned 1 end of the wound never completely healed she denies any pain to the Mediport site or any redness or drainage the patient has received chemotherapy through that port without any problem patient electively admitted this admission to the hospital for right breast lumpectomy and axillary node dissection patient and also for removal of right chest wall Port-A-Cath removal and placement of a new one on the left chest wall, review of the operative report did not show there was any evidence of purulence at the site of previous Port-A-Cath , however per discussion with the surgeon on the phone , did mention there was some purulent materail at the site of previous port which was cultured , that port has been removed she did have blood cultures obtained which are currently pending the patient also has some local cultures obtained from her previous Port-A-Cath site which are currently pending as well patient is on IV cefazolin I was asked to see the patient for possible right chest wall Port-A-Cath site infection Review of Systems Positive point has been mentioned in the HPI rest of the systems are negative Past Medical History Past Medical History: Cancer, Diabetes Mellitus, Eye Disorder, GERD/Reflux, Hyp erlipidemia, Hypertension, Musculoskeletal Disorder, Osteoarthritis (OA), Pneumonia Additional Past Medical History / Comment(s): Osteomylitis after back surgery in 1988, 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 History of Any Multi-Drug Resistant Organisms: MRSA Year Discovered:: 2009 MDRO Source:: chin Past Surgical History: Back Surgery, Breast Surgery, Section, Joint Replacement, Orthopedic Surgery, Tubal Ligation Additional Past Surgical History / Comment(s): Total right hip, total right knee replacements, total left hip replacement with revision, multiple breast biopsies, bilateral carpal tunnel surgery, bilateral cataracts removed. Past Anesthesia/Blood Transfusion Reactions: No Reported Reaction Additional Past Anesthesia/Blood Transfusion Reaction / Comm: Pt has never received blood. Past Psychological History: Depression Additional Psychological History / Comment(s): . Smoking Status: Former smoker Past Alcohol Use History: None Reported Additional Past Alcohol Use History / Comment(s): Pt started smoking in 1971 and quit in 2007, 1 PPD. Past Drug Use History: Marijuana Additional Drug Use History / Comment(s): Occasional marijuana use. Aware no use 24 hrs prior to procedure. - Past Family History Sister(s) Family Medical History: Cancer Additional Family Medical History / Comment(s): BREAST Cancer. Mother Family Medical History: Cancer Additional Family Medical History / Comment(s): Colon cancer. Father Family Medical History: CVA/TIA, Diabetes Mellitus Additional Family Medical History / Comment(s): alcoholism Medications and Allergies Home Medications Medication Instructions Recorded Confirmed Type Simvastatin [Zocor] 40 mg PO HS 02/18/15 05/08/19 History Venlafaxine HCl 150 mg PO BID 02/18/15 05/08/19 History Amitriptyline HCl 50 mg PO HS #30 tablet 03/22/15 05/08/19 Rx Morphine Sulfate ER [Ms Contin] 30 mg PO Q8H #90 tablet 03/22/15 05/08/19 Rx Gabapentin [Neurontin] 300 mg PO TID 03/30/15 05/08/19 History Fenofibrate,Micronized 134 mg PO HS 12/01/16 05/08/19 History [Fenofibrate] Baclofen [Lioresal] 10 mg PO Q8HR 12/26/17 05/08/19 History metFORMIN HCL [Glucophage] 500 mg PO BID 12/26/17 05/08/19 History Ergocalciferol (Vitamin D2) 50,000 unit PO WEEKLY 10/14/18 05/08/19 History [Vitamin D2] Hydrocodone/Acetaminophen [[place] 1 tab PO TID 10/14/18 05/08/19 History 10-325] Meloxicam 15 mg PO DAILY 10/14/18 05/08/19 History Colestipol HCl 2 tab PO BID 05/06/19 05/08/19 History Metoprolol Succinate (ER) [Toprol 25 mg PO QAM 05/06/19 05/08/19 History XL] Omeprazole [PriLOSEC] 40 mg PO QAM 05/06/19 05/08/19 History hydrOXYzine HCL [Atarax] 10 mg PO TID 05/06/19 05/08/19 History Amoxicillin/Potassium Clav 1 tab PO BID 5 Days #10 tab 05/09/19 Rx [Augmentin 875-125 Tablet] Allergies Allergy/AdvReac Type Severity Reaction Status Date / Time No Known Allergies Allergy Verified 05/06/19 09:11 Physical Exam Vitals: Vital Signs Temp Pulse Pulse Resp BP BP BP 05/09/19 07:00 98.5 F 99 12 138/76 05/09/19 00:59 97.8 F 89 14 127/72 05/09/19 00:30 14 05/08/19 20:15 101 H 144/87 05/08/19 20:00 95 139/86 05/08/19 19:54 16 05/08/19 19:45 94 138/82 05/08/19 19:30 94 143/84 05/08/19 19:15 99 128/75 05/08/19 19:00 99 151/83 05/08/19 18:45 94 144/79 05/08/19 18:30 98 156/90 05/08/19 18:15 97.9 F 101 H 15 164/76 05/08/19 17:35 94 18 140/65 05/08/19 17:19 92 18 168/75 05/08/19 17:02 86 18 131/63 05/08/19 16:42 97 F L 85 16 144/81 05/08/19 12:54 98.0 F 82 12 116/73 Pulse Ox 05/09/19 07:00 97 05/09/19 00:59 97 05/09/19 00:30 05/08/19 20:15 05/08/19 20:00 05/08/19 19:54 05/08/19 19:45 05/08/19 19:30 05/08/19 19:15 05/08/19 19:00 05/08/19 18:45 05/08/19 18:30 05/08/19 18:15 94 L 05/08/19 17:35 94 L 05/08/19 17:19 95 05/08/19 17:02 100 05/08/19 16:42 97 05/08/19 12:54 Intake and Output 05/08/19 05/09/19 05/09/19 22:59 06:59 14:59 Intake Total 400 Output Total 25 40 Balance 375 -40 Intake: IV 100 Oral 300 Output: Drainage 40 Right Breast 40 Estimated Blood Loss 25 Other: Voiding Method Toilet Toilet Toilet # Voids 1 1 GENERAL DESCRIPTION: Middle-aged female lying in bed, no distress. No tachypnea or accessory muscle of respiration use. HEENT: Shows Pallor , no scleral icterus. Oral mucous membrane is dry. No pharyngeal erythema or thrush NECK: Trachea central, no thyromegaly. LUNGS: Unlabored breathing. Clear to auscultation anteriorly. No wheeze or crackle. HEART: S1, S2, regular rate and rhythm. No loud murmur ABDOMEN: Soft, no tenderness , guarding or rigidity, no organomegaly EXTREMITIES: No edema of feet. SKIN: Right chest wall previous Port-A-Cath site currently with no swelling no redness no tenderness or any drainage NEUROLOGICAL: The patient is awake, alert, oriented x3, mood and affect normal. Results CBC & Chem 7: 05/09/19 06:34 05/09/19 06:34 Labs: Abnormal Lab Results - Last 24 Hours (Table) 05/09/19 05/09/19 Range/Units 06:34 06:34 RBC 3.23 L (3.80-5.40) m/uL Hgb 9.5 L (11.4-16.0) gm/dL Hct 29.2 L (34.0-46.0) % BUN 19 H (7-17) mg/dL Glucose 131 H (74-99) mg/dL Microbiology - Last 24 Hours (Table) 05/08/19 16:20 Gram Stain - Preliminary Chest Wound Culture - Preliminary 05/08/19 16:20 Anaerobic Culture - Preliminary Chest Assessment and Plan Assessment: 1-patient with a nonhealing wound to Port-A-Cath that was placed in November 2018 the patient has received chemotherapy through the same port without any problem, now presented to hospital for lumpectomy and lymph node dissection and is status post removal of the previous Port-A-Cath with mention of purulence at the site of the port whcih has been cultured , this patient currently not running any fever and did not have any elevated white count and clinical suspicion is low for underlying deep or systemic infection Plan: [id number] q8hr to continue for now 2-both blood and local cultures will be followed closely during this hospital admission We will follow on clinical condition and cultures to further adjust medication if needed Thank you for this consultation will follow this patient with you Time with Patient: Greater than 30
[2019-05-10] MEDS: HEPARIN SODIUM,PORCINE 5,000 UNIT/ML 1 ML VIAL SQ SCH ×3 (01:23→17:15)
[2019-05-10] MEDS: MORPHINE SULFATE ER 30 MG TABLET PO SCH ×3 (01:23→17:15)
[2019-05-10] MEDS: D5-0.45% NACL WITH KCL 20MEQ/L 1,000 ML IV SCH ×2 (04:48→20:50)
[2019-05-10] MEDS: HYDROmorphone 0.5 MG/0.5 ML SYRINGE IVP PRN ×3 (04:52→20:48)
[2019-05-10] MEDS: LACTATED RINGERS 1,000 ML IV SCH (06:42)
[2019-05-10 06:53] LABS: Basophils % (A) 0 %; Eosinophils # (A) 0.1 k/uL (0-0.7); Eosinophils % (A) 2 %; HGB 9.5 gm/dL (11.4-16.0); Hypochromasia Slight; Lymphocytes # (A) 1.7 k/uL (1.0-4.8); Lymphocytes % (A) 50 %; MCH 30.2 pg (25.0-35.0); MCV 88.8 fL (80.0-100.0); Mean Platelet Volume 6.2; Monocytes # (A) 0.2 k/uL (0-1.0); Monocytes % (A) 6 %; Neutrophils # (A) 1.4 k/uL (1.3-7.7); Neutrophils % (A) 40 %; Platelet Count 189 k/uL (150-450); Poikilocytosis Slight; RBC 3.16 m/uL (3.80-5.40); RDW 15.1 % (11.5-15.5); WBC 3.5 k/uL (3.8-10.6)
[2019-05-10 07:08] LABS: ALT 21 U/L (9-52); AST 27 U/L (14-36); African American GFR (CKD) >90 (>60 ml/min/1.73 sqM); Albumin 3.5 g/dL (3.5-5.0); Alkaline Phosphatase 104 U/L (38-126); Anion Gap 8 mmol/L; Blood Urea Nitrogen 12 mg/dL (7-17); Calcium 8.7 mg/dL (8.4-10.2); Carbon Dioxide 29 mmol/L (22-30); Chloride 105 mmol/L (98-107); Glucose 134 mg/dL (74-99); Potassium 3.5 mmol/L (3.5-5.1); Sodium 142 mmol/L (137-145); Total Bilirubin 0.3 mg/dL (0.2-1.3); Total Protein 6.4 g/dL (6.3-8.2)
[2019-05-10] MEDS: metFORMIN 500 MG TAB PO SCH ×2 (08:10→17:15)
[2019-05-10] MEDS: VENLAFAXINE HCL 75 MG TAB PO SCH ×2 (08:10→22:12)
[2019-05-10] MEDS: hydrOXYzine HCL 10 MG TAB PO SCH ×3 (08:10→22:13)
[2019-05-10] MEDS: DIPHENOX-ATROP 2.5-0.025 MG 1 EACH TAB PO SCH ×2 (08:10→22:14)
[2019-05-10] MEDS: GABAPENTIN 300 MG CAP PO SCH ×3 (08:10→22:13)
[2019-05-10] MEDS: BACLOFEN 10 MG TAB PO PRN ×2 (08:10→17:14)
[2019-05-10] MEDS: METOPROLOL SUCCINATE (ER) 25 MG TAB.ER.24H PO SCH (08:11)
[2019-05-10] MEDS: PANTOPRAZOLE 40 MG/10 ML VIAL IV SCH (08:11)
[2019-05-10] MEDS: DOCUSATE 100 MG CAP PO SCH ×2 (08:11→22:14)
[2019-05-10] MEDS: MELOXICAM 7.5 MG TAB PO SCH (08:12)
--- NOTE | 2019-05-10 13:17 | P.PN ---
Subjective Progress Note Date: 05/10/19 CHIEF COMPLAINT: Breast cancer HISTORY OF PRESENT ILLNESS: The patient is a 59-year-old female status post port removal and right lumpectomy, 05/09/19. POD 1. She was seen and evaluated along side Dr Almodovar. No fevers or chills. No signs of infection. ROS: No reports of nausea and vomiting. No bowel movements. No fevers or chills. No new chest pain. No productive sputum PHYSICAL EXAM: VITAL SIGNS: Reviewed CONSTITUTIONAL: Well developed and in no acute distress. EYES: Conjuctivae without sclera icterus. Extraocular movements grossly intact. HEAD, EARS, NOSE, THROAT: Moist buccal mucosa. Head is atraumatic, normocephalic. Hears conversational speech. No nasal drainage. NECK: Supple. No thyroidomegaly. RESPIRATORY: Non-labored respirations and equal bilateral excursions. Chest i ncision clean, dry and intact. Clean incision without erythema. CARDIOVASCULAR: Palpable 2+ radial pulses. Regular rate. Regular rhythm. ABDOMEN: Soft. No peritonitis. MUSCULOSKELETAL: No gross deformity of the lower extremities noted. No clubbing. No cyanosis. SKIN: Good skin turgor. Well perfused. NEUROLOGIC: Cranial nerves I through XII grossly intact. No focal or lateralizing signs. PSYCH: Appropriate affect. Alert and oriented to person, place and time. CLINCAL LABS: White blood cell count low 3,500 MICROBIOLOGY: Cultures are still pending. ASSESSMENT: 1. Breast cancer with port site infection PLAN: 1. Discharge pending growth of cultures 2. Continue IV antibiotics 3. Discharge goals reviewed with patient who understood treatment plan. Objective - Vital Signs Vital signs: Vital Signs Temp 98.3 F 05/10/19 07:00 Pulse 90 05/10/19 07:00 Resp 16 05/10/19 07:00 BP 131/76 05/10/19 07:00 Pulse Ox 94 L 05/10/19 07:00 Intake & Output 05/09/19 05/10/19 05/10/19 18:59 06:59 18:59 Intake Total 600 Output Total 50 21 Balance -50 -21 600 Weight 74.843 kg Intake: Intake, IV Titration 600 Amount D5-0.45% NaCl with KCl 500 20Meq/l 1,000 ml @ 75 mls /hr IV .[id number] [facility] Rx#: [id number] ceFAZolin 2 gm In Sodium 100 Chloride 0.9% 50 ml @ 100 mls/hr IVPB Q8HR [facility] Rx# :[id number] Output: Drainage 50 20 Right Breast 50 20 Stool 1 Other: Voiding Method Toilet Toilet # Voids 1 1 # Bowel Movements 1 - Labs CBC & Chem 7: 05/10/19 06:38 05/10/19 06:38 Labs: Abnormal Lab Results - Last 24 Hours (Table) 05/10/19 05/10/19 Range/Units 06:38 06:38 WBC 3.5 L (3.8-10.6) k/uL RBC 3.16 L (3.80-5.40) m/uL Hgb 9.5 L (11.4-16.0) gm/dL Hct 28.0 L (34.0-46.0) % Glucose 134 H (74-99) mg/dL Microbiology - Last 24 Hours (Table) 05/09/19 11:03 Blood Culture - Preliminary Blood No Growth after 24 hours 05/08/19 16:20 Gram Stain - Preliminary Chest Wound Culture - Preliminary Assessment and Plan (1) Infection due to Port-A-Cath Current Visit: Yes Status: Acute Code(s): T80.219A - UNSP INFECTION DUE TO CENTRAL VENOUS CATHETER, INIT ENCNTR SNOMED Code(s): 321566562 (2) Breast cancer, right Current Visit: No Status: Acute Code(s): C50.911 - MALIGNANT NEOPLASM OF UNSP SITE OF RIGHT FEMALE BREAST SNOMED Code(s): 146718029
--- NOTE | 2019-05-10 14:59 | P.PN ---
Subjective Progress Note Date: 05/10/19 This is a 59-year-old female patient with a known past medical history of right breast cancer with regional nodule metastasis. Patient was diagnosed in November. Patient recently completed her neoadjuvant therapy regime. Patient presented today for an right breast wire localization lumpectomy with axillary node dissection and Port-A-Cath removal and placement. Patient has a past medical history of diabetes mellitus, GERD, hyperlipidemia, essential hypertension, osteoarthritis, osteomyelitis, acute kidney injury, mitral valve leak and depression. Concerns for possible infection at all port site. Cultures were obtained. Patient maintained on cefazol. Patient has been afebrile. white Blood cell 5.0. At this time patient is resting comfortably in bed. Patient is complaining of some mild discomfort at surgical site. patient denies chest pain or shortness of breath. Patient denies nausea vomiting or diarrhea. Patient denies any urinary burning or frequency. On 05/10/2019 patient was seen and examined on the medical floor she is alert and oriented 3 in no apparent distress pain is well-controlled she denies any symptoms at this time there is no fever or chills no headache or dizziness no chest pain no shortness of breath no cough no nausea or vomiting no abdominal pain no diarrhea and no urinary symptoms Objective - Vital Signs Vital signs: Vital Signs Temp 98.3 F 05/10/19 07:00 Pulse 90 05/10/19 07:00 Resp 16 05/10/19 07:00 BP 131/76 05/10/19 07:00 Pulse Ox 94 L 05/10/19 07:00 Intake & Output 05/09/19 05/10/19 05/10/19 18:59 06:59 18:59 Intake Total 600 Output Total 50 21 Balance -50 -21 600 Weight 74.843 kg Intake: Intake, IV Titration 600 Amount D5-0.45% NaCl with KCl 500 20Meq/l 1,000 ml @ 75 mls /hr IV .[id number] [facility] Rx#: [id number] ceFAZolin 2 gm In Sodium 100 Chloride 0.9% 50 ml @ 100 mls/hr IVPB Q8HR [facility] Rx# :[id number] Output: Drainage 50 20 Right Breast 50 20 Stool 1 Other: Voiding Method Toilet Toilet # Voids 1 1 # Bowel Movements 1 - Exam Head normocephalic and atraumatic Neck supple, no JVD no goiter Lungs clear to auscultation bilaterally no wheezing or crackles Heart regular rate and rhythm S1-S2, no rub or gallop Abdomen is soft nontender nondistended positive bowel sounds no h epatosplenomegaly Extremities no edema, no cyanosis or clubbing Neuro alert and orientated to 3 Right chest wall dressing is clean dry and intact. Incision showing no signs of drainage. - Labs CBC & Chem 7: 05/10/19 06:38 05/10/19 06:38 Labs: Abnormal Lab Results - Last 24 Hours (Table) 05/10/19 05/10/19 Range/Units 06:38 06:38 WBC 3.5 L (3.8-10.6) k/uL RBC 3.16 L (3.80-5.40) m/uL Hgb 9.5 L (11.4-16.0) gm/dL Hct 28.0 L (34.0-46.0) % Glucose 134 H (74-99) mg/dL Microbiology - Last 24 Hours (Table) 05/09/19 11:03 Blood Culture - Preliminary Blood No Growth after 24 hours 05/08/19 16:20 Gram Stain - Preliminary Chest Wound Culture - Preliminary Assessment and Plan Plan: 1. Right breast cancer with regional nodule metastasis. Patient was diagnosed in November 2018. Patient has recently completed her neoadjuvant therapy regime. Status post right breast wire localization lumpectomy with axillary node dissection, Port-A-Cath removal and Port-A-Cath placement. Patient is currently postop day 1 2. Infected right IJ Port-A-Cath. Removed and cultures obtained per surgical services. Infectious disease has been consulted. Patient has been maintained on kefzol 3. History of essential hypertension 4. History of hyperlipidemia. maintained on statin 5. History of osteoarthritis with total right hip and total right knee replacement 6. History of osteomyelitis after back surgery 1988 7. History of diabetes mellitus type 2 8. History of depression DVT prophylaxis heparin. Protonix for GI prophylaxis
--- NOTE | 2019-05-10 16:17 | PN ---
PROGRESS NOTE DATE OF SERVICE: 05/10/2019 REASON FOR FOLLOWUP: Port-A-Cath site infection. INTERVAL HISTORY: The patient is currently afebrile. The patient has been breathing comfortably. The patient denies having any worsening pain to the right chest wall Port-A-Cath site, which has been discontinued. No nausea, no vomiting. No abdominal pain or diarrhea. PHYSICAL EXAMINATION: Blood pressure 131/76, pulse of 90, temperature 98.3. She is 94% on room air. General description is a middle-aged female lying in bed in no distress. HEENT EXAMINATION: Slight pallor. No scleral icterus. RIGHT CHEST WALL: Minimal bruise but no redness or warmth. No drainage. LUNGS: Unlabored breathing. Clear to auscultation anteriorly. HEART: S1, S2. Regular rate and rhythm. ABDOMEN: Soft. No tenderness. LABS: Hemoglobin 9.4, white count 3.5, BUN of 12, creatinine 0.66. The wound cultures are currently pending. DIAGNOSTIC IMPRESSION AND PLAN: Patient with right chest wall Port-A-Cath removal with evidence of some purulent secretions. Cultures are currently pending. Currently on cefazolin; to continue while monitoring clinical course closely. Discussed with surgeon. MMODL / IJN: [id number] /
[2019-05-10] MEDS: HYDROcodone/APAP 10-325MG 1 EACH TAB PO PRN (17:14)
[2019-05-10] MEDS: AMITRIPTYLINE HCL 50 MG TAB PO SCH (22:13)
[2019-05-10] MEDS: FENOFIBRATE 160 MG TAB PO SCH (22:14)
[2019-05-10] MEDS: ATORVASTATIN 20 MG TAB PO SCH (22:14)
[2019-05-11] MEDS: HEPARIN SODIUM,PORCINE 5,000 UNIT/ML 1 ML VIAL SQ SCH ×2 (00:57→08:50)
[2019-05-11] MEDS: BACLOFEN 10 MG TAB PO PRN ×2 (00:57→08:51)
[2019-05-11] MEDS: MORPHINE SULFATE ER 30 MG TABLET PO SCH ×2 (00:57→08:51)
[2019-05-11] MEDS: LACTATED RINGERS 1,000 ML IV SCH (04:18)
[2019-05-11] MEDS: HYDROmorphone 0.5 MG/0.5 ML SYRINGE IVP PRN ×2 (06:03→11:54)
[2019-05-11 07:10] LABS: ALT 22 U/L (9-52); AST 30 U/L (14-36); African American GFR (CKD) >90 (>60 ml/min/1.73 sqM); Albumin 3.9 g/dL (3.5-5.0); Alkaline Phosphatase 121 U/L (38-126); Anion Gap 10 mmol/L; Blood Urea Nitrogen 12 mg/dL (7-17); Calcium 9.5 mg/dL (8.4-10.2); Carbon Dioxide 33 mmol/L (22-30); Chloride 99 mmol/L (98-107); Glucose 136 mg/dL (74-99); Potassium 3.9 mmol/L (3.5-5.1); Sodium 142 mmol/L (137-145); Total Bilirubin 0.3 mg/dL (0.2-1.3); Total Protein 7.1 g/dL (6.3-8.2)
[2019-05-11 07:40] LABS: Basophils % (A) 1 %; Eosinophils # (A) 0.1 k/uL (0-0.7); Eosinophils % (A) 2 %; HCT 31.8 % (34.0-46.0); HGB 10.7 gm/dL (11.4-16.0); Hypochromasia Slight; Lymphocytes # (A) 1.5 k/uL (1.0-4.8); Lymphocytes % (A) 48 %; MCHC 33.8 g/dL (31.0-37.0); Mean Platelet Volume 6.2; Monocytes # (A) 0.2 k/uL (0-1.0); Monocytes % (A) 8 %; Neutrophils # (A) 1.2 k/uL (1.3-7.7); Neutrophils % (A) 40 %; Platelet Count 212 k/uL (150-450); RBC 3.57 m/uL (3.80-5.40); RDW 14.7 % (11.5-15.5); WBC 3.1 k/uL (3.8-10.6)
[2019-05-11 08:49] VITALS: RESP 16
[2019-05-11] MEDS: DIPHENOX-ATROP 2.5-0.025 MG 1 EACH TAB PO SCH (08:50)
[2019-05-11] MEDS: GABAPENTIN 300 MG CAP PO SCH (08:50)
[2019-05-11] MEDS: MELOXICAM 7.5 MG TAB PO SCH (08:50)
[2019-05-11] MEDS: METOPROLOL SUCCINATE (ER) 25 MG TAB.ER.24H PO SCH (08:51)
[2019-05-11] MEDS: metFORMIN 500 MG TAB PO SCH (08:51)
[2019-05-11] MEDS: hydrOXYzine HCL 10 MG TAB PO SCH (08:51)
[2019-05-11] MEDS: VENLAFAXINE HCL 75 MG TAB PO SCH (08:51)
[2019-05-11] MEDS: DOCUSATE 100 MG CAP PO SCH (08:52)
[2019-05-11] MEDS: PANTOPRAZOLE 40 MG/10 ML VIAL IV SCH (08:52)
[2019-05-11] MEDS: D5-0.45% NACL WITH KCL 20MEQ/L 1,000 ML IV SCH (11:03)
[2019-05-11] MEDS ORDERED: LOSARTAN 50 MG TAB PO SCH (12:15)
[2019-05-11 13:26] VITALS: BP 144/90; PULSE 86; TEMP 98
--- NOTE | 2019-05-11 14:04 | P.PN ---
Subjective Progress Note Date: 05/11/19 CHIEF COMPLAINT: Breast cancer HISTORY OF PRESENT ILLNESS: The patient is a 59-year-old female status post port removal and right lumpectomy, 05/09/19. POD 2. She is tolerating diet. No nausea or vomiting. No fevers or chills. ROS: No new chest pain. No productive sputum PHYSICAL EXAM: VITAL SIGNS: Reviewed CONSTITUTIONAL: Well developed and in no acute distress. EYES: Conjuctivae without sclera icterus. Extraocular movements grossly intact. HEAD, EARS, NOSE, THROAT: Moist buccal mucosa. Head is atraumatic, normocephalic. Hears conversational speech. No nasal drainage. NECK: Supple. No thyroidomegaly. RESPIRATORY: Non-labored respirations and equal bilateral excursions. Chest incision clean, dry and intact. CARDIOVASCULAR: Palpable 2+ radial pulses. Regular rate. Regular rhythm. ABDOMEN: Soft. No peritonitis. MUSCULOSKELETAL: No gross deformity of the lower extremities noted. No clubbing. No cyanosis. SKIN: Good skin turgor. Well perfused. NEUROLOGIC: Cranial nerves I through XII grossly intact. No focal or lateralizing signs. PSYCH: Appropriate affect. Alert and oriented to person, place and time. CLINCAL LABS: White blood cell count low from 3500 to 3,100 MICROBIOLOGY: Cultures wound cultures are no growth. ASSESSMENT: 1. Breast cancer with port site infection PLAN: 1. No growth from wound culture 2. Discharge home Objective - Vital Signs Vital signs: Vital Signs Temp 98 F 05/11/19 13:25 Pulse 86 05/11/19 13:25 Resp 16 05/11/19 13:25 BP 144/90 05/11/19 13:25 Pulse Ox 96 05/11/19 13:25 Intake & Output 05/10/19 05/11/19 05/11/19 18:59 06:59 18:59 Intake Total 600 Output Total 60 60 30 Balance 540 -60 -30 Intake: Intake, IV Titration 600 Amount D5-0.45% NaCl with KCl 500 20Meq/l 1,000 ml @ 75 mls /hr IV .[id number] [facility] Rx#: [id number] ceFAZolin 2 gm In Sodium 100 Chloride 0.9% 50 ml @ 100 mls/hr IVPB Q8HR [facility] Rx# :[id number] Output: Drainage 60 60 30 Right Breast 60 60 30 Other: # Voids 2 - Labs CBC & Chem 7: 05/11/19 06:01 05/11/19 06:01 Labs: Abnormal Lab Results - Last 24 Hours (Table) 05/11/19 05/11/19 Range/Units 06:01 06:01 WBC 3.1 L (3.8-10.6) k/uL RBC 3.57 L (3.80-5.40) m/uL Hgb 10.7 L (11.4-16.0) gm/dL Hct 31.8 L (34.0-46.0) % Neutrophils # 1.2 L (1.3-7.7) k/uL Carbon Dioxide 33 H (22-30) mmol/L Glucose 136 H (74-99) mg/dL Microbiology - Last 24 Hours (Table) 05/09/19 11:03 Blood Culture - Preliminary Blood No Growth after 48 hours 05/08/19 16:20 Gram Stain - Final Chest Wound Culture - Final Assessment and Plan (1) Infection due to Port-A-Cath Status: Acute Code(s): T80.219A - UNSP INFECTION DUE TO CENTRAL VENOUS CATHETER, INIT ENCNTR SNOMED Code(s): 221336761 (2) Breast cancer, right Status: Acute Code(s): C50.911 - MALIGNANT NEOPLASM OF UNSP SITE OF RIGHT FEMALE BREAST SNOMED Code(s): 307440659
--- NOTE | 2019-05-11 14:18 | PN ---
PROGRESS NOTE DATE OF SERVICE: 05/11/2019. REASON FOR FOLLOWUP: Possible Port-A-Cath site infection. INTERVAL HISTORY: The patient is currently afebrile. Patient has been breathing comfortably. Patient denies having any chest pain. No cough. No pain to the right upper chest wall area. No diarrhea. PHYSICAL EXAMINATION: Blood pressure 144/90 with a pulse of 83, temperature 98. She is 96% on room air. General description is a middle-aged female lying in bed in no distress. Respiratory system: Unlabored breathing. Clear to auscultation anteriorly. Heart S1, S2. Regular rate and rhythm. Abdomen soft. No tenderness. LABS: White count 3.1. The chest wall wound culture negative. Blood culture negative. DIAGNOSTIC IMPRESSION AND PLAN: Patient with right chest wall Port-A-Cath site some purulent material, however, culture remains to be negative. The patient is afebrile. Blood culture negative as well. Antibiotic can be safely discontinued. Monitor clinical course closely. MMODL / IJN: [id number] /
--- NOTE | 2019-05-11 14:38 | P.DS ---
Providers Date of admission: 05/08/2019 Expected date of discharge: 05/11/19 Attending physician: Ry Rodriguez Consults: 05/08/19 16:43 Consult Physician Routine Consulting Provider: Milton Skinner Consult Reason/Comments: Medical management Do you want consulting provider notified?: Yes 05/09/19 10:42 Consult Physician Routine Consulting Provider: Suellen Almodovar Consult Reason/Comments: Possible infected port Do you want consulting provider notified?: Yes Primary care physician: Milton Skinner - Discharge Diagnosis(es) (1) Infection due to Port-A-Cath Status: Acute (2) Breast cancer, right Status: Acute Hospital Course: CHIEF COMPLAINT: Breast cancer HISTORY OF PRESENT ILLNESS: The patient is a 59-year-old female who was noted with infection along her Port-A-Cath. She underwent status post port removal and right lumpectomy, 05/09/19. POD 2. During admission, consultations with infectious disease was obtained to prevent systemic infection. She was placed on antibiotics. Cultures grew back no significant organisms. Prior to discharge she was hemodynamically stable. She was afebrile. ROS: No new chest pain. No productive sputum PHYSICAL EXAM: VITAL SIGNS: Reviewed CONSTITUTIONAL: Well developed and in no acute distress. EYES: Conjuctivae without sclera icterus. Extraocular movements grossly intact. HEAD, EARS, NOSE, THROAT: Moist buccal mucosa. Head is atraumatic, normocephalic. Hears conversational speech. No nasal drainage. NECK: Supple. No thyroidomegaly. RESPIRATORY: Non-labored respirations and equal bilateral excursions. Chest incision clean, dry and intact. CARDIOVASCULAR: Palpable 2+ radial pulses. Regular rate. Regular rhythm. ABDOMEN: Soft. No peritonitis. MUSCULOSKELETAL: No gross deformity of the lower extremities noted. No clubbing. No cyanosis. SKIN: Good skin turgor. Well perfused. NEUROLOGIC: Cranial nerves I through XII grossly intact. No focal or lateralizing signs. PSYCH: Appropriate affect. Alert and oriented to person, place and time. CLINCAL LABS: White blood cell count low from 3500 to 3,100 MICROBIOLOGY: Cultures wound cultures are no growth. ASSESSMENT: 1. Breast cancer with port site infection PLAN: 1. No growth from wound culture 2. Discharge home Patient Condition at Discharge: Stable Plan - Discharge Summary Discharge Rx Participant: Yes New Discharge Prescriptions: New Amoxicillin/Potassium Clav [Augmentin 875-125 Tablet] 1 tab PO BID 5 Days #10 tab Continue Hydrocodone/Acetaminophen [[place] 10-325] 1 tab PO TID No Action Simvastatin [Zocor] 40 mg PO HS Venlafaxine HCl 150 mg PO BID Amitriptyline HCl 50 mg PO HS #30 tablet Morphine Sulfate ER [Ms Contin] 30 mg PO Q8H #90 tablet Gabapentin [Neurontin] 300 mg PO TID Fenofibrate,Micronized [Fenofibrate] 134 mg PO HS metFORMIN HCL [Glucophage] 500 mg PO BID Baclofen [Lioresal] 10 mg PO Q8HR Meloxicam 15 mg PO DAILY Ergocalciferol (Vitamin D2) [Vitamin D2] 50,000 unit PO WEEKLY Metoprolol Succinate (ER) [Toprol XL] 25 mg PO QAM Colestipol HCl 2 tab PO BID hydrOXYzine HCL [Atarax] 10 mg PO TID Omeprazole [PriLOSEC] 40 mg PO QAM Discharge Medication List Simvastatin [Zocor] 40 mg PO HS 02/18/15 [History] Venlafaxine HCl 150 mg PO BID 02/18/15 [History] Amitriptyline HCl 50 mg PO HS #30 tablet 03/22/15 [Rx] Morphine Sulfate ER [Ms Contin] 30 mg PO Q8H #90 tablet 03/22/15 [Rx] Gabapentin [Neurontin] 300 mg PO TID 03/30/15 [History] Fenofibrate,Micronized [Fenofibrate] 134 mg PO HS 12/01/16 [History] Baclofen [Lioresal] 10 mg PO Q8HR 12/26/17 [History] metFORMIN HCL [Glucophage] 500 mg PO BID 12/26/17 [History] Ergocalciferol (Vitamin D2) [Vitamin D2] 50,000 unit PO WEEKLY 10/14/18 [Hi story] Hydrocodone/Acetaminophen [[place] 10-325] 1 tab PO TID 10/14/18 [History] Meloxicam 15 mg PO DAILY 10/14/18 [History] Colestipol HCl 2 tab PO BID 05/06/19 [History] Metoprolol Succinate (ER) [Toprol XL] 25 mg PO QAM 05/06/19 [History] Omeprazole [PriLOSEC] 40 mg PO QAM 05/06/19 [History] hydrOXYzine HCL [Atarax] 10 mg PO TID 05/06/19 [History] Amoxicillin/Potassium Clav [Augmentin 875-125 Tablet] 1 tab PO BID 5 Days #10 tab 05/09/19 [Rx] Follow up Appointment(s)/Referral(s): Ry Rodriguez MD [Medical Doctor] - 05/15/19 10:40 am Patient Instructions/Handouts: *Surgery [facility] - (Anesthesia) Discharge Instructions Outpatient Surgery Discharge Disposition: HOME SELF-CARE
[2019-05-12] MEDS ORDERED: PANTOPRAZOLE 40 MG TABLET PO SCH (07:30)
[2019-05-15] MEDS ORDERED: ERGOCALCIFEROL 50,000 UNIT CAP PO SCH (09:00)
== END 2019-05-11 15:15 | disposition home or self-care (01) ==
LOC: OR 10:41 → 4SSUR 16:42 → OR 05-11 15:15
PROVIDERS: ATTEND Surgery
DX: C50.911 Malignant neoplasm of unspecified site of right female breast (principal); C77.3 Secondary and unspecified malignant neoplasm of axilla and upper limb lymph nodes; T80.212A Local infection due to central venous catheter, initial encounter; Z92.21 Personal history of antineoplastic chemotherapy; E11.42 Type 2 diabetes mellitus with diabetic polyneuropathy; K21.9 Gastro-esophageal reflux disease without esophagitis; E78.5 Hyperlipidemia, unspecified; I10 Essential (primary) hypertension; M19.90 Unspecified osteoarthritis, unspecified site; F32.9 Major depressive disorder, single episode, unspecified; Z86.14 Personal history of Methicillin resistant Staphylococcus aureus infection; N17.9 Acute kidney failure, unspecified; I05.9 Rheumatic mitral valve disease, unspecified; H21.233 Degeneration of iris (pigmentary), bilateral; G89.29 Other chronic pain; M54.2 Cervicalgia; M54.9 Dorsalgia, unspecified; R41.3 Other amnesia; Z87.891 Personal history of nicotine dependence; Z96.643 Presence of artificial hip joint, bilateral; Z96.651 Presence of right artificial knee joint; Z98.42 Cataract extraction status, left eye; Z98.41 Cataract extraction status, right eye; Z98.51 Tubal ligation status; Z80.3 Family history of malignant neoplasm of breast; Z80.0 Family history of malignant neoplasm of digestive organs; Z83.3 Family history of diabetes mellitus; Z82.3 Family history of stroke; Z81.1 Family history of alcohol abuse and dependence; Z87.01 Personal history of pneumonia (recurrent); Z79.84 Long term (current) use of oral hypoglycemic drugs; Z79.1 Long term (current) use of non-steroidal anti-inflammatories (NSAID); Z79.891 Long term (current) use of opiate analgesic; Z79.899 Other long term (current) drug therapy
CPT/HCPCS: 80053; 80048; 85025 ×2; 88307; 87040; 87070; 87205; 87075; 77001; 71045; 76098; 76641; 38792; 19302; 19281; C1788; A9520; J2250; J1644 ×4; J1642; J1100; J2710; J0690 ×3; J2405; J2001; J3010; J1885; J0330; J2704; C9113 ×3; J1170 ×4

== ENCOUNTER → 2019-10-21 | Outpatient (CLI) | payer MEDICARE, OTHER ==
--- NOTE | 2019-10-21 11:05 | MM ---
Reason for exam: follow-up at short interval from prior study. Last mammogram was performed 1 year ago. History: Patient is postmenopausal and has history of breast cancer at age 59. Family history of breast cancer in maternal aunt at age 50 and breast cancer in sister at age 43. Malignant MG pre op needle loc RT of the right breast, May 08, 2019. Lumpectomy of the right breast, May 08, 2019. US discontinued breast loc RT of the right breast, May 08, 2019. Malignant US biopsy breast VAD RT of the right breast, October 30, 2018. Chemotherapy, 2019. Radiation therapy of the right breast, 2019. Benign excisional biopsy of both breasts. Physical Findings: Nurse did not find any significant physical abnormalities on exam. MG 3D Diag Mammo W/Cad FELIX Bilateral CC and MLO view(s) were taken. Prior study comparison: October 30, 2018, right breast MG diagnostic mammo RT wo CAD. October 04, 2018, bilateral MG 3d screening mammo w/cad. The breast tissue is extremely dense which could obscure a lesion on mammography. Finding: There is a mass in the upper quadrant, middle position presumed post treatment changes. Mild/severe diffuse skin thickening lumpectomy changes. There are few benign appearing round bilateral calcifications. There is no discrete abnormality on the left breast. Right axillary surgical changes. These results were verbally communicated with the patient and result sheet given to the patient on 10/21/19. ASSESSMENT: Benign, BI-RAD 2 RECOMMENDATION: Breast MRI of both breasts. Annual breast MRI should be considered/recommended by ACR in patient dense breast and history of concern. Follow-up diagnostic mammogram of both breasts in 1 year.
== END | disposition home or self-care (01) ==
LOC: RADMAMWWP 09:33
PROVIDERS: ATTEND Surgery
DX: Z08 Encounter for follow-up examination after completed treatment for malignant neoplasm (principal); Z85.3 Personal history of malignant neoplasm of breast
CPT/HCPCS: 77066; G0279; 77062

== ENCOUNTER → 2020-02-03 | Outpatient (CLI) | payer MEDICARE, OTHER ==
--- NOTE | 2020-02-05 11:03 | BMR ---
EXAMINATION TYPE: MR breast BILAT wo/w con DATE OF EXAM: 02/03/2020 COMPARISON: Prior MRI bilateral breast November 25, 2018 BI-RADS 4 right breast. Bilateral diagnostic ma mmogram October 21, 2019 BI-RADS 2. HISTORY: History of right-sided breast cancer in 2019 and multiple prior biopsies and excisions. CONTRAST: Multiplanar, multisequence images of the breasts were acquired utilizing 7.5 mL intravenous Gadavist gadolinium contrast. TECHNIQUE: A series of fat and water weighted images in the long and short axis views of both breasts are obtained in conjunction with dynamic contrast MRI with subtraction technique. Three-dimensional and additional postprocessing imaging is created on independent workstation and reviewed during offi cial interpretation of this study. FINDINGS: Heterogeneously dense fibroglandular tissue is redemonstrated throughout both breasts makin g evaluation somewhat suboptimal. There is persistent and even more prominent increased size to the r ight breast versus the opposite left breast with abnormal increased skin thickening and diffuse trabe culation and edema including some deep subcutaneous edema along the pectoralis muscle. There is susce ptibility artifact from prior excision in the anterior aspect 12:00 position right breast seen best i mage 58 series 601 new from Prior MRI at site of biopsy-proven carcinoma with known distortion. Delay ed postcontrast images show no convincing evidence of suspicious internal mammary adenopathy. There i s suggestion of some anterior pulmonary linear atelectasis and/or scarring. There is persistent susce ptibility artifact laterally in the left breast near image 43 of uncertain etiology unchanged from pr ior study. There is new central Mediport catheter in the upper left breast. Benign-appearing bilatera l axillary lymph nodes with new scar tissue in the right axilla. No definitive new abnormal adenopath y bilaterally. Postcontrast images show some crossing small vessels bilaterally. I do not see evidence of new suspic ious enhancement or enhancing masses. No new suspicious enhancement at level of scar and surgery ante rior right upper breast 12:00 position noted. Chest wall is intact bilaterally. IMPRESSION: No convincing MRI evidence for recurrent or new invasive malignancy in either breast BI-RADS 2 benign findings right and left breast. Recommendation: Annual diagnostic bilateral breast mammogram due October 2020
== END | disposition home or self-care (01) ==
LOC: RADMRIMAIN 17:17
PROVIDERS: ATTEND Internal Medicine Hematology & Oncology
DX: C50.111 Malignant neoplasm of central portion of right female breast (principal)
CPT/HCPCS: C8937; C8908; A9585; 77049

== ENCOUNTER 2020-02-28 10:46 | Observation (INO) | payer MEDICARE, OTHER ==
[2020-02-28] MEDS ORDERED: ACETAMINOPHEN TAB 500 MG TAB PO STA (11:07)
[2020-02-28] MEDS ORDERED: SODIUM CHLORIDE 0.9% 1,000 ML IV STA (11:07)
[2020-02-28 11:39] LABS: Appearance,Urine Cloudy (Clear); Bacteria,Urine Few /hpf; Bilirubin,Urine Negative (Negative); Blood,Urine Trace (Negative); Color,Urine Yellow; Glucose,Urine (UA) 3+ (Negative); Ketones,Urine Trace (Negative); Leukocyte Esterase,Urine Large (Negative); Nitrite,Urine Negative (Negative); PH, Urine 7.5 (5.0-8.0); Protein,Urine 1+ (Negative); RBC,Urine 6 /hpf (0-5); Specific Gravity,Urine 1.013 (1.001-1.035); Squamous Epithelial Cell,Urine 2 /hpf (0-4); WBC,Urine 129 /hpf (0-5)
[2020-02-28] MEDS ORDERED: cefTRIAXone IN SWFI 1,000 MG/10 ML SYRINGE IVP STA (11:44)
--- NOTE | 2020-02-28 11:44 | ED ---
Fever HPI - General Source: patient, RN notes reviewed Mode of arrival: ambulatory Limitations: no limitations <Hi Quinn - Last Filed: 02/28/20 12:54> <Maxime De Paz - Last Filed: 02/28/20 13:19> - General Chief Complaint: Fever Stated Complaint: fever Time Seen by Provider: 02/28/20 11:01 - History of Present Illness Initial Comments: 52-year-old female presents emergency Department with chief complaint of fever. Patient states symptoms started yesterday states that she does have body aches all over. Patient states she knew she had a fever. Patient has a 102 fever on presentation emergency room no recent Tylenol Motrin. She states she's had intermittent headaches no current headache no neck pain or neck stiffness. Patient denies any cough, URI symptoms, sore throat, nausea, vomiting diarrhea c onstipation or dysuria no sick contacts. Patient states that she has a history of hypertension diabetes and states that she has a history of breast cancer though cancer free since December. (Hi Quinn) - Related Data Home Medications Medication Instructions Recorded Confirmed Simvastatin [Zocor] 40 mg PO HS 02/18/15 05/08/19 Venlafaxine HCl 150 mg PO BID 02/18/15 05/08/19 Gabapentin [Neurontin] 300 mg PO TID 03/30/15 05/08/19 Fenofibrate,Micronized 134 mg PO HS 12/01/16 05/08/19 [Fenofibrate] Baclofen [Lioresal] 10 mg PO Q8HR 12/26/17 05/08/19 metFORMIN HCL [Glucophage] 500 mg PO BID 12/26/17 05/08/19 Ergocalciferol (Vitamin D2) 50,000 unit PO WEEKLY 10/14/18 05/08/19 [Vitamin D2] Hydrocodone/Acetaminophen [[place] 1 tab PO TID 10/14/18 05/08/19 10-325] Meloxicam 15 mg PO DAILY 10/14/18 05/08/19 Colestipol HCl 2 tab PO BID 05/06/19 05/08/19 Metoprolol Succinate (ER) [Toprol 25 mg PO QAM 05/06/19 05/08/19 XL] Omeprazole [PriLOSEC] 40 mg PO QAM 05/06/19 05/08/19 hydrOXYzine HCL [Atarax] 10 mg PO TID 05/06/19 05/08/19 Previous Rx's Medication Instructions Recorded Amitriptyline HCl 50 mg PO HS #30 tablet 03/22/15 Morphine Sulfate ER [Ms Contin] 30 mg PO Q8H #90 tablet 03/22/15 Amoxicillin/Potassium Clav 1 tab PO BID 5 Days #10 tab 05/09/19 [Augmentin 875-125 Tablet] Allergies Allergy/AdvReac Type Severity Reaction Status Date / Time No Known Allergies Allergy Verified 05/06/19 09:11 Review of Systems ROS Other: All systems not noted in ROS Statement are negative. <Hi Quinn - Last Filed: 02/28/20 12:54> ROS Other: All systems not noted in ROS Statement are negative. <Maxime De Paz - Last Filed: 02/28/20 13:19> ROS Statement: Those systems with pertinent positive or pertinent negative responses have been documented in the HPI. 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 breast cancer right side History of Any Multi-Drug Resistant Organisms: MRSA Date of last positivie culture/infection: 2009 MDRO Source:: chin Past Surgical History: Back Surgery, Breast Surgery, Section, Joint Replacement, Orthopedic Surgery, Tubal Ligation Additional Past Surgical History / Comment(s): Total R hip arthroplasty anterior approach. rt knee replacement, mult breast biopsies, regina carpal tunnel. regina cataracts, left hip replaced x2 Past Anesthesia/Blood Transfusion Reactions: No Reported Reaction Additional Past Anesthesia/Blood Transfusion Reaction / Comment(s): Pt has never received blood. Past Psychological History: Depression Smoking Status: Former smoker Past Alcohol Use History: None Reported Past Drug Use History: Marijuana - Past Family History Sister(s) Family Medical History: Cancer Additional Family Medical History / Comment(s): BREAST Cancer. Mother Family Medical History: Cancer Additional Family Medical History / Comment(s): Colon cancer. Father Family Medical History: CVA/TIA, Diabetes Mellitus Additional Family Medical History / Comment(s): alcoholism <Hi Quinn - Last Filed: 02/28/20 12:54> General Exam Limitations: no limitations General appearance: alert, in no apparent distress Head exam: Present: atraumatic, normocephalic, normal inspection Eye exam: Present: normal appearance, PERRL, EOMI. Absent: scleral icterus, conjunctival injection, periorbital swelling ENT exam: Present: normal exam, normal oropharynx, mucous membranes moist, TM's normal bilaterally Neck exam: Present: normal inspection, full ROM. Absent: tenderness, meningismus, lymphadenopathy Respiratory exam: Present: normal lung sounds bilaterally. Absent: respiratory distress, wheezes, rales, rhonchi, stridor Cardiovascular Exam: Present: normal rhythm, tachycardia, normal heart sounds. Absent: systolic murmur, diastolic murmur, rubs, gallop, clicks GI/Abdominal exam: Present: soft, normal bowel sounds. Absent: distended, tenderness, guarding, rebound, rigid Back exam: Absent: CVA tenderness (R), CVA tenderness (L) Neurological exam: Present: alert, oriented X3 Skin exam: Present: warm, dry, intact, normal color. Absent: rash <Hi Quinn - Last Filed: 02/28/20 12:54> Course <Maxime De Paz - Last Filed: 02/28/20 13:19> Vital Signs 02/28/20 02/28/20 02/28/20 10:51 11:36 12:54 Temperature 102.6 F H 101.1 F H Pulse Rate 121 H 121 H 102 H Respiratory 20 20 20 Rate Blood Pressure 149/71 168/74 143/87 O2 Sat by Pulse 96 96 96 Oximetry - Reevaluation(s) Reevaluation #1: 02/28/20 13:18 PA supervision: I personally evaluate this case patient does present with complaints of fever and body aches she does have history diabetes as well as a history of breast cancer. Patient does have evidence of UTI she'll be admitted. I did discuss case with Dr. Skinner (Maxime De Paz) Medical Decision Making - Lab Data Result diagrams: 02/28/20 11:34 02/28/20 11:34 <Hi Quinn - Last Filed: 02/28/20 12:54> - Lab Data Result diagrams: 02/28/20 11:34 02/28/20 11:34 <Maxime De Paz - Last Filed: 02/28/20 13:19> - Medical Decision Making 52-year-old female presented for fever of 103. Patient found to have only source of infection is urinary tract infection. This is concerning with her fever, infection concerning for bacteremia. Patient does have that report in. Patient will be admitted for IV antibiotics pending cultures. (Hi Quinn) - Lab Data Lab Results 02/28/20 02/28/20 02/28/20 Range/Units 11:19 11:34 11:34 WBC 8.5 (3.8-10.6) k/uL RBC 3.68 L (3.80-5.40) m/uL Hgb 11.2 L (11.4-16.0) gm/dL Hct 32.8 L (34.0-46.0) % MCV 89.3 D (80.0-100.0) fL MCH 30.5 (25.0-35.0) pg MCHC 34.2 (31.0-37.0) g/dL RDW 12.7 (11.5-15.5) % Plt Count 176 (150-450) k/uL Neutrophils % 78 % Lymphocytes % 11 % Monocytes % 8 % Eosinophils % 1 % Basophils % 0 % Neutrophils # 6.6 (1.3-7.7) k/uL Lymphocytes # 0.9 L (1.0-4.8) k/uL Monocytes # 0.7 (0-1.0) k/uL Eosinophils # 0.1 (0-0.7) k/uL Basophils # 0.0 (0-0.2) k/uL Sodium 134 L (137-145) mmol/L Potassium 3.8 (3.5-5.1) mmol/L Chloride 100 (98-107) mmol/L Carbon Dioxide 22 (22-30) mmol/L Anion Gap 12 mmol/L BUN 12 (7-17) mg/dL Creatinine 0.78 (0.52-1.04) mg/dL Est GFR (CKD-EPI)AfAm >90 (>60 ml/min/1.73 sqM) Est GFR (CKD-EPI)NonAf 84 (>60 ml/min/1.73 sqM) Glucose 231 H (74-99) mg/dL Plasma Lactic Acid Ronald (0.7-2.0) mmol/L Calcium 9.2 (8.4-10.2) mg/dL Total Bilirubin 0.9 (0.2-1.3) mg/dL AST 31 (14-36) U/L ALT 21 (4-34) U/L Alkaline Phosphatase 77 (38-126) U/L Total Protein 7.4 (6.3-8.2) g/dL Albumin 4.4 (3.5-5.0) g/dL Lipase 68 (23-300) U/L Urine Color Yellow Urine Appearance Cloudy H (Clear) Urine pH 7.5 (5.0-8.0) Ur Specific [place] 1.013 (1.001-1.035) Urine Protein 1+ H (Negative) Urine Glucose (UA) 3+ H (Negative) Urine Ketones Trace H (Negative) Urine Blood Trace H (Negative) Urine Nitrite Negative (Negative) Urine Bilirubin Negative (Negative) Urine Urobilinogen 4.0 (<2.0) mg/dL Ur Leukocyte Esterase Large H (Negative) Urine RBC 6 H (0-5) /hpf Urine WBC 129 H (0-5) /hpf Ur Squamous Epith Cells 2 (0-4) /hpf Urine Bacteria Few H (None) /hpf 02/28/20 Range/Units 11:34 WBC (3.8-10.6) k/uL RBC (3.80-5.40) m/uL Hgb (11.4-16.0) gm/dL Hct (34.0-46.0) % MCV (80.0-100.0) fL MCH (25.0-35.0) pg MCHC (31.0-37.0) g/dL RDW (11.5-15.5) % Plt Count (150-450) k/uL Neutrophils % % Lymphocytes % % Monocytes % % Eosinophils % % Basophils % % Neutrophils # (1.3-7.7) k/uL Lymphocytes # (1.0-4.8) k/uL Monocytes # (0-1.0) k/uL Eosinophils # (0-0.7) k/uL Basophils # (0-0.2) k/uL Sodium (137-145) mmol/L Potassium (3.5-5.1) mmol/L Chloride (98-107) mmol/L Carbon Dioxide (22-30) mmol/L Anion Gap mmol/L BUN (7-17) mg/dL Creatinine (0.52-1.04) mg/dL Est GFR (CKD-EPI)AfAm (>60 ml/min/1.73 sqM) Est GFR (CKD-EPI)NonAf (>60 ml/min/1.73 sqM) Glucose (74-99) mg/dL Plasma Lactic Acid Ronald 0.8 (0.7-2.0) mmol/L Calcium (8.4-10.2) mg/dL Total Bilirubin (0.2-1.3) mg/dL AST (14-36) U/L ALT (4-34) U/L Alkaline Phosphatase (38-126) U/L Total Protein (6.3-8.2) g/dL Albumin (3.5-5.0) g/dL Lipase (23-300) U/L Urine Color Urine Appearance (Clear) Urine pH (5.0-8.0) Ur Specific [place] (1.001-1.035) Urine Protein (Negative) Urine Glucose (UA) (Negative) Urine Ketones (Negative) Urine Blood (Negative) Urine Nitrite (Negative) Urine Bilirubin (Negative) Urine Urobilinogen (<2.0) mg/dL Ur Leukocyte Esterase (Negative) Urine RBC (0-5) /hpf Urine WBC (0-5) /hpf Ur Squamous Epith Cells (0-4) /hpf Urine Bacteria (None) /hpf Disposition <Hi Quinn - Last Filed: 02/28/20 12:54> <Maxime De Paz - Last Filed: 02/28/20 13:19> Clinical Impression: Urinary tract infection, Sepsis Disposition: ADMITTED IP TO THIS HOSP Condition: Fair Referrals: Milton Skinner MD [Primary Care Provider] - 1-2 days
[2020-02-28 12:00] LABS: ALT 21 U/L (4-34); AST 31 U/L (14-36); African American GFR (CKD) >90 (>60 ml/min/1.73 sqM); Albumin 4.4 g/dL (3.5-5.0); Alkaline Phosphatase 77 U/L (38-126); Anion Gap 12 mmol/L; Blood Urea Nitrogen 12 mg/dL (7-17); Calcium 9.2 mg/dL (8.4-10.2); Carbon Dioxide 22 mmol/L (22-30); Chloride 100 mmol/L (98-107); Glucose 231 mg/dL (74-99); Non-African American GFR(CKD) 84 (>60 ml/min/1.73 sqM); Potassium 3.8 mmol/L (3.5-5.1); Sodium 134 mmol/L (137-145); Total Bilirubin 0.9 mg/dL (0.2-1.3); Total Protein 7.4 g/dL (6.3-8.2)
[2020-02-28 12:06] LABS: Basophils % (A) 0 %; Eosinophils # (A) 0.1 k/uL (0-0.7); Eosinophils % (A) 1 %; HCT 32.8 % (34.0-46.0); HGB 11.2 gm/dL (11.4-16.0); Lymphocytes # (A) 0.9 k/uL (1.0-4.8); Lymphocytes % (A) 11 %; MCH 30.5 pg (25.0-35.0); MCHC 34.2 g/dL (31.0-37.0); Mean Platelet Volume 7.6; Monocytes # (A) 0.7 k/uL (0-1.0); Monocytes % (A) 8 %; Neutrophils # (A) 6.6 k/uL (1.3-7.7); Neutrophils % (A) 78 %; Platelet Count 176 k/uL (150-450); RBC 3.68 m/uL (3.80-5.40); RDW 12.7 % (11.5-15.5); WBC 8.5 k/uL (3.8-10.6)
[2020-02-28 12:18] LABS: MCV 89.3 fL (80.0-100.0)
[2020-02-28] MEDS ORDERED: NALOXONE 0.4 MG/ML 1 ML VIAL IV PRN (12:56)
[2020-02-28] MEDS ORDERED: IBUPROFEN 400 MG TAB PO PRN (12:56)
--- NOTE | 2020-02-28 13:14 | XR ---
EXAMINATION TYPE: XR chest 2V DATE OF EXAM: 02/28/2020 HISTORY: fever. REFERENCE: Previous study dated 05/08/2019. FINDINGS: A left internal jugular catheter remains in place. Its tip is in the superior vena cava. No pneumothorax is seen. The lungs are clear. Pleural spaces are clear. Heart size upper limits of norm al. IMPRESSION: NO ACTIVE INTRATHORACIC DISEASE.
[2020-02-28] MEDS: SODIUM CHLORIDE 0.9% 1,000 ML IV SCH ×2 (14:47→20:11)
[2020-02-28 17:45] LABS: Glucose,Whole Blood 189 mg/dL (75-99)
[2020-02-28] MEDS: GABAPENTIN 300 MG CAP PO SCH (17:45)
[2020-02-28] MEDS: MORPHINE SULFATE ER 30 MG TABLET PO SCH (17:45)
[2020-02-28] MEDS: ACETAMINOPHEN TAB 325 MG TAB PO PRN (20:07)
[2020-02-28 20:21] LABS: Glucose,Whole Blood 202 mg/dL (75-99)
[2020-02-28] MEDS: VENLAFAXINE HCL 75 MG TAB PO SCH (20:44)
[2020-02-28] MEDS: AMITRIPTYLINE HCL 50 MG TAB PO SCH (20:44)
[2020-02-28] MEDS: FENOFIBRATE 160 MG TAB PO SCH (20:44)
[2020-02-28] MEDS: ATORVASTATIN 20 MG TAB PO SCH (20:44)
[2020-02-28] MEDS: metFORMIN 500 MG TAB PO SCH (20:58)
[2020-02-28] MEDS: HYDROcodone/APAP 10-325MG 1 EACH TAB PO SCH (22:38)
[2020-02-29] MEDS: MORPHINE SULFATE ER 30 MG TABLET PO SCH ×4 (00:44→20:59)
[2020-02-29] MEDS: GABAPENTIN 300 MG CAP PO SCH ×4 (00:44→21:01)
[2020-02-29] MEDS: BACLOFEN 10 MG TAB PO PRN ×3 (00:49→20:58)
[2020-02-29] MEDS: SODIUM CHLORIDE 0.9% 1,000 ML IV SCH ×4 (02:46→18:31)
[2020-02-29] MEDS: ACETAMINOPHEN TAB 325 MG TAB PO PRN ×2 (04:30→23:22)
[2020-02-29 06:34] LABS: Glucose,Whole Blood 152 mg/dL (75-99)
[2020-02-29] MEDS: MELOXICAM 7.5 MG TAB PO SCH (07:59)
[2020-02-29] MEDS: HYDROcodone/APAP 10-325MG 1 EACH TAB PO SCH ×3 (08:01→21:00)
[2020-02-29] MEDS: VENLAFAXINE HCL 75 MG TAB PO SCH ×2 (08:01→20:06)
[2020-02-29] MEDS: metFORMIN 500 MG TAB PO SCH ×2 (08:02→20:06)
[2020-02-29] MEDS: METOPROLOL SUCCINATE (ER) 25 MG TAB.ER.24H PO SCH (08:02)
--- NOTE | 2020-02-29 12:39 | P.HPIM ---
History of Present Illness H&P Date: 02/29/20 Yuliya North, is a 60-year-old female, who presented to [facility] emergency room with a chief complaint of fever and generalized body ache, she was evaluated in emergency room, her temperature on presentation was 102.6 pulse 121 respiration 20 blood pressure 149/71, chest x-ray did not reveal any evidence of any active intrathoracic disease, urine analysis was done and revealed evidence of urinary tract infection, she was started on IV antibiotic Rocephin and was admitted to medical floor, Covid 19 testing was done and is still pending. Patient has a known history of hypertension, hyperlipidemia, mdw-xtmqiut-pzhixcnoi diabetes mellitus, severe degenerative disc disease with history of chronic pain syndrome requiring long-term use of narcotics, history of depression and history of breast cancer. On review of systems patient is alert and oriented 3 in no apparent distress, she was complaining of fever and chills, and generalized body ache, otherwise she denies any complaints there was no headache or dizziness no chest pain no shortness of breath no cough no nausea or vomiting no abdominal pain no diarrhea no burning with urination no frequency or urgency and no hematuria. 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 breast cancer right side History of Any Multi-Drug Resistant Organisms: MRSA Date of last positivie culture/infection: 2009 MDRO Source:: chin Past Surgical History: Back Surgery, Breast Surgery, Section, Joint Replacement, Orthopedic Surgery, Tubal Ligation Additional Past Surgical History / Comment(s): Total R hip arthroplasty anterior approach. rt knee replacement, mult breast biopsies, regina carpal tunnel. regina cataracts, left hip replaced x2 Past Anesthesia/Blood Transfusion Reactions: No Reported Reaction Additional Past Anesthesia/Blood Transfusion Reaction / Comment(s): Pt has never received blood. Past Psychological History: Depression Additional Psychological History / Comment(s): . Smoking Status: Former smoker Past Alcohol Use History: None Reported Additional Past Alcohol Use History / Comment(s): Pt started smoking in 1971 and quit in 2007, 1 PPD Past Drug Use History: Marijuana Additional Drug Use History / Comment(s): occasional marijuana use - Past Family History Sister(s) Family Medical History: Cancer Additional Family Medical History / Comment(s): BREAST Cancer. Mother Family Medical History: Cancer Additional Family Medical History / Comment(s): Colon cancer. Father Family Medical History: CVA/TIA, Diabetes Mellitus Additional Family Medical History / Comment(s): alcoholism Medications and Allergies Home Medications Medication Instructions Recorded Confirmed Type Simvastatin [Zocor] 40 mg PO HS 02/18/15 02/28/20 History Venlafaxine HCl 150 mg PO BID 02/18/15 02/28/20 History Amitriptyline HCl 50 mg PO HS #30 tablet 03/22/15 02/28/20 Rx Gabapentin [Neurontin] 300 mg PO TID 03/30/15 02/28/20 History Fenofibrate,Micronized 134 mg PO HS 12/01/16 02/28/20 History [Fenofibrate] Baclofen [Lioresal] 10 mg PO TID PRN 12/26/17 02/28/20 History metFORMIN HCL [Glucophage] 500 mg PO BID 12/26/17 02/28/20 History Ergocalciferol (Vitamin D2) 50,000 unit PO FR 10/14/18 02/28/20 History [Vitamin D2] Hydrocodone/Acetaminophen [Center 1 tab PO TID 10/14/18 02/28/20 History 10-325] Meloxicam 15 mg PO DAILY 10/14/18 02/28/20 History Metoprolol Succinate (ER) [Toprol 25 mg PO QAM 05/06/19 02/28/20 History XL] Chlorhexidine Gluconate [Peridex] 15 ml PO BID 02/28/20 02/28/20 History Morphine Sulfate ER [Ms Contin] 30 mg PO TID 02/28/20 02/28/20 History Allergies Allergy/AdvReac Type Severity Reaction Status Date / Time No Known Allergies Allergy Verified 05/06/19 09:11 Physical Exam Vitals: Vital Signs Temp Pulse Pulse Resp BP BP Pulse Ox 02/29/20 08:00 18 02/29/20 07:31 100.0 F H 111 H 18 161/89 02/29/20 05:48 99.7 F H 02/29/20 04:25 100 F H 99 139/78 98 02/29/20 00:39 98.9 F 75 16 105/57 96 02/28/20 20:59 100 F H 02/28/20 19:41 100.6 F H 104 H 16 149/73 93 L 02/28/20 16:00 98.9 F 98 16 129/77 100 02/28/20 13:54 99.6 F 97 16 158/73 02/28/20 12:54 101.1 F H 102 H 20 143/87 96 Intake and Output 02/28/20 02/29/20 02/29/20 22:59 06:59 14:59 Intake Total 590 1000 Balance 590 1000 Intake: Oral 590 1000 Other: # Voids 1 In general patient is alert and oriented 3 HEENT head normocephalic and atraumatic Neck is supple no JVD no goiter no lymphadenopathy Chest exam reveals a few scattered rhonchi no wheezing Cardiac exam reveals regular heart sounds S1 and S2 no gallops no murmurs Abdomen is soft nontender no organomegaly was normal bowel sounds Extremity exam reveals no edema no cyanosis or clubbing Neurological examination reveals no gross focal deficit Results CBC & Chem 7: 02/28/20 11:34 02/28/20 11:34 Labs: Abnormal Lab Results - Last 24 Hours (Table) 02/28/20 02/28/20 02/29/20 Range/Units 17:44 20:18 06:33 POC Glucose (mg/dL) 189 H 202 H 152 H (75-99) mg/dL Microbiology - Last 24 Hours (Table) 02/28/20 11:19 Urine Culture - Preliminary Urine,Voided Thrombosis Risk Factor Assmnt - Choose All That Apply Other Risk Factors: No Other congenital or acquired thrombophilia - If yes, enter type in comment: No Assessment and Plan Plan: 1. Urinary tract infection, urine culture done and results are still pending, patient started on IV Rocephin awaiting culture results. 2. Febrile illness, Covid 19 testing done and results are still pending 3. Underlying history of hypertension well-controlled medications reviewed and reordered 4. Underlying history of hyperlipidemia maintained on simvastatin continue 5. Underlying history of wsg-qisydkl-zzubjdnqw diabetes mellitus maintained on metformin continue 6. Underlying history of depression maintained on venlafaxine 7. Underlying history of severe degenerative disc disease was previous history of spine surgery, with chronic pain syndrome maintained on narcotics medication reviewed and reordered At this time will continue with current management continue IV antibiotics Awaiting urine culture results, awaiting Covid 19 testing results For DVT prophylaxis subcu Lovenox, for GI prophylaxis Protonix Will follow in a.m.
[2020-02-29] MEDS: ENOXAPARIN 40 MG/0.4 ML SYRINGE SQ SCH (14:05)
[2020-02-29 17:07] LABS: Glucose,Whole Blood 166 mg/dL (75-99)
[2020-02-29 19:55] LABS: Glucose,Whole Blood 206 mg/dL (75-99)
[2020-02-29] MEDS: FENOFIBRATE 160 MG TAB PO SCH (20:06)
[2020-02-29] MEDS: ATORVASTATIN 20 MG TAB PO SCH (20:07)
[2020-02-29] MEDS: AMITRIPTYLINE HCL 50 MG TAB PO SCH (20:07)
[2020-03-01] MEDS: SODIUM CHLORIDE 0.9% 1,000 ML IV SCH ×2 (04:38→07:51)
[2020-03-01] MEDS: BACLOFEN 10 MG TAB PO PRN (06:32)
[2020-03-01 06:34] LABS: Glucose,Whole Blood 152 mg/dL (75-99)
[2020-03-01] MEDS ORDERED: PANTOPRAZOLE 40 MG TABLET PO SCH (07:30)
[2020-03-01 07:32] LABS: Basophils % (A) 0 %; Eosinophils # (A) 0.1 k/uL (0-0.7); Eosinophils % (A) 2 %; HCT 35.4 % (34.0-46.0); HGB 11.5 gm/dL (11.4-16.0); Lymphocytes % (A) 18 %; MCH 29.8 pg (25.0-35.0); MCHC 32.4 g/dL (31.0-37.0); Mean Platelet Volume 7.5; Monocytes # (A) 0.4 k/uL (0-1.0); Monocytes % (A) 7 %; Neutrophils # (A) 3.8 k/uL (1.3-7.7); Neutrophils % (A) 69 %; Platelet Count 210 k/uL (150-450); RBC 3.85 m/uL (3.80-5.40); RDW 12.6 % (11.5-15.5); WBC 5.5 k/uL (3.8-10.6)
[2020-03-01 07:43] VITALS: RESP 12
[2020-03-01] MEDS: ENOXAPARIN 40 MG/0.4 ML SYRINGE SQ SCH (07:47)
[2020-03-01] MEDS: MELOXICAM 7.5 MG TAB PO SCH (07:48)
[2020-03-01] MEDS: GABAPENTIN 300 MG CAP PO SCH ×2 (07:48→15:21)
[2020-03-01] MEDS: MORPHINE SULFATE ER 30 MG TABLET PO SCH ×2 (07:48→15:21)
[2020-03-01] MEDS: metFORMIN 500 MG TAB PO SCH (07:48)
[2020-03-01] MEDS: VENLAFAXINE HCL 75 MG TAB PO SCH (07:49)
[2020-03-01] MEDS: HYDROcodone/APAP 10-325MG 1 EACH TAB PO SCH ×2 (07:49→15:21)
[2020-03-01] MEDS: METOPROLOL SUCCINATE (ER) 25 MG TAB.ER.24H PO SCH (07:49)
[2020-03-01 08:00] LABS: ALT 24 U/L (4-34); AST 28 U/L (14-36); African American GFR (CKD) >90 (>60 ml/min/1.73 sqM); Albumin 4.2 g/dL (3.5-5.0); Alkaline Phosphatase 89 U/L (38-126); Anion Gap 11 mmol/L; Blood Urea Nitrogen 9 mg/dL (7-17); Calcium 9.5 mg/dL (8.4-10.2); Carbon Dioxide 24 mmol/L (22-30); Chloride 104 mmol/L (98-107); Glucose 159 mg/dL (74-99); Non-African American GFR(CKD) >90 (>60 ml/min/1.73 sqM); Potassium 3.8 mmol/L (3.5-5.1); Sodium 139 mmol/L (137-145); Total Bilirubin 0.5 mg/dL (0.2-1.3); Total Protein 7.6 g/dL (6.3-8.2)
[2020-03-01 11:52] LABS: Glucose,Whole Blood 140 mg/dL (75-99)
[2020-03-01 15:21] VITALS: BP 145/74; PULSE 91; TEMP 99.7
--- NOTE | 2020-03-01 15:39 | P.DS ---
Providers Date of admission: 02/28/20 13:18 Expected date of discharge: 03/01/20 Attending physician: Milton Skinner Primary care physician: Milton Skinner [facility] Course: Diagnosis on discharge: 1. Urinary tract infection, urine culture done and results are still pending, patient started on IV Rocephin awaiting culture results. Patient improved white blood count normal, she was switched to oral Cipro and was discharged home on 03/01/2020 blood culture results are still pending, will follow as outpatient and adjust antibiotics if needed for culture results. 2. Febrile illness, Covid 19 testing done and was negative 3. Underlying history of hypertension well-controlled medications reviewed and reordered 4. Underlying history of hyperlipidemia maintained on simvastatin continue 5. Underlying history of lgw-vvbnewo-domuhykdk diabetes mellitus maintained on metformin continue 6. Underlying history of depression maintained on venlafaxine 7. Underlying history of severe degenerative disc disease was previous history of spine surgery, with chronic pain syndrome maintained on narcotics medication reviewed and reordered Hospital course: Yuliya North, is a 60-year-old female, who presented to [facility] emergency room with a chief complaint of fever and generalized body ache, she was evaluated in emergency room, her temperature on presentation was 102.6 pulse 121 respiration 20 blood pressure 149/71, chest x-ray did not reveal any evidence of any active intrathoracic disease, urine analysis was done and revealed evidence of urinary tract infection, she was started on IV antibiotic Rocephin and was admitted to medical floor, Covid 19 testing was done and is still pending. Patient has a known history of hypertension, hyperlipidemia, eyk-xmlgydx-znbdklcqs diabetes mellitus, severe degenerative disc disease with history of chronic pain syndrome requiring long-term use of narcotics, history of depression and history of breast cancer. On review of systems patient is alert and oriented 3 in no apparent distress, she was complaining of fever and chills, and generalized body ache, otherwise she denies any complaints there was no headache or dizziness no chest pain no shortness of breath no cough no nausea or vomiting no abdominal pain no diarrhea no burning with urination no frequency or urgency and no hematuria. On 03/01/2020 patient was seen and examined in the observation unit, she is alert and oriented 3 in no apparent distress, she is feeling better she is still having low-grade fever of 99.5 otherwise she denies any complaints, Covid 19 testing was negative, patient has urinary tract infection and has received Rocephin since admission, she will be switched to oral Cipro 250 mg twice daily for 7 days, she will be followed in our office on 03/04/2020, culture results are still pending will follow as outpatient and adjust antibiotics if needed Patient Condition at Discharge: Fair Plan - Discharge Summary New Discharge Prescriptions: New Ciprofloxacin HCl [Cipro] 250 mg PO Q12HR 7 Days #14 tab Continue Simvastatin [Zocor] 40 mg PO HS Venlafaxine HCl 150 mg PO BID Amitriptyline HCl 50 mg PO HS #30 tablet Gabapentin [Neurontin] 300 mg PO TID Fenofibrate,Micronized [Fenofibrate] 134 mg PO HS metFORMIN HCL [Glucophage] 500 mg PO BID Baclofen [Lioresal] 10 mg PO TID PRN PRN Reason: Muscle Spasm Meloxicam 15 mg PO DAILY Ergocalciferol (Vitamin D2) [Vitamin D2] 50,000 unit PO FR Hydrocodone/Acetaminophen [[place] 10-325] 1 tab PO TID Metoprolol Succinate (ER) [Toprol XL] 25 mg PO QAM Chlorhexidine Gluconate [Peridex] 15 ml PO BID Morphine Sulfate ER [Ms Contin] 30 mg PO TID Discharge Medication List Simvastatin [Zocor] 40 mg PO HS 02/18/15 [History] Venlafaxine HCl 150 mg PO BID 02/18/15 [History] Amitriptyline HCl 50 mg PO HS #30 tablet 03/22/15 [Rx] Gabapentin [Neurontin] 300 mg PO TID 03/30/15 [History] Fenofibrate,Micronized [Fenofibrate] 134 mg PO HS 12/01/16 [History] Baclofen [Lioresal] 10 mg PO TID PRN 12/26/17 [History] metFORMIN HCL [Glucophage] 500 mg PO BID 12/26/17 [History] Ergocalciferol (Vitamin D2) [Vitamin D2] 50,000 unit PO FR 10/14/18 [History] Hydrocodone/Acetaminophen [[place] 10-325] 1 tab PO TID 10/14/18 [History] Meloxicam 15 mg PO DAILY 10/14/18 [History] Metoprolol Succinate (ER) [Toprol XL] 25 mg PO QAM 05/06/19 [History] Chlorhexidine Gluconate [Peridex] 15 ml PO BID 02/28/20 [History] Morphine Sulfate ER [Ms Contin] 30 mg PO TID 02/28/20 [History] Ciprofloxacin HCl [Cipro] 250 mg PO Q12HR 7 Days #14 tab 03/01/20 [Rx] Follow up Appointment(s)/Referral(s): Milton Skinner MD [Primary Care Provider] - 1-2 days Patient Instructions/Handouts: Urinary Tract Infection in Women (DC)
[2020-03-05] MEDS ORDERED: ERGOCALCIFEROL 50,000 UNIT CAP PO SCH (09:00)
== END 2020-03-01 16:32 | disposition home or self-care (01) ==
LOC: EC 10:46 → 1SOBS 13:18
PROVIDERS: ADMIT Internal Medicine; ATTEND Internal Medicine
DX: N39.0 Urinary tract infection, site not specified (principal); I10 Essential (primary) hypertension; E11.9 Type 2 diabetes mellitus without complications; E78.5 Hyperlipidemia, unspecified; M19.90 Unspecified osteoarthritis, unspecified site; I34.0 Nonrheumatic mitral (valve) insufficiency; H21.23 Degeneration of iris (pigmentary); G89.4 Chronic pain syndrome; M54.9 Dorsalgia, unspecified; M54.2 Cervicalgia; F32.9 Major depressive disorder, single episode, unspecified; Z20.828 Contact with and (suspected) exposure to other viral communicable diseases; Z79.84 Long term (current) use of oral hypoglycemic drugs; Z79.1 Long term (current) use of non-steroidal anti-inflammatories (NSAID); Z79.899 Other long term (current) drug therapy; Z79.891 Long term (current) use of opiate analgesic; Z85.3 Personal history of malignant neoplasm of breast; Z87.01 Personal history of pneumonia (recurrent); Z86.14 Personal history of Methicillin resistant Staphylococcus aureus infection; Z96.651 Presence of right artificial knee joint; Z96.643 Presence of artificial hip joint, bilateral; Z98.51 Tubal ligation status; Z98.891 History of uterine scar from previous surgery; Z87.891 Personal history of nicotine dependence; Z98.42 Cataract extraction status, left eye; Z98.41 Cataract extraction status, right eye; Z80.3 Family history of malignant neoplasm of breast; Z80.0 Family history of malignant neoplasm of digestive organs; Z83.3 Family history of diabetes mellitus; Z81.1 Family history of alcohol abuse and dependence; Z82.3 Family history of stroke
CPT/HCPCS: 96361 ×3; 96365; 96366 ×3; 96372 ×2; 96376; 99284; 36415; 80053 ×2; 83605; 83690; 85025 ×2; 81001; 87040; 87086; 87077; 87186; 71046; G0378 ×3; U0003; J1650 ×2; J0696 ×3

== ENCOUNTER 2020-03-22 06:31 | Day surgery (SDC) | payer MEDICARE, OTHER ==
[2020-03-16 13:48] VITALS: BMI 27.4
[~2020-03-22 06:31] MED LIST changes: +LACTATED RINGERS 1,000 ML IV SCH; +LIDOCAINE 1% (10MG/ML) FOR IV START INTRADERMA PRN; -LIDOCAINE 1% 20 ML VIAL (10MG/ML) FOR IV START INTRADERMA PRN; -ONDANSETRON 4 MG/2 ML VIAL IVP ONE; -Pre Op ABX Message 1 EACH MISC MISCELLANE ONE
[2020-03-22 07:09] VITALS: RESP 16; TEMP 96.2
[2020-03-22] MEDS ORDERED: ONDANSETRON 4 MG/2 ML VIAL ONE (07:16)
[2020-03-22] MEDS ORDERED: HEPARIN SODIUM,PORCINE 5,000 UNIT/ML 1 ML VIAL ONE (07:16)
[2020-03-22 07:20] LABS: Glucose,Whole Blood 247 mg/dL (75-99)
[2020-03-22] MEDS ORDERED: DEXAMETHASONE SOD PHOSPHATE 10 MG/ML 1 ML VIAL IV ONE (07:25)
[2020-03-22] MEDS ORDERED: INSULIN ASPART (NovoLOG) 100 UNIT/ML VIAL SQ ONE (07:34)
[2020-03-22] MEDS ORDERED: PROPOFOL 10 MG/ML 20 ML VIAL IV ONE (07:53)
[2020-03-22] MEDS ORDERED: fentaNYL (PF) 50 MCG/ML 2 ML AMP ONE (07:53)
[2020-03-22] MEDS ORDERED: MIDAZOLAM 2 MG/2 ML VIAL ONE (07:53)
[2020-03-22] MEDS ORDERED: KETAMINE 10 MG/ML 20 ML VIAL ONE (07:53)
[2020-03-22] MEDS ORDERED: LIDOCAINE 1% INJ 10MG/ML (20 ML MDV) ONE (07:53)
--- NOTE | 2020-03-22 07:57 | P.GSHP ---
History of Present Illness H&P Date: 03/22/20 Chief Complaint: Breast cancer 60-year-old female known to our service. Patient with history of breast cancer. Was treated with chemotherapy. She is here today for port removal. No new complaints. No issues with this left-sided port. 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 breast cancer right side, finished chemo recently- states is cancer free. History of Any Multi-Drug Resistant Organisms: MRSA Date of last positivie culture/infection: 2009 MDRO Source:: chin Past Surgical History: Back Surgery, Breast Surgery, Section, Joint Replacement, Orthopedic Surgery, Tubal Ligation Additional Past Surgical History / Comment(s): Total R hip arthroplasty anterior approach. rt knee replacement, mult breast biopsies, regina carpal tunnel. regina cataracts, left hip replaced x2, Lumpectomy R breast. Past Anesthesia/Blood Transfusion Reactions: No Reported Reaction Additional Past Anesthesia/Blood Transfusion Reaction / Comment(s): Pt has never received blood. Smoking Status: Former smoker - Past Family History Sister(s) Family Medical History: Cancer Additional Family Medical History / Comment(s): BREAST Cancer. Mother Family Medical History: Cancer Additional Family Medical History / Comment(s): Colon cancer. Father Family Medical History: CVA/TIA, Diabetes Mellitus Additional Family Medical History / Comment(s): alcoholism Medications and Allergies Home Medications Medication Instructions Recorded Confirmed Type Simvastatin [Zocor] 40 mg PO HS 02/18/15 03/22/20 History Venlafaxine HCl 150 mg PO BID 02/18/15 03/22/20 History Amitriptyline HCl 50 mg PO HS #30 tablet 03/22/15 03/22/20 Rx Gabapentin [Neurontin] 300 mg PO TID 03/30/15 03/22/20 History Fenofibrate,Micronized 134 mg PO HS 12/01/16 03/22/20 History [Fenofibrate] Baclofen [Lioresal] 10 mg PO TID PRN 12/26/17 03/22/20 History metFORMIN HCL [Glucophage] 500 mg PO BID 12/26/17 03/22/20 History Ergocalciferol (Vitamin D2) 50,000 unit PO FR 10/14/18 03/22/20 History [Vitamin D2] Hydrocodone/Acetaminophen [[place] 1 tab PO TID 10/14/18 03/22/20 History 10-325] Meloxicam 15 mg PO DAILY 10/14/18 03/22/20 History Metoprolol Succinate (ER) [Toprol 25 mg PO QAM 05/06/19 03/22/20 History XL] Chlorhexidine Gluconate [Peridex] 15 ml PO BID 02/28/20 03/22/20 History Morphine Sulfate ER [Ms Contin] 30 mg PO TID 02/28/20 03/22/20 History Allergies Allergy/AdvReac Type Severity Reaction Status Date / Time No Known Allergies Allergy Verified 03/22/20 07:09 Surgical - Exam Vital Signs Temp Pulse Resp BP Pulse Ox 96.2 F L 98 16 163/74 96 03/22/20 06:57 03/22/20 06:57 03/22/20 06:57 03/22/20 06:57 03/22/20 06:57 Physical exam: General: Well-developed, well-nourished HEENT: Normocephalic, sclerae nonicteric Abdomen: Nontender, nondistended Extremities: No edema Neuro: Alert and oriented Results - Labs Abnormal Lab Results - Last 24 Hours (Table) 03/22/20 Range/Units 07:03 POC Glucose (mg/dL) 247 H (75-99) mg/dL Assessment and Plan (1) Breast cancer, right Narrative/Plan: Will proceed with Port-A-Cath removal at this time. Risks of bleeding, infection, scarring reviewed. She understands and wishes to proceed. Current Visit: No Status: Acute Code(s): C50.911 - MALIGNANT NEOPLASM OF UNSP SITE OF RIGHT FEMALE BREAST SNOMED Code(s): 275859969
[2020-03-22] MEDS ORDERED: LIDOCAINE (PF) 10 MG/ML 5ML AMP SQ ONE ×2 (08:16)
[2020-03-22] MEDS ORDERED: NALOXONE 0.4 MG/ML 1 ML VIAL IV PRN (08:36)
--- NOTE | 2020-03-22 08:36 | P.OP ---
Date of Procedure: 03/22/20 Procedure(s) Performed: PREOPERATIVE DIAGNOSIS: Breast cancer POSTOPERATIVE DIAGNOSIS: Same PROCEDURE: Port-A-Cath removal SURGEON: Jennifer EBL: Minimal ANESTHESIA: Sedation COMPLICATIONS: None OPERATIVE PROCEDURE: Patient was placed in the supine position. The patient was sedated per anesthesia that time. The chest was prepped and draped in the usual sterile fashion. The skin was localized with Marcaine solution. The previous incision was re-incised using a scalpel. The port was easily excised using accommodation of blunt dissection sharp dissection and electrocautery. The subcutaneous tissues were reapproximated using 3-0 Vicryl sutures. The skin was reapproximated using 4-0 Monocryl sutures. Skin glue was then applied. DISPOSITION: Stable to recovery room
[2020-03-22 08:48] LABS: Glucose,Whole Blood 220 mg/dL (75-99)
[2020-03-22 08:58] VITALS: BP 133/63; PULSE 85
== END 2020-03-22 09:17 | disposition home or self-care (01) ==
LOC: OR 06:31
PROVIDERS: ATTEND Surgery
DX: C50.911 Malignant neoplasm of unspecified site of right female breast (principal); E11.9 Type 2 diabetes mellitus without complications; K21.9 Gastro-esophageal reflux disease without esophagitis; I10 Essential (primary) hypertension; Z45.2 Encounter for adjustment and management of vascular access device; E78.5 Hyperlipidemia, unspecified; M19.90 Unspecified osteoarthritis, unspecified site; I05.9 Rheumatic mitral valve disease, unspecified; H21.23 Degeneration of iris (pigmentary); G89.29 Other chronic pain; M54.9 Dorsalgia, unspecified; M54.2 Cervicalgia; Z87.891 Personal history of nicotine dependence; Z86.14 Personal history of Methicillin resistant Staphylococcus aureus infection; F32.9 Major depressive disorder, single episode, unspecified; Z92.21 Personal history of antineoplastic chemotherapy; Z87.01 Personal history of pneumonia (recurrent); Z87.39 Personal history of other diseases of the musculoskeletal system and connective tissue; Z98.42 Cataract extraction status, left eye; Z98.41 Cataract extraction status, right eye; Z98.890 Other specified postprocedural states; Z98.51 Tubal ligation status; Z96.643 Presence of artificial hip joint, bilateral; Z96.651 Presence of right artificial knee joint; Z80.3 Family history of malignant neoplasm of breast; Z80.0 Family history of malignant neoplasm of digestive organs; Z83.3 Family history of diabetes mellitus; Z81.1 Family history of alcohol abuse and dependence; Z82.3 Family history of stroke; Z79.84 Long term (current) use of oral hypoglycemic drugs; Z79.1 Long term (current) use of non-steroidal anti-inflammatories (NSAID); Z79.891 Long term (current) use of opiate analgesic; Z79.899 Other long term (current) drug therapy; Z97.2 Presence of dental prosthetic device (complete) (partial)
CPT/HCPCS: 36590; J2250; J1644; J1100; J0690; J2405; J2001 ×2; J3010; J2704

== ENCOUNTER → 2020-03-31 | Outpatient (CLI) | payer MEDICARE, OTHER ==
--- NOTE | 2020-03-31 13:51 | BD ---
EXAMINATION TYPE: Axial Bone Density DATE OF EXAM: 03/31/2020 COMPARISON: NONE CLINICAL HISTORY: 60 YR OLD FEMALE ....ICD-10 CODE: N95.1 POST MENOPAUSAL Height: 66 Weight: 169 FRAX RISK QUESTIONS: Current Tobacco Use: QUIT 2007 RISK FACTORS HISTORY OF: Surgery to Spine/Hip(right/left)/Wrist (right/left): BOTH HIPS REPLACED, LAMINECTOMY X2 LUMBARSPINE, BOTH WRIST CARPAL TUNNEL SURG Family History of Osteoporosis: UNKNOWN Postmenopausal woman: YES, AT AGE 54 Hyperparathyroidism: NO Adrenal Insufficiency: NO MEDICATIONS: Additional Medications: CALCIUM AND VIT D, REFLUX MEDS, STATIN FOR CHOLESTEROL, BP MEDS, METFORMIN, H X OF CHEMO AND RADIATION, 2019 Additional History: HX OF BREAST CANCER, OSTEO ARTHRITIS EXAM MEASUREMENTS: Bone mineral densitometry was performed using the EVOFEM System. UNABLE TO SCAN LUMBAR SPINE AND HIPS, SURGICAL REPAIR Bone mineral density about the L Wrist (g/cm2): 0.628 T Score values are as follows: -----Dist. R+U: -0.9 -----Prox. R+U: -0.8 -----Radius total: -0.6 Bone mineral density BASELINE STUDY, FIRST BONE DENSITY SCAN IMPRESSION: No evidence for osteoporosis or osteopenia. NOTE: T-SCORE=SD OF THE YOUNG ADULT MEAN.
== END | disposition home or self-care (01) ==
LOC: RADBDWWP 10:40
PROVIDERS: ATTEND Internal Medicine
DX: N95.1 Menopausal and female climacteric states (principal)
CPT/HCPCS: 77081

== ENCOUNTER → 2020-07-28 | Outpatient (CLI) | payer MEDICARE, OTHER ==
--- NOTE | 2020-07-28 09:19 | XR ---
EXAMINATION TYPE: XR shoulder complete LT DATE OF EXAM: 07/28/2020 CLINICAL HISTORY: Limited movement and pain. TECHNIQUE: Three views of the left shoulder are obtained. COMPARISON: PET CT December 13, 2018. FINDINGS: Acromioclavicular joint shows stable moderate to severe narrowing. Distal acromion morpholo gy is unremarkable. There is slight inferior medial glenohumeral subluxation with severe narrowing an d joint space sclerosis, [id number] formation is present with heterotopic ossification extending an teriorly from the osseous glenoid and prominent bony formation posteriorly inferiorly from the raciel l head. Areas of subchondral cystic change are present. No acute fracture or dislocation is seen. Ove rlying soft tissue is unremarkable. IMPRESSION: There is advanced degenerative change left glenohumeral joint with continued interval pr ogression from 2019 PET/CT.
== END | disposition home or self-care (01) ==
LOC: RADXRMAIN 08:47
PROVIDERS: ATTEND Internal Medicine
DX: M19.012 Primary osteoarthritis, left shoulder (principal)

== ENCOUNTER → 2020-09-24 | Outpatient (CLI) | payer MEDICARE, OTHER | END | disposition home or self-care (01) | LOC: LABPAT 11:28 | PROVIDERS: ATTEND Orthopaedic Surgery | DX: Z01.812 Encounter for preprocedural laboratory examination (principal) | CPT/HCPCS: 87070 ==

== ENCOUNTER 2020-09-28 08:00 | Inpatient (IN) | payer MEDICARE, OTHER ==
[2020-09-23 14:50] VITALS: BMI 27.4
--- NOTE | 2020-09-27 09:31 | HP ---
HISTORY AND PHYSICAL CHIEF COMPLAINT: Left shoulder pain. HISTORY OF PRESENT ILLNESS: The patient is a 60-year-old right-hand dominant female who presents with progressive left shoulder pain for the past year. She is having pain with overhead use and significant night symptoms. She had been on multiple pain medications for her back without much relief. She has tried home exercises with worsening of her symptoms. She rates her pain 9/10. PAST MEDICAL HISTORY: Significant for depression, type 2 diabetes, hypertension, breast cancer, and arthritis. PAST SURGICAL HISTORY: Significant for bilateral total hip arthroplasty with subsequent left total hip revision arthroplasty in addition to right total knee arthroplasty. CURRENT MEDICATIONS: 1. Amitriptyline. 2. Effexor. 3. Morphine. 4. Mobic. 5. Baclofen. 6. [place]. 7. Metformin. 8. Metoprolol. 9. Gabapentin. 10.Simvastatin. ALLERGIES: She denies drug allergies. FAMILY HISTORY: Significant for diabetes and cancer. SOCIAL HISTORY: Negative for current tobacco or alcohol use. REVIEW OF SYSTEMS: Sixteen-point review of systems otherwise reviewed and is noncontributory. PHYSICAL EXAMINATION: On examination, the patient is approximately 5 feet 6 inches, 170 pounds of mesomorphic habitus. HEENT exam is nonfocal. Neck is supple. On examination of her left shoulder, she is tender about the anterior subacromial space. She has moderate subacromial crepitus. Active range of motion forward elevation 90 degrees, external rotation with the arm side 15 degrees, internal rotation to L3. Motor strength is 5/5 for abduction and external rotation. Impingement test, Neer test are positive. Her distal neurovascular exam otherwise appears intact in the left upper extremity. X-rays of the left shoulder to include AP and axillary lateral views show severe glenohumeral joint osteoarthrosis with [id number] changes and subchondral sclerosis. There is spurring about the inferior humeral neck. IMPRESSION: 1. Left severe glenohumeral joint osteoarthrosis. 2. History of breast cancer. RECOMMENDATIONS: I talked to the patient at length regarding her condition and treatment options. At this point, she notes significant limitation in pain related to her osteoarthrosis despite previous conservative measures. After thorough discussion, she opts to proceed with surgery. We will plan to proceed with left total shoulder arthroplasty. Risks and benefits were discussed at length in layman's terms. MMODL / IJN: [id number] /
[~2020-09-28 08:00] MED LIST changes: +ACETAMINOPHEN TAB 500 MG TAB PO PRN; -DEXAMETHASONE SOD PHOSPHATE 10 MG/ML 1 ML VIAL IV ONE; +DEXAMETHASONE SOD PHOSPHATE 4 MG/ML 1 ML VIAL IV ONE; -HEPARIN SODIUM,PORCINE 5,000 UNIT/ML 1 ML VIAL SQ ONE; +HYDROmorphone 0.5 MG/0.5 ML SYRINGE IVP PRN; -LACTATED RINGERS 1,000 ML IV SCH; +MELOXICAM 7.5 MG TAB PO PRN; +ONDANSETRON 4 MG/2 ML VIAL IVP ONE; +TRANEXAMIC ACID 1,000 MG in SODIUM CHLORIDE 0.9% 100 ML IVPB PRN; +VANCOMYCIN 1,250 MG in SODIUM CHLORIDE 0.9% 250 ML IVPB PRN
[2020-09-28] MEDS: LACTATED RINGERS 1,000 ML IV SCH (12:45)
[2020-09-28 12:54] LABS: Glucose,Whole Blood 113 mg/dL (75-99)
[2020-09-28] MEDS ORDERED: ROPIVACAINE 5 MG/ML 30 ML VIAL ONE (13:31)
[2020-09-28] MEDS ORDERED: ROCURONIUM 10 MG/ML (5 ML VIAL) IV ONE (13:31)
[2020-09-28] MEDS ORDERED: PHENYLEPHRINE-0.9% NACL SYG 1,000 MCG/10 ML SYRINGE ONE (13:31)
[2020-09-28] MEDS ORDERED: TRANEXAMIC ACID 1,000 MG/10 ML VIAL ONE (13:31)
[2020-09-28] MEDS ORDERED: SODIUM CHLORIDE 0.9% 100 ML BAG ONE (13:31)
[2020-09-28] MEDS ORDERED: fentaNYL (PF) 50 MCG/ML 2 ML AMP ONE (13:31)
[2020-09-28] MEDS ORDERED: PROPOFOL 10 MG/ML 20 ML VIAL IV ONE (13:31)
[2020-09-28] MEDS ORDERED: GLYCOPYRROLATE 0.2 MG/ML 2 ML VIAL ONE (13:31)
[2020-09-28] MEDS ORDERED: MIDAZOLAM 2 MG/2 ML VIAL ONE (13:31)
[2020-09-28] MEDS ORDERED: NEOSTIGMINE 1 MG/ML 10 ML VIAL ONE (13:31)
[2020-09-28] MEDS ORDERED: SUCCINYLCHOLINE CHLORIDE 100 MG/5 ML SYR IV ONE (13:31)
[2020-09-28] MEDS ORDERED: KETAMINE 10 MG/ML 20 ML VIAL ONE (13:31)
--- NOTE | 2020-09-28 13:34 | XR ---
EXAMINATION TYPE: XR chest 1V DATE OF EXAM: 09/28/2020 COMPARISON: 02/28/2020 INDICATION: Post line placement TECHNIQUE: Single frontal view of the chest is obtained. FINDINGS: The heart size is normal. The pulmonary vasculature is normal. The lungs are clear. Catheter is on the right with the tip in the distal superior vena cava region. No pneumothorax is gurmeet dent. IMPRESSION: 1. No acute pulmonary process.
[2020-09-28] MEDS ORDERED: SENNOSIDES-DOCUSATE SODIUM 1 EACH TAB PO PRN (15:29)
[2020-09-28] MEDS ORDERED: HYDROmorphone 0.5 MG/0.5 ML SYRINGE IVP PRN (15:29)
[2020-09-28] MEDS ORDERED: ONDANSETRON 4 MG/2 ML VIAL IVP PRN (15:29)
[2020-09-28] MEDS ORDERED: HYDROcodone/APAP 10-325MG 1 EACH TAB PO PRN (15:31)
--- NOTE | 2020-09-28 15:47 | P.OP ---
Date of Procedure: 09/28/20 Preoperative Diagnosis: Severe left glenohumeral joint osteoarthrosis Postoperative Diagnosis: Same Procedure(s) Performed: Left total shoulder arthroplasty Implants: [employer] size 12 press-fit humeral stem with size 12 body, 44 x 18 mm eccentric humeral head, 40 mm cemented pegged glenoid component. Anesthesia: EDDIE Surgeon: Angel Moon Flower Planter #1: Dewayne Ramirez Estimated Blood Loss (ml): 100 Pathology: other (Humeral head) Condition: stable Disposition: PACU Indications for Procedure: The patient's a 60-year-old female presents with progressive left shoulder pain secondary to severe osteoarthrosis despite conservative measures. He discussion of the risks and benefits of operative intervention versus continued conservative measures was made with the patient. She opted to proceed with surgery. Operative risks to include infection, neurovascular injury, development of blood clots, possible fracture, possible instability and need for subsequent procedures was discussed. Informed consent was obtained. Operative Findings: As below Description of Procedure: The patient was brought to the operating room, and after induction of general anesthesia was placed in the beachchair position. The bony prominences were appropriately padded. The left upper extremity was prepped and draped in normal fashion. A deltopectoral incision was then made lateral to the coracoid process extending approximately 12 cm. The skin was incised sharply. Subcutaneous tissues were divided bluntly. Electrocautery was used for hemostasis. The deltopectoral interval was identified and the cephalic vein gently retracted laterally with the deltoid. Subdeltoid adhesions were bluntly dissected. A self-retaining retractor was placed. The clavipectoral fascia was opened and the conjoined tendon gently retracted medially. The upper one third of the pectoralis major was released to help facilitate exposure. The biceps was identified and the sheath was opened. The rotator interval was opened. The biceps was tenotomized and allowed to retract distally. The lesser tuberosity osteotomy was performed with a small sagittal saw. This completed with an ost eotome. The humeral head was then exposed releasing the capsule off the humeral neck. The shoulder was gently dislocated. A starting hole was made in the head in line with the humeral shaft. The shaft was reamed by hand up to 12 mm. There is good distal chatter. The cutting guide was placed planning on 8 cut flush with the rotator cuff insertion and 30 of retroversion. The cutting block was pinned in place. The humeral head cut was then made. This measured most appropriately at 44 x 18 mm. Residual inferior osteophytes were carefully removed flush with the [place] cortical bone. A posterior glenoid retractor was placed. The glenoid was then exposed releasing the labrum from the 6-12 o'clock position. Residual labral tissue was removed. The glenoid sized most appropriate 40 mm. A guidewire was then inserted planning on the appropriate version. The glenoid was reamed down to a bleeding bony surface. The central pedicle was drilled. The alignment guide was placed in the peripheral peg holes drilled. The trial size 40 mm glenoid was placed and was fully seated. There was good anterior to posterior and inferior to superior fit. The trial component was removed. Pulsatile lavage was utilized. The bony surface was dried. The peripheral peg holes were then pressurized with cement utilizing a syringe. Excess cement was removed. A central peg glenoid was then placed and was fully seated. This was gently impacted. This was held in place until the cement had sufficiently hardened. Attention was then paid again towards preparing the proximal humerus. The appropriate broach was placed in 30 of retroversion and was fully seated. An eccentric 44 x 18 mm humeral head was placed. The shoulder was gently reduced. It was taken through a range of motion. It was felt to be stable in flexion and extension with internal and external rotation. I felt there was adequate denominational of soft tissue tension. The shoulder was gently dislocated. The trial components were then removed. A #2 Ethibond was placed laterally for reattachment of the lesser tuberosity. The humeral stem was inserted in 30 of retroversion and was fully seated. There was good rotational stability. The eccentric 44 x 18 mm humeral head was gently impacted. The shoulder was then gently reduced and taken through range of motion and was felt to be stable. Pulsatile lavage was utilized. Lesser tuberosity was reattached utilizing #2 Ethibond suture. The rotator interval was closed with #2 Ethibond suture. She had minimal drainage at this point therefore a deep drain was not placed. The deltopectoral interval was closed with interrupted 2-0 Vicryl sutures. The subcu tissues were reapproximated with interrupted 2-0 Vicryl sutures. The skin was reprepped with 3-0 subcuticular Prolene suture. Steri-Strips were applied. A sterile dressing was applied in addition to a sling. The patient was then awoken from general anesthesia and transferred to recovery room in good condition. Blood loss was estimated at 100 mL. No complications were incurred. Sponge and needle counts were correct at the end the case. Sae FELIPE assisted during the major components the case to include exposure, resection, implantation, and closure.
[2020-09-28] MEDS ORDERED: HYDROmorphone 1 MG/ML 1 ML SYRINGE IVP ONE ×4 (16:07→16:27)
--- NOTE | 2020-09-28 16:24 | XR ---
EXAMINATION TYPE: XR shoulder limited LT DATE OF EXAM: 09/28/2020 COMPARISON: 07/28/2020 HISTORY: 60-year-old male status post left TSA TECHNIQUE: Single AP view FINDINGS: Interval placement of left total shoulder arthroplasty. The humeral stem component appears well seate d without periprosthetic fracture. There is a suspected large loose body in the subcoracoid recess me asuring up to 2.8 cm. Alignment grossly anatomic. Scattered soft tissue air related to recent operati on. Mild degenerative change at the AC joint. IMPRESSION: Uncomplicated postoperative appearance left TSA. Suspect a large 2.8 cm subcoracoid loose body.
--- NOTE | 2020-09-28 16:38 | P.ANPRN ---
Procedure Note - Anesthesia - Nerve Block Performed Left Interscalene Single Time Out Performed: Yes (1628) Date of Procedure: 09/28/20 Procedure Start Time: 16:29 Procedure Stop Time: 16:39 Location of Patient: PreOp Indication: Acute Post-Operative Pain, Requested by Surgeon Specifically requested for management of pain by DrJuan José: Angel Moon Sedation Type: Sedate with meaningful contact maintained Preparation: Sterile Prep Position: Supine Needle Types: Pajunk Needle Gauge: 20 Ultrasound used to visualize needle placement: Yes Ultrasound used to observe medication spread: Yes Injectate: 0.5% Ropivacaine (see comment for volume) (20 mL) Blood Aspirated: No Pain Paresthesia on Injection Noted: No Resistance on Injection: Normal Image Stored and Saved: Yes Events: Uneventful and Well Tolerated
[2020-09-28] MEDS ORDERED: LACTATED RINGERS 1,000 ML IV ONE (16:43)
[2020-09-28] MEDS ORDERED: diphenhydrAMINE 50 MG/ML 1 ML VIAL IVP ONE (16:44)
[2020-09-28] MEDS ORDERED: BACLOFEN 10 MG TAB PO PRN (16:54)
[2020-09-28 17:08] LABS: Glucose,Whole Blood 162 mg/dL (75-99)
[2020-09-28] MEDS: MORPHINE SULFATE ER 30 MG TABLET PO SCH ×2 (17:14→22:15)
--- NOTE | 2020-09-28 17:19 | P.CONS ---
History of Present Illness - Reason for Consult Consult date: 09/28/20 - History of Present Illness Yuliya North is a 60-year-old female who was admitted to [facility] by Dr. Moon, and underwent left total shoulder arthroplasty, consultation was requested for medical management while hospitalized, patient is well known to my practice. She has a past medical history significant for hypertension, hyperlipidemia, dhs-fpddifo-rvgstexgp diabetes mellitus, osteoarthritis, and degenerative disc disease with chronic pain maintained on long-term narcotic therapy, history of breast cancer, and history of depression. On review of systems patient is alert and oriented 3 in no apparent distress there is no fever or chills no headache or dizziness no chest pain no shortness of breath no cough no nausea or vomiting no abdominal pain no diarrhea no blood in the stools no burning with urination no frequency or urgency and no hematuria. 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 breast cancer right side, finished chemo recently- states is cancer free. History of Any Multi-Drug Resistant Organisms: MRSA Year Discovered:: 2009 MDRO Source:: [place] Past Surgical History: Back Surgery, Breast Surgery, Section, Joint Replacement, Orthopedic Surgery, Tubal Ligation Additional Past Surgical History / Comment(s): Total R hip arthroplasty anterior approach. rt knee replacement, mult breast biopsies, regina carpal tunnel. regina cataracts, left hip replaced x2, Lumpectomy R breast. Past Anesthesia/Blood Transfusion Reactions: No Reported Reaction Additional Past Anesthesia/Blood Transfusion Reaction / Comm: Pt has never received blood. Past Psychological History: Depression - Past Family History Sister(s) Family Medical History: Cancer Additional Family Medical History / Comment(s): BREAST Cancer. Mother Family Medical History: Cancer Additional Family Medical History / Comment(s): Colon cancer. Father Family Medical History: CVA/TIA, Diabetes Mellitus Additional Family Medical History / Comment(s): alcoholism Medications and Allergies Home Medications Medication Instructions Recorded Confirmed Type Simvastatin [Zocor] 40 mg PO HS 02/18/15 09/23/20 History Venlafaxine HCl 150 mg PO BID 02/18/15 09/23/20 History Amitriptyline HCl 50 mg PO HS #30 tablet 03/22/15 09/23/20 Rx Gabapentin [Neurontin] 300 mg PO TID 03/30/15 09/23/20 History Fenofibrate,Micronized 134 mg PO HS 12/01/16 09/23/20 History [Fenofibrate] Baclofen [Lioresal] 10 mg PO TID PRN 12/26/17 09/23/20 History metFORMIN HCL [Glucophage] 500 mg PO BID 12/26/17 09/23/20 History Hydrocodone/Acetaminophen [[place] 1 tab PO TID PRN 10/14/18 09/23/20 History 10-325] Meloxicam 15 mg PO HS 10/14/18 09/23/20 History Metoprolol Succinate (ER) [Toprol 25 mg PO QAM 05/06/19 09/23/20 History XL] Morphine Sulfate ER [Ms Contin] 30 mg PO TID 02/28/20 09/23/20 History Allergies Allergy/AdvReac Type Severity Reaction Status Date / Time No Known Allergies Allergy Verified 09/28/20 17:09 Physical Exam Vitals: Vital Signs Temp Pulse Resp BP BP Pulse Ox 09/28/20 16:30 86 14 173/81 100 09/28/20 16:15 88 14 112/84 100 09/28/20 16:00 78 14 160/89 100 09/28/20 15:52 97.1 F L 76 16 170/65 100 09/28/20 13:27 16 140/63 96 09/28/20 12:01 97.6 F 86 16 140/66 94 L Intake and Output 09/28/20 09/28/20 09/28/20 06:59 14:59 22:59 Intake Total 950 300 Output Total 100 Balance 950 200 Intake: IV 950 300 Output: Estimated Blood Loss 100 Other: Weight 75.5 kg In general patient is alert and oriented 3 in no apparent distress HEENT head normocephalic and atraumatic Neck is supple no JVD no goiter no lymphadenopathy Chest exam reveals a few scattered rhonchi no wheezing Cardiac exam reveals regular heart sounds S1 and S2 no gallops no murmurs Abdomen is soft nontender no organomegaly was normal bowel sounds Extremity exam reveals no edema no cyanosis or clubbing Neurological examination reveals no gross focal deficit Results Labs: Abnormal Lab Results - Last 24 Hours (Table) 09/28/20 Range/Units 12:38 POC Glucose (mg/dL) 113 H (75-99) mg/dL Assessment and Plan Plan: Status post left total knee arthroplasty Underlying history of hypertension Underlying history of hyperlipidemia Underlying history of oym-vggxprw-gywtmgrqr diabetes mellitus Underlying history of osteoarthritis and degenerative disc disease with chronic pain syndrome maintained on long-term narcotic therapy Previous history of breast cancer At this time home medications reviewed and reordered Will check labs and follow-up in a.m.
[2020-09-28 20:45] LABS: Glucose,Whole Blood 228 mg/dL (75-99)
[2020-09-28] MEDS: INSULIN ASPART (NovoLOG) 100 UNIT/ML VIAL SQ SCH (20:50)
[2020-09-28] MEDS: GABAPENTIN 300 MG CAP PO SCH (20:51)
[2020-09-28] MEDS: VENLAFAXINE HCL 75 MG TAB PO SCH (20:51)
[2020-09-28] MEDS: metFORMIN 500 MG TAB PO SCH (20:51)
[2020-09-28] MEDS ORDERED: FENOFIBRATE 160 MG TAB PO SCH (21:00)
[2020-09-28] MEDS ORDERED: ATORVASTATIN 20 MG TAB PO SCH (21:00)
[2020-09-28] MEDS ORDERED: MELOXICAM 7.5 MG TAB PO SCH (21:00)
[2020-09-28] MEDS ORDERED: AMITRIPTYLINE HCL 50 MG TAB PO SCH (21:00)
[2020-09-28] MEDS: HYDROmorphone 1 MG/ML 1 ML SYRINGE IVP PRN (22:16)
[2020-09-29] MEDS ORDERED: VANCOMYCIN 1,250 MG in SODIUM CHLORIDE 0.9% 250 ML IVPB ONE (01:00)
[2020-09-29] MEDS: HYDROmorphone 1 MG/ML 1 ML SYRINGE IVP PRN ×2 (04:21→09:08)
[2020-09-29] MEDS: LACTATED RINGERS 1,000 ML IV SCH (04:45)
[2020-09-29 06:48] LABS: Glucose,Whole Blood 132 mg/dL (75-99)
[2020-09-29] MEDS: INSULIN ASPART (NovoLOG) 100 UNIT/ML VIAL SQ SCH ×2 (07:10→12:41)
[2020-09-29] MEDS: metFORMIN 500 MG TAB PO SCH (08:09)
[2020-09-29] MEDS: GABAPENTIN 300 MG CAP PO SCH (08:09)
[2020-09-29] MEDS: MORPHINE SULFATE ER 30 MG TABLET PO SCH (08:09)
[2020-09-29 08:10] VITALS: BP 156/71; PULSE 87; RESP 17; TEMP 99.7
[2020-09-29] MEDS: VENLAFAXINE HCL 75 MG TAB PO SCH (08:12)
[2020-09-29] MEDS ORDERED: METOPROLOL SUCCINATE (ER) 25 MG TAB.ER.24H PO SCH (09:00)
[2020-09-29] MEDS ORDERED: ASPIRIN 325 MG TAB PO SCH (09:00)
[2020-09-29 09:26] LABS: Basophils # (A) 0.03 X 10*3/uL (0.00-0.10); Basophils % (A) 0.4 %; Eosinophils # (A) 0.06 X 10*3/uL (0.04-0.35); Eosinophils % (A) 0.9 %; HCT 29.2 % (37.2-46.3); HGB 9.5 g/dL (12.0-15.0); Lymphocytes # (A) 1.64 X 10*3/uL (0.90-5.00); Lymphocytes % (A) 23.9 %; MCH 29.6 pg (27.0-32.0); MCHC 32.5 g/dL (32.0-37.0); Mean Platelet Volume 10.1 fL (9.5-12.2); Monocytes # (A) 0.82 X 10*3/uL (0.20-1.00); Neutrophils # (A) 4.29 X 10*3/uL (1.80-7.70); Neutrophils % (A) 62.5 %; Platelet Count 207 X 10*3/uL (140-440); RBC 3.21 X 10*6/uL (4.10-5.20); RDW 13.2 % (11.5-14.5); WBC 6.86 X 10*3/uL (4.50-10.00)
--- NOTE | 2020-09-29 09:35 | P.PN ---
Subjective Progress Note Date: 09/29/20 Principal diagnosis: Status post left total shoulder arthroplasty Patient was evaluated today at bedside, she is resting comfortably. She did have a block placed for pain that was noticed in recovery room after the surgery. This has continued to wear off. She has resumed her normally prescribed pain medication. She currently denies any headaches, lightheadedness, chest pain or shortness of breath. She's utilizing the arm sling at this time. Objective - Vital Signs Vital signs: Vital Signs Temp 99.7 F H 09/29/20 07:13 Pulse 87 09/29/20 07:13 Resp 17 09/29/20 07:13 BP 156/71 09/29/20 07:13 Pulse Ox 95 09/29/20 07:13 Intake & Output 09/28/20 09/29/20 09/29/20 18:59 06:59 18:59 Intake Total 1250 222 Output Total 100 Balance 1150 222 Weight 75.5 kg Intake: IV 1250 Oral 222 Output: Estimated Blood Loss 100 Other: # Voids 1 - Exam Left upper extremity: She is utilizing the arm sling at this time Postoperative bandages removed, minimal ecchymosis present in the upper arm, no drainage noted Sensory exam light touch is intact throughout the extremity. Radial and ulnar pulses are 2+ Extension and flexion are intact at the elbow and wrist, intrinsics and hand are intact - Labs CBC & Chem 7: 09/29/20 06:04 Labs: Abnormal Lab Results - Last 24 Hours (Table) 09/28/20 09/28/20 09/28/20 Range/Units 12:38 17:07 20:44 RBC (4.10-5.20) X 10*6/uL Hgb (12.0-15.0) g/dL Hct (37.2-46.3) % POC Glucose (mg/dL) 113 H 162 H 228 H (75-99) mg/dL 09/29/20 09/29/20 Range/Units 06:04 06:46 RBC 3.21 L (4.10-5.20) X 10*6/uL Hgb 9.5 L (12.0-15.0) g/dL Hct 29.2 L (37.2-46.3) % POC Glucose (mg/dL) 132 H (75-99) mg/dL Assessment and Plan Assessment: Postoperative day #1 status post left total shoulder arthroplasty Plan: Pain control, patient will resume her normally prescribed pain medication after discharge DVT prophylaxis, aspirin 81 mg twice a day for 2 weeks Wound care instructions were discussed Home exercises, activity level restrictions and use of sling were discussed at bedside Medical recommendations Plan for discharge home today Time with Patient: Less than 30
[2020-09-29 09:40] LABS: African American GFR (CKD) 71.9 (60.0-200.0); Albumin 4.2 g/dL (3.80-4.90); Albumin/Globulin Ratio 2.21 (1.60-3.17); Anion Gap 6.9 mmol/L (4.00-12.00); Calcium 8.8 mg/dL (8.7-10.3); Carbon Dioxide 28.1 mmol/L (21.6-31.8); Globulin 1.9 g/dL (1.6-3.3); Non-African American GFR(CKD) 62.1 (60.0-200.0); Potassium 4.1 mmol/L (3.5-5.5); Total Bilirubin 0.2 mg/dL (0.2-1.2); Total Protein 6.1 g/dL (6.2-8.2)
--- NOTE | 2020-09-29 09:40 | P.DS ---
Providers Date of admission: 09/28/20 10:56 Expected date of discharge: 09/29/20 Attending physician: Angel Moon Consults: 09/28/20 15:29 Consult Physician Routine Consulting Provider: Milton Skinner Reason/Comments: medical management Do you want consulting provider notified?: Yes Primary care physician: Milton Skinner [facility] Course: Date of admission: 09/28/2020 Date of discharge: 09/29/2020 Admission diagnosis: Status post left total shoulder arthroplasty Discharge diagnosis: Same Attending physician: Dr. Moon Surgical procedures: Left total shoulder arthroplasty Brief history: Patient is a 60-year-old female with a history of progressive primary left shoulder osteoarthritis. At this point patient has failed conservative treatment measures and has opted to proceed with a elective left total shoulder arthroplasty. Hospital course: Details of patient's surgery can be found in operative report. Patient tolerated the procedure well and was subsequently transported to orthopedic floor. Patient's orthopeidc and medical care was provided daily. Patient had daily laboratory tests performed for evaluation of overall blood counts. Patient had daily physical therapy to include strengthening range of motion as well as education with walker ambulation. Patient was treated with aspirin for their postoperative DVT prophylaxis during their inpatient stay. Patient was noted to have a relatively uneventful postoperative course. Patient reported satisfactory pain control with oral pain medications by postoperative day 0. Patient showed satisfactory progress with physical therapy. Patient moved steadily through the program and had no difficulty meeting the goals by postoperative day 1. Given patient's otherwise satisfactory course and having met physical therapy goals, plan is to discharge patient home on postoperative day 1. Discharge condition/disposition: Patient will be discharged home in stable condition. Discharge medications: Instructions are given on resumption of patient's normal daily medications per primary care recommendation, in addition patient will be prescribed aspirin 81 mg twice a day. Discharge instructions: 1. Wound care and infection precautions, keep incision dry and covered while showering, no lotions, creams, moisturizers. No soaking, tubs, pools, hottubs. Do not scrub over the incision. 2. Utilize arm sling 3. Ice and elevate when necessary. Do not exceed 20 minutes per hour with ice pack. 4. Utilize compression sleeve until seen at first follow up appointment. 5. Visiting nursing care. 7. Pain meds and anticoagulants per prescription. 8. Pain medication has potential to cause constipation. Increase oral fluid and fiber intake. Contact primary care provider if you have not had a bowel movement within 48 hours after discharge 9. No anti-inflammatory medication until discussed at first post operative visit, this including Motrin, Aleve, Mobic, Diclofenac. 10. Follow up in office at 2 weeks postop with Sae Ramirez PA-C 11. Follow up with your primary care doctor 7-10 days after discharge. 12. Contact [facility] with any questions, . Procedures: Left total shoulder arthroplasty Patient Condition at Discharge: Good Plan - Discharge Summary Discharge Rx Participant: Yes New Discharge Prescriptions: New Aspirin [Adult Low Dose Aspirin EC] 81 mg PO BID #60 tablet. No Action Simvastatin [Zocor] 40 mg PO HS Venlafaxine HCl 150 mg PO BID Amitriptyline HCl 50 mg PO HS #30 tablet Gabapentin [Neurontin] 300 mg PO TID Fenofibrate,Micronized [Fenofibrate] 134 mg PO HS metFORMIN HCL [Glucophage] 500 mg PO BID Baclofen [Lioresal] 10 mg PO TID PRN PRN Reason: Muscle Spasm Meloxicam 15 mg PO HS Hydrocodone/Acetaminophen [[place] 10-325] 1 tab PO TID PRN PRN Reason: Pain Metoprolol Succinate (ER) [Toprol XL] 25 mg PO QAM Morphine Sulfate ER [Ms Contin] 30 mg PO TID Discharge Medication List Simvastatin [Zocor] 40 mg PO HS 02/18/15 [History] Venlafaxine HCl 150 mg PO BID 02/18/15 [History] Amitriptyline HCl 50 mg PO HS #30 tablet 03/22/15 [Rx] Gabapentin [Neurontin] 300 mg PO TID 03/30/15 [History] Fenofibrate,Micronized [Fenofibrate] 134 mg PO HS 12/01/16 [History] Baclofen [Lioresal] 10 mg PO TID PRN 12/26/17 [History] metFORMIN HCL [Glucophage] 500 mg PO BID 12/26/17 [History] Hydrocodone/Acetaminophen [[place] 10-325] 1 tab PO TID PRN 10/14/18 [History] Meloxicam 15 mg PO HS 10/14/18 [History] Metoprolol Succinate (ER) [Toprol XL] 25 mg PO QAM 05/06/19 [History] Morphine Sulfate ER [Ms Contin] 30 mg PO TID 02/28/20 [History] Aspirin [Adult Low Dose Aspirin EC] 81 mg PO BID #60 tablet. 09/29/20 [Rx] Follow up Appointment(s)/Referral(s): Dewayne Ramirez PAC [PHYSICIAN SENIOR SYSTEMS SOFTWARE ENGINEER] - 10/13/20 2:30 pm Milton Skinner MD [Primary Care Provider] - 1 Week Activity/Diet/Wound Care/Special Instructions: Orthopedic Discharge Instructions: 1. Wound care and infection precautions, [keep incision dry and covered while showering], no lotions, creams, moisturizers. No soaking, pools, hot tubs. Do not scrub over incision. 2. Utilize arm sling 3. Ice and elevate when necessary. Do not exceed 20 minutes per hour with ice pack. 4. Utilize compression sleeve until seen at first follow up appointment. 5. Pain meds and anticoagulants per prescription. 6. Pain medication has potential to cause constipation. Increase oral fluid and fiber intake. Contact primary care provider if you have not had a bowel movement within 48 hours after discharge. 7. No anti-inflammatory medication until discussed at first post operative visit, this including Motrin, Aleve, Mobic, Diclofenac 8. Follow up in office at 2 weeks postop with Sae Ramirez PA-C 9. Follow up with your primary care doctor 7-10 days after discharge. 10. Contact [facility] with any questions, . Discharge Disposition: HOME WITH HOME HEALTH SERVICES
[2020-09-29 11:13] LABS: Appearance,Urine Clear (Clear); Bilirubin,Urine Negative (Negative); Blood,Urine Negative (Negative); Color,Urine Light Yellow; Glucose,Urine (UA) 3+ (Negative); Ketones,Urine Negative (Negative); Leukocyte Esterase,Urine Negative (Negative); Nitrite,Urine Negative (Negative); PH, Urine 5.5 (5.0-8.0); Protein,Urine Negative (Negative); Specific Gravity,Urine 1.009 (1.001-1.035); Urobilinogen,Urine <2.0 mg/dL (<2.0)
[2020-09-29 11:45] LABS: Glucose,Whole Blood 170 mg/dL (75-99)
--- NOTE | 2020-09-29 12:58 | P.PN ---
Subjective Progress Note Date: 09/29/20 Yuliya North is a 60-year-old female who was admitted to [facility] by Dr. Moon, and underwent left total shoulder arthroplasty, consultation was requested for medical management while hospitalized, patient is well known to my practice. She has a past medical history significant for h ypertension, hyperlipidemia, mkj-epwczmh-ryckbkjap diabetes mellitus, osteoarthritis, and degenerative disc disease with chronic pain maintained on long-term narcotic therapy, history of breast cancer, and history of depression. On review of systems patient is alert and oriented 3 in no apparent distress there is no fever or chills no headache or dizziness no chest pain no shortness of breath no cough no nausea or vomiting no abdominal pain no diarrhea no blood in the stools no burning with urination no frequency or urgency and no hematuria. On 09/29/2020 patient alert and oriented 3. Patient is being DC'd home per surgical services. Patient with low-grade temp of 99.7 yesterday. UA checked negative. Incentive spirometer encouraged white blood cell within normal limits patient denies any acute complaints. Patient denies chest pain or shortness of breath. Patient denies nausea vomiting or diarrhea. Patient denies any urinary burning or frequency. Patient will be DC'd on home regime pain medications and to follow-up in office to maintain current pain medication regime Objective - Vital Signs Vital signs: Vital Signs Temp 99.7 F H 09/29/20 07:13 Pulse 87 09/29/20 07:13 Resp 17 09/29/20 07:13 BP 156/71 09/29/20 07:13 Pulse Ox 95 09/29/20 11:23 Intake & Output 09/28/20 09/29/20 09/29/20 18:59 06:59 18:59 Intake Total 1250 222 Output Total 100 Balance 1150 222 Weight 75.5 kg Intake: IV 1250 Oral 222 Output: Estimated Blood Loss 100 Other: # Voids 1 - Exam In general patient is alert and oriented 3 in no apparent distress HEENT head normocephalic and atraumatic Neck is supple no JVD no goiter no lymphadenopathy Chest exam reveals a few scattered rhonchi no wheezing Cardiac exam reveals regular heart sounds S1 and S2 no gallops no murmurs Abdomen is soft nontender no organomegaly was normal bowel sounds Extremity exam reveals no edema no cyanosis or clubbing Neurological examination reveals no gross focal deficit - Labs CBC & Chem 7: 09/29/20 06:04 09/29/20 06:04 Labs: Abnormal Lab Results - Last 24 Hours (Table) 09/28/20 09/28/20 09/29/20 Range/Units 17:07 20:44 06:04 RBC 3.21 L (4.10-5.20) X 10*6/uL Hgb 9.5 L (12.0-15.0) g/dL Hct 29.2 L (37.2-46.3) % BUN/Creatinine Ratio (12.00-20.00) Ratio Glucose (70-110) mg/dL POC Glucose (mg/dL) 162 H 228 H (75-99) mg/dL Total Protein (6.2-8.2) g/dL Urine Glucose (UA) (Negative) 09/29/20 09/29/20 09/29/20 Range/Units 06:04 06:46 10:05 RBC (4.10-5.20) X 10*6/uL Hgb (12.0-15.0) g/dL Hct (37.2-46.3) % BUN/Creatinine Ratio 22.00 H (12.00-20.00) Ratio Glucose 121 H (70-110) mg/dL POC Glucose (mg/dL) 132 H (75-99) mg/dL Total Protein 6.1 L (6.2-8.2) g/dL Urine Glucose (UA) 3+ H (Negative) 09/29/20 Range/Units 11:43 RBC (4.10-5.20) X 10*6/uL Hgb (12.0-15.0) g/dL Hct (37.2-46.3) % BUN/Creatinine Ratio (12.00-20.00) Ratio Glucose (70-110) mg/dL POC Glucose (mg/dL) 170 H (75-99) mg/dL Total Protein (6.2-8.2) g/dL Urine Glucose (UA) (Negative) Assessment and Plan Plan: Status post left total knee arthroplasty Underlying history of hypertension Underlying history of hyperlipidemia Underlying history of [id number]-ikbybrpdq diabetes mellitus Underlying history of osteoarthritis and degenerative disc disease with chronic pain syndrome maintained on long-term narcotic therapy Previous history of breast cancer Acute expected blood loss anemia secondary to surgery. Hemoglobin 9.9 UA negative Patient to continue on pain medication regime per office
== END 2020-09-29 14:37 | disposition home health service (06) | DRG 483 ==
LOC: EDSTATUS 10:30 → 2ORMAIN 10:56 → 4SSUR 15:26
PROVIDERS: ADMIT Orthopaedic Surgery; ATTEND Orthopaedic Surgery
PROC: 0RRK0JZ Replacement of Left Shoulder Joint with Synthetic Substitute, Open Approach (ICD-10-PCS; principal; 2020-09-28 13:05)
DX: M19.012 Primary osteoarthritis, left shoulder (principal); F32.9 Major depressive disorder, single episode, unspecified; E11.9 Type 2 diabetes mellitus without complications; Z96.643 Presence of artificial hip joint, bilateral; M54.2 Cervicalgia; M54.9 Dorsalgia, unspecified; Z96.651 Presence of right artificial knee joint; G89.4 Chronic pain syndrome; E78.5 Hyperlipidemia, unspecified; I10 Essential (primary) hypertension; Z79.84 Long term (current) use of oral hypoglycemic drugs; Z79.1 Long term (current) use of non-steroidal anti-inflammatories (NSAID); Z79.82 Long term (current) use of aspirin; Z79.891 Long term (current) use of opiate analgesic; Z79.899 Other long term (current) drug therapy; Z85.3 Personal history of malignant neoplasm of breast; Z83.3 Family history of diabetes mellitus; Z87.01 Personal history of pneumonia (recurrent); Z92.21 Personal history of antineoplastic chemotherapy; Z98.42 Cataract extraction status, left eye; Z98.41 Cataract extraction status, right eye; Z86.14 Personal history of Methicillin resistant Staphylococcus aureus infection; Z86.19 Personal history of other infectious and parasitic diseases; Z87.39 Personal history of other diseases of the musculoskeletal system and connective tissue; Z98.51 Tubal ligation status; Z80.0 Family history of malignant neoplasm of digestive organs; Z80.3 Family history of malignant neoplasm of breast; Z82.3 Family history of stroke; Z81.1 Family history of alcohol abuse and dependence
CPT/HCPCS: 64415; 71045; 76942; 80053; 81003; 85025; 88305; 88311; 94760

== ENCOUNTER → 2020-10-21 | Outpatient (CLI) | payer MEDICARE, OTHER ==
--- NOTE | 2020-10-21 11:34 | MM ---
Reason for exam: additional evaluation requested from prior study. Last mammogram was performed 1 year ago. History: Patient is postmenopausal and has history of breast cancer at age 59. Family history of breast cancer in maternal aunt at age 50 and breast cancer in sister at age 43. Malignant MG pre op needle loc RT of the right breast, May 08, 2019. Lumpectomy of the right breast, May 08, 2019. US discontinued breast loc RT of the right breast, May 08, 2019. Malignant US biopsy breast VAD RT of the right breast, October 30, 2018. Chemotherapy, 2019. Radiation therapy of the right breast, 2019. Benign excisional biopsy of both breasts. Taking antineoplastic for 1 year. Physical Findings: Nurse did not find any significant physical abnormalities on exam. MG 3D Diag Mammo W/Cad FELIX Bilateral CC and MLO view(s) were taken. Prior study comparison: October 21, 2019, bilateral MG 3d diag mammo w/cad FELIX. October 30, 2018, right breast MG diagnostic mammo RT wo CAD. The breast tissue is heterogeneously dense. This may lower the sensitivity of mammography. Benign appearing bilateral calcifications. Stable severe skin thickening right breast. Post surgical change right breast. These results were verbally communicated with the patient and result sheet given to the patient on 10/21/20. ASSESSMENT: Benign, BI-RAD 2 RECOMMENDATION: Follow-up diagnostic mammogram of both breasts in 1 year.
== END ==
LOC: RADMAMWWP 10:17
PROVIDERS: ATTEND Surgery
DX: R92.1 Mammographic calcification found on diagnostic imaging of breast (principal); Z78.0 Asymptomatic menopausal state; Z80.3 Family history of malignant neoplasm of breast; N64.59 Other signs and symptoms in breast
CPT/HCPCS: 77066; G0279; 77062

== ENCOUNTER → 2021-03-07 | Outpatient (CLI) | payer MEDICARE, OTHER ==
--- NOTE | 2021-03-09 15:43 | CT ---
EXAMINATION TYPE: CT angio chest DATE OF EXAM: 03/07/2021 COMPARISON: None HISTORY: aneurysm CT DLP: 203.1 mGycm, Automated exposure control for dose reduction was used. CONTRAST: Performed injected with 100 mL of Isovue 370. TECHNIQUE: Axial images were obtained at 5 mm thick sections. Reconstructed images are reviewed on [email or web address] computer in the coronal plane. Three-D reconstructed images performed by the technologist are revi ewed on the computer. FINDINGS: Portion of the thyroid visualized is normal. Aorta: There is a three-vessel arch. The aorta at the aortic root is 3.0 cm. The aorta at the level o f the main pulmonary artery is 3.2 cm. Aorta at the aortic arch transverse measurement is 2.3 cm. Aor ta at the diaphragm is 2.0 cm. Some mild posterior right apical scarring is present. Lung windows otherwise appear clear. No enlarged mediastinal or hilar adenopathy is evident. The ascending aorta diameter at the level o f the main pulmonary artery is 3.2 cm. The main pulmonary artery diameter at the bifurcation is 3.[address] sections are obtained through the upper abdomen. Abdomen is essentially unremarkable. IMPRESSIONS: 1. Very minimal fusiform prominence of the mid ascending thoracic aorta compared to the aortic arch a nd aortic root. Aneurysmal dilatation is not identified.
== END | disposition home or self-care (01) ==
LOC: RADCTMAIN 18:37
PROVIDERS: ATTEND Internal Medicine Interventional Cardiology
DX: I72.9 Aneurysm of unspecified site (principal)
CPT/HCPCS: 82565; 84520; 71275; 36415; Q9967

== ENCOUNTER → 2021-04-22 | Outpatient (CLI) | payer MEDICARE, OTHER ==
--- NOTE | 2021-04-25 07:08 | PE ---
EXAMINATION TYPE: PET CT fusion skull to thigh DATE OF EXAM: 04/22/2021 COMPARISON: CTA chest March 07, 2021. Prior PET/CT December 13, 2018 HISTORY: Right-sided breast cancer October 2018. TECHNIQUE: Following the intravenous administration of 10.75 mCi of F-18 FDG, whole body images are performed from the skull base to the midthigh. Images are reviewed on the computer in the coronal, a xial, and sagittal planes. Reconstructed rotating images are created on independent workstation and reviewed on the computer. A localization and attenuation correction CT is performed in conjunction with the PET scan. SCAN: Subsequent Scan FINDINGS: SKULL BASE AND NECK: No new areas of abnormal hypermetabolic uptake identified. CHEST, MEDIASTINUM, AND HILAR REGION: Postsurgical changes to right breast near axial image 105 now p resent. Asymmetric skin thickening near this level extending inferiorly redemonstrated without signif icant change from prior study. Stable mild hypermetabolic uptake, max SUV less than 2.5. Surgical candy nges to the right axilla near axial image 91. No new areas of abnormal hypermetabolic uptake in the r ight breast or the remainder of the thorax ending opposite left breast. ABDOMEN AND PELVIS: No new areas of abnormal hypermetabolic uptake. OSSEOUS STRUCTURES: Mild uptake redemonstrated bilateral shoulder level. Postsurgical change left kosta ulder now present. Mild uptake near right hip prosthesis. Postsurgical change bilateral hips now pres ent No suspicious new focal osseous hypermetabolic uptake. OTHER CT: Moderate coronary artery calcification is redemonstrated. Gallbladder has distended margins on current study moderate calcified plaque of the distal abdominal aorta extends into branch vessels. Metallic hardware from bilateral hip arthroplasties causes streak artifact limiting evaluation of pel candi structures. There is retroverted uterus with calcifications suggesting possible fibroid redemonstrated. IMPRESSION: No areas of suspicious hypermetabolic uptake to suggest recurrent local or new metastatic malignancy.
== END | disposition home or self-care (01) ==
LOC: RADPETMAIN 10:58
PROVIDERS: ATTEND Internal Medicine Hematology & Oncology
DX: I25.10 Atherosclerotic heart disease of native coronary artery without angina pectoris (principal); K82.8 Other specified diseases of gallbladder; Z85.3 Personal history of malignant neoplasm of breast
CPT/HCPCS: 78815; A9552

== ENCOUNTER → 2021-09-12 | Outpatient (CLI) | payer MEDICARE, OTHER ==
--- NOTE | 2021-09-12 10:00 | MR ---
EXAMINATION TYPE: MR cervical spine wo con DATE OF EXAM: 09/12/2021 COMPARISON: None HISTORY: No prior, RUE heaviness/weakness, history of shopping cart injury 08/02, no surgery history of breast CA 3 years ago TECHNIQUE: Multiplanar, multisequence images of the cervical spine were acquired without contrast. C2-C3: No evidence for degenerative disc disease. No disc bulge/herniation or protrusion. No Canal stenosis. Foramina are patent bilaterally. C3-C4: Bilateral foraminal encroachment is present due to uncovertebral joint hypertrophy. No evident spinal stenosis. Small posterior disc bulge causes slight anterior mass effect on the thecal sac. C4-C5: There is left posterior paracentral disc herniation present causing some deformity of the ante rior cervical cord. Bilateral foraminal encroachment is present right greater than left due to uncove rtebral joint hypertrophy and facet arthropathy. Mild to moderate spinal stenosis is present. C5-C6: Small posterior central right paracentral disc herniation causes some effacement of the anteri or thecal sac. There is bilateral foraminal encroachment due to uncovertebral joint hypertrophy. Only mild spinal stenosis. C6-C7: Small posterior disc bulge is present causing slight anterior mass effect on the thecal sac. U ncovertebral joint hypertrophy results in some right-sided greater than left foraminal encroachment. C7-T1: Bilateral foraminal encroachment is present due to uncovertebral joint hypertrophy. Small disc bulge causes slight anterior mass effect on the thecal sac. No significant spinal stenosis. Cervical segments are intact. There is normal alignment. Cervical spinal cord is of normal signal. Craniovertebral junction relationships are within normal limits. Cervical vertebral bodies show pre served height, there is minimal retrolisthesis grade 1 C4-5. Multilevel spondylosis is present with e ndplate discogenic marrow signal change. Loss of disc height signal greatest at C4-5. IMPRESSION: Degenerative disc disease, disc herniation C4-5 with contact to the anterior cervical cord, possible cord deformity. Multilevel foraminal encroachment. Facet arthropathy.
== END | disposition home or self-care (01) ==
LOC: RADMRIMAIN 08:37
PROVIDERS: ATTEND Internal Medicine
DX: M50.30 Other cervical disc degeneration, unspecified cervical region (principal); M50.221 Other cervical disc displacement at C4-C5 level
CPT/HCPCS: 72141

== ENCOUNTER → 2021-11-11 | Outpatient (CLI) | payer MEDICARE, OTHER ==
--- NOTE | 2021-11-11 08:28 | MM ---
Reason for exam: additional evaluation requested from prior study. Last mammogram was performed 1 year and 1 month ago. History: Patient is postmenopausal and has history of breast cancer at age 59. Family history of breast cancer in maternal aunt at age 50 and breast cancer in sister at age 43. Malignant MG pre op needle loc RT of the right breast, May 08, 2019. Lumpectomy of the right breast, May 08, 2019. US discontinued breast loc RT of the right breast, May 08, 2019. Malignant US biopsy breast VAD RT of the right breast, October 30, 2018. 2 chemotherapies, 2019. Radiation therapy, 2019. Radiation therapy of the right breast, 2019. Benign excisional biopsy of both breasts. Taking antineoplastic for 1 year. Physical Findings: A clinical breast exam by your physician is recommended on an annual basis and results should be correlated with mammographic findings. MG 3D Diag Mammo W/Cad FELIX Bilateral CC and MLO view(s) were taken. XCCL view(s) were taken of the right breast. Prior study comparison: October 21, 2020, bilateral MG 3d diag mammo w/cad FELIX. October 21, 2019, bilateral MG 3d diag mammo w/cad FELIX. The breast tissue is heterogeneously dense. This may lower the sensitivity of mammography. Post therapy changes right breast. Post biopsy changes right breast. No significant changes when compared with prior studies. ASSESSMENT: Benign, BI-RAD 2 RECOMMENDATION: Routine screening mammogram of both breasts in 1 year.
== END | disposition home or self-care (01) ==
LOC: RADMAMWWP 07:37
PROVIDERS: ATTEND Surgery
DX: R92.8 Other abnormal and inconclusive findings on diagnostic imaging of breast (principal); Z78.0 Asymptomatic menopausal state; Z85.3 Personal history of malignant neoplasm of breast; Z80.3 Family history of malignant neoplasm of breast; Z92.3 Personal history of irradiation
CPT/HCPCS: 77066; G0279; 77062

== ENCOUNTER → 2022-01-26 | Outpatient (CLI) | payer MEDICARE, OTHER ==
--- NOTE | 2022-01-26 10:05 | P.PAINPG ---
PQRS Measure Charge Sheet Comment: HISTORY OF PRESENT ILLNESS: 62 yr old female as a referral from Dr. Carmona presents today for severe and chronic neck pain secondary to DHs, disc bulges, DDD, neural foraminal stenoses and facet arthropathy for evaluation. She states her neck pain as 6 out of 10 in intensity, localized to the mid aspect of her cervical spine, dull, achy with shooting pain to the right upper extremity with hyperextension of the neck. Pain is relieved with medications, heat, repositioning, physical therapy for 2 weeks which was discontinued due to insurance, home stretching regimen, massage integrated with PT and rest. Past Medical History: R Breast CA, Diabetes Mellitus, Cataracts, Hyperlipidemia, Hypertension, OA, Pneumonia, MDD Past Surgical History: Back Surgery, R Breast Lumpectomy, Section, BL Cataract Extraction, R Knee Replacement, R Hip Arthroplasty, L Hip Replacement x 2, BL CTR, Orthopedic Surgery, Tubal Ligation Family History: Sister(s)- Breast CA. Mother- Colon CA. Father- CVA/TIA/DM/Alcoholism Social History: Negative x 3 All: NKDA Meds: See list REVIEW OF ORGAN SYSTEMS: CONSTITUTIONAL: No fevers or chills. No recent weight loss. HEENT: No visual acuity loss, eye pain, difficulties with hearing. No nosebleeds. No difficulty swallowing. RESPIRATORY: Denies any troubles with breathing or dyspnea on exertion. CARDIOVASCULAR: Denies any chest pain, palpitations, or recent heart attacks. GASTROINTESTINAL: Denies fatty food intolerance. Has change in bowel habits and gas bloat. GENITOURINARY: Denies any blood in urine. Has increased urinary frequency. NEUROLOGICAL: + numbness and tingling along the distal extremities. No seizure disorders or headaches. MUSCULOSKELETAL: + back pain SKIN: No skin cancer. No rash. PSYCHIATRIC: Denies current depression or suicidal thoughts. ENDOCRINE: Denies current thyroid disorders. Denies any blood sugar glucose intolerance. HEME/LYMPHATIC: Denies any lumps and bumps around the neck. History of deep venous thrombosis. ALLERGY/IMMUNOLOGY: No immunoglobulin therapy. No immune deficiencies. BREAST: Denies current breast lumps, pain or nipple discharge. Physical Examinations : Constitutional : Cooperative , not in acute distress . HEENT: Neck supple. No Lymphadenopathy. Normal thyroid size . Eyes no ptosis , no icterus, no photophobia . Hearing intact. Normal oropharynx. No Thrush. Respiratory : Chest clear to auscultations bilaterally. No wheezing. No rhonchi. Cardiovascular : Regular rate and rhythm , S1 / S2. No S3 . No S4. Gastrointestinal : Abdomen soft. No tenderness. Bowel sounds x 4. No organomegaly . Genitourinary : Deferred. Neurologic : Cranial nerve II to XII intact. No focal neurological deficits. Psychiatric : alert & oriented x 3. Matching mood & appropriate affect. Judgment & insight intact. Lymphatic No Lymphadenopathy. Musculoskeletal : Cervical Spine Motor strength in the deltoid and biceps: Normal right side. Normal Left side Motor strength biceps and the wrist extensors: Normal right side . Normal left side Motor strength in the triceps muscle: Normal right side. Normal left side Deep tendon reflexes: Normal at the biceps. Normal at Brachioradialis. Normal at triceps Vertebral body tenderness to palpation over C4, C5 Cervical facet loading test: positive bilaterally Spurling test: positive bilaterally Neck distraction test: positive bilaterally Chris sign: positive bilaterally Lumbar spine Motor strength lower extremities ,thigh and legs 5/5 Right side , 5/5 Left side Deep tendon reflexes : Normal Knee Jerk. Normal Ankle Jerk Vertebral body tenderness over Lumbar facet Loading Test: positive Right / positive Left Range of motion of the lumbar spine Flexion 30 degrees, extension 10 degrees Straight Leg Raise test: Left/ Right positive at degree Emmanuelle test: positive right / positive left. Severe tenderness over the Sacroiliac joint on the Right / Left sides Gaenslen test: positive bilaterally Seated flexion test: positive bilaterally. Sacral spine : Severe tenderness over the Sacroiliac joint: right side / left side Range of motion: Flexion of the lumbar spine <60 degrees Range of motion: Extension of the lumbar spine <20 degrees Gaenslen's Test positive Jeff's Test positive Emmanuelle test: positive right side / left side Thigh Thrust Test Sacral Thrust Test Imaging: MRI without contrast of the cervical spine from 09/12/21 reviewed Assessment/ Plan : Cervical spondylosis Recommendation of DIMITRI C4-C5 treatment a series of injections, up to 3 within a six-month time period, for optimal pain relief. Risks, benefits of procedure discussed and patient verbalized understanding. Denies aspirin or anti- coagulant use or medical history of diabetes. Patient states she is no longer diabetic and taking metformin as her PCP told her her HG A1c is in the 4s. All questions answered. I have spent greater than 50 minutes on patient care today. Dr Cerna was available by phone for the evaluation of this patient. The time was used to review the medical records including relevant urine studies and Prescription history (MAPs), review of the available imaging, evaluation and examination of the patient, coordination of care with the medical staff and if applicable re [facility] physicians, as well as creation of the medical record PQRS Narrative: Smoking Status Former smoker Home Medications: Ambulatory Orders Simvastatin [Zocor] 40 mg PO HS 02/18/15 Venlafaxine HCl 150 mg PO BID 02/18/15 Amitriptyline HCl 50 mg PO HS #30 tablet 03/22/15 Gabapentin [Neurontin] 300 mg PO TID 03/30/15 Fenofibrate,Micronized [Fenofibrate] 134 mg PO HS 12/01/16 Baclofen [Lioresal] 10 mg PO TID PRN 12/26/17 metFORMIN HCL [Glucophage] 500 mg PO BID 12/26/17 Hydrocodone/Acetaminophen [[place] 10-325] 1 tab PO TID PRN 10/14/18 Meloxicam 15 mg PO HS 10/14/18 Metoprolol Succinate (ER) [Toprol XL] 25 mg PO QAM 05/06/19 Morphine Sulfate ER [Ms Contin] 30 mg PO TID 02/28/20 Aspirin [Adult Low Dose Aspirin EC] 81 mg PO BID #60 tablet. 09/29/20 Controlled Substance Measures - Controlled Substance Measures Is patient prescribed a controlled substance at discharge?: No
[2022-01-26 10:14] VITALS: BP 140/73; PULSE 87; RESP 18; TEMP 97.8
== END ==
LOC: PNWHC3 09:07
PROVIDERS: ATTEND Specialist
DX: M50.10 Cervical disc disorder with radiculopathy, unspecified cervical region (principal); E11.36 Type 2 diabetes mellitus with diabetic cataract; E78.5 Hyperlipidemia, unspecified; I10 Essential (primary) hypertension; M19.90 Unspecified osteoarthritis, unspecified site; Z87.891 Personal history of nicotine dependence
CPT/HCPCS: 99211

== ENCOUNTER 2022-03-09 09:15 | Day surgery (SDC) | payer MEDICARE, OTHER ==
[2022-03-07 14:37] VITALS: BMI 26.1
[~2022-03-09 09:15] MED LIST changes: -ACETAMINOPHEN TAB 500 MG TAB PO PRN; -DEXAMETHASONE SOD PHOSPHATE 4 MG/ML 1 ML VIAL IV ONE; -HYDROmorphone 0.5 MG/0.5 ML SYRINGE IVP PRN; +LACTATED RINGERS 1,000 ML IV SCH; -MELOXICAM 7.5 MG TAB PO PRN; -MIDAZOLAM 2 MG/2 ML VIAL IV PRN; -ONDANSETRON 4 MG/2 ML VIAL IVP ONE; -TRANEXAMIC ACID 1,000 MG in SODIUM CHLORIDE 0.9% 100 ML IVPB PRN; -VANCOMYCIN 1,250 MG in SODIUM CHLORIDE 0.9% 250 ML IVPB PRN; -fentaNYL (PF) 50 MCG/ML 2 ML AMP IV PRN
[2022-03-09 09:43] VITALS: TEMP 97
[2022-03-09] MEDS ORDERED: LACTATED RINGERS 1,000 ML IV ONE (09:49)
[2022-03-09] MEDS ORDERED: fentaNYL (PF) 50 MCG/ML 2 ML AMP ONE (09:56)
[2022-03-09] MEDS ORDERED: MIDAZOLAM 2 MG/2 ML VIAL ONE (09:56)
[2022-03-09] MEDS ORDERED: IOPAMIDOL M200 10 ML VIAL ONE (09:56)
[2022-03-09] MEDS ORDERED: DEXAMETHASONE SOD PHOSPHATE 10 MG/ML 1 ML VIAL ONE (09:56)
--- NOTE | 2022-03-09 10:09 | P.PCN ---
Date of Procedure: 03/09/22 Procedure(s) Performed: . PROCEDURE 1. Cervical epidural steroid injection under fluoroscopic guidance, C4-5 ( Right paramedial )(fluoroscopy images available in the radiology department ) 2. Cervical epidurogram. PREOPERATIVE DIAGNOSIS: 1- Cervical Degenerative Disc Diseases 2-cervical spondylosis with cervical Facet arthropathy without myelopathy POSTOPERATIVE DIAGNOSIS: : 1- Cervical Degenerative Disc Diseases , 2-cervical spondylosis with cervical Facet arthropathy without myelopathy ANESTHESIA: moderate sedation, with Versed 2 mg and Fentanyl 100 mcg. Sedation start time : 09:59 Sedation end time : 10:05 EBL 0 PROCEDURE INDICATION: The patient with neck pain and radiculitis unresponsive to conservative treatment consents for procedure. PROCEDURE DESCRIPTION / TECHNIQUE: The patient was seen and identified in the preoperative area. Risks, benefits, complications, including but not limited to infections ,bleeding , allergic reactions to the medications ,and not complete pain releife, and alternatives were discussed with the patient, the patient agreed to proceed with the procedure and signed the consent. Patient was taken to the OR and time out was completed. The patient was placed in the prone position on the procedure table. A pillow was placed under the patients chest to increase the cervical interlaminar space. The cervical area was prepped and draped in the usual sterile fashion. Vital signs were closely monitored during the procedure. Conscious sedation was used during the procedure to decrease patients anxiety. Using anterior-posterior fluoroscopy, the C4-5 interlaminar space was identified and the skin over this site was marked and then infiltrated with 1% lidocaine subcutaneously. Subsequently, a 20-gauge 3-1/2-inch Tuohy epidural needle was inserted ( Right paramedial ) and advanced toward the epidural space by means of the ``hanging-drop technique and guided by AP and lateral fluoroscopy. The correct needle position in the epidural space was verified with the injection of 2 mL of the water soluble contrast dye Isovue-200 and observing an excellent epidurogram with the epidural spread of the dye, after negative aspiration for blood and CSF and in the absence of paresthesias. then, mixture containing 20 mg Dexamethasone and 2 ml of preservative-free normal saline injected and a washout of epidurogram was seen. Needle was withdrawn intact, skin was cleansed, and bandages were applied. Complications= none. Disposition= patient was placed in supine position and transferred to the recovery room area in stable condition and there was no evidence of upper or lower extremity motor or sensory deficit after the procedure patient was discharged from recovery room after discharge criteria met and home discharge instructions was given by the staff and patient will follow with the pain clinic in 2-4 weeks
[2022-03-09] MEDS ORDERED: IV FLUID CONTINUATION 1,000 ML IV ONE ×2 (10:11)
[2022-03-09 10:19] VITALS: RESP 16
[2022-03-09 10:36] VITALS: BP 125/71; PULSE 87
--- NOTE | 2022-03-09 11:08 | FL ---
Fluoroscopy INDICATION: Pain FINDINGS: Fluoroscopy time: 1 seconds. Images obtained: 1. IMPRESSIONS: 1. Documentation of fluoroscopy.
== END 2022-03-09 10:46 | disposition home or self-care (01) ==
LOC: ORPAIN 09:15
PROVIDERS: ATTEND Specialist
DX: M50.10 Cervical disc disorder with radiculopathy, unspecified cervical region (principal); M47.22 Other spondylosis with radiculopathy, cervical region
CPT/HCPCS: 62321; J2250; J1100; J3010; Q9966

== ENCOUNTER → 2022-03-27 | Outpatient (CLI) | payer MEDICARE, OTHER ==
[2022-03-27 09:53] VITALS: BP 146/78; PULSE 76; RESP 18; TEMP 98.7
--- NOTE | 2022-03-27 14:19 | P.PAINPG ---
PQRS Measure Charge Sheet Comment: A 62 yr old female with a history of severe and chronic neck pain secondary to degenerative disc diseases and spondylosis with facet arthropathy presents today for evaluation s/p DIMITRI C4-C5. She states she experienced 70% pain relief x 3 weeks s/p procedure. Pain level is currently at 5/10 in intensity, constant, shooting, sharp in the neck towards BL shoulders and BUEs to the thumbs. Pain is provoked by . Pain is alleviated with PT 3 visits but stopped as it was not covered by her insurance, heat, medications (MS ER, Mobic, Neurotin, [place]), laying supine, repositioning and rest. Interventional pain procedures completed include DIMITRI C4-C5 x1 Patient is currently on [place], MS ER, Mobic, Neurontin Patient denies any side effects of the medication(s), denies excessive drowsiness or sleepiness, denies suicidal ideation and reports that the current pain medication is helping to control the pain and improve activities of daily living. Patient denies any motor or sensory deficits. Patient denies any fever or night sweats, denies any change in the bowel movements or urination. Physical Examination: -Constitutional: Cooperative. Not in acute distress . - Neurologic: Cranial nerve II to XII intact. No focal neurological deficits. - Psychatric: Alert & oriented x 3. Matching mood & appropriate affect. Judgment and insight intact. - Musculoskeletal: Cervical spine: Muscle bulk/ tone/ strength in the bilateral upper extremities normal Vertebral body tenderness to palpation over C6 Spurling test positive Distraction test positive Facet loading test positive Thoracic spine Muscle bulk / tone/ strength in the bilateral paraspinal muscles normal Vertebral body tender to palpation over Facet loading test positive Lumbar spine: Motor bulk/ tone/ strength lower extremities , thigh and legs : 5/5 Deep tendon reflexes : Normal Knee Jerk. Normal Ankle Jerk . Vertebral body tenderness to palpation over Lumbar Facet Loading Test positive Straight Leg Raise: positive at 30 degrees right side/ left side Gaenslen's Test positive Sacral spine : Severe tenderness over the Sacroiliac joint: right side / left side Range of motion: Flexion of the lumbar spine <60 degrees Range of motion: Extension of the lumbar spine <20 degrees Gaenslen's Test positive Jeff's Test positive Emmanuelle test: positive right side / left side Thigh Thrust Test Sacral Thrust Test Assessment and plan: Chronic neck pain secondary to degenerative disc disease , spondylosis with facet arthropathy without myelopathy Pt received sufficient pain relief s/p procedure. She would like to hold off on any additional injections as she has R shoulder surgery scheduled in 1 mo. She may return to our clinic on an as needed basis. Risks, benefits of procedure discussed and pt verbalized understanding. Denies anticoagulant use or medical history of diabetes. All patient questions answered MAPS reviewed and it was appropriate. I have spent less than 30 minutes on patient care today. Dr Cerna was available by phone for the evaluation of this patient. The time was used to review the medical records including relevant urine studies and Prescription history (MAPs), review of the available imaging, evaluation and examination of the patient, coordination of care with the medical staff and if applicable referring physicians, as well as creation of the medical record - Pain Location Bilateral Lower Neck Non-Pharmacological Interventions: Heat, Inactivity, Physical Therapy Pharmacological Interventions: Epidural, Scheduled Medication PQRS Narrative: Smoking Status Former smoker Hx Alcohol Use (MH) No Home Medications: Ambulatory Orders Simvastatin [Zocor] 40 mg PO HS 02/18/15 Venlafaxine HCl 150 mg PO BID 02/18/15 Amitriptyline HCl 50 mg PO HS #30 tablet 03/22/15 Gabapentin [Neurontin] 300 mg PO TID 03/30/15 Fenofibrate,Micronized [Fenofibrate] 134 mg PO HS 12/01/16 Baclofen [Lioresal] 10 mg PO TID PRN 12/26/17 Hydrocodone/Acetaminophen [[place] 10-325] 1 tab PO TID PRN 10/14/18 Meloxicam 15 mg PO HS 10/14/18 Metoprolol Succinate (ER) [Toprol XL] 25 mg PO QAM 05/06/19 Morphine Sulfate ER [Ms Contin] 30 mg PO TID 02/28/20 Ergocalciferol [Vitamin D2 (1250 Mcg = 65861 Iu)] 1,250 mcg PO SA 03/07/22 Controlled Substance Measures - Controlled Substance Measures Is patient prescribed a controlled substance at discharge?: No
== END ==
LOC: PNWHC3 08:41
PROVIDERS: ATTEND Specialist
DX: M50.30 Other cervical disc degeneration, unspecified cervical region (principal); M47.812 Spondylosis without myelopathy or radiculopathy, cervical region; Z87.891 Personal history of nicotine dependence
CPT/HCPCS: 99211

== ENCOUNTER → 2022-04-25 | Outpatient (CLI) | payer MEDICARE, OTHER | END | disposition home or self-care (01) | LOC: LABPAT 12:59 | PROVIDERS: ATTEND Orthopaedic Surgery | DX: Z01.812 Encounter for preprocedural laboratory examination (principal); M19.011 Primary osteoarthritis, right shoulder; Z22.322 Carrier or suspected carrier of Methicillin resistant Staphylococcus aureus | CPT/HCPCS: 87070 ==

== ENCOUNTER 2022-05-02 08:52 | Observation (INO) | payer MEDICARE, OTHER ==
[2022-04-28 14:12] VITALS: BMI 25.0
--- NOTE | 2022-05-01 08:39 | P.HPOR ---
History of Present Illness H&P Date: 05/01/22 Chief Complaint: Right shoulder pain The patient is a 62-year-old [id number] female who presents with progressive right shoulder pain for the past several years worsening recently. She's had pain with overhead use and at night. She notes significant stiffness. She is on medications for her back. 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 Diet controlled Diabetes. History of Any Multi-Drug Resistant Organisms: MRSA Date of last positivie culture/infection: 2009 MDRO Source:: chin Past Surgical History: Back Surgery, Breast Surgery, Section, Joint Replacement, Orthopedic Surgery, Tubal Ligation Additional Past Surgical History / Comment(s): Total R hip arthroplasty anterior approach. rt knee replacement, mult breast biopsies, regina carpal tunnel. regina cataracts, left hip replaced x2, Lumpectomy R breast., PAIN CLINIC PROCEDURES, left total shoulder arthroplasty Past Anesthesia/Blood Transfusion Reactions: No Reported Reaction Additional Past Anesthesia/Blood Transfusion Reaction / Comment(s): Pt has never received blood. Past Psychological History: Depression Smoking Status: Former smoker Past Alcohol Use History: None Reported Past Drug Use History: Marijuana Additional Drug Use History / Comment(s): occasional marijuana use.-AWARE NO USE 24 HOURS PRIOR TO PROCEDURE - Past Family History Sister(s) Family Medical History: Cancer Additional Family Medical History / Comment(s): BREAST Cancer. Mother Family Medical History: Cancer Additional Family Medical History / Comment(s): Colon cancer. Father Family Medical History: CVA/TIA, Diabetes Mellitus Additional Family Medical History / Comment(s): alcoholism Medications and Allergies Home Medications Medication Instructions Recorded Confirmed Type Simvastatin [Zocor] 40 mg PO HS 02/18/15 04/28/22 History Venlafaxine HCl 150 mg PO BID 02/18/15 04/28/22 History Amitriptyline HCl 50 mg PO HS #30 tablet 03/22/15 04/28/22 Rx Gabapentin [Neurontin] 300 mg PO TID 03/30/15 04/28/22 History Fenofibrate,Micronized 134 mg PO HS 12/01/16 04/28/22 History [Fenofibrate] Baclofen [Lioresal] 10 mg PO TID PRN 12/26/17 04/28/22 History Hydrocodone/Acetaminophen [[place] 1 tab PO BID 10/14/18 04/28/22 History 10-325] Meloxicam 15 mg PO HS 10/14/18 04/28/22 History Metoprolol Succinate (ER) [Toprol 25 mg PO QAM 05/06/19 04/28/22 History XL] Morphine Sulfate ER [Ms Contin] 30 mg PO TID 02/28/20 04/28/22 History Ciprofloxacin HCl [Cipro] 250 mg PO BID 04/28/22 04/28/22 History Allergies Allergy/AdvReac Type Severity Reaction Status Date / Time No Known Allergies Allergy Verified 04/28/22 13:51 Physical Examination - Shoulder right Effusion grade: grade 1 Tenderness with palpation: anterior Pain: with forward flexion ROM: abduction: 100 degrees ROM: forward flexion: 100 degrees ROM: internal rotation: lower lumbar ROM: external rotation: 30 degrees Strength: abduction: 5/5 Strength: forward flexion: 5/5 Tests: internal impingement tests: positive Results The patient is a well-developed well-nourished female approximately 5 foot 6, 170 pounds of mesomorphic habitus. HEENT exam is nonfocal. Neck supple. She's tender about the right shoulder anterior subacromial space. She has moderate crepitus. Her distal neurovascular exam appears intact right upper extremity. - Diagnostic results Shoulder x-ray: image reviewed (3 views of the right shoulder obtained in the office show severe glenohumeral joint space narrowing with [id number] changes and subchondral sclerosis. The humeral head to acromion distance appears to be maintained.) Assessment and Plan Assessment: Right severe glenohumeral joint osteoarthrosis Plan: I talked the patient's length regarding her condition and treatment options. This point she is quite symptomatic and limited because of pain related to her osteoporosis despite conservative measures. After thorough discussion proceed with surgery. We'll plan to proceed with right total shoulder arthroplasty versus a reverse total shoulder arthroplasty. Time with Patient: Less than 30
[~2022-05-02 08:52] MED LIST changes: +ACETAMINOPHEN TAB 500 MG TAB PO PRN; +DEXAMETHASONE SOD PHOSPHATE 4 MG/ML 1 ML VIAL IV ONE; -LACTATED RINGERS 1,000 ML IV SCH; -LIDOCAINE 1% (10MG/ML) FOR IV START INTRADERMA PRN; +MELOXICAM 7.5 MG TAB PO PRN; +ONDANSETRON 4 MG/2 ML VIAL IVP ONE; +TRANEXAMIC ACID IN NACL,ISO-OS 1,000 MG in SALINE 1 100ML.BAG IVPB PRN
[2022-05-02] MEDS: LACTATED RINGERS 1,000 ML IV SCH (09:55)
[2022-05-02] MEDS ORDERED: LIDOCAINE 1% (10MG/ML) FOR IV START INTRADERMA ONE (09:55)
[2022-05-02 10:00] LABS: Glucose,Whole Blood 107 mg/dL (70-110)
[2022-05-02] MEDS ORDERED: MIDAZOLAM 2 MG/2 ML VIAL IV ONE (10:03)
[2022-05-02] MEDS: fentaNYL (PF) 50 MCG/ML 2 ML AMP IV ONE ×2 (10:03→14:03)
[2022-05-02] MEDS ORDERED: fentaNYL (PF) 50 MCG/ML 2 ML AMP ONE (10:32)
[2022-05-02] MEDS ORDERED: MIDAZOLAM 2 MG/2 ML VIAL ONE (10:32)
[2022-05-02] MEDS ORDERED: PROPOFOL 10 MG/ML 20 ML VIAL IV ONE (10:32)
[2022-05-02] MEDS ORDERED: LIDOCAINE 2% INJ 20 MG/ML (2 ML VIAL) ONE (10:32)
[2022-05-02] MEDS ORDERED: SUCCINYLCHOLINE CHLORIDE 200 MG/10 ML VIAL IV ONE (10:32)
[2022-05-02] MEDS ORDERED: DEXAMETHASONE SOD PHOSPHATE 4 MG/ML 1 ML VIAL ONE (10:32)
[2022-05-02] MEDS ORDERED: ROPIVACAINE 5 MG/ML 30 ML VIAL ONE (10:32)
--- NOTE | 2022-05-02 10:33 | P.ANPRN ---
Procedure Note - Anesthesia - Nerve Block Performed Right Interscalene Single Time Out Performed: Yes Date of Procedure: 05/02/22 Procedure Start Time: 10:03 Procedure Stop Time: 10:10 Location of Patient: PreOp Indication: Requested by Surgeon Specifically requested for management of pain by DrJuan José: Angel Moon Sedation Type: Sedate with meaningful contact maintained Preparation: Sterile Prep Position: Supine Needle Types: Pajunk Needle Gauge: 21 Ultrasound used to visualize needle placement: Yes Ultrasound used to observe medication spread: Yes Injectate: 0.5% Ropivacaine (see comment for volume) (24 ml + 4 mg dexamethason) Blood Aspirated: No Pain Paresthesia on Injection Noted: No Resistance on Injection: Normal Image Stored and Saved: Yes Events: Uneventful and Well Tolerated
--- NOTE | 2022-05-02 12:47 | P.OP ---
Date of Procedure: 05/02/22 Preoperative Diagnosis: Right severe glenohumeral joint osteoarthrosis Postoperative Diagnosis: Same Procedure(s) Performed: Right total shoulder arthroplasty Implants: [employer] size 12 press-fit humeral stem, size 12 body, 44 x 18 eccentric humeral head, 44 mm cemented pegged glenoid component. Anesthesia: sanket MORGAN Surgeon: Angel Moon Spaghetti Press Helper #1: Dewayne Ramirez Estimated Blood Loss (ml): 100 Pathology: other (Humeral head) Condition: stable Disposition: PACU Indications for Procedure: The patient's a 62-year-old female presents with progressive right shoulder pain secondary to osteoarthritis despite conservative measures. A discussion of the risks and benefits of operative intervention versus continued conservative measures was made with patient. She opted to proceed with surgery. Operative risks to include infection, neurovascular injury, development of blood clots, fracture, possible component loosening/failure and need for subsequent procedures was discussed. Operative Findings: As below Description of Procedure: The patient was brought to the operating room, and after induction of general anesthesia was placed in the beachchair position. The bony prominences were appropriately padded. The right upper extremity was prepped and draped in normal fashion. A deltopectoral incision was then made lateral to the coracoid process extending approximately 12 cm. The skin was incised sharply. Subcutaneous tissues were divided bluntly. Electrocautery was used for hemostasis. The deltopectoral interval was identified and the cephalic vein gently retracted laterally with the deltoid. Subdeltoid adhesions were bluntly dissected. A self-retaining retractor was placed. The clavipectoral fascia was opened and the conjoined tendon gently retracted medially. The upper one third of the pectoralis major was released to help facilitate exposure. The biceps was identified and the sheath was opened. The rotator interval was opened. The biceps was tenotomized and allowed to retract distally. The subscapularis. Was performed. This was tagged with #2 Ethibond suture. The humeral head was then exposed releasing the capsule off the humeral neck. The shoulder was gently dislocated. A starting hole was made in the head in line with the humeral shaft. The shaft was reamed by hand up to 12 mm. There is good distal chatter. The cutting guide was placed planning on a cut flush with the rotator cuff insertion and 30 of retroversion. The cutting block was pinned in place. The humeral head cut was then made. This measured most appropriately at 44 x 18 mm. Residual inferior osteophytes were carefully removed flush with the [place] cortical bone. A posterior glenoid retractor was placed. The glenoid was then exposed releasing the labrum from the 12-6 o'clock position. Residual labral tissue was removed. The glenoid sized most appropriate 44 mm. A guidewire was then inserted planning on the appropriate version. The glenoid was reamed down to a bleeding bony surface. The central pedicle was drilled. The alignment guide was placed in the peripheral peg holes drilled. The trial size 44 mm glenoid was placed and was fully seated. There was good anterior to posterior and inferior to superior fit. The trial component was removed. Pulsatile lavage was utilized. The bony surface was dried. The peripheral peg holes were then pressurized with cement utilizing a syringe. Excess cement was removed. A central peg glenoid was then placed and was fully seated. This was gently impacted. This was held in place until the cement had sufficiently hardened. Attention was then paid again towards preparing the proximal humerus. The appropriate broach was placed in 30 of retroversion and was fully seated. An eccentric 44 x 18 mm humeral head was placed. The shoulder was gently reduced. It was taken through a range of motion. It was felt to be stable in flexion and extension with internal and external rotation. I felt there was adequate orthodoxy of soft tissue tension. The shoulder was gently dislocated. The trial components were then removed. A #2 Ethibond was placed laterally in the bicipital groove for reattachment of the subscapularis. The humeral stem was inserted in 30 of retroversion and was fully seated. There was good rotational stability. The eccentric [] mm humeral head was gently impacted. The shoulder was then gently reduced and taken through range of motion and was felt to be stable. Pulsatile lavage was utilized. The subscapularis was repaired with #2 Ethibond suture. The rotator interval was closed with #2 Ethibond suture. She had minimal drainage at this point therefore a deep drain was not placed. The deltopectoral interval was closed with interrupted 2-0 Vicryl sutures. The subcu tissues were reapproximated with interrupted 2-0 Vicryl sutures. The skin was reapproximated with 3-0 subcuticular Prolene suture. Steri-Strips were robert lied. A sterile dressing was applied in addition to a sling. The patient was then awoken from general anesthesia and transferred to recovery room in good condition. Blood loss was estimated at 100 mL. No complications were incurred. Sponge and needle counts were correct at the end the case. Sae FELIPE assisted general major component the case to include positioning, exposure, resection, implantation, and closure.
[2022-05-02] MEDS ORDERED: ONDANSETRON 4 MG/2 ML VIAL IVP PRN (12:53)
[2022-05-02] MEDS: HYDROmorphone 0.5 MG/0.5 ML SYRINGE IVP PRN ×4 (13:07→14:03)
--- NOTE | 2022-05-02 13:34 | XR ---
EXAMINATION TYPE: XR shoulder limited RT DATE OF EXAM: 05/02/2022 1:26 PM INDICATION: Patient age:Female; 62 years old; Reason for study: total rt shoulder surgery; COMPARISON: Right shoulder radiograph 03/08/2022 TECHNIQUE: The right shoulder was examined in frontal projection. FINDINGS: Postsurgical changes from right proximal humerus arthroplasty. Hardware appears intact with appropria te alignment. Expected subcutaneous gas. Degenerative changes of the AC joint and glenoid. Surgical c lips demonstrated within the right axilla/breast. The remaining portions of the visualized chest are unremarkable. IMPRESSION: Postsurgical changes from right shoulder arthroplasty. Hardware appears intact with appropriate align ment.
[2022-05-02] MEDS: MORPHINE SULFATE ER 30 MG TABLET PO SCH ×2 (16:36→23:04)
[2022-05-02] MEDS ORDERED: BACLOFEN 10 MG TAB PO PRN (17:50)
[2022-05-02] MEDS: HYDROmorphone 1 MG/ML 1 ML SYRINGE IVP PRN (19:42)
[2022-05-02] MEDS: AMITRIPTYLINE HCL 50 MG TAB PO SCH (20:41)
[2022-05-02] MEDS: HYDROcodone/APAP 10-325MG 1 EACH TAB PO SCH (20:41)
[2022-05-02] MEDS: ATORVASTATIN 20 MG TAB PO SCH (20:41)
[2022-05-02] MEDS: VENLAFAXINE HCL 75 MG TAB PO SCH (20:41)
[2022-05-02] MEDS: FENOFIBRATE 160 MG TAB PO SCH (20:41)
[2022-05-02] MEDS ORDERED: HYDROcodone/APAP 10-325MG 1 EACH TAB PO SCH (21:00)
[2022-05-02] MEDS: GABAPENTIN 300 MG CAP PO SCH (21:35)
[2022-05-02] MEDS ORDERED: MORPHINE SULFATE ER 30 MG TABLET PO SCH (22:00)
[2022-05-03] MEDS: LACTATED RINGERS 1,000 ML IV SCH (02:20)
[2022-05-03] MEDS: HYDROmorphone 1 MG/ML 1 ML SYRINGE IVP PRN ×3 (02:22→16:43)
[2022-05-03] MEDS: MORPHINE SULFATE ER 30 MG TABLET PO SCH ×2 (10:06→15:34)
[2022-05-03] MEDS: VENLAFAXINE HCL 75 MG TAB PO SCH ×2 (10:26→21:23)
[2022-05-03] MEDS: HYDROcodone/APAP 10-325MG 1 EACH TAB PO SCH ×2 (10:26→21:26)
[2022-05-03] MEDS: GABAPENTIN 300 MG CAP PO SCH ×3 (10:26→21:23)
[2022-05-03] MEDS: METOPROLOL SUCCINATE (ER) 25 MG TAB.ER.24H PO SCH (10:26)
[2022-05-03 10:27] LABS: Basophils # (A) 0.01 X 10*3/uL (0.00-0.10); Basophils % (A) 0.2 %; Eosinophils # (A) 0.02 X 10*3/uL (0.04-0.35); Eosinophils % (A) 0.3 %; HCT 29.5 % (37.2-46.3); HGB 9.6 g/dL (12.0-15.0); Immature Grans, Automated 0.2 %; Lymphocytes # (A) 1.17 X 10*3/uL (0.90-5.00); Lymphocytes % (A) 19.1 %; MCH 29.8 pg (27.0-32.0); MCHC 32.5 g/dL (32.0-37.0); MCV 91.6 fL (80.0-97.0); Mean Platelet Volume 10.3 fL (9.5-12.2); Monocytes # (A) 0.84 X 10*3/uL (0.20-1.00); Monocytes % (A) 13.7 %; NRBC Per 100 WBC 0 /100 WBCS (0.0-0.0); Neutrophils # (A) 4.09 X 10*3/uL (1.80-7.70); Neutrophils % (A) 66.5 %; Platelet Count 193 X 10*3/uL (140-440); RBC 3.22 X 10*6/uL (4.10-5.20); RDW 12.8 % (11.5-14.5); WBC 6.14 X 10*3/uL (4.50-10.00)
--- NOTE | 2022-05-03 10:54 | P.PN ---
Subjective Progress Note Date: 05/03/22 Principal diagnosis: Right severe glenohumeral joint osteoarthrosis Patient was seen at bedside this morning with sling to right upper extremity. Patient currently rates her pain as 7 out of 10. Patient feels that she needs to stay 1 more night for pain to get under better control. Patient says she has urinated several times since surgery. Patient says she has not had bowel movement yet, however, patient has been passing gas. Patient denies chest pain, fever, shortness of breath, nausea, vomiting, change in vision, loss of bowel/bladder control. Objective - Vital Signs Vital signs: Vital Signs Temp 98.4 F 05/03/22 08:00 Pulse 83 05/03/22 08:00 Resp 16 05/03/22 08:00 BP 147/66 05/03/22 08:00 Pulse Ox 96 05/03/22 08:00 FiO2 Intake & Output 05/02/22 05/03/22 05/03/22 18:59 06:59 18:59 Intake Total 1350 260 Output Total 100 Balance 1250 260 Weight 71.2 kg Intake: IV 1350 Intake, IV Titration 260 Amount Lactated Ringers 1,000 ml 160 @ 20 mls/hr IV .Q24H CELESTE Rx#:[id number] ceFAZolin 2 gm In Sodium 100 Chloride 0.9% 50 ml @ 100 mls/hr IVPB Q8H CELESTE Rx#: [id number] Output: Estimated Blood Loss 100 Other: Voiding Method Toilet # Voids 2 2 - Labs CBC & Chem 7: 05/03/22 07:03 Labs: Abnormal Lab Results - Last 24 Hours (Table) 05/03/22 Range/Units 07:03 RBC 3.22 L (4.10-5.20) X 10*6/uL Hgb 9.6 L (12.0-15.0) g/dL Hct 29.5 L (37.2-46.3) % Eosinophils # 0.02 L (0.04-0.35) X 10*3/uL Assessment and Plan Assessment: Right severe glenohumeral joint osteoarthrosis Postoperative day 1 status post - Right total shoulder arthroplasty Plan: 1. Severe right glenohumeral joint osteoarthrosis - right total shoulder arthroplasty performed yesterday, 05/02/2022. Patient stable at bedside this morning. We will add Vistaril 25 mg every 6 hours to help with pain control. Plan for discharge home tomorrow. Maintain sling to right upper extremity at this time. Remain non-weightbearing right upper extremity. 2. Appreciate medical management 3. Pain management - [place] 10 mg/325 mg; Morphine; Baclofen; IV pain meds only when necessary 4. DVT ppx - Aspirin 325 mg 5. GI ppx - senna 6. PT/OT - NWB RUE 7. Discharge planning - plan for discharge home tomorrow, , 05/04/2022 Time with Patient: Less than 30
[2022-05-03 10:58] LABS: ALT 12 U/L (8-44); AST 23 U/L (13-35); African American GFR (CKD) 81.2 (60.0-200.0); Albumin 3.8 g/dL (3.8-4.9); Albumin/Globulin Ratio 1.71 (1.60-3.17); Alkaline Phosphatase 61 U/L (41-126); Blood Urea Nitrogen 16.9 mg/dL (9.0-27.0); Calcium 8.7 mg/dL (8.7-10.3); Carbon Dioxide 30.6 mmol/L (20.0-27.5); Chloride 102 mmol/L (96-109); Globulin 2.2 g/dL (1.6-3.3); Glucose 114 mg/dL (70-110); Non-African American GFR(CKD) 70.1 (60.0-200.0); Potassium 3.7 mmol/L (3.5-5.5); Sodium 141 mmol/L (135-145); Total Bilirubin <0.15 mg/dL (0.30-1.20); Total Protein 6.1 g/dL (6.2-8.2)
--- NOTE | 2022-05-03 12:15 | P.CONS ---
History of Present Illness - Reason for Consult Consult date: 05/03/22 Medical management Requesting physician: Angel Moon - Chief Complaint Osteoarthritis to the right shoulder - History of Present Illness This is a 62-year-old female patient who presented for an elective total right shoulder arthroplasty due to severe right glenohumeral joint osteoarthritis with Dr. Ochoa on 05/02/2022. Patient has a past medical history of breast cancer in which she finished chemo and radiation in 2019, diabetes mellitus, hyperlipidemia, hypertension and previous joint replacement. Patient is an ex- smoker quitting in 2006. Patient is currently resting comfortably in bed. Patient having increased pain. Pain medications have been adjusted per surgical services will keep patient additional 24 hours for pain control. At this time patient denies chest pain or shortness breath. Patient denies nausea vomiting or diarrhea. Patient denies any urinary burning or frequency. 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 Diet controlled Diabetes, current UTI History of Any Multi-Drug Resistant Organisms: MRSA Year Discovered:: 2009 MDRO Source:: [place] Past Surgical History: Back Surgery, Breast Surgery, Section, Joint Replacement, Orthopedic Surgery, Tubal Ligation Additional Past Surgical History / Comment(s): Total R hip arthroplasty anterior approach. rt knee replacement, mult breast biopsies, regina carpal tunnel. regina cataracts, left hip replaced x2, Lumpectomy R breast with lymphnode removal, PAIN CLINIC PROCEDURES, left total shoulder arthroplasty Past Anesthesia/Blood Transfusion Reactions: No Reported Reaction Additional Past Anesthesia/Blood Transfusion Reaction / Comm: Pt has never received blood. Past Psychological History: Anxiety, Depression Smoking Status: Former smoker Past Alcohol Use History: None Reported Additional Past Alcohol Use History / Comment(s): Pt started smoking in 1971 and quit in 2006, 1 PPD Past Drug Use History: Marijuana Additional Drug Use History / Comment(s): occasional marijuana use. - Past Family History Sister(s) Family Medical History: Cancer Additional Family Medical History / Comment(s): BREAST Cancer. Mother Family Medical History: Cancer Additional Family Medical History / Comment(s): Colon cancer. Father Family Medical History: CVA/TIA, Diabetes Mellitus Additional Family Medical History / Comment(s): ETOH Medications and Allergies Home Medications Medication Instructions Recorded Confirmed Type Simvastatin [Zocor] 40 mg PO HS 02/18/15 05/03/22 History Venlafaxine HCl 150 mg PO BID 02/18/15 05/03/22 History Amitriptyline HCl 50 mg PO HS #30 tablet 03/22/15 05/03/22 Rx Gabapentin [Neurontin] 300 mg PO TID 03/30/15 05/03/22 History Fenofibrate,Micronized 134 mg PO HS 12/01/16 05/03/22 History [Fenofibrate] Baclofen [Lioresal] 10 mg PO TID PRN 12/26/17 05/03/22 History Hydrocodone/Acetaminophen [[place] 1 tab PO BID 10/14/18 05/03/22 History 10-325] Meloxicam 15 mg PO HS 10/14/18 05/03/22 History Metoprolol Succinate (ER) [Toprol 25 mg PO QAM 05/06/19 05/03/22 History XL] Morphine Sulfate ER [Ms Contin] 30 mg PO TID 02/28/20 05/03/22 History Ciprofloxacin HCl [Cipro] 250 mg PO BID 04/28/22 05/03/22 History Allergies Allergy/AdvReac Type Severity Reaction Status Date / Time No Known Allergies Allergy Verified 05/02/22 10:27 Physical Exam Vitals: Vital Signs Temp Pulse Resp BP Pulse Ox 05/03/22 08:00 98.4 F 83 16 147/66 96 05/03/22 02:11 98.8 F 72 18 137/71 92 L 05/02/22 20:00 75 18 05/02/22 19:30 98.5 F 75 18 159/67 95 05/02/22 15:19 98.2 F 73 16 177/73 94 L 05/02/22 14:48 78 16 163/78 98 05/02/22 14:32 78 16 164/79 98 05/02/22 14:16 80 16 176/84 96 05/02/22 13:48 76 16 176/88 99 05/02/22 13:34 73 16 167/80 100 09/20/22 13:21 73 16 186/86 98 05/02/22 13:12 72 16 206/83 99 05/02/22 12:42 98.0 F 14 169/81 98 Intake and Output 05/02/22 05/03/22 05/03/22 22:59 06:59 14:59 Intake Total 260 Balance 260 Intake: Intake, IV Titration 260 Amount Lactated Ringers 1,000 ml 160 @ 20 mls/hr IV .Q24H [facility] Rx#:[id number] ceFAZolin 2 gm In Sodium 100 Chloride 0.9% 50 ml @ 100 mls/hr IVPB Q8H [facility] Rx#: [id number] Other: Voiding Method Toilet # Voids 2 2 Weight 71.2 kg Head normocephalic Neck supple Lungs clear to auscultation bilaterally no wheezing or crackles Heart regular rate and rhythm S1-S2, no rub or gallop Abdomen is soft nontender nondistended positive bowel sounds no hepatosplenomegaly Extremities no edema. Right shoulder dressing clean dry and intact arm in sling Neuro alert and orientated to 3 Results CBC & Chem 7: 05/03/22 07:03 05/03/22 07:03 Labs: Abnormal Lab Results - Last 24 Hours (Table) 05/03/22 05/03/22 Range/Units 07:03 07:03 RBC 3.22 L (4.10-5.20) X 10*6/uL Hgb 9.6 L (12.0-15.0) g/dL Hct 29.5 L (37.2-46.3) % Eosinophils # 0.02 L (0.04-0.35) X 10*3/uL Carbon Dioxide 30.6 H (20.0-27.5) mmol/L Anion Gap 8.30 L (10.00-18.00) mmol/L Glucose 114 H (70-110) mg/dL Total Bilirubin <0.15 L (0.30-1.20) mg/dL Total Protein 6.1 L (6.2-8.2) g/dL Assessment and Plan Assessment: 1. Right shoulder arthroplasty on 05/02/[address] Ochoa 2. History of breast cancer completed treatment in 2019 3. History of osteoarthritis with previous joint replacement 4. Diabetes mellitus type 2 5. History of hyperlipidemia 6. History of essential hypertension 7. History of anxiety and depression 8. Ex-smoker DVT prophylaxis aspirin per surgical services Pain medications adjusted per surgical services Anticipate discharge tomorrow Time with Patient: Greater than 30 (Greater than 60% of the total time spent in counseling and coordination of care)
[2022-05-03] MEDS ORDERED: MELOXICAM 7.5 MG TAB PO SCH (21:00)
[2022-05-03] MEDS: AMITRIPTYLINE HCL 50 MG TAB PO SCH (21:23)
[2022-05-03] MEDS: ATORVASTATIN 20 MG TAB PO SCH (21:23)
[2022-05-03] MEDS: FENOFIBRATE 160 MG TAB PO SCH (21:26)
[2022-05-04] MEDS: MORPHINE SULFATE ER 30 MG TABLET PO SCH ×2 (00:14→07:50)
[2022-05-04] MEDS: HYDROcodone/APAP 10-325MG 1 EACH TAB PO SCH (07:51)
[2022-05-04] MEDS: GABAPENTIN 300 MG CAP PO SCH (07:51)
[2022-05-04] MEDS: VENLAFAXINE HCL 75 MG TAB PO SCH (07:52)
[2022-05-04] MEDS: METOPROLOL SUCCINATE (ER) 25 MG TAB.ER.24H PO SCH (07:53)
[2022-05-04] MEDS ORDERED: ASPIRIN 325 MG TAB PO SCH (09:00)
[2022-05-04] MEDS ORDERED: SENNOSIDES 8.6 MG TAB PO SCH (09:00)
[2022-05-04] MEDS: LACTATED RINGERS 1,000 ML IV SCH (09:05)
--- NOTE | 2022-05-04 09:28 | P.PN ---
Subjective Progress Note Date: 05/04/22 Principal diagnosis: s/p right total shoulder arthroplasty Patient evaluated at bedside, she is resting in her hospital bed. She is feeling a lot better today, her pain is better controlled. She denies any headaches, lightheadedness, nausea vomiting. She is utilizing arm sling as instructed. Objective - Vital Signs Vital signs: Vital Signs Temp 98.6 F 05/04/22 02:00 Pulse 77 05/04/22 02:00 Resp 13 05/04/22 02:00 BP 145/70 05/04/22 02:00 Pulse Ox 99 05/04/22 02:00 FiO2 Intake & Output 05/03/22 05/04/22 05/04/22 18:59 06:59 18:59 Intake Total 1080 Balance 1080 Intake: Oral 1080 Other: Voiding Method Toilet Toilet # Voids 3 2 - Exam Right upper extremity: Postoperative drainage was removed, Steri-Strips are in good position and condition. Mild ecchymosis and swelling is present in the upper arm. Extension and flexion are intact at the wrist and elbow. Her sensory exam to light touch through the extremity is intact. Radial and ulnar pulses are 2+. - Labs CBC & Chem 7: 05/03/22 07:03 05/03/22 07:03 Labs: Abnormal Lab Results - Last 24 Hours (Table) 05/03/22 05/03/22 Range/Units 07:03 07:03 RBC 3.22 L (4.10-5.20) X 10*6/uL Hgb 9.6 L (12.0-15.0) g/dL Hct 29.5 L (37.2-46.3) % Eosinophils # 0.02 L (0.04-0.35) X 10*3/uL Carbon Dioxide 30.6 H (20.0-27.5) mmol/L Anion Gap 8.30 L (10.00-18.00) mmol/L Glucose 114 H (70-110) mg/dL Total Bilirubin <0.15 L (0.30-1.20) mg/dL Total Protein 6.1 L (6.2-8.2) g/dL Assessment and Plan Assessment: Post operative day #2 s/p right total shoulder arthroplasty Plan: Pain control, patient will resume her normally prescribe pain medication DVT prophylaxis, aspirin 325 mg daily for 2 weeks Wound care instructions were discussed, this to include showering instructions along with icing Sling instructions were discussed with patient Medical recommendations Discharge planning: Patient stable for discharge home today Time with Patient: Less than 30
[2022-05-04 09:34] VITALS: BP 145/74; PULSE 84; RESP 16; TEMP 99.8
--- NOTE | 2022-05-04 09:42 | P.DS ---
Providers Date of admission: 05/03/22 04:43 Expected date of discharge: 05/04/22 Attending physician: Angel Moon Consults: 05/02/22 12:53 Consult Physician Routine Consulting Provider: Milton Skinner Consult Reason/Comments: medical management Do you want consulting provider notified?: Yes Primary care physician: Milton Skinner [facility] Course: Date of admission: 05/02/2022 Date of discharge: 05/04/2022 Admission diagnosis: Status post right total shoulder arthroplasty Discharge diagnosis: Same Attending physician: Dr. Moon Surgical procedures: Right total shoulder arthroplasty Brief history: Patient is a 62-year-old female with a history of progressive primary right shoulder osteoarthritis. At this point patient has failed conservative treatment measures and has opted to proceed with a elective right total shoulder arthroplasty. Hospital course: Details of patient's surgery can be found in operative report. Patient tolerated the procedure well and was subsequently transported to orthopedic floor. Patient's orthopeidc and medical care was provided daily. Patient had daily laboratory tests performed for evaluation of overall blood counts. Patient had daily physical therapy to include strengthening range of motion as well as education with walker ambulation. Patient was treated with aspirin for their postoperative DVT prophylaxis during their inpatient stay. Patient was noted to have a relatively uneventful postoperative course. Patient reported satisfactory pain control with oral pain medications by postoperative day 2. Patient showed satisfactory progress with physical therapy. Patient moved steadily through the program and had no difficulty meeting the goals by postoperative day 2. Given patient's otherwise satisfactory course and having met physical therapy goals, plan is to discharge patient home on postoperative day 2. Discharge condition/disposition: Patient will be discharged home in stable condition. Discharge medications: Instructions are given on resumption of patient's normal daily medications per primary care recommendation, in addition patient will be prescribed aspirin 325 mg. Discharge instructions: 1. Wound care and infection precautions, keep incision dry and covered while showering, no lotions, creams, moisturizers. No soaking, tubs, pools, hottubs. Do not scrub over the incision. 2. Utilize arm sling 3. Ice and elevate when necessary. Do not exceed 20 minutes per hour with ice pack. 4. Utilize compression sleeve until seen at first follow up appointment. 7. Pain meds and anticoagulants per prescription. 8. Pain medication has potential to cause constipation. Increase oral fluid and fiber intake. Contact primary care provider if you have not had a bowel movement within 48 hours after discharge 9. No anti-inflammatory medication until discussed at first post operative visit, this including Motrin, Aleve, Mobic, Diclofenac 10. Follow up in office at 2 weeks postop with Sae Ramirez PA-C/Dago Pickering 11. Follow up with your primary care doctor 7-10 days after discharge. 12. Contact [facility] with any questions, . Procedures: Right total shoulder arthroplasty Patient Condition at Discharge: Good Plan - Discharge Summary Discharge Rx Participant: Yes New Discharge Prescriptions: New Aspirin 325 mg PO DAILY 14 Days #30 tab No Action Simvastatin [Zocor] 40 mg PO HS Venlafaxine HCl 150 mg PO BID Amitriptyline HCl 50 mg PO HS #30 tablet Gabapentin [Neurontin] 300 mg PO TID Fenofibrate,Micronized [Fenofibrate] 134 mg PO HS Baclofen [Lioresal] 10 mg PO TID PRN PRN Reason: Muscle Spasm Meloxicam 15 mg PO HS Hydrocodone/Acetaminophen [[place] 10-325] 1 tab PO BID Metoprolol Succinate (ER) [Toprol XL] 25 mg PO QAM Morphine Sulfate ER [Ms Contin] 30 mg PO TID Ciprofloxacin HCl [Cipro] 250 mg PO BID Discharge Medication List Simvastatin [Zocor] 40 mg PO HS 02/18/15 [History] Venlafaxine HCl 150 mg PO BID 02/18/15 [History] Amitriptyline HCl 50 mg PO HS #30 tablet 03/22/15 [Rx] Gabapentin [Neurontin] 300 mg PO TID 03/30/15 [History] Fenofibrate,Micronized [Fenofibrate] 134 mg PO HS 12/01/16 [History] Baclofen [Lioresal] 10 mg PO TID PRN 12/26/17 [History] Hydrocodone/Acetaminophen [[place] 10-325] 1 tab PO BID 10/14/18 [History] Meloxicam 15 mg PO HS 10/14/18 [History] Metoprolol Succinate (ER) [Toprol XL] 25 mg PO QAM 05/06/19 [History] Morphine Sulfate ER [Ms Contin] 30 mg PO TID 02/28/20 [History] Ciprofloxacin HCl [Cipro] 250 mg PO BID 04/28/22 [History] Aspirin 325 mg PO DAILY 14 Days #30 tab 05/04/22 [Rx] Follow up Appointment(s)/Referral(s): Dago Pearl, RENETTA [PHYSICIAN [employer]PER[employer]] - 2 Weeks Activity/Diet/Wound Care/Special Instructions: Orthopedic discharge instructions: 1. Resume normally prescribed home medications 2. Aspirin 325 mg daily for 2 weeks for DVT prophylaxis 3. Utilize arm sling, okay to remove for stretching of elbow/hand and wrist 4. Keep incision covered and dry while showering 5. Plan for follow-up at [facility] in 2 weeks Discharge Disposition: HOME SELF-CARE
[2022-05-04 10:48] LABS: Basophils # (A) 0.01 X 10*3/uL (0.00-0.10); Basophils % (A) 0.2 %; Eosinophils # (A) 0.03 X 10*3/uL (0.04-0.35); Eosinophils % (A) 0.6 %; HCT 30.9 % (37.2-46.3); HGB 9.9 g/dL (12.0-15.0); Immature Grans, Automated 0.4 %; Lymphocytes # (A) 0.73 X 10*3/uL (0.90-5.00); MCH 29.1 pg (27.0-32.0); MCV 90.9 fL (80.0-97.0); Mean Platelet Volume 10.4 fL (9.5-12.2); Monocytes # (A) 0.73 X 10*3/uL (0.20-1.00); NRBC Per 100 WBC 0 /100 WBCS (0.0-0.0); Neutrophils # (A) 3.68 X 10*3/uL (1.80-7.70); Neutrophils % (A) 70.8 %; Platelet Count 199 X 10*3/uL (140-440); RDW 12.9 % (11.5-14.5)
[2022-05-04 11:07] LABS: African American GFR (CKD) 92.9 (60.0-200.0); Albumin/Globulin Ratio 1.67 (1.60-3.17); Anion Gap 7.2 mmol/L (10.00-18.00); BUN/Creat Ratio 16.38 Ratio (12.00-20.00); Blood Urea Nitrogen 13.1 mg/dL (9.0-27.0); Calcium 9.1 mg/dL (8.7-10.3); Carbon Dioxide 31.8 mmol/L (20.0-27.5); Globulin 2.4 g/dL (1.6-3.3); Non-African American GFR(CKD) 80.1 (60.0-200.0); Potassium 3.5 mmol/L (3.5-5.5); Total Bilirubin 0.5 mg/dL (0.30-1.20); Total Protein 6.4 g/dL (6.2-8.2)
== END 2022-05-04 11:28 | disposition home or self-care (01) ==
LOC: OR 08:52 → 4SSUR 12:33 → OR 05-03 04:43 → 4SSUR 05-03 04:43
PROVIDERS: ADMIT Orthopaedic Surgery; ATTEND Orthopaedic Surgery
DX: M19.011 Primary osteoarthritis, right shoulder (principal); M25.711 Osteophyte, right shoulder; M75.01 Adhesive capsulitis of right shoulder; G89.18 Other acute postprocedural pain; E11.9 Type 2 diabetes mellitus without complications; I10 Essential (primary) hypertension; E78.5 Hyperlipidemia, unspecified; F32.A Depression, unspecified; F41.9 Anxiety disorder, unspecified; Z85.3 Personal history of malignant neoplasm of breast; Z87.891 Personal history of nicotine dependence; Z92.21 Personal history of antineoplastic chemotherapy; Z92.3 Personal history of irradiation; Z96.651 Presence of right artificial knee joint; Z96.643 Presence of artificial hip joint, bilateral; Z79.899 Other long term (current) drug therapy; Z80.3 Family history of malignant neoplasm of breast; Z80.0 Family history of malignant neoplasm of digestive organs; Z83.3 Family history of diabetes mellitus; Z82.3 Family history of stroke
CPT/HCPCS: 64415; 76942; 88305; 80053 ×2; 85025 ×2; 88311; 73020; 23472; G0378 ×2; C1713; C1776; J2250; J0330; J1100; J0690 ×2; J2405; J3010; J1170 ×3; J2795; J2704; J2001

== ENCOUNTER 2022-07-05 11:04 | Emergency (ER) | payer MEDICARE, OTHER ==
[2022-07-05 11:09] VITALS: RESP 18; TEMP 97
[2022-07-05] MEDS ORDERED: ONDANSETRON ODT 4 MG TAB PO STA (11:24)
--- NOTE | 2022-07-05 11:28 | ED ---
Fall HPI - General Chief Complaint: Fall Stated Complaint: fall, facial injury Time Seen by Provider: 07/05/22 11:11 Source: patient, RN notes reviewed Mode of arrival: ambulatory - History of Present Illness Initial Comments: Patient is a 62-year-old female presenting to the ER with a chief complaint of facial pain. Patient states this morning while walking in her yard she fell and hit her face on a piece of cement. Patient states she had a trip and fall. Patient states her left nose and chin are what took the fall. Patient also states her left eyebrow is swollen. She endorses associated nausea, headache, and tinnitus but denies vomiting, visual changes, or neck pain. Denies blood thinner use. She has been icing the left side of her face since fall. Patient is unsure when her last tetanus vaccination was. - Related Data Home Medications Medication Instructions Recorded Confirmed Simvastatin [Zocor] 40 mg PO HS 02/18/15 05/03/22 Venlafaxine HCl 150 mg PO BID 02/18/15 05/03/22 Fenofibrate,Micronized 134 mg PO HS 12/01/16 05/03/22 [Fenofibrate] Baclofen [Lioresal] 10 mg PO TID PRN 12/26/17 05/03/22 Hydrocodone/Acetaminophen [[place] 1 tab PO BID 10/14/18 05/03/22 10-325] Meloxicam 15 mg PO HS 10/14/18 05/03/22 Metoprolol Succinate (ER) [Toprol 25 mg PO QAM 05/06/19 05/03/22 XL] Morphine Sulfate ER [Ms Contin] 30 mg PO TID 02/28/20 05/03/22 Ageless Brain Supplement 1 tab PO BID 07/05/22 07/05/22 Ergocalciferol (Vitamin D2) 1,250 mcg PO MO 07/05/22 07/05/22 [Drisdol (50,000 Iu)] Gabapentin [Neurontin] 300 mg PO TID 07/05/22 07/05/22 Vit C/E/Zn/Coppr/Lutein/Zeaxan 1 cap PO BID 07/05/22 07/05/22 [Preservision Areds 2 Softgel] Previous Rx's Medication Instructions Recorded Amitriptyline HCl 50 mg PO HS #30 tablet 03/22/15 Allergies Allergy/AdvReac Type Severity Reaction Status Date / Time No Known Allergies Allergy Verified 07/05/22 12:26 Review of Systems ROS Statement: Those systems with pertinent positive or pertinent negative responses have been documented in the HPI. ROS Other: All systems not noted in ROS Statement are negative. 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 Diet controlled Diabetes, current UTI History of Any Multi-Drug Resistant Organisms: MRSA Date of last positivie culture/infection: 2009 MDRO Source:: chin Past Surgical History: Back Surgery, Breast Surgery, Section, Joint Replacement, Orthopedic Surgery, Tubal Ligation Additional Past Surgical History / Comment(s): Total R hip arthroplasty anterior approach. rt knee replacement, mult breast biopsies, regina carpal tunnel. regina cataracts, left hip replaced x2, Lumpectomy R breast with lymphnode removal, PAIN CLINIC PROCEDURES, left total shoulder arthroplasty Past Anesthesia/Blood Transfusion Reactions: No Reported Reaction Additional Past Anesthesia/Blood Transfusion Reaction / Comment(s): Pt has never received blood. Past Psychological History: Anxiety, Depression Smoking Status: Former smoker Past Alcohol Use History: None Reported Past Drug Use History: Marijuana - Past Family History Sister(s) Family Medical History: Cancer Additional Family Medical History / Comment(s): BREAST Cancer. Mother Family Medical History: Cancer Additional Family Medical History / Comment(s): Colon cancer. Father Family Medical History: CVA/TIA, Diabetes Mellitus Additional Family Medical History / Comment(s): ETOH General Exam Limitations: no limitations General appearance: alert, in no apparent distress Head exam: Present: atraumatic, normocephalic, normal inspection Eye exam: Present: normal appearance, PERRL, EOMI, other (left supraorbital erythema and edema noted). Absent: scleral icterus, conjunctival injection, periorbital swelling Pupils: Present: normal accommodation ENT exam: Present: mucous membranes moist, other (edema and erythema noted to left cheek and nose; tender to palpation ) Neck exam: Present: normal inspection. Absent: tenderness, meningismus, lymphadenopathy Respiratory exam: Present: normal lung sounds bilaterally. Absent: respiratory distress, wheezes, rales, rhonchi, stridor Cardiovascular Exam: Present: normal rhythm, tachycardia, normal heart sounds GI/Abdominal exam: Present: soft, normal bowel sounds. Absent: distended, tenderness, guarding, rebound, rigid Extremities exam: Present: normal inspection, full ROM, normal capillary refill. Absent: tenderness, pedal edema, joint swelling, calf tenderness Back exam: Present: normal inspection Neurological exam: Present: alert, oriented X3, CN II-XII intact Psychiatric exam: Present: normal affect, normal mood Skin exam: Present: warm, dry, abrasion (multiple abrasions to left chin). Absent: rash Course Vital Signs 07/05/22 11:07 Temperature 97 F L Pulse Rate 103 H Respiratory 18 Rate Blood Pressure 175/83 O2 Sat by Pulse 95 Oximetry Medical Decision Making - Medical Decision Making Patient is a 62 year old female presenting to the ER after falling and hitting the left side of her face on cement. Chest xray shows no acute process. CT of facial bones shows left nasal bone fracture. CT of brain and cervical spine shows no acute process. Patient received Zofran in ER. Supportive treatments/care and return parameters were discussed. ENT referral given. Patient discharged in stable condition. - EKG Data -: EKG Interpreted by Me - Radiology Data Radiology results: report reviewed, image reviewed Disposition Clinical Impression: Nasal bone fracture, Fall, Facial contusion, Head contusion Disposition: HOME SELF-CARE Condition: Stable Instructions (If sedation given, give patient instructions): Nasal Fracture (ED) Additional Instructions: Please return to the Emergency Department if symptoms worsen or any other concerns. Is patient prescribed a controlled substance at d/c from ED?: No Referrals: Milton Skinner MD [Primary Care Provider] - 1-2 days Gonzalez Gonzalez MD [STAFF PHYSICIAN] - 1-2 days Time of Disposition: 12:45
--- NOTE | 2022-07-05 12:33 | CT ---
EXAMINATION TYPE: CT brain cspine wo con CT DLP: 1075.1 mGycm, Automated exposure control for dose reduction was used. DATE OF EXAM: 07/05/2022 12:04 PM COMPARISON: 06/15/2021 CLINICAL INDICATION:Female, 62 years old with history of pain; Fall, facial injury TECHNIQUE: Brain: Multiple axial CT images of the brain were obtained without IV contrast. Cspine: Axial CT images from the skull base to the inferior aspect of T2 we obtained without intraven ous contrast. Coronal and sagittal reformatted images were also reviewed. FINDINGS: Brain: Extra-axial spaces: No abnormal extra-axial fluid collections. Ventricular system: Within normal limits Cerebral parenchyma: No acute intraparenchymal hemorrhage or mass effect. The sanders-white junction is well differentiated. Cerebellum: Unremarkable. Mass effect: No evidence of midline shift. Intracranial vasculature: Atherosclerotic calcifications of the intracranial vessels. Soft tissues: Normal. Calvarium/osseous structures: No depressed skull fracture. Left nasal bone fractures noted. Paranasal sinuses and mastoid air cells: Clear. Visualized orbits: Bilateral aphakia Cervical spine: Fracture: None. Osseous structures: Multilevel degenerative disc disease changes with endplate spurring and disc oste ophyte complex's. Vertebral alignment: Within normal limits. Spinal canal/Neural Foramina: No evidence of significant spinal canal narrowing. No evidence for sign ificant neural foraminal stenosis. Neck soft tissues: Prevertebral soft tissues are within normal limits. Other: The airway is patent. The lung apices are clear. IMPRESSION: 1. No acute intracranial process. 2. Left nasal bone fracture. Please see dedicated CT facial bones for findings regarding the face. 3. No evidence of cervical spine fracture. 4. Mild multilevel degenerative disc disease.
--- NOTE | 2022-07-05 12:33 | XR ---
EXAMINATION TYPE: XR chest 2V DATE OF EXAM: 07/05/2022 12:01 PM COMPARISON: Chest radiographs from 1620 TECHNIQUE: XR chest 2V Frontal and lateral views of the chest. CLINICAL INDICATION:Female, 62 years old with history of pain; FINDINGS: Lungs/Pleura: There is no evidence of pleural effusion, focal consolidation, or pneumothorax. Pulmonary vascularity: Unremarkable. Heart/mediastinum: Cardiomediastinal silhouette is unremarkable. Musculoskeletal: No acute osseous pathology. Bilateral shoulder arthroplasty changes. Hardware appear s intact. Other findings: There are surgical clips in the right breast project over the lung. IMPRESSION: No acute cardiopulmonary disease/process.
--- NOTE | 2022-07-05 12:34 | CT ---
EXAMINATION TYPE: CT facial bones wo con DATE OF EXAM: 07/05/2022 COMPARISON: None HISTORY: Fall, facial injury CT DLP: Included in brain/c-spine mGycm Automated exposure control for dose reduction was used. TECHNIQUE: CT scan of the sinuses is performed without contrast, axial images are obtained, coronal r eformatted images are also reviewed. FINDINGS: There is a displaced left-sided nasal bone fracture. Best noted on axial image 32. Nasal s eptal deviation noted. Orbits are symmetric. Intracranial structures demonstrate generalized degenerative changes. Nasophary nx and oropharynx symmetric. Visualized salivary glands have a normal appearance. Remaining osseous s tructures intact. IMPRESSION: 1. Displaced left nasal bone fracture
[2022-07-05 13:02] VITALS: BP 151/67; PULSE 85
== END 2022-07-05 13:02 | disposition home or self-care (01) ==
LOC: EC 11:04
DX: S02.2XXA Fracture of nasal bones, initial encounter for closed fracture (principal); S00.83XA Contusion of other part of head, initial encounter; E11.9 Type 2 diabetes mellitus without complications; E78.5 Hyperlipidemia, unspecified; I10 Essential (primary) hypertension; Z87.891 Personal history of nicotine dependence; W01.198A Fall on same level from slipping, tripping and stumbling with subsequent striking against other object, initial encounter; Y92.096 Garden or yard of other non-institutional residence as the place of occurrence of the external cause
CPT/HCPCS: 70450; 70486; 71046; 72125; 93005; 99284

== ENCOUNTER → 2022-11-03 | Outpatient (CLI) | payer MEDICARE, OTHER ==
--- NOTE | 2022-11-04 12:11 | MR ---
EXAMINATION TYPE: MR cervical spine wo con DATE OF EXAM: 11/03/2022 INDICATION: Patient age:Female; 62 years old; Reason for study: M48.02, M47.22. NECK PAIN INTO RT ARM/THUMB COMPARISON: Plain film 10/18/2022, CT 07/05/2022. TECHNIQUE: Multi planar, multi sequence imaging was performed utilizing: T1-weighted, T2-weighted, an d turbo inversion recovery imaging of the cervical spine. IV Contrast: None FINDINGS: Motion limits evaluation. Alignment: The cervical vertebral bodies have preserved heights. Alignment is within normal limits gi jani patient positioning. Bones: Scattered Modic endplate changes with osteophytes and disc space narrowing. Multilevel degener ative disc disease is noted and most pronounced at the C5-C7 vertebral levels. Cord: The spinal cord is unremarkable with regards to their signal intensity and morphology. Discs: Multilevel disc desiccation is present. C2-C3: No significant disc pathology. The spinal canal is patent. Bilateral facet and uncovertebral joint arthropathy are present with mild bilateral neural foraminal stenosis. C3-C4: No significant disc pathology. The spinal canal is patent. Bilateral facet and uncovertebral joint arthropathy are present with moderate bilateral neural foraminal stenosis. C4-C5: A disc osteophyte complex is present with mild to moderate spinal canal stenosis. Bilateral f acet and uncovertebral joint arthropathy are present with moderate bilateral neural foraminal stenosi s. C5-C6: A disc osteophyte complex is present with mild spinal canal stenosis. Bilateral facet and unc overtebral joint arthropathy are present with moderate right and mild left neural foraminal stenosis. C6-C7: No significant disc pathology. The spinal canal is patent. Bilateral facet and uncovertebral joint arthropathy are present with mild bilateral neural foraminal stenosis. C7-T1: No significant disc pathology. The spinal canal is patent. No neural foraminal stenosis. IMPRESSION: 1. No evidence for disc herniation or significant spinal canal stenosis. 2. Multilevel disc degeneration with associated osteoarthritic changes with multilevel at least moder ate neural foraminal stenosis, evaluation limited by motion.
== END | disposition home or self-care (01) ==
LOC: RADMRIMAIN 10:53
PROVIDERS: ATTEND Nurse Practitioner Family
DX: M47.22 Other spondylosis with radiculopathy, cervical region (principal); M50.122 Cervical disc disorder at C5-C6 level with radiculopathy; M48.02 Spinal stenosis, cervical region; M99.71 Connective tissue and disc stenosis of intervertebral foramina of cervical region
CPT/HCPCS: 72141

== ENCOUNTER 2023-01-09 10:20 | Inpatient (IN) | payer MEDICARE, OTHER ==
[2023-04-30 08:49] VITALS: BMI 25.8
--- NOTE | 2023-04-30 15:55 | P.HPOR ---
History of Present Illness H&P Date: 04/27/23 Chief Complaint: Neck pain, Arm pain .D:Date: 04/27/23 : 09:56am .T:Title: [facility] Date of :[birth year] Age: 61 year Height: 5'6" Weight: 170 lbs BMI: 27.44 kg/m2 Occupation: Disabled VAS: 8 CHIEF COMPLAINT: Re-check on neck pain DOI: Chronic DOS: Hx of lumbar surgery in 1988 Duration of current treatment regiment:> 6 months HISTORY : Xrays New xrays taken in office today Trauma or injury No Work-Related No Pain description Sharp & shooting Location Diffuse Activity Modification Yes Hand Dominance Right TREATMENTS COMPLETED: 6 weeks of PT completed? Month and Year of last PT date? Yes, 12 sessions with no relief Physician directed home exercise completed? Yes Medications Yes List: Gabapentin, Baclofen, Morphine Sulfate, & Meloxicam all without relief of her symptoms. Alternative interventions Chiropractic:No Massage therapy:No R.I.C.E:Yes Brace:No Injections Yes how many: unknown with mild improvement SUBJECTIVE: Ms. North returns to the office today for a preoperative evaluation preeceding her C4-7 ACDF. The patient is currently taking Baclofen, Gabapentin, Meloxicam, and Morphine Sulfate, all with no significant relief. Of note, the patient reports that she does have a history of breast cancer, but denies going through any treatments for this currently.Otherwise she denies any f/c/sob/cp, denies any bladder or bowel retention/incontinence, no perineal HPI: Ms. North presents to the office on 02/26/2023 for a re-check on her neck pain. The patient notes a sharp, shooting pain throughout the neck that radiates down into the bilateral upper extremities. She notes that her upper extremity pain is associated with numbness, tingling, and weakness. The patient reports decreased hand dexterity over the last 1 to 2 months. The patient notes that she has experienced several falls over the last 3 months. She states that she had fallen approximately 2 months ago and noticed that she was unable to lift the arms fast enough to protect her face from impacting the ground, so she had broken her nose during the fall. The patient notes that her reflexes have been worsening as well over the last 1 month. She also notes worsening imbalance. The patient notes that her current symptoms are exacerbated by all activity, which m akes it very difficult for her to complete many of her activities of daily living. The patient reports experiencing severe sleep disturbances due to her ongoing pain and associated symptoms. The patient has trialed conservative treatment measures in the form of physical therapy, pain management injections/treatments, at home stretches and exercises, at home heat and ice therapies, activity modification, and medication management, all with no significant or sustained relief. The patient is currently taking Baclofen, Gabapentin, Meloxicam, and Morphine Sulfate, all with no significant relief. Of note, the patient reports that she does have a history of breast cancer, but denies going through any treatments for this currently.Otherwise she denies any f/c/sob/cp, denies any bladder or bowel retention/incontinence, no perineal numbness/tingling, and ambulates independently today. Ms. North presents to the office on 11/24/2022 for a follow up of her cervical spine and MRI results for greater than one year. She reports pain ongoing for over a year with no known injury or trauma to indicate an exact onset. With this she notes that her symptoms have progressively worsened over time as well. Regarding her symptoms she reports primarily right sided cervical pain radiating into the right upper extremity with associated diffuse numbness and tingling. She denies any headaches at this time. Overall her symptoms are exacerbated with prolonged standing and ambulation which is increasingly making completion of her daily tasks challenging. As for treatments the patient reports that she has not trialed any modalities but does take Gabapentin, Baclofen, Mobic, [place], and Morphine Sulfate all without relief of her symptoms. Of note the patient reports that she does have a hx of breast cancer but denies going through any treatments for this currently. Otherwise she denies any f/c/sob/cp, denies any bladder or bowel retention/incontinence, no perineal numbness/tingling, and ambulates independently. Ms. North presents to the office on 10/18/2022 for a follow up of her cervical spine for greater than one year. She reports pain ongoing for over a year with no known injury or trauma to indicate an exact onset. With this she notes that her symptoms have progressively worsened over time as well. Regarding her symptoms she reports primarily right sided cervical pain radiating into the right upper extremity with associated diffuse numbness and tingling. She denies any headaches at this time. Overall her symptoms are exacerbated with prolonged standing and ambulation which is increasingly making completion of her daily tasks challenging. As for treatments the patient reports that she has not trialed any modalities but does take Gabapentin, Baclofen, Mobic, [place], and Mor phine Sulfate all without relief of her symptoms. Of note the patient reports that she does have a hx of breast cancer but denies going through any treatments for this currently. Otherwise she denies any f/c/sob/cp, denies any bladder or bowel retention/incontinence, no perineal numbness/tingling, and ambulates independently. Today Ms. North presents to the office for an evaluation of her cervical spine on 01/04/2022. She reports pain ongoing for 5 months with no known injury or trauma to indicate an exact onset. With this she notes that her symptoms have progressively worsened over time as well. Regarding her symptoms she reports primarily right sided cervical pain radiating into the right upper extremity with associated diffuse numbness and tingling. She denies any headaches at this time. Overall her symptoms are exacerbated with prolonged standing and ambulation which is increasingly making completion of her daily tasks challenging. As for treatments the patient reports that she has not trialed any modalities but does take Gabapentin, Baclofen, Mobic, [place], and Morphine Sulfate all without relief of her symptoms. Of note the patient reports that she does have a hx of breast cancer but denies going through any treatments for this currently. Otherwise she denies any f/c/sob/cp, denies any bladder or bowel retention/incontinence, no perineal numbness/tingling, and ambulates independently. The patients' past social, medical, family, surgical history, as well as review of systems, have been reviewed. Please refer to the Neurosurgery History and Physical form that has been scanned in to our electronic medical record system. 16 points review of systems completed and as stated in HPI, all other systems reviewed are negative. Social History:Reviewed, see appropriate section of the chart for details. [id number]:never a smoker P3 Alcohol:none P3 Family History: Reviewed, see appropriate section of the chart for details. P2 Past Medical History: Reviewed, see appropriate section of the chart for details. [id number] Medications: Rx: AMITRIPTYLINE HCL ORAL Tablet, Ref: 11 Rx: EFFEXOR ORAL Tablet, Ref: 11 Rx: MORPHINE SULFATE 30MG ORAL Tablet, Ref: 0 Rx: MOBIC 7.5MG ORAL Tablet, Ref: 11 Rx: baclofen Ref: 0 Rx: NORCO 10-325MG ORAL Tablet, Ref: 0 Rx: fenofibrate nanocrystallized 145 mg tablet Ref: 0 Rx: metFORMIN 500 mg tablet Ref: 0 Rx: metoprolol tartrate Ref: 0 Rx: gabapentin 100 mg capsule Ref: 0 Rx: Nerlynx 40 mg tablet Ref: 0 Rx: simvastatin 40 mg tablet Ref: 0 Rx: venlafaxine 75 mg tablet Ref: 0 Rx: Vitamin D2 1,250 mcg (50,000 unit) capsule Ref: 0 P1 PHYSICALEXAMINATION: General:Awake, alert, appropriate for age, in no acute distress. HEENT:No unusual neck masses around region of lateral neck triangle, thyroid, supraclavicular groove Heart:Regular rate and rhythm, normal S1, S2 and no murmur/gallop. Lungs:Clear to auscultation bilaterally with no use of accessory muscles. Extremities:Skin warm and dry without acute lesions, coloration, temperature, skin intact, no tenderness or erythema Integument: Hairy patches: ABSENT Dorsal skin dimples: ABSENT Cafe au lait spots: ABSENT Surgical incisions: NONE Palpation: Please see Pain drawing on Intake sheet for further detail. Midline spinal tenderness: No E6 Cervical Tenderness: Yes E6 Paralumbar tenderness: No E6 Parathoracic tenderness: No E6 Buttocks tenderness: No E6 Sacroiliac Tenderness: No POSTURAL and MUSCULO-SKELETAL EVALUATION: Coronal Balance: NEUTRAL Recumbent testing: Patient is able to lay flat on back Sagittal Balance: NEUTRAL Shoulder Profile: LEVEL Pelvic Girdle: LEVEL Neck ROM: RESTRICTED Lumbar ROM: UNRESTRICTED Shoulder ROM: Symmetrical Hip ROM: Symmetrical Knee ROM: Symmetrical Hands: Normal appearance, symmetrical Feet: Normal appearance, Symmetrical VASCULAR STATUS : LEFT RIGHT Wrist Pulses INTACT INTACT Pedal Pulses (Dors. pedis & post.tibialis) INTACT INTACT Color NORMAL NORMAL Edema Absent Absent NEUROLOGIC EXAMINATION: Mental Status:Awake and alert, fully oriented, with normal attention, concentration and memory, and fluent, appropriate speech. Cranial Nerves: I: Olfactory not tested. II: Visual acuity normal, no visual field deficit noted with confrontation. III,IV: Normal pupillary reflexes & intact extraocular movements without nystagmus. V,: Intact symmetrical facial sensation. VII: Intact symmetrical facial motor movement VIII: Hearing intact. IX,X: Intact gag, swallow, & normal voice. XI: Sternocleidomastoid, trapezius function intact. XII: Tongue midline with normal movements. L'hermitte's Sign:Negative / absent Spurling'Sign:present bilaterally. Cubital percussion test:Absent bilaterally. Holt-Tinel sign - Carpal region:Absent bilaterally. Straight Leg Raising:Absent bilaterally. Crossed straight leg raise: negative O8 MOTOR EXAM (0-5/5, N/T) UPPER EXTREMITY Shoulder Abduction Biceps Triceps Wrist Extension Hand Intrinsics Steel Loader Right 4/5 4/5 4/5 4/5 4/5 4/5 Left 4/5 4/5 5/5 4/5 4/5 4/5 LOWER EXTREMITY Hip Flexion Knee Extension Knee Flexion DF PF EHL FHL Right 5/5 5/5 5/5 5/5 5/5 5/5 5/5 Left 5/5 5/5 5/5 5/5 5/5 5/5 5/5 REFLEXES(0-4/2, NT)Upper ExtremityLower Extremity Right 2 2 Left 2 2 Pathological Reflexes RIGHT LEFT Holt's present present Clonus Absent Absent Babinski Absent Absent # Indicates mechanical impairment Muscle appearance: Symmetrical, without signs of atrophy or dystrophy. Sensory system (0-4, N/T) Test type RU JON RL LL Joint-Position 2 2 2 2 Vibration 2 2 2 2 Pain & LT sense 2 2 2 2 Dermatomal Deficit: None None None None Gait and Functional Evaluation: Ambulatory aids:Independent Romberg's test: Intact bilaterally Toe heel walk / heel-toe walk intact while maintaining satisfactory balance? yes Squatting/straightening w/o assistance to a min of 60 degree knee flexion? yes Single leg stance:Intact Trendelenburg sign: negative bilaterally Hand and finger dexterity intact bilaterally?No Disdiadochokinesis examination negative bilaterally? yes Myelopathic Gait RADIOGRAPHIC STUDIES: No new imaging completed in office. Please review previous note. IMPRESSI ON: It was my pleasure to have seen and examined Yuliya. I reviewed the patient's clinical syndrome, physical findings, and imaging studies during the appointment today. It is my impression that the patient has a diagnosis of. 1. 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 Upper extremity radiculopathy, bilateral 3. Upper extremity weakness, bilateral 4. Frequent falls I outlined the natural course history without intervention and various interventional options. I discussed the patient at length different options for nonsurgical and surgical treatment. Nonsurgical treatment would include but not be limited to therapy home exercise massage chiropractics acupuncture medications prescription and [id number] injections of which she has tried most of these and they have not functioned well for her. On the surgical arm there is either fusion or disc replacement at this time I do feel that she is a better candidate for anterior cervical discectomy and fusion. The reason for this is the degree of her spondylosis the deformity as well as the collapse. In choosing levels these of the levels that are the most stenotic and most spondylotic. She understands this is comfortable with that willing to proceed. PLAN: Based on my findings I suggest the following course of action: - I discussed treatment options with the patient, including operative and non- operative options, and they have elected to proceed with the following surgical procedure: C4-7 anterior cervical decompression and fusion The indications, risks, benefits, and alternatives to surgery were discussed with the patient and family at length. Specifically, but not limited to, the risks of infection, stiffness, recurrence of symptoms, need for revision surgery, local numbness, neurovascular injury, and blood clots were discussed. The patient's questions were answered. The decision to proceed was made. Consent will be obtained for the procedure. - Ambulate daily. - Take medications as directed. - Ice and rest for pain and swelling control. Spine Surgery Risk Review Ms. North is presenting for evaluation of Cervical pain. It was my pleasure to have seen and examined Ms. North. In our visit today we have had a chance to go over subjective complaints, physical examination findings and treatments including the natural course history without intervention and various interventional options. The patients imaging demonstrates: MRI scan from 11/03/2022 Cervical spine: Images reviewed with the patient This demonstrates C4-7 spondylosis with disc collapse, height loss, degeneration and facet arthropathy. This causes central and b/l foraminal stenosis from C4-7 which is moderate to severe. There are anterior osteophytes and posterior osteophytes that are noted at these levels contributing to the stenosis. This has progressed since previous MRI as shown below. No acute fracture. No lesions. OC and C1-2 are stable. XRay Cervical AP/lateral 2 views taken at [facility] on 10/18/2022 of Cervical Spine: images are reviewed and demonstrate spondylosis from C4 through C7 with anterior disc osteophyte complex Meehan beaking and disc collapse noted at C4 5 which is the worst. C5 6 is disc collapse and spondylosis C6 7 has anterior osteophytic changes as well as disc collapse. There is facet arthrosis which is noted at all these levels as well. No acute fracture is noted. No instability at this time. MRI [id number]/31/2022 of CervicalSpine: Images reviewed C4-7 spondylotic features with disc dessication, height loss, modic changes, anterior and posterior osteophytes Stenosis C4-7 due to disc bulges and C6-7 showing more of disc herniation.This causes moderate to severe central stenosis C4-7 and b/l foraminal stenosis C5-7 No fracture, no lesions On physical exam, Ms. North demonstrates: The patient notes a sharp, shooting pain throughout the neck that radiates down into the bilateral upper extremities. She notes that her upper extremity pain is associated with numbness, tingling, and weakness. The patient reports decreased hand dexterity over the last 1 to 2 months. The patient notes that she has experienced several falls over the last 3 months. She states that she had fallen approximately 2 months ago and noticed that she was unable to lift the arms fast enough to protect her face from impacting the ground, so she had broken her nose during the fall. The patient notes that her reflexes have been worsening as well over the last 1 month. She also notes worsening imbalance. The patient notes that her current symptoms are exacerbated by all activity, which makes it very difficult for her to complete many of her activities of daily living. The patient reports experiencing severe sleep disturbances due to her ongoing pain and associated symptoms. I have explained to the patient that as their condition progresses it will cause further neurological deficits and eventual paralysis. Based on the patients imaging, physical exam, and the rapid progression and disabling nature of their symptoms, at this time I recommend surgery in the form of a: C4-7 ACDF. I discussed the risk and benefits of this procedure at length with Ms. North. The patient and agreed to considered pursuing the procedure above mentioned. Prior to surgery, she should follow up with her PCP (Cardio, ID, IM etc) for clearance. Questions were invited and answered, and the patient wishes to proceed as outlined below. Currently, I am recommendin.C4-7 ACDF 2.Follow up with PCP for surgical clearance 3.Review of surgical risks and benefits as well as an educational packet on the proposed surgical procedure. Risks: All surgical procedures come with inherent risks, including those related to positioning, anesthesia, intraoperative findings, and postoperative complications. It is important to understand that surgery does not come with any guarantee of a successful outcome as complications and adverse events are always possible. The patient was given a handout in office today discussing the surgical procedure and risks associated with the intervention, both of which were discussed with the patient. These risks include but are not limited to the following: * Experiencing same, different or even worse symptoms in back, neck, arms, or legs compared to before surgery. Requiring further surgery or other forms of treatment presently or at some time in the future at same or other levels of the intended spine surgery. On an extreme but fortunately relatively rare basis severe complication such as blindness, stroke, heart attack, temporary and/or permanent nerve injury, paralysis, coma, or may occur, sometimes without known explanation. Surgical complications may include but are not limited to risk of infection, fluid accumulation in the surgical dissection site, including a seroma or hematoma, that requires additional surgery, wound drainage, bleeding, new numbness or weakness, vision changes/loss, spinal fluid leakage, non-healing and/or infected incision, headaches, difficulty or inability to swallow, hoarseness, hemopneumothorax, pneumothorax, impotence, retrograde ejaculation, vaginal dryness; injury to nerves, spinal cord, blood vessels, lymphatics or other vital organs (i.e., bowel injury, injury to the great vessels); heterotopic bone formation; complications related to the hardware such as screws, rods, cages including misplaced hardware, device failure, instrumentation at the wrong spine level, hardware fracture/breakage, or hardware loosening; vertebral failure of the spinal column above or below the newly placed hardware; retained surgical instrumentations or devices and the need for further surgery. * Medical risks of the planned spine surgery include but are not limited to generalized Infections to the whole body or local areas outside of the surgical site (sepsis), heart attack, bleeding, anaphylaxis, meningitis, seizure, epilepsy, hearing loss, burn reynolds, laceration of the head or other areas of the body, bruising, hypersensitivity of the skin, bladder over distension; allergic reaction; shoulder injury related to positioning; fat, blood and air clots to other areas of the body like heart, lungs, brain; failure of internal organs such as lungs, kidneys, liver and excessive bleeding. If blood transfusions are necessary, note that transfusions may cause intolerance reactions such as anaphylaxis or other complex reactions. Despite best efforts, the results of spine surgery might not heal in terms of bone, soft tissues such as skin, fascia, ligaments, and joints. Additionally, in order to achieve best possible results, spine surgery may be carried out beyond the initially planned levels and involve decompression, fusion including insertion of hardware at levels other than the original intended area of surgical interest change some portions of the procedure in order to ensure the best possible outcomes. With spine surgery and spinal fusion, there are different off label uses of instrumentation (devices, implants and hardware) as well as biological substances (bone morphogenic proteins, demineralized bone matrix) as well as using extra bone from allograft sources (i.e. cadaver bone) or autograft (iliac crest bone, ribs, or the spine itself). The patient has been given information about these practices and their inherent risks and benefits. [facility] is an educational center that serves as a training facility for neurosurgical and orthopedic MANAGER [employer] and Nursing students. Physician assistants are medically trained surgical providers who function in the outpatient, inpatient, and operating room setting under the direct supervision of the attending surgeon. [facility] has multiple operating rooms with single and overlapping rooms running daily. They currently function under the required guidelines as produced by the [facility] Finance Committee with regards to the overlapping rooms and will continue to comply with changes to this policy as they occur. The requirements include and are complied with as follows: (1) the critical portions of the overlapping rooms will not occur at the same time, (2) the attending physician will be physically present during the critical portions of the procedure and immediately available during the entire case, and (3) a back-up attending is designated should the primary attending not be immediately available. The patient has had a chance to review all the listed information, has been given print outs detailing this information, and has had all his/her questions answered to their satisfaction. It was my pleasure to have seen and examined Ms. North. In our visit today we have had a chance to go over my understanding of our patient's current condition, the natural course history without intervention and various interventional options. Questions were invited and answered, and the patient wishes to proceed as outlined above. I have seen and examined the patient for 25 minutes and we have spent more than 50% of the time in repeat and detailed counseling about the patient's condition, its natural course history with out and as much as can be predicted with surgery and re-review of various surgical treatment options. In conclusion, Ms. North requested we proceed with the above suggested surgery and are willing to accept risks and limitations of the suggested surgery as nature of the disease process and our best attempts at treatment for the condition. Thank you again for allowing us to be part of your patient's care. Please don't hesitate to contact me if you have any further questions. Follow-up: Post procedure Patient Education: (Informational booklet, instructions, etc) given at today's appointment: Yes Medications Reviewed: YES In our visit today Ms. North and I have had a chance to go over my understanding of the patient's current condition, the natural course history without intervention and various interventional options. Questions were invited and answered, and the patient wishes to proceed as outlined above. I will be sure to keep you updated afterMs. North returns here for further follow-up. Thank you again for your referral. Please do not hesitate to contact me if you have any further questions. Signed and authenticated by: Zain [facility] [address] [place] [id number] This message is confidential, intended only for the named recipient(s) and may contain information that is privileged or exempt from disclosure under applicable law. If you are not the intended recipient(s), you are notified that the dissemination, distribution or copying of this information is strictly prohibited. If you received this message in error, please notify the sender then delete this message. Patient verbalizes understanding of the information discussed. The above note was initiated by Lola Jackson, physician recording assistant dean of students for Dr. Zain Carmona. This note has been reviewed by Dr. Carmona, who has made his personal changes and impressions for this document. CC: DEL REFDR... 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 History of Any Multi-Drug Resistant Organisms: MRSA Date of last positivie culture/infection: 2009 MDRO Source:: chin Past Surgical History: Back Surgery, Breast Surgery, Section, Joint Replacement, Orthopedic Surgery, Tubal Ligation Additional Past Surgical History / Comment(s): Total R hip arthroplasty anterior approach. rt knee replacement, mult breast biopsies, regina carpal tunnel. regina cataracts, left hip replaced x2, Lumpectomy R breast with 8 lymph nodes removed, PAIN CLINIC PROCEDURES, Regina total shoulder arthroplasty, lumpectomies both breasts. Past Anesthesia/Blood Transfusion Reactions: No Reported Reaction Additional Past Anesthesia/Blood Transfusion Reaction / Comment(s): Pt has never received blood. Past Psychological History: Anxiety, Depression Additional Psychological History / Comment(s): . Smoking Status: Former smoker Past Alcohol Use History: None Reported Additional Past Alcohol Use History / Comment(s): Pt started smoking in 1971 and quit in 2006, 1 PPD Past Drug Use History: Marijuana Additional Drug Use History / Comment(s): occasional marijuana use. - Past Family History Sister(s) Family Medical History: Cancer Additional Family Medical History / Comment(s): BREAST Cancer. Mother Family Medical History: Cancer Additional Family Medical History / Comment(s): Colon cancer. Father Family Medical History: CVA/TIA, Diabetes Mellitus Additional Family Medical History / Comment(s): ETOH Medications and Allergies Home Medications Medication Instructions Recorded Confirmed Type Simvastatin [Zocor] 40 mg PO HS 02/18/15 04/30/23 History Venlafaxine HCl 150 mg PO BID 02/18/15 04/30/23 History Amitriptyline HCl 50 mg PO HS #30 tablet 03/22/15 04/30/23 Rx Fenofibrate,Micronized 134 mg PO HS 12/01/16 04/30/23 History [Fenofibrate] Baclofen [Lioresal] 10 mg PO TID 05/16/18 09/18/23 History Meloxicam 15 mg PO HS 10/14/18 04/30/23 History Metoprolol Succinate (ER) [Toprol 25 mg PO DAILY 05/06/19 04/30/23 History XL] Morphine Sulfate ER [Ms Contin] 30 mg PO TID 02/28/20 04/30/23 History Ergocalciferol (Vitamin D2) 1,250 mcg PO MO 07/05/22 04/30/23 History [Drisdol (50,000 Iu)] Gabapentin [Neurontin] 300 mg PO TID 07/05/22 04/30/23 History Vit C/E/Zn/Coppr/Lutein/Zeaxan 1 cap PO BID 07/05/22 04/30/23 History [Preservision Areds 2 Softgel] Allergies Allergy/AdvReac Type Severity Reaction Status Date / Time No Known Allergies Allergy Verified 04/30/23 08:19 Physical Examination Osteopathic Statement: *. No significant issues noted on an osteopathic structural exam other than those noted in the History and Physical/Consult.
[2023-05-01] MEDS ORDERED: ACETAMINOPHEN TAB 500 MG TAB PO PRN (05:00)
[2023-05-01] MEDS ORDERED: TRANEXAMIC 1,000 MG/100ML-NACL 1,000 MG in SALINE 1 100ML.BAG IVPB PRN (05:00)
[2023-05-01] MEDS ORDERED: DEXAMETHASONE SOD PHOSPHATE 4 MG/ML 1 ML VIAL IV ONE (06:06)
[2023-05-01] MEDS ORDERED: ONDANSETRON 4 MG/2 ML VIAL IVP ONE (06:06)
[2023-05-01] MEDS ORDERED: SCOPOLAMINE 1 MG/72 HR PATCH TRANSDERM ONE (06:06)
[2023-05-01] MEDS: LACTATED RINGERS 1,000 ML IV SCH (06:16)
[2023-05-01] MEDS ORDERED: MIDAZOLAM 2 MG/2 ML VIAL IV PRN (07:00)
[2023-05-01] MEDS ORDERED: fentaNYL (PF) 50 MCG/ML 2 ML AMP ONE (07:25)
[2023-05-01] MEDS ORDERED: SUCCINYLCHOLINE CHLORIDE 200 MG/10 ML VIAL IV ONE (07:25)
[2023-05-01] MEDS ORDERED: PROPOFOL 10 MG/ML 20 ML VIAL IV ONE (07:25)
[2023-05-01] MEDS ORDERED: MIDAZOLAM 2 MG/2 ML VIAL ONE (07:25)
[2023-05-01] MEDS ORDERED: LIDOCAINE 2% INJ 20 MG/ML (2 ML VIAL) ONE (07:25)
[2023-05-01] MEDS ORDERED: NEOSTIGMINE 1 MG/ML 10 ML VIAL ONE (07:25)
[2023-05-01] MEDS ORDERED: GLYCOPYRROLATE 0.2 MG/ML 2 ML VIAL ONE (07:25)
[2023-05-01] MEDS ORDERED: KETAMINE 10 MG/ML 20 ML VIAL ONE (07:25)
[2023-05-01] MEDS ORDERED: TRANEXAMIC 1,000 MG/100ML-NACL PREMIX BAG ONE (07:25)
[2023-05-01] MEDS ORDERED: ROCURONIUM 10 MG/ML (5 ML VIAL) IV ONE (07:25)
[2023-05-01] MEDS ORDERED: THROMBIN (BOVINE) 5,000 UNIT VIAL TOPICAL ONE ×2 (07:51→08:02)
[2023-05-01] MEDS ORDERED: GELATIN SPONGE,ABSORB (LARGE) 1 EACH SPONGE TOPICAL ONE ×2 (07:53→08:02)
[2023-05-01] MEDS ORDERED: VANCOMYCIN 1,000 MG VIAL MISCELLANE ONE (09:38)
--- NOTE | 2023-05-01 10:00 | P.OP ---
Date of Procedure: 05/01/23 Preoperative Diagnosis: 1. 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 UE WEAKNESS WITH RADICULOPATHY 3. CERVICAL MYELOPATHY 4. NECK PAIN Postoperative Diagnosis: 1. 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 UE WEAKNESS WITH RADICULOPATHY 3. CERVICAL MYELOPATHY 4. NECK PAIN Procedure(s) Performed: 1. C4-5, C5-6 ANTERIOR CERVICAL INTERBODY ARTHRODESIS WITH DISCECTOMY TOTAL (53020, 14232) 2. APPLICATION OF NON INTEGRATED ANTERIOR PLATE (88967) 3. INSERTION OF BIOMECHANICAL DEVICE C4-5, C5-6 (65173 X 2) USE OF IONM USE OF IO MICROSCOPE Implants: DALILA CASCADIA CAGES 8MM, 9MM DALILA OZARK ANTERIOR PLATE 4 SEGMENT MAGNATOS Anesthesia: GETA Surgeon: Zain Carmona Emery Wheel Molder #1: Dewayne Ramirez (WAS PRESENT AND ASSISTED WITH ALL ASPECTS OF THE CASE FROM POSITION TO CLOSURE) Estimated Blood Loss (ml): 25 IV fluids (ml): 1,200 Urine output (ml): 0 Pathology: none sent Condition: stable Disposition: PACU Indications for Procedure: Ms. North is presenting for evaluation of Cervical pain. It was my pleasure to have seen and examined Ms. North. In our visit today we have had a chance to go over subjective complaints, physical examination findings and treatments including the natural course history without intervention and various interventional options. The patients imaging demonstrates: MRI scan from 11/03/2022 Cervical spine: Images reviewed with the patient This demonstrates C4-7 spondylosis with disc collapse, height loss, degeneration and facet arthropathy. This causes central and b/l foraminal stenosis from C4-7 which is moderate to severe. There are anterior osteophytes and posterior osteophytes that are noted at these levels contributing to the stenosis. This has progressed since previous MRI as shown below. No acute fracture. No lesions. OC and C1-2 are stable. XRay Cervical AP/lateral 2 views taken at [facility] on 10/18/2022 of Cervical Spine: images are reviewed and demonstrate spondylosis from C4 through C7 with anterior disc osteophyte complex Meehan beaking and disc collapse noted at C4 5 which is the worst. C5 6 is disc collapse and spondylosis C6 7 has anterior osteophytic changes as well as disc collapse. There is facet arthrosis which is noted at all these levels as well. No acute fracture is noted. No instability at this time. MRI [id number]/31/2022 of CervicalSpine: Images reviewed C4-7 spondylotic features with disc dessication, height loss, modic changes, anterior and posterior osteophytes Stenosis C4-7 due to disc bulges and C6-7 showing more of disc herniation.This causes moderate to severe central stenosis C4-7 and b/l foraminal stenosis C5-7 No fracture, no lesions On physical exam, Ms. North demonstrates: The patient notes a sharp, shooting pain throughout the neck that radiates down into the bilateral upper extremities. She notes that her upper extremity pain is associated with numbness, tingling, and weakness. The patient reports decreased hand dexterity over the last 1 to 2 months. The patient notes that she has experienced several falls over the last 3 months. She states that she had fallen approximately 2 months ago and noticed that she was unable to lift the arms fast enough to protect her face from impacting the ground, so she had broken her nose during the fall. The patient notes that her reflexes have been worsening as well over the last 1 month. She also notes worsening imbalance. The patient notes that her current symptoms are exacerbated by all activity, which makes it very difficult for her to complete many of her activities of daily living. The patient reports experiencing severe sleep disturbances due to her ongoing pain and associated symptoms. I have explained to the patient that as their condition progresses it will cause further neurological deficits and eventual paralysis. Based on the patients imaging, physical exam, and the rapid progression and disabling nature of their symptoms, at this time I recommend surgery in the form of a: C4-7 ACDF. I discussed the risk and benefits of this procedure at length with Ms. North. The patient and agreed to considered pursuing the procedure above mentioned. Prior to surgery, she should follow up with her PCP (Cardio, ID, IM etc) for clearance. Questions were invited and answered, and the patient wishes to proceed as outlined below. Currently, I am recommendin.C4-7 ANTERIOR CERVICAL DISCECTOMY AND FUSION Description of Procedure: C4-6 ACDF The patient was seen and examined in the preoperative area. All preoperative protocols were followed. Informed consent was obtained, risks and benefits of the procedure were discussed at length. Risks including bleeding infection damage to the surrounding tissue and risk of reoperation were discussed with the patient. Risk of anesthesia up to and including was discussed with the patient. These are outlined in the risk review. They were willing to accept these risks and all the risks of surgery. The patient was given a weight-based dose of antibiotics in the form of 2 g Ancef. The patient was seen and evaluated by the anesthesia team who deemed them fit for surgery. The site was marked, the patient was willing to proceed with the procedure. The patient was transferred to the operative suite by the Department of anesthesia. They were then drifted off to sleep by the department anesthesia and GETA was performed. The patient tolerated this well. Nieves catheter was placed by nursing staff, a-traumatically. Once confirmation of lines and ventilation the patient was transferred to a Supine David table very carefully. All bony prominences including wrists, elbows, axilla, chest, hips, and thighs, and feet were padded very well. Special attention was paid to the genitalia, and these were padded accordingly. SCDs were placed on bilateral lower extremities and were connected. Arms were well padded and placed at their side thumbs up. Once in position, again we confirmed good ventilation capabilities and that lines were running appropriately. The patients Cervical spine was then exposed. 1010s were placed outlining the incision site. Standard alcohol was used to clean the incision site and allowed to dry. C-arm was used to bio-mitzi the patient and confirm level for incision which was marked with a skin marker. Operative briefing was performed with all teams and everyone in agreement to proceed. The patient was then prepped and draped in a normal sterile fashion. Timeout was then performed, and all parties agreed with the procedure to be performed. Transverse skin incision was then made on the right side of the patient's neck 3 cm and dissection taken down to the platysma which was split transversely. Sub platysma flap was made, and an interval identified between SCM and medial structures. Omohyoid was visualized and protected. Blunt dissection taken down to the anterior cervical fascia which was identified. Blunt probe was then placed and lateral image taken which confirmed levels for operation. These levels were then marked with a bovi. Subperiosteal dissection of the longissimus muscles were then done over these levels identifying uncovertebral joints bilaterally. Retractor was then placed deep to these muscles and held in place with a bed arm. Starting at C5-6, Fishtail pins were placed into C5 and C6 and gentle distraction taken out over the levels. Naomi rongeur used to remove disc material. Operating microscope brought in for visualization. Complete discectomy performed at this level with curette, rongeur and pituitary. High speed compa used to remove osteophytes anteriorly and posteriorly until PLL was identified. 6-0 up curette then used to identify the canal and resect the PLL. 2-0 and 3-0 Kerrison used then to remove PLL and disc herniation and performed b/l foraminotomies. Once good decompression was accomplished, meticulous hemostasis was performed. Sizers were then placed under lateral fluoroscopy until the desired height and lordosis. Cage was then selected, packed with autograft and allograft and placed under lateral imaging. Once in good position it was tested and stable. Motors run before and after cage placement were stable. The wound was irrigated, and autograft placed lateral to the cage anteriorly for fusion. Fishtail pin was then removed from C6 and placed into C4. Gentle distraction taken out over C4-5 now. Complete discectomy done at C4-5 as described including decompression, b/l foraminotomies and PLL resection. Burring of endplates was minimal, osteophytes removed as described. Spacers were then sized and placed under lateral imaging. Cage selected, packed with graft and placed under lateral images. Once in position, meticulous hemostasis performed, and motors remained stable before and after cage placement. AP image confirmed good placement of cages. Wound was irrigated. A separate, non-integrated plate was then selected and sized under lateral image. The plate was then placed with screws. Fixed screws drilled into C6 b/l and screws placed. Then into C5 and finally C4 with variable screws. All locking mechanisms were set, and all screws had good purchase. Final AP and lateral images taken confirmed good placement of hardware and good reduction and faith of height. The wound was then irrigated copiously with NSS. Surgicel placed deep in the wound. A deep drain placed out a separate incision and sewed into place. Layered closure then performed with 3-0 Vicryl in the platysma and subQ tissue. 4-0 Strata fix in the subcuticular tissue. The wound was then cleaned, and dried and skin glue placed. Once glue dried an Opifoam was placed. The patient was then transferred back to their hospital bed a-traumatically. The drain continued to hold suction. They were placed in a soft collar. They were then awakened by the department of anesthesia having tolerated the procedure well without complications.
[2023-05-01 10:44] LABS: Glucose,Whole Blood 163 mg/dL (70-110)
[2023-05-01] MEDS: HYDROmorphone 0.5 MG/0.5 ML SYRINGE IVP PRN ×2 (10:49→11:03)
[2023-05-01] MEDS ORDERED: hydrALAZINE HCL 20 MG/ML 1 ML VIAL IVP ONE ×2 (10:51→11:49)
[2023-05-01] MEDS ORDERED: HYDROmorphone 0.5 MG/0.5 ML SYRINGE IVP PRN (11:04)
[2023-05-01] MEDS ORDERED: ONDANSETRON 4 MG/2 ML VIAL IVP PRN (11:04)
[2023-05-01] MEDS ORDERED: MAGNESIUM HYDROXIDE 2,400 MG/30 ML CUP PO PRN (11:04)
[2023-05-01] MEDS ORDERED: SENNOSIDES-DOCUSATE SODIUM 1 EACH TAB PO PRN (11:04)
[2023-05-01] MEDS ORDERED: BACLOFEN 10 MG TAB PO PRN (11:06)
[2023-05-01] MEDS ORDERED: LACTATED RINGERS 1,000 ML IV ONE (11:08)
[2023-05-01] MEDS ORDERED: HYDROmorphone 0.5 MG/0.5 ML SYRINGE IVP ONE ×2 (11:18→11:49)
[2023-05-01] MEDS ORDERED: fentaNYL (PF) 50 MCG/ML 2 ML AMP IVP ONE ×2 (12:26→13:17)
[2023-05-01] MEDS ORDERED: DEXTROSE 50% SYRINGE 50 ML IVP PRN ×2 (15:05)
[2023-05-01] MEDS: MORPHINE SULFATE ER 30 MG TABLET PO SCH ×2 (15:42→23:32)
[2023-05-01] MEDS: GABAPENTIN 300 MG CAP PO SCH ×2 (15:43→21:20)
[2023-05-01] MEDS: BACLOFEN 10 MG TAB PO SCH ×2 (15:43→21:21)
[2023-05-01] MEDS: ACETAMINOPHEN TAB 500 MG TAB PO SCH ×3 (16:11→23:34)
[2023-05-01] MEDS: HYDROmorphone 1 MG/ML 1 ML SYRINGE IVP PRN ×3 (16:41→23:08)
--- NOTE | 2023-05-01 17:03 | P.PN ---
Progress Note - Text Progress Note Date: 05/01/23 Pt s/e in PACU, delayed charting. She is doing very well. No issues at this time. VSS. Dressing CDI. Moving all 4 ext with good strength. Collar in place. She is awaiting floor transfer. Orderes placed.
[2023-05-01] MEDS: INSULIN ASPART (NovoLOG) 100 UNIT/ML VIAL SQ SCH ×2 (18:44→21:24)
[2023-05-01 19:49] LABS: Glucose,Whole Blood 155 mg/dL (70-110)
[2023-05-01] MEDS: ATORVASTATIN 20 MG TAB PO SCH (21:20)
[2023-05-01] MEDS: FENOFIBRATE 160 MG TAB PO SCH (21:20)
[2023-05-01] MEDS: VENLAFAXINE HCL 75 MG TAB PO SCH (21:21)
[2023-05-01] MEDS: AMITRIPTYLINE HCL 50 MG TAB PO SCH (21:21)
--- NOTE | 2023-05-01 22:01 | CONS ---
CONSULTATION I am covering for Dr. Skinner. REASON FOR CONSULTATION: Advice regarding diabetes mellitus and other medical conditions, requested by Orthopedics. HISTORY OF PRESENT ILLNESS: This is a 63-year-old woman with a past medical history of multiple medical problems, being followed Dr. Skinner in the outpatient setting, underwent C4-C5, C5-C6 diskectomy surgery and is being closely monitored. There is no history of any fever, rigors, or chills. No history of headache, or loss of consciousness. PAST MEDICAL HISTORY: Reviewed include diabetes mellitus, hypertension, hyperlipidemia. Rest of the history and rest of the chart is also reviewed. HOME MEDICATIONS: Reviewed include Effexor XR, dose and rest of medications reviewed. ALLERGIES: None. FAMILY HISTORY: History of breast cancer. SOCIAL HISTORY: Previous history of smoking. REVIEW OF SYSTEMS: A 14-point review is negative except as mentioned earlier. PHYSICAL EXAMINATION: VITAL SIGNS: Pulse is 96, blood pressure 160/70, respirations 17. NECK: Status post surgery. CARDIOVASCULAR: S1, S2. RESPIRATIONS: Clear to auscultation. ABDOMEN: Soft. NERVOUS SYSTEM: Nonfocal. SKIN: No ulcer, rash, or bleeding. JOINTS: No active deforming arthropathy. LABORATORY DATA: Accu-Cheks 163. ASSESSMENT: 1. Status post C4-C5, C5-C6 arthrodesis and diskectomy. 2. Diabetes mellitus, type 2. 3. Hypertension. 4. Hyperlipidemia. 5. History of pneumonia. 6. Multiple complex medical issues. 7. History of Methicillin-resistant Staphylococcus aureus. RECOMMENDATIONS AND DISCUSSION: This is a 63-year-old woman, who presented with multiple complex medical issues, we will monitor the patient closely. I would recommend resume the home medication. Monitor blood sugars closely. Accu-Cheks before meals and at bedtime and scale. I would also recommend incentive spirometry. DVT prophylaxis. We will follow the patient closely with you. Repeat labs. The patient may be asked to follow with Dr. Skinner after surgery. MMODL / IJN: [id number] /
[2023-05-02] MEDS: HYDROmorphone 1 MG/ML 1 ML SYRINGE IVP PRN ×5 (04:16→20:50)
[2023-05-02 05:35] LABS: Glucose,Whole Blood 129 mg/dL (70-110)
[2023-05-02] MEDS: ACETAMINOPHEN TAB 500 MG TAB PO SCH ×3 (06:35→19:12)
[2023-05-02] MEDS: INSULIN ASPART (NovoLOG) 100 UNIT/ML VIAL SQ SCH ×4 (06:37→20:44)
[2023-05-02] MEDS: BACLOFEN 10 MG TAB PO SCH (07:50)
[2023-05-02] MEDS: METOPROLOL SUCCINATE (ER) 25 MG TAB.ER.24H PO SCH (07:51)
[2023-05-02] MEDS: MORPHINE SULFATE ER 30 MG TABLET PO SCH ×2 (07:51→16:03)
[2023-05-02] MEDS: VENLAFAXINE HCL 75 MG TAB PO SCH ×2 (07:51→20:52)
[2023-05-02] MEDS: GABAPENTIN 300 MG CAP PO SCH ×3 (07:51→20:52)
[2023-05-02] MEDS: LACTATED RINGERS 1,000 ML IV SCH (07:52)
--- NOTE | 2023-05-02 08:46 | CT ---
EXAMINATION TYPE: CT cervical spine wo con DATE OF EXAM: 05/01/2023 COMPARISON: MRI brain 11/03/2022, CT scan 07/05/2022 HISTORY: s/p cervical fusion CT DLP: 342.1 mGycm Automated exposure control for dose reduction was used. TECHNIQUE: CT scan of the cervical spine is obtained without contrast, axial images are obtained, sa gittal and coronal reformatted images are also reviewed. FINDINGS: Assessment of spinal canal limited due to artifact and resolution. Extensive air within the prevertebral soft tissues which is likely postsurgical. Ingestion of the cole gical drain in position. There is fusion with disc spacers at levels C4-5 C5-C6. Near-anatomic alignment. Hypertrophic and degenerative change C6-C7 there is advanced degenerative change in the atlantoaxial joint. At C2-C3 is uncovertebral joint hypertrophy mild degenerative changes seen to this region. At C3-C4 is uncovertebral joint hypertrophy with mild bilateral foraminal protrusions. Mild facet art hropathy greater on the left. At C4-C5 postsurgical changes. Artifact does limit assessment. There is posterior spondylosis and regina ateral foraminal approach. The C5-C6 there is postsurgical change. There is uncovertebral joint proliferative atrophy. Successfu l spinal canal limited due to artifact. At C6-C7 C7-T1 there is hypertrophic and degenerative change. There is a small subcentimeter nodule in the left thyroid. IMPRESSION: 1. Postsurgical changes of extensive prevertebral soft tissue air likely postsurgical. There is a sma ll amount of fluid attenuation anterior to the C3 level.
--- NOTE | 2023-05-02 09:21 | P.PN ---
Subjective Progress Note Date: 05/02/23 Principal diagnosis: 1. 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 Upper extremity radiculopathy, bilateral 3. Upper extremity weakness, bilateral 4. Frequent falls Patient seen and examined this morning. Patient is sitting up in bed eating breakfast, tolerating well. Surgical incision to the anterior cervical spine is clean dry and intact URIEL drain is present with 30 mL output overnight. Patient reports improvement in her upper extremities since the procedure. Patient states that her pain is moderately managed on the current regimen. Medications have been adjusted. Informed patient that physical therapy will be in to work with her today. No acute concerns at this time. Objective - Vital Signs Vital signs: Vital Signs Temp 98.1 F 05/02/23 00:20 Pulse 88 05/02/23 00:20 Resp 16 05/02/23 00:20 BP 157/76 05/02/23 00:20 Pulse Ox 94 L 05/02/23 00:20 FiO2 Intake & Output 05/01/23 05/02/23 05/02/23 18:59 06:59 18:59 Intake Total 950 Output Total 25 30 Balance 925 -30 Weight 69.3 kg Intake: IV 950 Output: Drainage 30 Neck 30 Estimated Blood Loss 25 Other: Voiding Method Toilet # Voids 3 3 - Exam Inspection: Surgical incision to the anterior cervical spine, dressing is clean dry and intact. URIEL drain is present with 30 mL output overnight. Sensation: Sensation is equal, symmetric, bilaterally intact throughout the upper and lower extremities Palpation: Nontender to palpation throughout bilateral upper and lower extremities and throughout spine exam Range of motion: Patient does have full range of motion bilateral upper and lower extremities on exam Motor: 4/5 in all major motor groups in the bilateral upper and 5/5 lower extremities Special tests: Negative Homans bilaterally. Negative Chris bilaterally. Negative clonus bilaterally. Neurovascular: Radial pulse intact, 2+ bilaterally. Cap refill under 3 seconds in digits upper extremities. - Labs Labs: Abnormal Lab Results - Last 24 Hours (Table) 05/01/23 05/01/23 05/02/23 Range/Units 10:42 19:48 05:33 POC Glucose (mg/dL) 163 H 155 H 129 H (70-110) mg/dL Assessment and Plan Assessment: Postop day 1 C4-C7 ACDF 1. 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 Upper extremity radiculopathy, bilateral 3. Upper extremity weakness, bilateral 4. Frequent falls Plan: -Appreciate farm service consultant and team management. -Activity: Ambulate QID, OOB all meals, up and about, limit lifting bending twisting to less than 5 lbs. Use walker or cane if needed for stability. -Daily PT/OT, increase ambulation strength and balance. -Soft cervical collar at all times, may remove for showers -Pain control: Adequate at this time -Meds: reviewed -GI ppx: senna, Miralax -DVT PPX: OK to restart Heparin tonight -Hygiene: Shower today. Maintain dressing clean and dry. Meticulous cleaning after BMs away from the incision site -Drains: Maintain for now. Continue to monitor and record output q shift. -Encourage IS 10x/hr -Dispo: Anticipate discharge home tomorrow with homecare *I reviewed and discussed this case with my attending Dr. Carmona, whom has reviewed this chart and films and is in agreement with assessment and plan of care as outlined above. I have personally seen and examined the patient, performed the documentation and the assessment and plan as written. Number of minutes spent on the visit: 20m.
[2023-05-02] MEDS: CYCLOBENZAPRINE 10 MG TAB PO SCH ×3 (10:33→20:52)
[2023-05-02] MEDS: amLODIPine 10 MG TAB PO SCH (10:33)
[2023-05-02 11:19] LABS: Basophils # (A) 0.03 X 10*3/uL (0.00-0.10); Basophils % (A) 0.4 %; Eosinophils % (A) 1.5 %; HCT 39.4 % (37.2-46.3); HGB 12.8 d/dL (12.0-15.0); Lymphocytes # (A) 1.28 X 10*3/uL (0.90-5.00); MCH 29.4 pg (27.0-32.0); MCHC 32.5 d/dL (32.0-37.0); MCV 90.4 FL (80.0-97.0); Mean Platelet Volume 10.1 FL (9.5-12.2); Monocytes % (A) 11.9 %; NRBC Per 100 WBC 0 X 10*3/uL (0.00-0.01); Neutrophils # (A) 4.51 X 10*3/uL (1.80-7.70); Neutrophils % (A) 67.1 %; Platelet Count 204 X 10*3/uL (140-440); RBC 4.36 X 10*6/uL (4.10-5.20); RDW 12.6 % (11.5-14.5); WBC 6.73 X 10*3/uL (4.50-10.00)
[2023-05-02 11:19] LABS: Glucose,Whole Blood 116 mg/dL (70-110)
--- NOTE | 2023-05-02 11:22 | FL ---
Intraoperative/procedural fluoroscopic services were provided. Total fluoroscopy time is 28 seconds w ith a total of 6 submitted images to PACS. Please see the operative/procedural note for further detai ls. DAP: 0.4388 Gycm2
[2023-05-02 11:39] LABS: BUN/Creat Ratio 12.38 Ratio (12.00-20.00); Blood Urea Nitrogen 9.9 mg/dL (9.0-27.0); Calcium 9.6 mg/dL (8.7-10.3); Carbon Dioxide 28.1 mmol/L (21.6-31.8); Chloride 99 mmol/L (96-109); Glucose 181 mg/dL (70-110); Potassium 3.1 mmol/L (3.5-5.5); Sodium 141 mmol/L (135-145)
[2023-05-02] MEDS: HYDROcodone/APAP 7.5-325MG 1 EACH TAB PO PRN ×2 (14:41→22:35)
--- NOTE | 2023-05-02 19:42 | P.PN ---
Subjective Progress Note Date: 05/02/23 This is a pleasant 63-year-old female who was admitted under orthopedic services status post C4-5, C5-6 discectomy and is being closely monitored. Patient continues report pain and not currently managed. Patient reports has been up and out of the bed and continues with generalized weakness. Encouraged increased activity as tolerated and also encouraged incentive spirometer use at least 10 times every hour while awake. Patient is afebrile with no reports of chest pain or shortness of breath. Patient is tolerating diet with no reported nausea or vomiting. Patient is being monitored overnight with possible discharge planning in the next 24 hours his pain is under better control. Review of systems: Constitutional: No reports of fatigue, fever, or chills Cardiovascular: No reports of chest pain or palpitations Respiratory: No reports of shortness of breath or cough GI: no reports of nausea, no reports of vomiting : No reports of dysuria or retention Neurovascular: reports of generalized weakness, reports continued neck pain All medications have been reviewed PHYSICAL EXAMINATION: GENERAL: The patient is alert and oriented x4, Well developed, well nourished. HEENT: Pupils are round and equally reacting to light. EOMI. no scleral icterus. No conjunctival pallor. Normocephalic, atraumatic. No pharyngeal erythema. No thyromegaly. Soft cervical collar noted CARDIOVASCULAR: S1 and S2 muffled PULMONARY: diminished breath sounds bilaterally with no wheezing or rhonchi n oted. ABDOMEN: soft. Nontender on exam. non-distended, normoactive bowel sounds. No palpable organomegaly. MUSCULOSKELETAL: No joint swelling or deformity. EXTREMITIES: No cyanosis, clubbing, or pedal edema. NEUROLOGICAL: Gross neurological examination did not reveal any focal deficits. Diffuse weakness SKIN: No rashes. Assessment: Status post anterior C4-5, C5-6 arthrodesis and discectomy History of diabetes mellitus, type II Hypertension Hyperlipidemia History of MRSA GI prophylaxis DVT prophylaxis Full code Plan: Patient was admitted under orthopedic services and is continuing to have pain and will be monitored overnight for further pain control Continue monitoring Accu-Cheks before meals and at bedtime and continue with current medication regimen Encouraged increased activity as tolerated Encouraged oral intake Incentive spirometry ordered and encourage the patient continue using at least 10 times every hour while awake We will continue to follow with orthopedics during hospitalization. Thank you kindly for this consultation. Patient will follow-up with primary care provider Dr. Skinner in the outpatient setting The impression and plan of care has been dictated by Oly Vazquez, nurse practitioner as directed. Dr. Raimundo MD I have performed a history and examination and MDM of this patient, discussed the same with the dictator, and agree with the dictator's assessment and plan as written ,documented as a scribe. Based on total visit time, I have performed more than 50% of the visit. Any additional findings or plans will be noted. Objective - Vital Signs Vital signs: Vital Signs Temp 98.4 F 05/02/23 08:00 Pulse 90 05/02/23 08:00 Resp 14 05/02/23 08:00 BP 205/76 05/02/23 08:00 Pulse Ox 96 05/02/23 08:00 FiO2 Intake & Output 05/01/23 05/02/23 05/02/23 18:59 06:59 18:59 Intake Total 950 Output Total 25 30 Balance 925 -30 Weight 69.3 kg Intake: IV 950 Output: Drainage 30 Neck 30 Estimated Blood Loss 25 Other: Voiding Method Toilet # Voids 3 3 3 - Labs CBC & Chem 7: 05/02/23 06:43 05/02/23 06:43 Labs: Abnormal Lab Results - Last 24 Hours (Table) 05/01/23 05/02/23 05/02/23 Range/Units 19:48 05:33 06:43 Potassium 3.1 L (3.5-5.5) mmol/L Anion Gap 13.90 H (4.00-12.00) mmol/L Glucose 181 H (70-110) mg/dL POC Glucose (mg/dL) 155 H 129 H (70-110) mg/dL 05/02/23 Range/Units 11:19 Potassium (3.5-5.5) mmol/L Anion Gap (4.00-12.00) mmol/L Glucose (70-110) mg/dL POC Glucose (mg/dL) 116 H (70-110) mg/dL
[2023-05-02] MEDS: FENOFIBRATE 160 MG TAB PO SCH (20:50)
[2023-05-02] MEDS: AMITRIPTYLINE HCL 50 MG TAB PO SCH (20:52)
[2023-05-02] MEDS: ATORVASTATIN 20 MG TAB PO SCH (20:52)
[2023-05-03] MEDS: MORPHINE SULFATE ER 30 MG TABLET PO SCH ×2 (00:13→09:10)
[2023-05-03] MEDS: ACETAMINOPHEN TAB 500 MG TAB PO SCH ×3 (00:14→13:03)
[2023-05-03] MEDS: HYDROmorphone 1 MG/ML 1 ML SYRINGE IVP PRN ×2 (03:23→08:45)
[2023-05-03] MEDS: HYDROcodone/APAP 7.5-325MG 1 EACH TAB PO PRN ×2 (05:10→13:11)
[2023-05-03] MEDS: INSULIN ASPART (NovoLOG) 100 UNIT/ML VIAL SQ SCH ×2 (08:57→12:56)
--- NOTE | 2023-05-03 09:05 | P.PN ---
Subjective Progress Note Date: 05/03/23 Principal diagnosis: 1. 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 Upper extremity radiculopathy, bilateral 3. Upper extremity weakness, bilateral 4. Frequent falls Patient seen and examined this morning. Patient is sitting up in bed eating breakfast, tolerating well. Surgical incision to the anterior cervical spine is clean dry and intact. Soft cervical collar intact. Patient states that her pain is moderately managed on the current regimen. She states she is comfortable with being discharged home today. No acute concerns at this time. Objective - Vital Signs Vital signs: Vital Signs Temp 98.6 F 05/03/23 02:00 Pulse 96 05/03/23 02:00 Resp 17 05/03/23 02:00 BP 150/77 05/03/23 02:00 Pulse Ox 93 L 05/03/23 02:00 FiO2 Intake & Output 05/02/23 05/03/23 05/03/23 18:59 06:59 18:59 Intake Total 50 Balance 50 Intake: Intake, IV Titration 50 Amount ceFAZolin 2 gm In Sodium 50 Chloride 0.9% 50 ml @ 100 mls/hr IVPB Q8HR [facility] Rx# :[id number] Other: Voiding Method Toilet # Voids 3 3 - Exam Inspection: Surgical incision to the anterior cervical spine, dressing is clean dry and intact. Soft cervical collar intact. Sensation: Sensation is equal, symmetric, bilaterally intact throughout the upper and lower extremities Palpation: Nontender to palpation throughout bilateral upper and lower extrem ities and throughout spine exam Range of motion: Patient does have full range of motion bilateral upper and lower extremities on exam Motor: 4/5 in all major motor groups in the bilateral upper and 5/5 lower extremities Special tests: Negative Homans bilaterally. Negative Chris bilaterally. Negative clonus bilaterally. Neurovascular: Radial pulse intact, 2+ bilaterally. Cap refill under 3 seconds in digits upper extremities. - Labs CBC & Chem 7: 05/02/23 06:43 05/02/23 06:43 Labs: Abnormal Lab Results - Last 24 Hours (Table) 05/02/23 05/02/23 Range/Units 06:43 11:19 Potassium 3.1 L (3.5-5.5) mmol/L Anion Gap 13.90 H (4.00-12.00) mmol/L Glucose 181 H (70-110) mg/dL POC Glucose (mg/dL) 116 H (70-110) mg/dL Assessment and Plan Assessment: Postop day 2: C4-C7 ACDF 1. 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 Upper extremity radiculopathy, bilateral 3. Upper extremity weakness, bilateral 4. Frequent falls Plan: -Appreciate garden consultant and team management. -Activity: Ambulate QID, OOB all meals, up and about, limit lifting bending twisting to less than 5 lbs. Use walker or cane if needed for stability. -Daily PT/OT, increase ambulation strength and balance. -Soft cervical collar at all times, may remove for showers -Pain control: Adequate at this time -Meds: reviewed -GI ppx: senna, Miralax -DVT PPX: Heparin -Encourage IS 10x/hr -Dispo: Discharge home today with homecare *I reviewed and discussed this case with my attending Dr. Carmona, whom has reviewed this chart and films and is in agreement with assessment and plan of care as outlined above. I have personally seen and examined the patient, performed the documentation and the assessment and plan as written. Number of minutes spent on the visit: 20m.
[2023-05-03] MEDS: CYCLOBENZAPRINE 10 MG TAB PO SCH (09:11)
[2023-05-03] MEDS: METOPROLOL SUCCINATE (ER) 25 MG TAB.ER.24H PO SCH (09:11)
[2023-05-03] MEDS: amLODIPine 10 MG TAB PO SCH (09:11)
[2023-05-03] MEDS: GABAPENTIN 300 MG CAP PO SCH (09:11)
--- NOTE | 2023-05-03 09:11 | P.DS ---
Providers Date of admission: 05/01/23 05:45 Expected date of discharge: 05/03/23 Attending physician: Zain Carmona DO Consults: 05/01/23 11:05 Consult Physician Routine Consulting Provider: Mark Eubanks Reason/Comments: Medical Management Do you want consulting provider notified?: Yes Primary care physician: [facility] Course: Hospital Course: The patient was evaluated preoperatively and found to have the diagnosis of cervical spondylosis with stenosis. They underwent appropriate preoperative care and were willing to undergo the intended procedure. They underwent a successful C4-C7 ACDF, were recovered appropriately and sent to the floor. While on the floor they worked with physical therapy, occupational therapy and nursing to enhance their recovery experience. Their pain was well controlled through their stay and they were started on appropriate medications, DVT ppx modalities, activity and dietary needs. Daily labs were monitored closely, and transfusions were only used when necessary. Medicine as well as other consulting services have made their input and have helped with our team approach and multidisciplinary care. PT milestones have been met and passed and they have made the recommendation of home with home care for this patient and treating providers agree with this care path. The patient will be discharged home with appropriate medications, instructions and follow-up information and in stable condition. Patient Condition at Discharge: Good Plan - Discharge Summary Discharge Rx Participant: Yes New Discharge Prescriptions: New Cyclobenzaprine [Flexeril] 10 mg PO TID #45 tab cefaDROXiL [Duricef] 500 mg PO Q12HR #10 cap HYDROcodone/APAP 7.5-325MG [Garfield 7.5] 1 each PO Q4-6H PRN #42 tab PRN Reason: Pain No Action Simvastatin [Zocor] 40 mg PO HS Venlafaxine HCl 150 mg PO BID Amitriptyline HCl 50 mg PO HS #30 tablet Fenofibrate,Micronized [Fenofibrate] 134 mg PO HS Baclofen [Lioresal] 10 mg PO TID Meloxicam 15 mg PO HS Metoprolol Succinate (ER) [Toprol XL] 25 mg PO DAILY Morphine Sulfate ER [Ms Contin] 30 mg PO TID Ergocalciferol (Vitamin D2) [Drisdol (50,000 Iu)] 1,250 mcg PO MO Gabapentin [Neurontin] 300 mg PO TID Vit C/E/Zn/Coppr/Lutein/Zeaxan [Preservision Areds 2 Softgel] 1 cap PO BID Discharge Medication List Simvastatin [Zocor] 40 mg PO HS 02/18/15 [History] Venlafaxine HCl 150 mg PO BID 02/18/15 [History] Amitriptyline HCl 50 mg PO HS #30 tablet 03/22/15 [Rx] Fenofibrate,Micronized [Fenofibrate] 134 mg PO HS 12/01/16 [History] Baclofen [Lioresal] 10 mg PO TID 12/26/17 [History] Meloxicam 15 mg PO HS 10/14/18 [History] Metoprolol Succinate (ER) [Toprol XL] 25 mg PO DAILY 05/06/19 [History] Morphine Sulfate ER [Ms Contin] 30 mg PO TID 02/28/20 [History] Ergocalciferol (Vitamin D2) [Drisdol (50,000 Iu)] 1,250 mcg PO MO 07/05/22 [History] Gabapentin [Neurontin] 300 mg PO TID 07/05/22 [History] Vit C/E/Zn/Coppr/Lutein/Zeaxan [Preservision Areds 2 Softgel] 1 cap PO BID 07/05/22 [History] Cyclobenzaprine [Flexeril] 10 mg PO TID #45 tab 05/03/23 [Rx] HYDROcodone/APAP 7.5-325MG [Garfield 7.5] 1 each PO Q4-6H PRN #42 tab 05/03/23 [Rx] cefaDROXiL [Duricef] 500 mg PO Q12HR #10 cap 05/03/23 [Rx] Follow up Appointment(s)/Referral(s): Zain Carmona DO [Doctor of Osteopathic Medicine] - 05/15/23 1:30 pm Milton Skinner MD [Primary Care Provider] - 1 Week Activity/Diet/Wound Care/Special Instructions: Spine Discharge and Recovery Instructions Date of Surgery: 05/01/2023 Diagnosis: Cervical spondylosis with stenosis Procedure: C4-C7 ACDF Medications: See medication list All medication refills should be obtained through your primary care doctor or your clinic spine surgeon. Please discuss prescription refills at your follow up appointment. Do not call the hospital for medication refills. Dressing: Leave your dressing in place for a total of 5 days post operatively. Then you may remove your dressing and leave open to air. Keep the area clean and if not able to keep area clean, then cover with sterile gauze and tape. Showering: You may shower 3 days after your procedure allowing soap and water to run over incision. Do not scrub. Do not soak. Blot dry. Follow up: Please confirm a follow up appointment with your surgeon 3 weeks post operatively. Please make an appointment to follow up with your PCP in 1-2 weeks after surgery for evaluation 3 phase, 3-week plan POST OP WEEKS 1-3 1. Lifting/carrying/pushing/pulling limited to less than 5 pounds. 2. Do not sit for longer than 15 minutes at one time. Get up and walk around. Prolonged sitting is NOT advised. If you lay down, see if you can tolerate laying down on you front (belly side) 3. Walk for periods of 15 minutes = 1 mile but no longer; do it multiple times times each day. 4. Ice your low back after activity. POST OP WEEKS 3-6 1. Lifting limited to less than 20 pounds. 2. Do not sit for longer than 30 minutes at a time. Frequently change positions. Use a sit-to stand workstation or take frequent breaks from sitting if you have returned to work. 3. Walk for 30 minutes each day. If possible, do these three or more times a day POST OP WEEKS 6+ At your 6-week appointment we will give you a physical therapy referral to focus on a core stabilization and strengthening program. You should also work on leg & buttock strengthening, hamstring & quadriceps stretching, and continue a low impact aerobic activity program such as swimming, walking, or riding a stationary bicycle. During the initial 6 weeks after your surgery, you are at the highest risk of re-injuring your spine. You should generally avoid BLTs (bending, lifting and twisting combination motions) and follow the above guidelines to reduce the chance of reinjury. You can anticipate post op appointments in our office at approximately 3 weeks and 6 weeks after your surgery. INCISION CARE: If your incision is not draining you do NOT need to cover it with a dressing. Keep your incision clean, dry and intact. In most cases, we apply skin glue, tim or sutures to the incision at the time of surgery. This will be like a crust or have the appearance of a scab and will fall off in time on its own. The stitches or tim need to be removed at 3 weeks post op appointment. You may begin to shower 3 days after surgery (this allows the glue to olsen well). However, please avoid scrubbing the incision site or peeling off any of the skin glue. This will ensure optimal healing of your incision. Also, during this time avoid soaking the incision area in water - this includes swimming pools, hot tubs or baths. No ointments, lotions or oils on the incision until your surgeon allows. Leave tim, sutures or glue in place. Neurological dysfunction that comes on suddenly can also be a sign of a stroke. Below some common symptoms of a stroke are listed: B - balance difficulty such as sudden onset walking or leaning to one side - NEW E - eye problem such as sudden double vision or trouble seeing on one side - NEW F - Facial weakness or numbness on one side - NEW A - Arm or leg weakness or numbness on one side - NEW S - Slurred speech or difficulty with word finding - NEW T - Time is BRAIN! Call 911 as soon as you recognize these symptoms Diet: Consume a regular diet rich in vegetables and lean protein such as chicken or fish. You should consume in a ratio of approximately 20% fats|40% car bohydrates|40%protein. Vegetables, sweet potatoes, brown rice or quinoa are examples of good carbohydrates. Chips, white bread, cookies and sweets/sugar are examples of bad carbohydrates. Limit your bad carbs, go wild with good carbs. "Life's Simple 7" Guidelines as per [place] [employer] These will help you reclaim your life after surgery and ordnance artificer helper in your recovery, keeping in mind your restrictions. (1) Get Active. Physical activity can help people lose weight, control high blood pressure and cholesterol, feel emotionally better, and sleep better. (2) Control Cholesterol. Avoid a diet high in saturated fat, trans fat, & cholesterol. Limit whole milk & cream, ice cream, butter, egg yolks, processed meats (like sausage and hot dogs), and fatty meats. Choose healthy foods that are low in saturated fat, trans fat and cholesterol which include: Fruits and vegetables, fiber rich grain products (like whole grain pasta and brown rice), lean meat such as chicken, fish, nuts, seeds, and legumes. (3) Eat Better. Eat small portions. Shop at the grocery with a list and do not stray from it. Tips for a healthy diet include: Limit sodium intake to less than 1500mg daily, avoid prepackaged, processed, and fast foods, choose a diet rich in fruits, vegetables, and whole grain, high fiber foods, and limit saturated & cholesterol in your diet. (4) Manage Blood Pressure. If you have high blood pressure, you should have a cuff at home so that you can check your blood pressure regularly. Be sure you have a good cuff. An arm one is generally better than a wrist one. Bring the cuff to a doctor's appointment to validate that the measurements that your cuff are taking are accurate. Take your blood pressure twice daily when you are sitting down and relaxing. Record the numbers in a log and bring this log with you to your doctors' appointments. (5) Lose Weight if your BMI is above 25. A healthy BMI is between 19-25. To calculate Your BMI, you may use a Standard BMI Calculator on the NIH BMI website: <www.nhlbi.nih.gov/guidelines/obesity/BMI/bmicalc.htm>. Weigh oneself daily. If you are overweight, set a goal to lose weight. A pound a week loss if needed is a good target. (6) Reduce Blood Sugar. Limit foods and liquids with "added sugars." (Added sugars include sucrose, fructose, glucose, maltose, dextrose, high fructose corn syrup, corn syrup, concentrated fruit juice and honey). (7) Stop Smoking. If you smoke, quitting smoking is one of the best things that you can do for your health. Smoking increases your risk of heart attack, stroke, and peripheral vascular disease, which is a build-up of plaque in your arteries. Please discard all the cigarettes and lighters in your house. Have a plan for what you will do when you have the urge to smoke. Direct and second- hand smoke shortens your life as well as the lives of your family, friends and others around you. For your health and the health of those around you, please consider quitting! Proper Bending Body Mechanics: Maintain a wide stance with one foot slightly in front of the other. Keep your back straight. Bend utilizing the strength in your hips and knees. Do not bend at the waist. Maintain the lifted object at your waist-level close to your body. Avoid lifting weight that causes immediately pain or pain anywhere in the body afterwards. Smoking/Nicotine If there was ever one thing that you could do to increase your overall health, decrease your risk of cardiovascular problems by about 39% the second you make the choice, it is to STOP SMOKING. Your body's most instant gratification is the second you stop smoking. We have all heard the studies, read the articles but it is true, smoking is extremely bad for your overall health, and moreover it is detrimental to your bone health. Nicotine, IN ANY FORM, kills bone cells, prevents your body from healing fractures, and significantly prolongs healing after surgery. In spine surgery specifically, it increases your risk of not healing your bones to create a fusion and increases your risk of having a revision surgery due to this up to 60%. I know it is hard. I know it feels impossible. But there are ways. Take control of your life. We are here to help you through it. And when you are ready, ask us and we can direct you to help if you desire. Use the START Plan to Quit Smoking (please visit the Helpguide.org website listed below for more information): S = Set a quit date. Choose a date within the next 2 weeks, so you have enough time to prepare without losing your motivation to quit. If you mainly smoke at work, quit on the weekend, so you have a few days to adjust to the change. T = Tell family, friends, and co-workers that you plan to quit. Let your friends and family in on your plan to quit smoking and tell them you need their support and encouragement to stop. Look for a quit carson who wants to stop smoking as well. You can help each other get through the rough times. A = Anticipate and plan for the challenges you'll face while quitting. Most people who begin smoking again do so within the first 3 months. You can help yourself make it through by preparing ahead for common challenges, such as nicotine withdrawal and cigarette cravings. R = Remove cigarettes and other tobacco products from your home, car, and work. Throw away all your cigarettes (no emergency pack!), lighters, ashtrays, and matches. Wash your clothes and freshen up anything that smells like smoke. Shampoo your car, clean your drapes and carpet, and steam your furniture. T = Talk to your doctor about getting help to quit. Your doctor can prescribe medication to help with withdrawal and suggest other alternatives. If you can't see a doctor, you can get many products over the coun ter at your local pharmacy or grocery store, including the nicotine patch, nicotine lozenges, and nicotine gum. Resources for Quitting Smoking: <https://www.[place].gov/documents/mdc/Quit_Tob acco_Resources_for_patients_313480_7.pdf> Supplementation: Take recommended dosages of Vitamin D and Calcium to help fortify your bones and help them to heal. See your health maintenance packet for dosages and recommended levels. DVT/VTE prophylaxis: You will be given compression stockings from the hospital. Wear these daily for the first two weeks after surgery. You may take them off at night. You may be prescribed a medication to help thin your blood. Take this as directed. If you are not prescribed this medication, early and frequent ambulation has been shown to be the best prophylaxis to deep vein thrombosis and sequelae related to this event. Discharge Disposition: HOME WITH HOME HEALTH SERVICES
[2023-05-03] MEDS: VENLAFAXINE HCL 75 MG TAB PO SCH (09:19)
[2023-05-03] MEDS: LACTATED RINGERS 1,000 ML IV SCH (11:45)
[2023-05-03 14:25] VITALS: BP 138/88; PULSE 93; RESP 18; TEMP 99
--- NOTE | 2023-05-03 19:40 | P.PN ---
Subjective Progress Note Date: 05/03/23 This is a pleasant 63-year-old female who was admitted under orthopedic services status post C4-5, C5-6 discectomy and is being closely monitored. Patient continues report pain and not currently managed. Patient reports has been up and out of the bed and continues with generalized weakness. Encouraged increased activity as tolerated and also encouraged incentive spirometer use at least 10 times every hour while awake. Patient is afebrile with no reports of chest pain or shortness of breath. Patient is tolerating diet with no reported nausea or vomiting. Patient is being monitored overnight with possible discharge planning in the next 24 hours his pain is under better control. 05/03/2023 Patient is seen in follow-up this morning reporting she continues to have pain although somewhat better managed. Patient reports she is going home today and has been cleared by orthopedics for discharge with close outpatient follow-up. Patient's blood pressure remained slightly elevated although improved on Norvasc and will continue with Norvasc 10 mg daily. Patient has been instructed to follow-up with primary care provider this week to discuss blood pressure. Patient does have history of hypertension although was not taking any medications most recently. Patient encouraged to continue with incentive spirometer use and take home and continue using at least 10 times every hour while awake. Patient is afebrile with no reported chest pain or shortness of breath. Patient is tolerating diet with no reported nausea or vomiting. Patient is medically stable for discharge home today. Review of systems: Constitutional: No reports of fatigue, fever, or chills Cardiovascular: No reports of chest pain or palpitations Respiratory: No reports of shortness of breath or cough GI: no reports of nausea, no reports of vomiting : No reports of dysuria or retention Neurovascular: reports of generalized weakness, reports continued neck pain although somewhat improved All medications have been reviewed PHYSICAL EXAMINATION: GENERAL: The patient is alert and oriented x4, Well developed, well nourished. HEENT: Pupils are round and equally reacting to light. EOMI. no scleral icterus. No conjunctival pallor. Normocephalic, atraumatic. No pharyngeal erythema. No thyromegaly. Soft cervical collar noted CARDIOVASCULAR: S1 and S2 muffled PULMONARY: diminished breath sounds bilaterally with no wheezing or rhonchi noted. ABDOMEN: soft. Nontender on exam. non-distended, normoactive bowel sounds. No palpable organomegaly. MUSCULOSKELETAL: No joint swelling or deformity. EXTREMITIES: No cyanosis, clubbing, or pedal edema. NEUROLOGICAL: Gross neurological examination did not reveal any focal deficits. Diffuse weakness SKIN: No rashes. Assessment: Status post anterior C4-5, C5-6 arthrodesis and discectomy History of diabetes mellitus, type II Hypertension Hyperlipidemia History of MRSA GI prophylaxis DVT prophylaxis Full code Plan: Patient was admitted under orthopedic services and is reporting she is being discharged today. Patient's pain is under better control and continues with some discomfort. Patient will continue with pain management regimen for or thopedics and close outpatient follow-up Continue monitoring Accu-Cheks before meals and at bedtime and continue with current medication regimen Encouraged increased activity as tolerated Encouraged oral intake Incentive spirometry at bedside and encourage the patient to continue using 10 times every hour while awake and bringing home and continuing to use Patient blood pressure is better controlled and will continue on Norvasc 10 mg daily and patient has been instructed to follow-up with primary Regarding hypertension. Patient does have history of hypertension although had not been taking any medications for this. We will continue to follow with orthopedics during hospitalization. Thank you kindly for this consultation. Patient is medically stable for discharge today. The impression and plan of care has been dictated by Oly Vazquez, nurse practitioner as directed. Dr. Raimundo MD I have performed a history and examination and MDM of this patient, discussed the same with the dictator, and agree with the dictator's assessment and plan as written ,documented as a scribe. Based on total visit time, I have performed more than 50% of the visit. Any additional findings or plans will be noted. Objective - Vital Signs Vital signs: Vital Signs Temp 99.0 F 05/03/23 14:15 Pulse 93 05/03/23 14:15 Resp 18 05/03/23 14:15 BP 138/88 05/03/23 14:15 Pulse Ox 93 L 05/03/23 14:15 FiO2 Intake & Output 05/02/23 05/03/23 05/03/23 18:59 06:59 18:59 Intake Total 50 Balance 50 Intake: Intake, IV Titration 50 Amount ceFAZolin 2 gm In Sodium 50 Chloride 0.9% 50 ml @ 100 mls/hr IVPB Q8HR [facility] Rx# :[id number] Other: Voiding Method Toilet Toilet # Voids 3 3 - Labs CBC & Chem 7: 05/02/23 06:43 05/02/23 06:43
[2023-05-07] MEDS ORDERED: ERGOCALCIFEROL 1,250 MCG (50,000 IU) CAPSULE PO SCH (09:00)
== END 2023-05-03 14:46 | disposition home health service (06) | DRG 472 ==
LOC: 2ORMAIN 05-01 05:45 → EDSTATUS 05-01 07:30 → 4SSUR 05-01 13:16
PROVIDERS: ADMIT Orthopaedic Surgery; ATTEND Orthopaedic Surgery
PROC: 0RT30ZZ Resection of Cervical Vertebral Disc, Open Approach (ICD-10-PCS; 2023-05-01)
PROC: 01N10ZZ Release Cervical Nerve, Open Approach (ICD-10-PCS; 2023-05-01)
PROC: 4A11X4G Monitoring of Peripheral Nervous Electrical Activity, Intraoperative, External Approach (ICD-10-PCS; 2023-05-01)
PROC: 8E0WXBF Computer Assisted Procedure of Trunk Region, With Fluoroscopy (ICD-10-PCS; 2023-05-01)
PROC: 0RG20A0 Fusion of 2 or more Cervical Vertebral Joints with Interbody Fusion Device, Anterior Approach, Anterior Column, Open Approach (ICD-10-PCS; principal; 2023-05-01 07:30)
DX: M47.12 Other spondylosis with myelopathy, cervical region (principal); G99.2 Myelopathy in diseases classified elsewhere; M50.023 Cervical disc disorder at C6-C7 level with myelopathy; I10 Essential (primary) hypertension; M50.123 Cervical disc disorder at C6-C7 level with radiculopathy; M47.22 Other spondylosis with radiculopathy, cervical region; M48.02 Spinal stenosis, cervical region; E78.5 Hyperlipidemia, unspecified; E11.9 Type 2 diabetes mellitus without complications; Z79.84 Long term (current) use of oral hypoglycemic drugs; R29.6 Repeated falls; R53.1 Weakness; M25.78 Osteophyte, vertebrae; Z86.14 Personal history of Methicillin resistant Staphylococcus aureus infection
CPT/HCPCS: 72040; 72125; 80048; 83036; 85025; 86850; 86900; 86901

== ENCOUNTER → 2023-01-19 | Outpatient (CLI) | payer MEDICARE, OTHER ==
--- NOTE | 2023-01-22 19:03 | MM ---
Reason for Exam: Screening (asymptomatic). Last mammogram was performed 1 year(s) and 2 month(s) ago. Patient History: Menarche at age 12. First Full-Term at age 23. Postmenopausal. Breast cancer, age 59. Bilateral Benign Excisional Biopsy. 05/08/2019, Lumpectomy on the Right side. 05/08/2019, Malignant Core Biopsy on the right side. 10/30/2018, Malignant Core Biopsy on the right side. 2019, Radiation Therapy. 2019, Chemotherapy. 2019, Chemotherapy. 2019, Radiation Therapy on the right side. 05/08/2019, US discontinued breast loc RT on the right side. Maternal aunt had breast cancer, age 50. Sister had breast cancer, age 43. Prior Study Comparison: 10/21/2019 Bilateral Diagnostic Mammogram, [facility]. 10/21/2020 Bilateral Diagnostic Mammogram, [facility]. 11/11/2021 Bilateral Diagnostic Mammogram, [facility]. Tissue Density: The breast tissue is heterogeneously dense. This may lower the sensitivity of mammography. Findings: Analyzed By CAD. Pattern appears stable. Multiple surgical clips are within the right breast. There are scattered benign-appearing punctate calcifications. Benign spherical calcifications are present bilaterally. No suspicious groups of microcalcifications, spiculated or lobular masses, architectural distortion or other secondary signs of malignancy are mammographically apparent. Overall Assessment: Benign, BI-RAD 2 Management: Screening Mammogram of both breasts in 1 year. A negative mammogram report should not preclude additional follow up of suspicious palpable abnormalities. Patient should continue monthly self breast exam. A clinical breast exam by your physician is recommended on an annual basis and results should be correlated with mammographic findings. Electronically signed and approved by: Sebas Smiley D.O. Radiologis
== END | disposition home or self-care (01) ==
LOC: RADMAMWWP 12:50
PROVIDERS: ATTEND Internal Medicine
DX: Z12.31 Encounter for screening mammogram for malignant neoplasm of breast (principal); Z78.0 Asymptomatic menopausal state; Z80.3 Family history of malignant neoplasm of breast
CPT/HCPCS: 77063; 77067

== ENCOUNTER → 2023-04-24 | Outpatient (CLI) | payer MEDICARE, OTHER | END | disposition home or self-care (01) | LOC: LABPAT 11:40 | PROVIDERS: ATTEND Orthopaedic Surgery | DX: Z01.812 Encounter for preprocedural laboratory examination (principal); M47.812 Spondylosis without myelopathy or radiculopathy, cervical region; M48.02 Spinal stenosis, cervical region; Z22.322 Carrier or suspected carrier of Methicillin resistant Staphylococcus aureus | CPT/HCPCS: 87070 ==

== ENCOUNTER 2023-06-17 06:46 | Emergency (ER) | payer MEDICARE, OTHER ==
[2023-06-17 07:00] VITALS: TEMP 98.7
--- NOTE | 2023-06-17 07:03 | ED ---
Upper Extremity HPI - General Chief Complaint: Extremity Injury, Upper Stated Complaint: Fall, Right Hand Time Seen by Provider: 06/17/23 06:57 Source: patient, family, RN notes reviewed Mode of arrival: wheelchair Limitations: no limitations - History of Present Illness Initial Comments: 63-year-old female presents emergency Department chief complaint right hand pain, swelling. Patient states she fell for catch herself with her hand. She states her fingers bent back she has mid hand pain. No paresthesias no wrist pain no other complaints. - Related Data Home Medications Medication Instructions Recorded Confirmed Simvastatin [Zocor] 40 mg PO HS 02/18/15 05/07/23 Venlafaxine HCl 150 mg PO BID 02/18/15 05/07/23 Fenofibrate,Micronized 134 mg PO HS 12/01/16 05/07/23 [Fenofibrate] Meloxicam 15 mg PO HS 10/14/18 05/07/23 Metoprolol Succinate (ER) [Toprol 25 mg PO DAILY 05/06/19 05/07/23 XL] Morphine Sulfate ER [Ms Contin] 30 mg PO TID 02/28/20 05/07/23 Ergocalciferol (Vitamin D2) 1,250 mcg PO MO 07/05/22 05/07/23 [Drisdol (50,000 Iu)] Gabapentin [Neurontin] 300 mg PO TID 07/05/22 05/07/23 Vit C/E/Zn/Coppr/Lutein/Zeaxan 1 cap PO BID 07/05/22 05/07/23 [Preservision Areds 2 Softgel] HYDROcodone/APAP 7.5-325MG [[place] 1 tab PO Q4-6H PRN 05/07/23 05/07/23 7.5-325] amLODIPine [Norvasc] 10 mg PO DIRECTED 05/07/23 05/07/23 Previous Rx's Medication Instructions Recorded Amitriptyline HCl 50 mg PO HS #30 tablet 03/22/15 Cyanocobalamin [Vitamin B-12] 1,000 mcg PO DAILY 30 Days #30 tab 05/09/23 Cyclobenzaprine [Flexeril] 5 mg PO TID #90 tab 05/09/23 QUEtiapine [SEROquel] 12.5 mg PO BID 30 Days #30 tab 09/27/23 Allergies Allergy/AdvReac Type Severity Reaction Status Date / Time No Known Allergies Allergy Verified 06/17/23 06:56 Review of Systems ROS Statement: Those systems with pertinent positive or pertinent negative responses have been documented in the HPI. ROS Other: All systems not noted in ROS Statement are negative. 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 History of Any Multi-Drug Resistant Organisms: MRSA Date of last positivie culture/infection: 2009 MDRO Source:: chin Past Surgical History: Back Surgery, Breast Surgery, Section, Joint Replacement, Orthopedic Surgery, Tubal Ligation Additional Past Surgical History / Comment(s): Total R hip arthroplasty anterior approach. rt knee replacement, mult breast biopsies, regina carpal tunnel. regina cataracts, left hip replaced x2, Lumpectomy R breast with 8 lymph nodes removed, PAIN CLINIC PROCEDURES, Regina total shoulder arthroplasty, lumpectomies both breasts. Past Anesthesia/Blood Transfusion Reactions: No Reported Reaction Additional Past Anesthesia/Blood Transfusion Reaction / Comment(s): Pt has never received blood. Past Psychological History: Anxiety, Depression Smoking Status: Former smoker Past Alcohol Use History: None Reported Past Drug Use History: Marijuana - Past Family History Sister(s) Family Medical History: Cancer Additional Family Medical History / Comment(s): BREAST Cancer. Mother Family Medical History: Cancer Additional Family Medical History / Comment(s): Colon cancer. Father Family Medical History: CVA/TIA, Diabetes Mellitus Additional Family Medical History / Comment(s): ETOH General Exam Limitations: no limitations General appearance: alert, in no apparent distress Head exam: Present: atraumatic, normocephalic, normal inspection Eye exam: Present: normal appearance, PERRL, EOMI. Absent: scleral icterus, conjunctival injection, periorbital swelling Respiratory exam: Present: normal lung sounds bilaterally. Absent: respiratory distress, wheezes, rales, rhonchi, stridor Cardiovascular Exam: Present: regular rate, normal rhythm, normal heart sounds. Absent: systolic murmur, diastolic murmur, rubs, gallop, clicks Extremities exam: Present: other (Right hand pain, swelling, ecchymosis no wrist tenderness) Course Vital Signs 06/17/23 06:54 Temperature 98.7 F Pulse Rate 90 Respiratory 16 Rate Blood Pressure 131/72 O2 Sat by Pulse 96 Oximetry Medical Decision Making - Medical Decision Making Was pt. sent in by a medical professional or institution ([facility], PYROTECHNIST, urgent care, hospital, or [facility]...) When possible be specific @ -No Did you speak to anyone other than the patient for history (EMS, parent, family, police, friend...)? What history was obtained from this source @ -No Did you review nursing and triage notes (agree or disagree)? Why? @ -I reviewed and agree with nursing and triage notes Were old charts reviewed (outside hosp., previous admission, EMS record, old EKG, old radiological studies, urgent care reports/EKG's, [facility] records)? Report findings @ -No old charts were reviewed Differential Diagnosis (chest pain, altered mental status, abdominal pain women, abdominal pain men, vaginal bleeding, weakness, fever, dyspnea, syncope, headache, dizziness, GI bleed, back pain, seizure, CVA, palpatations, mental health, musculoskeletal)? @ -Hand fracture, hand sprain EKG interpreted by me (3pts min.). @ -none X-rays interpreted by me (1pt min.). @ -X-ray right hand no acute fracture dislocation soft tissue swelling noted. CT interpreted by me (1pt min.). @ -None done U/S interpreted by me (1pt. min.). @ -None done What testing was considered but not performed or refused? (CT, X-rays, U/S, labs)? Why? @ -None What meds were considered but not given or refused? Why? @ -None Did you discuss the management of the patient with other professionals (professionals i.e. [facility], PYROTECHNIST, lab, RT, psych nurse, public health social worker, pill maker, teacher, disbursing officer, keycase assembler)? Give summary @ -No Was smoking cessation discussed for >3mins.? @ -No Was critical care preformed (if so, how long)? @ -No Were there social determinants of health that impacted care today? How? (Homelessness, low income, unemployed, alcoholism, drug addiction, transportation, low edu. Level, literacy, decrease access to med. care, retirement, rehab)? @ -No Was there de-escalation of care discussed even if they declined (Discuss DNR or withdrawal of care, Hospice)? DNR status @ -No What co-morbidities impacted this encounter? (DM, HTN, Smoking, COPD, CAD, Cancer, CVA, ARF, Chemo, Hep., AIDS, mental health diagnosis, sleep apnea, morbid obesity)? @ -None Was patient admitted / discharged? Hospital course, mention meds given and route, prescriptions, significant lab abnormalities, going to OR and other pertinent info. @ -Discharge x-rays are negative for acute fracture patient is right-hand sprain will be discharged in stable condition follow up with orthopedics as needed. Undiagnosed new problem with uncertain prognosis? @ -No Drug Therapy requiring intensive monitoring for toxicity (Heparin, Nitro, Insulin, Cardizem)? @ -No Were any procedures done? @ -No Diagnosis/symptom? @ -[right hand sprain Acute, or Chronic, or Acute on Chronic? @ -acute Uncomplicated (without systemic symptoms) or Complicated (systemic symptoms)? @ -uncomplicated Side effects of treatment? @ -No Exacerbation, Progression, or Severe Exacerbation? @ -No Poses a threat to life or bodily function? How? (Chest pain, [place], NH, pneumonia, PE, COPD, DKA, ARF, appy, cholecystitis, CVA, Diverticulitis, Homicidal, Suicidal, threat to staff... and all critical care pts) @ -No Disposition Clinical Impression: Sprain of right hand Disposition: HOME SELF-CARE Condition: Stable Instructions (If sedation given, give patient instructions): Hand Sprain (ED) Additional Instructions: Please return to the Emergency Department if symptoms worsen or any other concerns. Is patient prescribed a controlled substance at d/c from ED?: No Referrals: Milton Skinner MD [Primary Care Provider] - 1-2 days Ashley Quinones DO [Doctor of Osteopathic Medicine] - 1-2 days Time of Disposition: 07:44
--- NOTE | 2023-06-17 07:35 | XR ---
EXAMINATION TYPE: XR hand complete RT DATE OF EXAM: 06/17/2023 7:19 AM CLINICAL INDICATION:Female, 63 years old with history of pain; fellow, right fourth digit contusion a nd swelling COMPARISON: None TECHNIQUE: XR hand complete RT Frontal, lateral and oblique views were obtained. FINDINGS: 3 views of the hand. No evidence of acute fracture or dislocation. Mild diffuse osteoarthritic change s. Unremarkable soft tissues. No radiopaque foreign body. IMPRESSION: No acute fracture or dislocation.
[2023-06-17 08:30] VITALS: BP 135/65; PULSE 87; RESP 18
== END 2023-06-17 08:25 | disposition home or self-care (01) ==
LOC: EC 06:46
DX: S63.8X1A Sprain of other part of right wrist and hand, initial encounter (principal); E11.9 Type 2 diabetes mellitus without complications; E78.5 Hyperlipidemia, unspecified; I10 Essential (primary) hypertension; M19.90 Unspecified osteoarthritis, unspecified site; F41.9 Anxiety disorder, unspecified; F32.A Depression, unspecified; F12.90 Cannabis use, unspecified, uncomplicated; Z79.899 Other long term (current) drug therapy; W01.198A Fall on same level from slipping, tripping and stumbling with subsequent striking against other object, initial encounter
CPT/HCPCS: 99284

== ENCOUNTER → 2023-10-11 | Outpatient (CLI) | payer MEDICARE, OTHER ==
[2023-10-11 18:19] LABS: HCT 37.2 % (37.2-46.3); HGB 12.2 g/dL (12.0-15.0); MCH 29.5 pg (27.0-32.0); MCHC 32.8 g/dL (32.0-37.0); MCV 90.1 FL (80.0-97.0); Mean Platelet Volume 9.9 FL (9.5-12.2); NRBC Per 100 WBC 0 X 10*3/uL (0.00-0.01); Platelet Count 205 X 10*3/uL (140-440); RBC 4.13 X 10*6/uL (4.10-5.20); RDW 12.7 % (11.5-14.5); WBC 4.07 X 10*3/uL (4.50-10.00)
[2023-10-11 18:35] LABS: Prothrombin Time 10.8 sec (9.9-11.9)
[2023-10-11 18:58] LABS: ALT 16 U/L (8-44); AST 17 U/L (13-35); Albumin 4.5 g/dL (3.8-4.9); Albumin/Globulin Ratio 1.88 Ratio (1.60-3.17); Alkaline Phosphatase 68 U/L (41-126); Blood Urea Nitrogen 18.8 mg/dL (9.0-27.0); Calcium 9.8 mg/dL (8.7-10.3); Carbon Dioxide 30.9 mmol/L (21.6-31.8); Chloride 100 mmol/L (96-109); Globulin 2.4 g/dL (1.6-3.3); Glucose 114 mg/dL (70-110); Potassium 4.1 mmol/L (3.5-5.5); Sodium 140 mmol/L (135-145); Total Bilirubin 0.2 mg/dL (0.3-1.2); Total Protein 6.9 g/dL (6.2-8.2)
== END | disposition home or self-care (01) ==
LOC: LABPAT 14:54
PROVIDERS: ATTEND Orthopaedic Surgery
DX: Z01.818 Encounter for other preprocedural examination (principal); M43.16 Spondylolisthesis, lumbar region; M48.061 Spinal stenosis, lumbar region without neurogenic claudication
CPT/HCPCS: 36415; 80053; 82306; 85027; 85610; 86850; 86900; 86901; 87070

== ENCOUNTER 2023-10-18 11:12 | Observation (INO) | payer MEDICARE, OTHER ==
--- NOTE | 2023-10-18 06:38 | P.HPOR ---
History of Present Illness H&P Date: 10/11/23 .D:Date: 10/11/23 : 08:47am .T:Title: [facility] History and Physical Date of :64 [id number]: NKDA Age: 63 year Height: 5'6" Weight: 160 lbs BP:126/76 BMI: 25.02 kg/m2 BMI: 25.02 kg/m2 Occupation: Disabled Hand:Right IMPRESSION: It was my pleasure to have seen and examined Yuliya. I reviewed the patient's clinical syndrome, physical findings, and imaging studies during the appointment today. It is my impression that the patient has a diagnosis of. 1. L4-5 Grade I spondylolisthesis, unstable 2. L4 spondylolysis 3. Bilateral LE radiculopathy 4. Bilateral LE weakness 5. Low back pain I outlined the natural course history without intervention and various interventional options. Spine Surgery Risk Review Ms. North is presenting for evaluation of low back and bilateral lower extremity pain, bilateral lower extremity numbness, tingling, and weakness. It was my pleasure to have seen and examined Ms. North. In our visit today we have had a chance to go over subjective complaints, physical examination findings and treatments including the natural course history without intervention and various interventional options. The patients imaging demonstrates: AP and Lateral XRay of the Cervical spine reviewed in office today 08/31/23 at [facility] and demonstrates: Post operative changes with ACDF construct at C4-6 with hardware in good position, good reduction of height, lordosis and alignment. No complicating process seen. XRayLumbar Multiview (AP, Lateral, Flexion, Extension) with AP pelvis; 5 views taken at [facility] on 07/25/23 of Lumbar Spine: This is reviewed with the patient and demonstrates. L4-L5 unstable grade 1 spondylolisthesis. Disc degeneration facet arthrosis and spondylosis noted at this level. Bilateral foraminal stenosis which is worsened with flexion. Extension partially reduces. No acute fracture or dislocation otherwise noted. Pseudoarthrosis of L5 on S1 noted. 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 AP pelvis demonstrates postsurgical changes bilateral hip total arthroplasty in place no signs of cup healing process seen. 05/23/2023 MRI lumbar spine done at [facility] is reviewed with patient: This demonstrates again unstable L4-L5 grade 1 spondylolisthesis which was partially reduced in the supine film. Bilateral foraminal stenosis which is moderate to severe. There are pars defects bilaterally this is more of a spondylolysis and spondylolisthesis alone. Ligamental hypertrophy contributes to stenosis. Facet hypertrophy as well as lateral recess stenosis. Pseudoarthrosis L5-S1 noted. No other acute fracture or dislocation noted. On physical exam, Ms. North demonstrates: She has had back pain for some time now and nothing seems to help it.She has tried PT, HEP, Rx and OTC meds without relief.She feels like the back is clicking when she moves and when she bends over it is hard to stand back up due to this and the pain she is having.She also describes pain that shoots down her legs into he feet.It is bilateral but seems to be more on the left side.She denies any into her groin or genital region. She states some paresthesias into legs as well which is bothering her currently. I have explained to the patient that as their condition progresses it will cause further neurological deficits and eventual paralysis. Based on the patients imaging, physical exam, and the rapid progression and disabling nature of their symptoms, at this time I recommend surgery in the form of a: L4-5 minimally invasive posteriolateral and interbody fusion. I discussed the risk and benefits of this procedure at length with Ms. North. The patient agreed to considered pursuing the procedure abovementioned. Prior to surgery, she should follow up with her PCP (Cardio, ID, IM etc) for clearance. Questions were invited and answered, and the patient wishes to proceed as outlined below. Currently, I am recommendin.L4-5 minimally invasive posteriolateral and interbody fusion 2.Review of surgical risks and benefits as well as an educational packet on the proposed surgical procedure. Risks: All surgical procedures come with inherent risks, including those related to positioning, anesthesia, intraoperative findings, and postoperative complications. It is important to understand that surgery does not come with any guarantee of a successful outcome as complications and adverse events are always possible. The patient was given a handout in office today discussing the surgical procedure and risks associated with the intervention, both of which were discussed with the patient. These risks include but are not limited to the following: * Experiencing same, different or even worse symptoms in back, neck, arms, or legs compared to before surgery. Requiring further surgery or other forms of treatment presently or at some time in the future at same or other levels of the intended spine surgery. On an extreme but fortunately relatively rare basis severe complication such as blindness, stroke, heart attack, temporary and/or permanent nerve injury, paralysis, coma, or may occur, sometimes without known explanation. Surgical complications may include but are not limited to risk of infection, fluid accumulation in the surgical dissection site, including a seroma or hematoma, that requires additional surgery, wound drainage, bleeding, new numbness or weakness, vision changes/loss, spinal fluid leakage, non-healing and/or infected incision, headaches, difficulty or inability to swallow, hoarseness, hemopneumothorax, pneumothorax, impotence, retrograde ejaculation, vaginal dryness; injury to nerves, spinal cord, blood vessels, lymphatics or other vital organs (i.e., bowel injury, injury to the great vessels); heterotopic bone formation; complications related to the hardware such as screws, rods, cages including misplaced hardware, device failure, instrumentation at the wrong spine level, hardware fracture/breakage, or hardware loosening; vertebral failure of the spinal column above or below the newly placed hardware; retained surgical instrumentations or devices and the need for further surgery. * Medical risks of the planned spine surgery include but are not limited to generalized Infections to the whole body or local areas outside of the surgical site (sepsis), heart attack, bleeding, anaphylaxis, meningitis, seizure, epilepsy, hearing loss, burn reynolds, laceration of the head or other areas of the body, bruising, hypersensitivity of the skin, bladder over distension; allergic reaction; shoulder injury related to positioning; fat, blood and air clots to other areas of the body like heart, lungs, brain; failure of internal organs such as lungs, kidneys, liver and excessive bleeding. If blood transfusions are necessary, note that transfusions may cause intolerance reactions such as anaphylaxis or other complex reactions. Despite best efforts, the results of spine surgery might not heal in terms of bone, soft tissues such as skin, fascia, ligaments, and joints. Additionally, in order to achieve best possible results, spine surgery may be carried out beyond the initially planned levels and involve decompression, fusion including insertion of hardware at levels other than the original intended area of surgical interest change some portions of the procedure in order to ensure the best possible outcomes. With spine surgery and spinal fusion, there are different off label uses of instrumentation (devices, implants and hardware) as well as biological substances (bone morphogenic proteins, demineralized bone matrix) as well as using extra bone from allograft sources (i.e. cadaver bone) or autograft (iliac crest bone, ribs, or the spine itself). The patient has been given information about these practices and their inherent risks and benefits. [facility] is an educational center that serves as a training facility for neurosurgical and orthopedic [employer]PER[employer] and Nursing students. Physician assistants are medically trained surgical providers who function in the outpatient, inpatient, and operating room setting under the direct supervision of the attending surgeon. [facility] has multiple operating rooms with single and overlapping rooms running daily. They currently function under the required guidelines as produced by the [facility] Finance Committee with regards to the overlapping rooms and will continue to comply with changes to this policy as they occur. The requirements include and are complied with as follows: (1) the critical portions of the overlapping rooms will not occur at the same time, (2) the attending physician will be physically present during the critical portions of the procedure and immediately available during the entire case, and (3) a back-up attending is designated should the primary attending not be immediately available. The patient has had a chance to review all the listed information, has been given print outs detailing this information, and has had all his/her questions answered to their satisfaction. It was my pleasure to have seen and examined Ms. North. In our visit today we have had a chance to go over my understanding of our patient's current condition, the natural course history without intervention and various interventional options. Questions were invited and answered, and the patient wishes to proceed as outlined above. I have seen and examined the patient for 25 minutes and we have spent more than 50% of the time in repeat and detailed counseling about the patient's condition, its natural course history with out and as much as can be predicted with surgery and re-review of various surgical treatment options. In conclusion, Ms. North requested we proceed with the above suggested surgery and are willing to accept risks and limitations of the suggested surgery as nature of the disease process and our best attempts at treatment for the condition. Thank you again for allowing us to be part of your patient's care. Please don't hesitate to contact me if you have any further questions. Signed and authenticated by: INCLUDE[employer]URE P:\\\\ppart\\\\Files\\\\[id number] \\d Zain Carmona DO [facility] Complex and Minimally Invasive Spine Surgery [address] [place], [place] [address] Follow- up: Post procedure Patient Education: (Informational booklet, instructions, etc) given at today's appointment: Yes .ED:Patient Education: Y Medications Reviewed: YES In our visit today Ms. North and I have had a chance to go over my understanding of the patient's current condition, the natural course history without intervention and various interventional options. Questions were invited and answered, and the patient wishes to proceed as outlined above. I will be sure to keep you updated afterMs. North returns here for further follow-up. Thank you again for your referral. Please do not hesitate to contact me if you have any further questions. Signed and authenticated by: Zain Carmona DO [facility] Complex and Minimally Invasive Spine Surgery [address] [place], [place] [id number] This message is confidential, intended only for the named recipient(s) and may contain information that is privileged or exempt from disclosure under applicable law. If you are not the intended recipient(s), you are notified that the dissemination, distribution or copying of this information is strictly prohibited. If you received this message in error, please notify the sender then delete this message. Patient verbalizes understanding of the information discussed. The above note was initiated by Lola Jackson, physician recording mobile sales assistant for Dr. Zain Carmona. This note has been reviewed by Dr. Carmona, who has made his personal changes and impressions for this document. CC: Milton Skinner M.D. # SIGNED BY Zain Carmona ([facility])10/16/2023 09:13AM Past Medical History Past Medical History: Cancer, Dementia, Diabetes Mellitus, Eye Disorder, Hyperlipidemia, Hypertension, Musculoskeletal Disorder, Osteoarthritis (OA), Pneumonia Additional Past Medical History / Comment(s): Osteomylitis after back surgery in 1988. Chronic neck and back pain. 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 Small aortic valve leak. Degenerative Disc Disease. Hx right breast cancer with surgery, chemo & radiation(2019). ? varicose veins, feet chronically cold, numbness in right foot. Hx Diabetes - resolved with weight loss - requests accucheck on arrival. Episode of dementia/delirium after neck surgery, was hositalized. Hx renal failure X1 due to dehydration. History of Any Multi-Drug Resistant Organisms: MRSA Date of last positivie culture/infection: 2009 MDRO Source:: chin Past Surgical History: Back Surgery, Breast Surgery, Section, Joint Replacement, Orthopedic Surgery, Tubal Ligation Additional Past Surgical History / Comment(s): Total right hip arthroplasty anterior approach, right knee replacement, multiple breast biopsies, bilatertal breast lumpectomies, right breast lumpectomies with 8 lymph nodes removed, bilateral carpal tunnel, bilateral cataracts, left hip replacement X2, PAIN CLI SULTANA PROCEDURES, bilateral total shoulder arthroplasty, neck surgery. Past Anesthesia/Blood Transfusion Reactions: No Reported Reaction Additional Past Anesthesia/Blood Transfusion Reaction / Comment(s): Pt has never received blood. Past Psychological History: Anxiety, Depression Smoking Status: Former smoker Past Alcohol Use History: None Reported Additional Past Alcohol Use History / Comment(s): Started smoking in 1971 and quit in 2006, smoked 1 PPD. Past Drug Use History: Marijuana Additional Drug Use History / Comment(s): Occasional Marijuana use. Aware no use 24 hrs prior to procedure. - Past Family History Sister(s) Family Medical History: Cancer Additional Family Medical History / Comment(s): Breast Cancer. Mother Family Medical History: Cancer Additional Family Medical History / Comment(s): Colon cancer. Father Family Medical History: CVA/TIA, Diabetes Mellitus Additional Family Medical History / Comment(s): ETOH. Medications and Allergies Home Medications Medication Instructions Recorded Confirmed Type Simvastatin [Zocor] 40 mg PO HS 02/18/15 10/16/23 History Venlafaxine HCl 150 mg PO BID 02/18/15 10/16/23 History Amitriptyline HCl 50 mg PO HS #30 tablet 03/22/15 10/16/23 Rx Fenofibrate,Micronized 134 mg PO HS 12/01/16 10/16/23 History [Fenofibrate] Meloxicam 15 mg PO HS 10/14/18 10/16/23 History Metoprolol Succinate (ER) [Toprol 25 mg PO HS 05/06/19 10/16/23 History XL] Morphine Sulfate ER [Ms Contin] 30 mg PO TID 02/28/20 10/16/23 History Ergocalciferol (Vitamin D2) 1,250 mcg PO MO 07/05/22 10/16/23 History [Drisdol (50,000 Iu)] Gabapentin [Neurontin] 300 mg PO TID 07/05/22 10/16/23 History Vit C/E/Zn/Coppr/Lutein/Zeaxan 1 cap PO BID 07/05/22 10/16/23 History [Preservision Areds 2 Softgel] HYDROcodone/APAP 7.5-325MG [Grant 1 tab PO BID 05/07/23 10/16/23 History 7.5-325] amLODIPine [Norvasc] 10 mg PO QAM 05/07/23 10/16/23 History Cyclobenzaprine [Flexeril] 5 mg PO TID #90 tab 05/09/23 10/16/23 Rx QUEtiapine [SEROquel] 12.5 mg PO BID 30 Days #30 tab 05/09/23 10/16/23 Rx Aspirin [Adult Low Dose Aspirin EC] 81 mg PO DAILY 10/16/23 10/16/23 History Allergies Allergy/AdvReac Type Severity Reaction Status Date / Time No Known Allergies Allergy Verified 10/16/23 08:50 Physical Examination Osteopathic Statement: *. No significant issues noted on an osteopathic structural exam other than those noted in the History and Physical/Consult.
[~2023-10-18 11:12] MED LIST changes: -ACETAMINOPHEN TAB 500 MG TAB PO PRN; -DEXAMETHASONE SOD PHOSPHATE 4 MG/ML 1 ML VIAL IV ONE; +GABAPENTIN 300 MG CAP PO PRN; -MELOXICAM 7.5 MG TAB PO PRN; -ONDANSETRON 4 MG/2 ML VIAL IVP ONE; +ONDANSETRON 4 MG/2 ML VIAL IVP PRN; +TRANEXAMIC 1,000 MG/100ML-NACL 1,000 MG in SALINE 1 100ML.BAG IVPB PRN; -TRANEXAMIC ACID IN NACL,ISO-OS 1,000 MG in SALINE 1 100ML.BAG IVPB PRN
[2023-10-18] MEDS: LACTATED RINGERS 1,000 ML IV ONE ×2 (11:41→16:04)
[2023-10-18] MEDS: ACETAMINOPHEN TAB 500 MG TAB PO PRN (11:42)
[2023-10-18 11:59] LABS: Glucose,Whole Blood 131 mg/dL (70-110)
[2023-10-18] MEDS: DEXAMETHASONE SOD PHOSPHATE 4 MG/ML 1 ML VIAL IV ONE (12:05)
[2023-10-18] MEDS: ONDANSETRON 4 MG/2 ML VIAL IVP ONE (12:05)
[2023-10-18] MEDS: THROMBIN (BOVINE) 5,000 UNIT VIAL MISCELLANE ONE ×2 (14:12→14:54)
[2023-10-18] MEDS ORDERED: GLYCOPYRROLATE 0.2 MG/ML 2 ML VIAL ONE (14:15)
[2023-10-18] MEDS ORDERED: PROPOFOL 10 MG/ML 20 ML VIAL IV ONE (14:15)
[2023-10-18] MEDS ORDERED: PHENYLEPHRINE-0.9% NACL SYG 1,000 MCG/10 ML SYRINGE ONE (14:15)
[2023-10-18] MEDS ORDERED: NEOSTIGMINE 1 MG/ML 10 ML VIAL ONE (14:15)
[2023-10-18] MEDS ORDERED: LIDOCAINE 1% INJ 10MG/ML (20 ML MDV) ONE (14:15)
[2023-10-18] MEDS ORDERED: fentaNYL (PF) 50 MCG/ML 2 ML AMP ONE (14:15)
[2023-10-18] MEDS ORDERED: SUCCINYLCHOLINE CHLORIDE 200 MG/10 ML VIAL IV ONE (14:15)
[2023-10-18] MEDS ORDERED: TRANEXAMIC 1,000 MG/100ML-NACL PREMIX BAG ONE (14:15)
[2023-10-18] MEDS ORDERED: MIDAZOLAM 2 MG/2 ML VIAL ONE (14:15)
[2023-10-18] MEDS ORDERED: ROCURONIUM 10 MG/ML (5 ML VIAL) IV ONE (14:15)
[2023-10-18] MEDS: LACTATED RINGERS 1,000 ML IV SCH (14:17)
[2023-10-18] MEDS: LIDOCAINE 1%-EPI 1:100,000 50 ML VIAL SQ ONE (16:26)
[2023-10-18] MEDS: BUPIVACAINE (PF) 0.5% 30 ML VIAL SQ ONE (16:27)
[2023-10-18] MEDS ORDERED: HYDROcodone/APAP 5-325MG 1 EACH TAB PO PRN (16:42)
[2023-10-18] MEDS ORDERED: MAGNESIUM HYDROXIDE 2,400 MG/30 ML CUP PO PRN (16:42)
[2023-10-18] MEDS ORDERED: SENNOSIDES-DOCUSATE SODIUM 1 EACH TAB PO PRN (16:42)
--- NOTE | 2023-10-18 16:50 | P.OP ---
Date of Procedure: 10/18/23 Preoperative Diagnosis: 1. L4-5 SPONDYLOLISTHESIS GRADE I UNSTABLE 2. L4-5 SPONDYLOSIS WITH STENOSIS 3. LE RADICULOPATHY 4. LOW BACK PAIN Postoperative Diagnosis: 1. L4-5 SPONDYLOLISTHESIS GRADE I UNSTABLE 2. L4-5 SPONDYLOSIS WITH STENOSIS 3. LE RADICULOPATHY 4. LOW BACK PAIN Procedure(s) Performed: 1. L4-5 POSTERIOLATERAL AND INTERBODY FUSION 2. L4-5 LAMINOFORAMINOTOMY 3. L4-5 INSTRUMENTED FUSION 4. L4-5 PLACEMENT OF BIOMECHANICAL CAGE 5. USE OF DALILA NAVIGATION FOR SCREW PLACEMENT USE OF IONM USE OF IO MICROSCOPE CODES: 90898, 23202, 57753, 27601, 18625 Implants: DALILA EVEREST RODS AND SCREWS GLOBUS SABLE CAGE 9-16 10MM 8 DEG MAGNATOS, ARTHROCELL, IFACTOR, AUTOGRAFT, CONTOUR Anesthesia: GETA Surgeon: Zain Carmona Delivery Driver Assistant #1: Dago Pearl (WAS PRESENT AND ASSISTED WITH ALL ASPECTS OF THE CASE FROM POSITION TO CLOSURE) Estimated Blood Loss (ml): 75 IV fluids (ml): 1,200 Urine output (ml): 150 Pathology: none sent Condition: stable Disposition: PACU Indications for Procedure: Ms. North is presenting for evaluation of low back and bilateral lower extremity pain, bilateral lower extremity numbness, tingling, and weakness. It was my pleasure to have seen and examined Ms. North. In our visit today we have had a chance to go over subjective complaints, physical examination findings and treatments including the natural course history without intervention and various interventional options. The patients imaging demonstrates: AP and Lateral XRay of the Cervical spine reviewed in office today 08/31/23 at [facility] and demonstrates: Post operative changes with ACDF construct at C4-6 with hardware in good position, good reduction of height, lordosis and alignment. No complicating process seen. XRayLumbar Multiview (AP, Lateral, Flexion, Extension) with AP pelvis; 5 views taken at [facility] on 07/25/23 of Lumbar Spine: This is reviewed with the patient and demonstrates. L4-L5 unstable grade 1 spondylolisthesis. Disc degeneration facet arthrosis and spondylosis noted at this level. Bilateral foraminal stenosis which is worsened with flexion. Extension partially reduces. No acute fracture or dislocation otherwise noted. Pseudoarthrosis of L5 on S1 noted. 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 AP pelvis demonstrates postsurgical changes bilateral hip total arthroplasty in place no signs of cup healing process seen. 05/23/2023 MRI lumbar spine done at [facility] is reviewed with patient: This demonstrates again unstable L4-L5 grade 1 spondylolisthesis which was partially reduced in the supine film. Bilateral foraminal stenosis which is moderate to severe. There are pars defects bilaterally this is more of a spondylolysis and spondylolisthesis alone. Ligamental hypertrophy contributes to stenosis. Facet hypertrophy as well as lateral recess stenosis. Pseudoarthrosis L5-S1 noted. No other acute fracture or dislocation noted. On physical exam, Ms. North demonstrates: She has had back pain for some time now and nothing seems to help it.She has tried PT, HEP, Rx and OTC meds without relief.She feels like the back is clicking when she moves and when she bends over it is hard to stand back up due to this and the pain she is having.She also describes pain that shoots down her legs into he feet.It is bilateral but seems to be more on the left side.She denies any into her groin or genital region. She states some paresthesias into legs as well which is bothering her currently. I have explained to the patient that as their condition progresses it will cause further neurological deficits and eventual paralysis. Based on the patients imaging, physical exam, and the rapid progression and disabling nature of their symptoms, at this time I recommend surgery in the form of a: L4-5 minimally inv asive posteriolateral and interbody fusion. I discussed the risk and benefits of this procedure at length with Ms. North. The patient agreed to considered pursuing the procedure abovementioned. Prior to surgery, she should follow up with her PCP (Cardio, ID, IM etc) for clearance. Questions were invited and answered, and the patient wishes to proceed as outlined below. Currently, I am recommendin.L4-5 minimally invasive posteriolateral and interbody fusion Description of Procedure: L4-L5 MIS PLIBF, ALTON The patient was seen and examined in the preoperative area. All preoperative protocols were followed. Informed consent was obtained, risks and benefits of the procedure were discussed at length. Risks including bleeding infection damage to the surrounding tissue and risk of reoperation were discussed with the patient. Risk of anesthesia up to and including was discussed with the patient. These are outlined in the risk review. They were willing to accept these risks and all the risks of surgery. The patient was given a weight-based dose of antibiotics in the form of 2 g Ancef. The patient was seen and evaluated by the anesthesia team who deemed them fit for surgery. The site was marked, the patient was willing to proceed with the procedure. The patient was transferred to the operative suite by the Department of anesthesia. They were then drifted off to sleep by the department anesthesia and GETA was performed. The patient tolerated this well. Nieves catheter was placed by nursing staff, a-traumatically. Once confirmation of lines and ventilation the patient was transferred to a prone David table very carefully. All bony prominences including wrists, elbows, axilla, chest, hips, and thighs, and feet were padded very well. Special attention was paid to the genitalia, and these were padded accordingly. SCDs were placed on bilateral lower extremities and were connected. Arms were well padded and placed on arm boards up and out in the 90/90 position. Once in position, again we confirmed good ventilation capabilities and that lines were running appropriately. The patients Lumbar spine was then exposed. 1010s were placed outlining the incision site. Standard alcohol was used to clean the incision site and allowed to dry. C-arm was used to needle localize the pedicles at L4-5 and bio-mitzi the patient and confirm level for incision which was marked with a skin marker. Operative briefing was performed with all teams and everyone in agreement to proceed. The patient was then prepped and draped in a normal sterile fashion. Timeout was then performed, and all parties agreed with the procedure to be performed. Skin nicks made and pins placed in the PSIS on the right for the [place] tracker. 3D Zheim spin was then registered and confirmed to be accurate. Navigated jamshidi and compa were then used to target pedicles bilaterally at L4 and L5. Once accessed, wires were placed in their void. This was repeated at L5 bilaterally. Skin incision was then made along these wires and a perfect scalpel was used over the wire to create a path and measure screw length. Screws were then placed over wires on the contralateral side. Once the screw was at the back of the body wire was removed. The screws were confirmed to be in good position on AP and lateral. We then tested screws and they all tested above 20 mA. Attention was then turned to interbody fusion at L4-5. Tubular retractor system was placed at the interspace of L4-5 using a biplanar c arm. Once in position and dilated up to 26mm tube it was locked to the bed and confirmed in good position. Microscope was then brought in for visualization. Limited myomectomy was performed and laminectomy, complete facetectomy and foraminotomy performed at L4-5 using high speed compa and Kerrison rongeur. The ligamentum was removed and the dural sac decompressed. Exiting and traversing roots visualized and decompressed. Neural elements were then protected, and disc space accessed with an osteotome. Sequential shaving then done under lateral imaging and complete discectomy performed using stephen, pituitary and curettes. Once good bleeding endplates accomplished and good height mormon with trials, a combination of autograft, allograft and synthetic placed anterior in the disc space. The cage was then selected and impacted into place under lateral imaging. The cage was then expanded restoring height, lordosis and alignment. The cage was backfilled with bone graft through a funnel. The pit steward was removed and the area inspected. Good cage placement, stable cage and no injuries. Area was irrigated copiously, and meticulous hemostasis achieved. The tubular retractor was then removed under direct visualization. Screws were then selected and placed over the previously placed wires on the ipsilateral side. This was done in the fashion described above. Screws were then tested, and all tested above 20 mA. Shells were then placed on the tabs. Roney length was then measured, and rods selected. They were then placed through the MIS tabs, subfascial and locked into L5 bilateral and sequentially reduced into L4 for listhesis reduction. These were then locked into place with set screws and finally tightened. Roney holders removed and images taken showing good placement of rods, good lordosis and mormon of height. Tabs were broken off. Wounds were then copiously irrigated with NSS. [place] used for TP decorti cation and mixture of MagnatOs, allograft and autograft packed posterolateral. Fascia was then closed with 0 Vircyl on a Scorpion suture passer for MIS closure. Deep subq closed with 0 Vicryl. Superficial subq closed with 2-0 Vicryl and skin with tim. Wound edges approximated very well. Wound was then cleaned with alcohol and dried. Wounds dressed in Optifoam dressings. The patient was then transferred off the table back to their hospital bed a- traumatically. They were extubated by the department of anesthesia. They were then transferred to PACU in stable condition having tolerated the procedure with no complications.
[2023-10-18] MEDS: HYDROmorphone 0.5 MG/0.5 ML SYRINGE IVP PRN (17:00)
[2023-10-18] MEDS: MEPERIDINE 50 MG/ML SYRINGE IVP ONE ×5 (17:45→18:04)
[2023-10-18] MEDS: ACETAMINOPHEN TAB 325 MG TAB PO SCH (18:23)
[2023-10-18 20:11] LABS: Glucose,Whole Blood 248 mg/dL (70-110)
[2023-10-18] MEDS: GABAPENTIN 300 MG CAP PO SCH (20:32)
[2023-10-18] MEDS: HYDROmorphone 1 MG/ML 1 ML SYRINGE IVP PRN (20:32)
[2023-10-18] MEDS: INSULIN ASPART (NovoLOG) 100 UNIT/ML VIAL SQ SCH (22:02)
[2023-10-19] MEDS: HYDROcodone/APAP 10-325MG 1 EACH TAB PO PRN (04:00)
[2023-10-19] MEDS: CYCLOBENZAPRINE 10 MG TAB PO PRN (04:00)
[2023-10-19 05:16] LABS: Glucose,Whole Blood 159 mg/dL (70-110)
[2023-10-19] MEDS ORDERED: HYDROcodone/APAP 5-325MG 1 EACH TAB PO PRN (07:26)
[2023-10-19] MEDS: MORPHINE SULFATE ER 30 MG TABLET PO SCH (08:12)
[2023-10-19] MEDS: CYCLOBENZAPRINE 10 MG TAB PO SCH (08:12)
--- NOTE | 2023-10-19 08:12 | P.PN ---
Subjective Progress Note Date: 10/19/23 Principal diagnosis: 1. L4-5 Grade I spondylolisthesis, unstable 2. L4 spondylolysis 3. Bilateral LE radiculopathy 4. Bilateral LE weakness 5. Low back pain Patient seen and examined this morning. Patient is resting in bed. Patient has complaint of moderate low back pain that is radiating into her bilateral hips. Patient reports her pain is not managed on current regimen. Medications have been adjusted, home medication of Morphine 30mg has been initiated. This is to be given in addition to prn pain medication. Utilize ice therapy to assist with pain and swelling. Patient does report that she has been up to bedside commode. Surgical dressings to the paralumbar spine are intact with mild shadowing on the right dressing. Encouraged patient to work with physical therapy today. No acute concerns at this time. Objective - Vital Signs Vital signs: Vital Signs Temp 100.4 F H 10/19/23 00:53 Pulse 103 H 10/19/23 02:00 Resp 20 10/19/23 00:53 BP 137/70 10/19/23 02:00 Pulse Ox 96 10/19/23 00:53 FiO2 Intake & Output 10/18/23 10/19/23 10/19/23 18:59 06:59 18:59 Intake Total 2550 1380 Output Total 75 Balance 2475 1380 Weight 70.3 kg 70.3 kg Intake: IV 2550 Oral 1380 Output: Estimated Blood Loss 75 Other: Voiding Method Bedside Commode # Voids 4 - Exam Physical Examination General: The patient is awake and alert, in no acute distress Skin: Skin is warm and dry with no obvious rashes or lesions. Surgical incisions to the paralumbar spine, dressings are intact. Mild shadowing on the right. Eye: Pupils are equal, round and reactive to light, extra-ocular movements are intact; there is normal conjunctiva bilaterally. Neck: The neck is supple, there is no tenderness and ROM intact. Cardiovascular: There is a regular rate and rhythm. No murmur, rub or gallop is appreciated. Respiratory: Lungs are clear to auscultation, respirations are non-labored, breath sounds are equal. Gastrointestinal: Soft, non-distended, non-tender abdomen. Back: There is moderate tenderness to palpation in the paralumbar region around the incisions. There is no obvious deformity. . Musculoskeletal: ROM limited secondary to pain and stiffness from surgical procedure. Muscle strength in all major muscle groups of bilateral upper extremities 5/5, bilateral lower extremities 4/5. Neurological: CN 2-12 intact. There are no obvious motor or sensory deficits. Movement and coordination equal and intact. Sensory exam to light touch intact C5-T1 and intact from L2-S1. Reflexes 2/4 in bilateral upper and lower extremities. Negative Hoffmans, babinski, and clonus signs. Psychiatric: Cooperative, appropriate mood & affect, normal judgment. - Labs Labs: Abnormal Lab Results - Last 24 Hours (Table) 10/18/23 10/18/23 10/19/23 Range/Units 11:55 20:09 05:15 POC Glucose (mg/dL) 131 H 248 H 159 H (70-110) mg/dL Assessment and Plan Assessment: Postop day 1: Left L4-L5 WI TLIF 1. L4-5 Grade I spondylolisthesis, unstable 2. L4 spondylolysis 3. Bilateral LE radiculopathy 4. Bilateral LE weakness 5. Low back pain Plan: -Appreciate hospice consultant and team management. -Activity: Ambulate QID, OOB all meals, up and about, limit lifting bending twisting to less than 5 lbs. Use walker or cane if needed for stability. -Daily PT/OT, increase ambulation strength and balance. -Pain control: Adequate at this time -Meds: reviewed -GI ppx: senna, Miralax -DVT PPX: OK to restart Heparin tonight -Hygiene: Shower today. Maintain dressing clean and dry. Meticulous cleaning after BMs away from the incision site -Encourage IS 10x/hr -Dispo: Anticipate discharge home tomorrow with homecare *I reviewed and discussed this case with my attending Dr. Carmona, whom has reviewed this chart and films and is in agreement with assessment and plan of care as outlined above. I have personally seen and examined the patient, performed the documentation and the assessment and plan as written. Number of minutes spent on the visit: 20m.
[2023-10-19 09:02] LABS: BUN/Creat Ratio 14.75 Ratio (12.00-20.00); Blood Urea Nitrogen 11.8 mg/dL (9.0-27.0); Chloride 100 mmol/L (96-109); Glucose 137 mg/dL (70-110); Potassium 3.3 mmol/L (3.5-5.5); Sodium 137 mmol/L (135-145)
[2023-10-19] MEDS ORDERED: Potassium Replacement Protocol 1 EACH MISC MISCELLANE PRN (10:32)
--- NOTE | 2023-10-19 10:37 | P.CONS ---
History of Present Illness - Reason for Consult Consult date: 10/19/23 - History of Present Illness This is a 63-year-old female patient who presented for an elective L4 to L5 laminectomy and fusion with Dr. Saavedra on 10/18/2023. patient has a past medical history of low back and bilateral lower extremity pain with lower infection many numbness that failed conservative management. Additional medical history includes, hyperlipidemia, hypertension, diabetes mellitus, osteoarthritis, osteomyelitis, anxiety and depression. At this time patient is currently postop day 1. She is resting comfortably in bed is complaining of some pain and inability to sleep. Patient denies chest pain or shortness of breath. Patient denies nausea vomiting or diarrhea. Patient denies any urinary frequency. Patient does have a low-grade temp at 99.4. Will order a urinary analysis and chest x-ray. Review of Systems Please refer to HPI otherwise unremarkable Past Medical History Past Medical History: Cancer, Dementia, Diabetes Mellitus, Eye Disorder, Hyperlipidemia, Hypertension, Musculoskeletal Disorder, Osteoarthritis (OA), Pneumonia Additional Past Medical History / Comment(s): Osteomylitis after back surgery in 1988. Chronic neck and back pain. 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 Small aortic valve leak. Degenerative Disc Disease. Hx right breast cancer with surgery, chemo & radiation(2019). ? varicose veins, feet chronically cold, numbness in right foot. Hx Diabetes - resolved with weight loss - requests accucheck on arrival. Episode of dementia/delirium after neck surgery, was hos italized. Hx renal failure X1 due to dehydration. History of Any Multi-Drug Resistant Organisms: MRSA Year Discovered:: 2009 MDRO Source:: chin Past Surgical History: Back Surgery, Breast Surgery, Section, Joint Replacement, Orthopedic Surgery, Tubal Ligation Additional Past Surgical History / Comment(s): Total right hip arthroplasty anterior approach, right knee replacement, multiple breast biopsies, bilatertal breast lumpectomies, right breast lumpectomies with 8 lymph nodes removed, bilateral carpal tunnel, bilateral cataracts, left hip replacement X2, PAIN CLINIC PROCEDURES, bilateral total shoulder arthroplasty, neck surgery. Past Anesthesia/Blood Transfusion Reactions: No Reported Reaction Additional Past Anesthesia/Blood Transfusion Reaction / Comm: Pt has never received blood. Past Psychological History: Anxiety, Depression Additional Psychological History / Comment(s): . Smoking Status: Former smoker Past Alcohol Use History: None Reported Additional Past Alcohol Use History / Comment(s): Started smoking in 1971 and quit in 2006, smoked 1 PPD. Past Drug Use History: Marijuana Additional Drug Use History / Comment(s): Occasional Marijuana use. Aware no use 24 hrs prior to procedure. - Past Family History Sister(s) Family Medical History: Cancer Additional Family Medical History / Comment(s): Breast Cancer. Mother Family Medical History: Cancer Additional Family Medical History / Comment(s): Colon cancer. Father Family Medical History: CVA/TIA, Diabetes Mellitus Additional Family Medical History / Comment(s): ETOH. Medications and Allergies Home Medications Medication Instructions Recorded Confirmed Type Simvastatin [Zocor] 40 mg PO HS 02/18/15 10/16/23 History Venlafaxine HCl 150 mg PO BID 02/18/15 10/16/23 History Amitriptyline HCl 50 mg PO HS #30 tablet 03/22/15 10/16/23 Rx Fenofibrate,Micronized 134 mg PO HS 12/01/16 10/16/23 History [Fenofibrate] Meloxicam 15 mg PO HS 10/14/18 10/16/23 History Metoprolol Succinate (ER) [Toprol 25 mg PO HS 05/06/19 10/16/23 History XL] Morphine Sulfate ER [Ms Contin] 30 mg PO TID 02/28/20 10/16/23 History Ergocalciferol (Vitamin D2) 1,250 mcg PO MO 07/05/22 10/16/23 History [Drisdol (50,000 Iu)] Gabapentin [Neurontin] 300 mg PO TID 07/05/22 10/16/23 History Vit C/E/Zn/Coppr/Lutein/Zeaxan 1 cap PO BID 07/05/22 10/16/23 History [Preservision Areds 2 Softgel] HYDROcodone/APAP 7.5-325MG [Moran 1 tab PO BID 05/07/23 10/16/23 History 7.5-325] amLODIPine [Norvasc] 10 mg PO QAM 05/07/23 10/16/23 History Cyclobenzaprine [Flexeril] 5 mg PO TID #90 tab 05/09/23 10/16/23 Rx QUEtiapine [SEROquel] 12.5 mg PO BID 30 Days #30 tab 05/09/23 10/16/23 Rx Aspirin [Adult Low Dose Aspirin EC] 81 mg PO DAILY 10/16/23 10/16/23 History Allergies Allergy/AdvReac Type Severity Reaction Status Date / Time No Known Allergies Allergy Verified 10/16/23 08:50 Physical Exam Vitals: Vital Signs Temp Pulse Pulse Resp BP Pulse Ox 10/19/23 07:53 99.0 F 109 H 18 151/64 98 10/19/23 07:35 109 H 18 10/19/23 02:00 103 H 137/70 10/19/23 01:45 100 147/69 10/19/23 01:30 103 H 134/70 10/19/23 01:00 107 H 129/57 10/19/23 00:53 100.4 F H 105 H 20 134/73 96 10/18/23 19:47 99.4 F 114 H 20 117/51 95 10/18/23 18:28 107 H 16 124/54 96 10/18/23 18:15 110 H 16 133/59 96 10/18/23 18:00 107 H 16 127/53 97 10/18/23 17:45 106 H 16 121/48 99 10/18/23 17:31 108 H 16 124/63 100 10/18/23 17:16 104 H 16 131/64 100 10/18/23 17:00 104 H 16 107/69 100 10/18/23 16:50 97.5 F L 98 10 L 148/61 100 10/18/23 12:04 97.8 F 95 18 133/61 95 Intake and Output 10/18/23 10/19/23 10/19/23 22:59 06:59 14:59 Intake Total 1200 1380 Output Total 75 Balance 1125 1380 Intake: IV 1200 Oral 1380 Output: Estimated Blood Loss 75 Other: Voiding Method Bedside Commode Bedside Commode # Voids 4 Weight 70.3 kg Head normocephalic Neck supple Lungs clear to auscultation bilaterally no wheezing or crackles Heart regular rate and rhythm S1-S2, no rub or gallop Abdomen is soft nontender nondistended positive bowel sounds no hepatosplenomegaly Extremities no edema Neuro alert and orientated to 3 Results CBC & Chem 7: 10/19/23 05:18 Labs: Abnormal Lab Results - Last 24 Hours (Table) 10/18/23 10/18/2310/18/24 Range/Units 11:55 20:09 05:15 Potassium (3.5-5.5) mmol/L Anion Gap (4.00-12.00) mmol/L Glucose (70-110) mg/dL POC Glucose (mg/dL) 131 H 248 H 159 H (70-110) mg/dL 10/19/23 Range/Units 05:18 Potassium 3.3 L (3.5-5.5) mmol/L Anion Gap 13.00 H (4.00-12.00) mmol/L Glucose 137 H (70-110) mg/dL POC Glucose (mg/dL) (70-110) mg/dL Assessment and Plan Assessment: 1. Status post L4 to L5 laminectomy and fusion on 10/18/2023 2. Febrile. UA and chest x-ray ordered 3. Previous history of cervical surgery in 2022 4. History of chronic pain syndrome maintained on morphine 5. History of depression 6. History of peripheral neuropathy 7. History of hypertension 8. History of hyperlipidemia DVT prophylaxis will defer to surgical services GI prophylaxis Protonix Thank you for this consultation we'll continue to follow patient closely throughout stay Chest x-ray and urinary analysis ordered Time with Patient: Greater than 30 (Greater than 60% of the total time spent in counseling and coordination of care)
[2023-10-19 11:04] LABS: Glucose,Whole Blood 170 mg/dL (70-110)
[2023-10-19 11:10] LABS: Basophils # (A) 0.01 X 10*3/uL (0.00-0.10); Basophils % (A) 0.1 %; Eosinophils # (A) 0.01 X 10*3/uL (0.04-0.35); Eosinophils % (A) 0.1 %; HCT 31.5 % (37.2-46.3); HGB 10.5 g/dL (12.0-15.0); Lymphocytes # (A) 0.87 X 10*3/uL (0.90-5.00); MCH 29.8 pg (27.0-32.0); MCHC 33.3 g/dL (32.0-37.0); MCV 89.5 FL (80.0-97.0); Mean Platelet Volume 10.6 FL (9.5-12.2); Monocytes # (A) 0.96 X 10*3/uL (0.20-1.00); Monocytes % (A) 13.2 %; NRBC Per 100 WBC 0 X 10*3/uL (0.00-0.01); Neutrophils # (A) 5.41 X 10*3/uL (1.80-7.70); Neutrophils % (A) 74.3 %; Platelet Count 184 X 10*3/uL (140-440); RBC 3.52 X 10*6/uL (4.10-5.20); RDW 12.5 % (11.5-14.5); WBC 7.28 X 10*3/uL (4.50-10.00)
[2023-10-19] MEDS: QUEtiapine 25 MG TAB PO SCH (11:35)
[2023-10-19] MEDS: POTASSIUM CHLORIDE ER 20 MEQ TAB.ER PO SCH (11:36)
[2023-10-19] MEDS: VENLAFAXINE HCL 75 MG TAB PO SCH (11:36)
[2023-10-19] MEDS: amLODIPine 10 MG TAB PO SCH (11:36)
[2023-10-19 15:40] VITALS: BMI 25.0
--- NOTE | 2023-10-19 15:49 | FL ---
EXAMINATION TYPE: FL guidance operating room, XR lumbar spine 2 or 3V DATE OF EXAM: 10/18/2023 CLINICAL HISTORY: Low back pain. TECHNIQUE: Fluoroscopy. COMPARISON: None. FINDINGS: Fluoroscopic guidance was provided during minimally invasive lumbar surgical fusion proced ure performed by Dr. Carmona. A total of 50 seconds of fluoroscopic time was utilized during the procedure and 8 spot images was acquired. Total dose area product (DAP) in uGy*m?, mGy*cm? (or simil ar: 3631.81. Intraoperative images show posterior interpedicular rods and screws and metallic disc ma terial placed in the lumbar spine. IMPRESSION: As Above.
--- NOTE | 2023-10-19 15:54 | XR ---
EXAMINATION TYPE: XR chest 1V portable DATE OF EXAM: 10/19/2023 COMPARISON: 05/07/2023. HISTORY: Fever. TECHNIQUE: Single frontal view of the chest is obtained. FINDINGS: Bilateral shoulder arthroplasties are present. There is no focal air space opacity, pleural effusion, or pneumothorax seen. The cardiac silhouette it is mildly enlarged and the pulmonary vess els are within normal limits.. The osseous structures are intact. IMPRESSION: No acute process.
[2023-10-19] MEDS ORDERED: GABAPENTIN 300 MG CAP PO SCH (16:00)
[2023-10-19] MEDS ORDERED: CYCLOBENZAPRINE 5 MG TAB PO SCH (16:00)
[2023-10-19 16:33] LABS: Glucose,Whole Blood 200 mg/dL (70-110)
--- NOTE | 2023-10-19 17:51 | CT ---
EXAMINATION TYPE: CT lumbar spine wo con DATE OF EXAM: 10/19/2023 COMPARISON: None HISTORY: 63-year-old female s/p L4-L5 MIS PLIF TECHNIQUE: Contiguous axial scanning of the lumbar spine without IV contrast. Coronal and sagittal re constructions performed. CT DLP: 730.3 mGycm Automated exposure control for dose reduction was used. FINDINGS: Postsurgical change of L4-L5 posterior and interbody fusion. Suspect left-sided foraminotomy as well. There is interbody ankylosis across L5-S1. Metal artifact along the surgical level obscures assessment of the spinal canal. 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 Along the nonfused levels, no large focal disc herniation or significant spinal canal stenosis is see n. Large anterior endplate spondylosis T11-T12. Hypertrophic facet arthropathy mid to lower lumbar spine. On the left, there has been enlargement of the L4-L5 neuroforamen. On the right, there is mild neural foraminal stenosis L3-L4, L4-L5, and L5-S1. IMPRESSION: 1. STATUS POST L4-L5 POSTERIOR AND INTERBODY FUSION. THERE APPEARS TO BE LEFT-SIDED FORAMINOTOMY HERE WELL. NO EVIDENT HARDWARE COMPLICATION. 2. BONY INTERBODY ANKYLOSIS ACROSS L5-S1. 3. HYPERTROPHIC FACET ARTHROPATHY MID TO LOWER LUMBAR SPINE AND BAASTRUP'S DISEASE. 4. MILD NEUROFORAMINAL NARROWING ON THE RIGHT FROM L3 THROUGH S1 LEVELS.
[2023-10-19 18:14] LABS: Appearance,Urine Clear (Clear); Bilirubin,Urine Negative (Negative); Blood,Urine Negative (Negative); Color,Urine Colorless; Glucose,Urine (UA) 1+ (Negative); Ketones,Urine Negative (Negative); Leukocyte Esterase,Urine Negative (Negative); Nitrite,Urine Negative (Negative); PH, Urine 7.5 (5.0-8.0); Protein,Urine Negative (Negative); Specific Gravity,Urine 1.008 (1.001-1.035); Urobilinogen,Urine <2.0 mg/dL (<2.0)
[2023-10-19] MEDS: ATORVASTATIN 20 MG TAB PO SCH (21:00)
[2023-10-19] MEDS: HYDROcodone/APAP 7.5-325MG 1 EACH TAB PO SCH (21:00)
[2023-10-19] MEDS: FENOFIBRATE 160 MG TAB PO SCH (21:00)
[2023-10-19] MEDS: METOPROLOL SUCCINATE (ER) 25 MG TAB.ER.24H PO SCH (21:01)
[2023-10-19 21:02] LABS: Glucose,Whole Blood 170 mg/dL (70-110)
[2023-10-19] MEDS: VIT A,C & E-LUTEIN-MINERALS 1 EACH TAB PO SCH (21:02)
[2023-10-19] MEDS: AMITRIPTYLINE HCL 50 MG TAB PO SCH (21:04)
[2023-10-19] MEDS ORDERED: INSULIN ASPART (NovoLOG) 100 UNIT/ML VIAL SQ SCH (21:12)
[2023-10-20 06:00] LABS: Glucose,Whole Blood 144 mg/dL (70-110)
[2023-10-20] MEDS: PANTOPRAZOLE 40 MG TABLET PO SCH (06:39)
[2023-10-20] MEDS: HYDROmorphone 0.5 MG/0.5 ML SYRINGE IVP PRN (08:31)
--- NOTE | 2023-10-20 09:04 | P.PN ---
Subjective Progress Note Date: 10/20/23 Principal diagnosis: 1. L4-5 Grade I spondylolisthesis, unstable 2. L4 spondylolysis 3. Bilateral LE radiculopathy 4. Bilateral LE weakness 5. Low back pain Patient was seen at bedside this morning lying the left lateral recumbent positi on with dressing present in spine. Patient says she is still a lot of pain. Patient says she has been needing to take the IV pain medication to help control pain. Patient says she did work with therapy yesterday and did okay. Patient says she is hoping stay one more additional night for pain control and therapy. Patient says she has urinated daily since surgery. Patient says she has not had a bowel movement yet, however, patient says she hasn't passing gas. Patient says she has had a little bit to eat, however, patient says she has not had much in appetite. Patient denies any significant nausea or vomiting. Patient denies chest pain, fever, shortness breath, change in vision, loss of bowel/bladder control. Objective - Vital Signs Vital signs: Vital Signs Temp 98.6 F 10/19/23 19:43 Pulse 105 H 10/20/23 00:54 Resp 15 10/19/23 19:43 BP 120/63 10/20/23 00:54 Pulse Ox 96 10/20/23 05:01 FiO2 Intake & Output 10/19/23 10/20/23 10/20/23 18:59 06:59 18:59 Weight 70.3 kg Other: Voiding Method Bedside Commode # Voids 1 3 - Exam Surgical dressing present over lumbar spine. There is some spotting present on the right-sided dressing. New dressing was placed over incision. Malorie appear to be well aligned and intact. Negative for any active drainage. Sensation is equal, symmetric, bilaterally intact throughout the upper and lower extremities on exam. There is tenderness to palpation diffusely throughout the lumbar spine and midline and in the paravertebral region. Nontender to palpation throughout rest exam. Patient does have similar range of motion bilateral hips and flexion/extension secondary to stiffness and referred pain to the low back. Patient has full range motion throughout rest of bilateral lower extremities and upper extremities on exam. 4/5 in all major motor groups in bilateral lower extremity. 5/5 in all major motor is in bilateral upper extremities. Radial pulse intact, 2+ bilaterally. Cap refill under 3 seconds in digits of the upper extremities. Negative Homans bilaterally. Negative clonus bilaterally. Negative Chris bilaterally. - Labs CBC & Chem 7: 10/19/23 05:18 10/19/23 05:18 Labs: Abnormal Lab Results - Last 24 Hours (Table) 10/19/23 10/19/23 10/19/23 Range/Units 05:18 05:18 11:02 RBC 3.52 L (4.10-5.20) X 10*6/uL Hgb 10.5 L (12.0-15.0) g/dL Hct 31.5 L (37.2-46.3) % Lymphocytes # 0.87 L (0.90-5.00) X 10*3/uL Eosinophils # 0.01 L (0.04-0.35) X 10*3/uL Potassium 3.3 L (3.5-5.5) mmol/L Anion Gap 13.00 H (4.00-12.00) mmol/L Glucose 137 H (70-110) mg/dL POC Glucose (mg/dL) 170 H (70-110) mg/dL Urine Glucose (UA) (Negative) 10/19/23 10/19/23 10/19/23 Range/Units 16:32 17:00 21:01 RBC (4.10-5.20) X 10*6/uL Hgb (12.0-15.0) g/dL Hct (37.2-46.3) % Lymphocytes # (0.90-5.00) X 10*3/uL Eosinophils # (0.04-0.35) X 10*3/uL Potassium (3.5-5.5) mmol/L Anion Gap (4.00-12.00) mmol/L Glucose (70-110) mg/dL POC Glucose (mg/dL) 200 H 170 H (70-110) mg/dL Urine Glucose (UA) 1+ H (Negative) 10/20/23 Range/Units 05:59 RBC (4.10-5.20) X 10*6/uL Hgb (12.0-15.0) g/dL Hct (37.2-46.3) % Lymphocytes # (0.90-5.00) X 10*3/uL Eosinophils # (0.04-0.35) X 10*3/uL Potassium (3.5-5.5) mmol/L Anion Gap (4.00-12.00) mmol/L Glucose (70-110) mg/dL POC Glucose (mg/dL) 144 H (70-110) mg/dL Urine Glucose (UA) (Negative) Assessment and Plan Assessment: 1. L4-5 Grade I spondylolisthesis, unstable 2. L4 spondylolysis 3. Bilateral LE radiculopathy 4. Bilateral LE weakness 5. Low back pain - Postoperative day #2 status post L4-L5 MIS PLIF Plan: 1. L4-5 Grade I spondylolisthesis, unstable; L4 spondylolysis; Bilateral LE radiculopathy; Bilateral LE weakness; Low back pain- patient still bedside this morning. Surgical dressing was changed. Plan to work with therapy today. Discontinue 1 mg Dilaudid IV. Increased [place] from 7.5 mg scheduled to Taft 10 mg scheduled. Weightbearing as tolerated with walker as needed. Pain medication as needed. We will continue to follow patient during stay in hospital. Plan for discharge home tomorrow versus Sunday. 2. Appreciate medical management 3. Pain management- MS Contin; [place]; gabapentin; Flexeril 4. GI prophylaxis - senna; milk of magnesia 5. DVT prophylaxis - mechanical 6. PT/OT - weightbearing as tolerated with walker 7. Encourage incentive spirometer use 8. Discharge planning - plan for home tomorrow versus Sunday Time with Patient: Less than 30
--- NOTE | 2023-10-20 09:52 | P.PN ---
Subjective Progress Note Date: 10/20/23 This is a 63-year-old female patient who presented for an elective L4 to L5 laminectomy and fusion with Dr. Saavedra on 10/18/2023. patient has a past medical history of low back and bilateral lower extremity pain with lower infection many numbness that failed conservative management. Additional medical history includes, hyperlipidemia, hypertension, diabetes mellitus, osteoarthritis, osteomyelitis, anxiety and depression. At this time patient is currently postop day 1. She is resting comfortably in bed is complaining of some pain and inability to sleep. Patient denies chest pain or shortness of breath. Patient denies nausea vomiting or diarrhea. Patient denies any urinary frequency. Patient does have a low-grade temp at 99.4. Will order a urinary analysis and chest x-ray. On 10/20/2023 patient was seen and examined on the medical floor she is alert and oriented 3 in no apparent distress, patient is doing well, yesterday, she had low-grade fever, urine analysis and chest x-ray were done and were within normal limits, today there are no new episodes of elevated temperature, she is still complaining of pain at the surgical site, otherwise she denies any complaints, there is no fever or chills no headache or dizziness no chest pain no shortness of breath no cough no nausea or vomiting no abdominal pain no diarrhea and no urinary symptoms Objective - Vital Signs Vital signs: Vital Signs Temp 99 F 10/20/23 07:40 Pulse 111 H 10/20/23 07:40 Resp 18 10/20/23 07:40 BP 127/55 10/20/23 07:40 Pulse Ox 98 10/20/23 07:40 FiO2 Intake & Output 10/19/23 10/20/23 10/20/23 18:59 06:59 18:59 Weight 70.3 kg Other: Voiding Method Bedside Commode # Voids 1 3 - Labs CBC & Chem 7: 10/19/23 05:18 10/19/23 05:18 Labs: Abnormal Lab Results - Last 24 Hours (Table) 10/19/23 10/19/23 10/19/23 Range/Units 05:18 11:02 16:32 RBC 3.52 L (4.10-5.20) X 10*6/uL Hgb 10.5 L (12.0-15.0) g/dL Hct 31.5 L (37.2-46.3) % Lymphocytes # 0.87 L (0.90-5.00) X 10*3/uL Eosinophils # 0.01 L (0.04-0.35) X 10*3/uL POC Glucose (mg/dL) 170 H 200 H (70-110) mg/dL Urine Glucose (UA) (Negative) 10/19/23 10/19/23 10/20/23 Range/Units 17:00 21:01 05:59 RBC (4.10-5.20) X 10*6/uL Hgb (12.0-15.0) g/dL Hct (37.2-46.3) % Lymphocytes # (0.90-5.00) X 10*3/uL Eosinophils # (0.04-0.35) X 10*3/uL POC Glucose (mg/dL) 170 H 144 H (70-110) mg/dL Urine Glucose (UA) 1+ H (Negative) Assessment and Plan Assessment: 1. Status post L4 to L5 laminectomy and fusion on 10/18/2023 2. Febrile. UA and chest x-ray ordered 3. Previous history of cervical surgery in 2022 4. History of chronic pain syndrome maintained on morphine 5. History of depression 6. History of peripheral neuropathy 7. History of hypertension 8. History of hyperlipidemia DVT prophylaxis will defer to surgical services GI prophylaxis Protonix Thank you for this consultation we'll continue to follow patient closely throughout stay Chest x-ray and urinary analysis ordered
[2023-10-20 11:51] LABS: Glucose,Whole Blood 150 mg/dL (70-110)
[2023-10-20 13:01] LABS: Basophils # (A) 0.02 X 10*3/uL (0.00-0.10); Basophils % (A) 0.3 %; Eosinophils # (A) 0.08 X 10*3/uL (0.04-0.35); HCT 30.9 % (37.2-46.3); HGB 10.2 g/dL (12.0-15.0); Lymphocytes # (A) 0.84 X 10*3/uL (0.90-5.00); MCH 29.4 pg (27.0-32.0); Mean Platelet Volume 10.1 FL (9.5-12.2); Monocytes # (A) 0.98 X 10*3/uL (0.20-1.00); Monocytes % (A) 12.9 %; NRBC Per 100 WBC 0 X 10*3/uL (0.00-0.01); Neutrophils # (A) 5.69 X 10*3/uL (1.80-7.70); Neutrophils % (A) 74.7 %; Platelet Count 145 X 10*3/uL (140-440); RBC 3.47 X 10*6/uL (4.10-5.20); RDW 12.4 % (11.5-14.5); WBC 7.62 X 10*3/uL (4.50-10.00)
[2023-10-20 13:08] LABS: ALT 17 U/L (8-44); AST 41 U/L (13-35); Alkaline Phosphatase 64 U/L (41-126); BUN/Creat Ratio 12.86 Ratio (12.00-20.00); Calcium 9.4 mg/dL (8.7-10.3); Carbon Dioxide 24.7 mmol/L (21.6-31.8); Chloride 99 mmol/L (96-109); Globulin 2.5 g/dL (1.6-3.3); Glucose 142 mg/dL (70-110); Potassium 3.3 mmol/L (3.5-5.5); Sodium 137 mmol/L (135-145); Total Bilirubin 0.9 mg/dL (0.3-1.2); Total Protein 6.5 g/dL (6.2-8.2)
[2023-10-20 16:54] LABS: Glucose,Whole Blood 160 mg/dL (70-110)
[2023-10-20 19:54] LABS: Glucose,Whole Blood 160 mg/dL (70-110)
[2023-10-21 05:52] LABS: Glucose,Whole Blood 152 mg/dL (70-110)
--- NOTE | 2023-10-21 09:35 | P.PN ---
Subjective Progress Note Date: 10/21/23 Principal diagnosis: 1. L4-5 Grade I spondylolisthesis, unstable 2. L4 spondylolysis 3. Bilateral LE radiculopathy 4. Bilateral LE weakness 5. Low back pain Patient was seen at bedside this morning lying in the left lateral recumbent pos ition with dressing present over lumbar spine. Patient says she yesterday she did do well with therapy and walk to run the hallway with using a walker. Patient says she has been having a lot of pain in her buttocks when she sits. Patient also says she has having some pain in both hips. Patient says she has not had bowel movement yet, however, patient says she has been passing gas. Patient denies any significant nausea or vomiting. Patient denies chest pain, fever, shortness breath, change in vision, loss of bowel/bladder control. Objective - Vital Signs Vital signs: Vital Signs Temp 98.7 F 10/20/23 19:00 Pulse 88 10/21/23 00:58 Resp 14 10/20/23 19:00 BP 104/65 10/21/23 00:58 Pulse Ox 91 L 10/21/23 00:58 FiO2 Intake & Output 10/20/23 10/21/23 10/21/23 17:59 06:59 18:59 Other: Voiding Method # Voids - Exam Surgical dressings present over lumbar spine. Clean, dry and intact. Malorie appear to be well aligned and intact. Negative for any active drainage. Sensation is equal, symmetric, bilaterally intact throughout the upper and lower extremities on exam. There is tenderness to palpation diffusely throughout the lumbar spine and midline and in the paravertebral region. Nontender to palpation throughout rest exam. Patient does have similar range of motion bilateral hips and flexion/extension secondary to stiffness and referred pain to the low back. Patient has full range motion throughout rest of bilateral lower extremities and upper extremities on exam. 4/5 in all major motor groups in bilateral lower extremity. 5/5 in all major motor is in bilateral upper extremities. Radial pulse intact, 2+ bilaterally. Cap refill under 3 seconds in digits of the upper extremities. Negative Homans bilaterally. Negative clonus bilaterally. Negative Chris bilaterally. - Labs CBC & Chem 7: 10/20/23 07:13 10/20/23 07:13 Labs: Abnormal Lab Results - Last 24 Hours (Table) 10/20/23 10/20/23 10/20/23 Range/Units 07:13 07:13 11:50 RBC 3.47 L (4.10-5.20) X 10*6/uL Hgb 10.2 L (12.0-15.0) g/dL Hct 30.9 L (37.2-46.3) % Lymphocytes # 0.84 L (0.90-5.00) X 10*3/uL Potassium 3.3 L (3.5-5.5) mmol/L Anion Gap 13.30 H (4.00-12.00) mmol/L Glucose 142 H (70-110) mg/dL POC Glucose (mg/dL) 150 H (70-110) mg/dL AST 41 H (13-35) U/L 10/20/23 10/20/23 10/21/23 Range/Units 16:52 19:51 05:51 RBC (4.10-5.20) X 10*6/uL Hgb (12.0-15.0) g/dL Hct (37.2-46.3) % Lymphocytes # (0.90-5.00) X 10*3/uL Potassium (3.5-5.5) mmol/L Anion Gap (4.00-12.00) mmol/L Glucose (70-110) mg/dL POC Glucose (mg/dL) 160 H 160 H 152 H (70-110) mg/dL AST (13-35) U/L Microbiology - Last 24 Hours (Table) 10/19/23 11:23 Blood Culture - Preliminary Blood Assessment and Plan Assessment: 1. L4-5 Grade I spondylolisthesis, unstable 2. L4 spondylolysis 3. Bilateral LE radiculopathy 4. Bilateral LE weakness 5. Low back pain - Postoperative day #3 status post L4-L5 MIS PLIF Plan: 1. L4-5 Grade I spondylolisthesis, unstable; L4 spondylolysis; Bilateral LE radiculopathy; Bilateral LE weakness; Low back pain- patient stable at bedside this morning. Plan to work with therapy today. Continue pain medication. Weightbearing as tolerated with walker as needed. Pain medication as needed. We will continue to follow patient during stay in hospital. Plan for discharge home tomorrow 2. Appreciate medical management 3. Pain management- MS Contin; [place]; gabapentin; Flexeril 4. GI prophylaxis - senna; milk of magnesia 5. DVT prophylaxis - mechanical 6. PT/OT - weightbearing as tolerated with walker 7. Encourage incentive spirometer use 8. Discharge planning - plan for home tomorrow Time with Patient: Less than 30
--- NOTE | 2023-10-21 10:53 | P.PN ---
Subjective Progress Note Date: 10/21/23 This is a 63-year-old female patient who presented for an elective L4 to L5 laminectomy and fusion with Dr. Saavedra on 10/18/2023. patient has a past medical history of low back and bilateral lower extremity pain with lower infection many numbness that failed conservative management. Additional medical history includes, hyperlipidemia, hypertension, diabetes mellitus, osteoarthritis, osteomyelitis, anxiety and depression. At this time patient is currently postop day 1. She is resting comfortably in bed is complaining of some pain and inability to sleep. Patient denies chest pain or shortness of breath. Patient denies nausea vomiting or diarrhea. Patient denies any urinary frequency. Patient does have a low-grade temp at 99.4. Will order a urinary analysis and chest x-ray. On 10/20/2023 patient was seen and examined on the medical floor she is alert and oriented 3 in no apparent distress, patient is doing well, yesterday, she had low-grade fever, urine analysis and chest x-ray were done and were within normal limits, today there are no new episodes of elevated temperature, she is still complaining of pain at the surgical site, otherwise she denies any complaints, there is no fever or chills no headache or dizziness no chest pain no shortness of breath no cough no nausea or vomiting no abdominal pain no diarrhea and no urinary symptoms On 10/21/2023 patient is alert and oriented 3. Patient started having some pain especially with sitting. Her vital signs temp 98.6, rate 79, respiratory rate 17, blood pressure 112 hours on pulse ox of 98% on room air patient denies chest pain or shortness breath. Patient denies nausea vomiting or diarrhea. Patient denies any urinary burning or frequency Objective - Vital Signs Vital signs: Vital Signs Temp 98.6 F 10/21/23 07:15 Pulse 79 10/21/23 07:15 Resp 17 10/21/23 07:15 BP 112/61 10/21/23 07:15 Pulse Ox 93 L 10/21/23 07:15 FiO2 Intake & Output 10/20/23 10/21/23 10/21/23 17:59 06:59 18:59 Other: Voiding Method # Voids - Exam Head normocephalic Neck supple Lungs clear to auscultation bilaterally no wheezing or crackles Heart regular rate and rhythm S1-S2, no rub or gallop Abdomen is soft nontender nondistended positive bowel sounds no hepatosplenomegaly Extremities no edema Neuro alert and orientated to 3 - Labs CBC & Chem 7: 10/20/23 07:13 10/20/23 07:13 Labs: Abnormal Lab Results - Last 24 Hours (Table) 10/20/23 10/20/23 10/20/23 Range/Units 07:13 07:13 11:50 RBC 3.47 L (4.10-5.20) X 10*6/uL Hgb 10.2 L (12.0-15.0) g/dL Hct 30.9 L (37.2-46.3) % Lymphocytes # 0.84 L (0.90-5.00) X 10*3/uL Potassium 3.3 L (3.5-5.5) mmol/L Anion Gap 13.30 H (4.00-12.00) mmol/L Glucose 142 H (70-110) mg/dL POC Glucose (mg/dL) 150 H (70-110) mg/dL AST 41 H (13-35) U/L 10/20/23 10/20/23 10/21/23 Range/Units 16:52 19:51 05:51 RBC (4.10-5.20) X 10*6/uL Hgb (12.0-15.0) g/dL Hct (37.2-46.3) % Lymphocytes # (0.90-5.00) X 10*3/uL Potassium (3.5-5.5) mmol/L Anion Gap (4.00-12.00) mmol/L Glucose (70-110) mg/dL POC Glucose (mg/dL) 160 H 160 H 152 H (70-110) mg/dL AST (13-35) U/L Microbiology - Last 24 Hours (Table) 10/19/23 11:23 Blood Culture - Preliminary Blood Assessment and Plan Assessment: 1. Status post L4 to L5 laminectomy and fusion on 10/18/2023 2. Febrile. UA and chest x-ray ordered 3. Previous history of cervical surgery in 2022 4. History of chronic pain syndrome maintained on morphine 5. History of depression 6. History of peripheral neuropathy 7. History of hypertension 8. History of hyperlipidemia DVT prophylaxis will defer to surgical services GI prophylaxis Protonix Thank you for this consultation we'll continue to follow patient closely throughout stay Chest x-ray and urinary analysis ordered
[2023-10-21 11:42] LABS: Glucose,Whole Blood 145 mg/dL (70-110)
[2023-10-21 16:35] LABS: Glucose,Whole Blood 189 mg/dL (70-110)
[2023-10-21 20:18] LABS: Glucose,Whole Blood 243 mg/dL (70-110)
[2023-10-22 05:54] LABS: Glucose,Whole Blood 130 mg/dL (70-110)
--- NOTE | 2023-10-22 08:23 | P.PN ---
Subjective Progress Note Date: 10/22/23 Principal diagnosis: 1. L4-5 Grade I spondylolisthesis, unstable 2. L4 spondylolysis 3. Bilateral LE radiculopathy 4. Bilateral LE weakness 5. Low back pain Patient seen and examined this morning. Patient is resting comfortably in bed. Patient states she worked with physical therapy on Sunday and tolerated activity well. She does report increased low back pain with activity. Informed patient that IV medication will be discontinued today. Oral pain medication has been modified. Patient is requesting subacute rehab at this time, educated patient that she may not qualify. Patient is cleared from orthopedic standpoint for dis charge. Will discuss with case management and physical therapy regarding possible subacute rehab. Surgical dressings to the paralumbar spine are CDI. No acute concerns at this time. Objective - Vital Signs Vital signs: Vital Signs Temp 99.7 F H 10/22/23 07:11 Pulse 97 10/22/23 07:11 Resp 16 10/22/23 07:11 BP 102/57 10/22/23 07:11 Pulse Ox 94 L 10/22/23 07:11 FiO2 Intake & Output 10/21/23 10/22/23 10/22/23 18:59 06:59 18:59 Output Total 450 Balance -450 Output: Urine 450 Other: # Voids 3 3 1 - Exam Physical Examination General: The patient is awake and alert, in no acute distress Skin: Skin is warm and dry with no obvious rashes or lesions. Surgical incisions to the paralumbar spine, dressings are CDI. Eye: Pupils are equal, round and reactive to light, extra-ocular movements are intact; there is normal conjunctiva bilaterally. Neck: The neck is supple, there is no tenderness and ROM intact. Cardiovascular: There is a regular rate and rhythm. No murmur, rub or gallop is appreciated. Respiratory: Lungs are clear to auscultation, respirations are non-labored, breath sounds are equal. Gastrointestinal: Soft, non-distended, non-tender abdomen. Back: There is moderate tenderness to palpation in the paralumbar region around the incisions. There is no obvious deformity. . Musculoskeletal: ROM limited secondary to pain and stiffness from surgical procedure. Muscle strength in all major muscle groups of bilateral upper extremities 5/5, bilateral lower extremities 4/5. Neurological: CN 2-12 intact. There are no obvious motor or sensory deficits. Movement and coordination equal and intact. Sensory exam to light touch intact C5-T1 and intact from L2-S1. Reflexes 2/4 in bilateral upper and lower extremities. Negative Hoffmans, babinski, and clonus signs. Psychiatric: Cooperative, appropriate mood & affect, normal judgment. - Labs CBC & Chem 7: 10/20/23 07:13 10/20/23 07:13 Labs: Abnormal Lab Results - Last 24 Hours (Table) 10/21/23 10/21/23 10/21/23 Range/Units 11:40 16:34 20:16 POC Glucose (mg/dL) 145 H 189 H 243 H (70-110) mg/dL 10/22/23 Range/Units 05:52 POC Glucose (mg/dL) 130 H (70-110) mg/dL Microbiology - Last 24 Hours (Table) 10/19/23 11:23 Blood Culture - Preliminary Blood Assessment and Plan Assessment: Postop day 4: Left L4-L5 IN TLIF 1. L4-5 Grade I spondylolisthesis, unstable 2. L4 spondylolysis 3. Bilateral LE radiculopathy 4. Bilateral LE weakness 5. Low back pain Plan: -Appreciate human capital consultant and team management. -Activity: Ambulate QID, OOB all meals, up and about, limit lifting bending twisting to less than 5 lbs. Use walker or cane if needed for stability. -Daily PT/OT, increase ambulation strength and balance. -Pain control: Adequate at this time -Meds: reviewed -GI ppx: senna, Miralax -DVT PPX: Heparin -Hygiene: Shower today. Maintain dressing clean and dry. Meticulous cleaning after BMs away from the incision site -Encourage IS 10x/hr -Dispo: Anticipate discharge today home with homecare vs [facility] *I reviewed and discussed this case with my attending Dr. Carmona, whom has reviewed this chart and films and is in agreement with assessment and plan of care as outlined above. I have personally seen and examined the patient, performed the documentation and the assessment and plan as written. Number of minutes spent on the visit: 20m.
[2023-10-22 08:40] LABS: Basophils # (A) 0.02 X 10*3/uL (0.00-0.10); Basophils % (A) 0.4 %; Eosinophils # (A) 0.13 X 10*3/uL (0.04-0.35); Eosinophils % (A) 2.7 %; HCT 31.4 % (37.2-46.3); HGB 10.2 g/dL (12.0-15.0); Lymphocytes # (A) 0.79 X 10*3/uL (0.90-5.00); Lymphocytes % (A) 16.2 %; MCH 28.9 pg (27.0-32.0); MCHC 32.5 g/dL (32.0-37.0); Mean Platelet Volume 10.3 FL (9.5-12.2); Monocytes # (A) 0.71 X 10*3/uL (0.20-1.00); Monocytes % (A) 14.5 %; NRBC Per 100 WBC 0 X 10*3/uL (0.00-0.01); Neutrophils # (A) 3.23 X 10*3/uL (1.80-7.70); Platelet Count 182 X 10*3/uL (140-440); RBC 3.53 X 10*6/uL (4.10-5.20); RDW 12.2 % (11.5-14.5); WBC 4.89 X 10*3/uL (4.50-10.00)
[2023-10-22 08:42] LABS: ALT 14 U/L (8-44); AST 27 U/L (13-35); Albumin 3.6 g/dL (3.8-4.9); Albumin/Globulin Ratio 1.33 Ratio (1.60-3.17); Alkaline Phosphatase 84 U/L (41-126); BUN/Creat Ratio 17.25 Ratio (12.00-20.00); Blood Urea Nitrogen 13.8 mg/dL (9.0-27.0); Calcium 9.5 mg/dL (8.7-10.3); Carbon Dioxide 29.1 mmol/L (21.6-31.8); Chloride 98 mmol/L (96-109); Globulin 2.7 g/dL (1.6-3.3); Glucose 121 mg/dL (70-110); Potassium 3.6 mmol/L (3.5-5.5); Sodium 137 mmol/L (135-145); Total Bilirubin 0.3 mg/dL (0.3-1.2); Total Protein 6.3 g/dL (6.2-8.2)
[2023-10-22] MEDS: ERGOCALCIFEROL 1,250 MCG (50,000 IU) CAPSULE PO SCH (08:56)
--- NOTE | 2023-10-22 10:09 | P.DS ---
Providers Date of admission: 10/18/23 16:42 Expected date of discharge: 10/22/23 Attending physician: Zain Carmona DO Consults: 10/18/23 16:42 Consult Physician Routine Consulting Provider: Milton Skinner Reason/Comments: medical management s/p L4-L5 MIS PLIF Do you want consulting provider notified?: Yes Primary care physician: Milton Susanne Va Hospital Course: Hospital Course: The patient was evaluated preoperatively and found to have the diagnosis of lumbar spondylolisthesis. They underwent appropriate preoperative care and were willing to undergo the intended procedure. They underwent a successful L4-L5 minimally invasive PLIF, were recovered appropriately and sent to the floor. While on the floor they worked with physical therapy, occupational therapy and nursing to enhance their recovery experience. Their pain was well controlled through their stay and they were started on appropriate medications, DVT ppx modalities, activity and dietary needs. Daily labs were monitored closely, and transfusions were only used when necessary. Medicine as well as other consulting services have made their input and have helped with our team approach and multidisciplinary care. PT milestones have been met and passed and they have made the recommendation of home with home care for this patient and treating providers agree with this care path. The patient will be discharged home with appropriate medications, instructions and follow-up information and in stable condition. Patient Condition at Discharge: Good Plan - Discharge Summary Discharge Rx Participant: Yes New Discharge Prescriptions: New cefaDROXiL [Duricef] 500 mg PO Q12HR #10 cap HYDROcodone/APAP 10-325MG [[place] 10-325] 1 tab PO Q4-6H PRN #42 tab PRN Reason: Pain Sennosides/Docusate Sodium [Senna Plus 8.6-50 mg Tablet] 1 each PO DAILY PRN #20 tablet PRN Reason: Constipation No Action Simvastatin [Zocor] 40 mg PO HS Venlafaxine HCl 150 mg PO BID Amitriptyline HCl 50 mg PO HS #30 tablet Fenofibrate,Micronized [Fenofibrate] 134 mg PO HS Meloxicam 15 mg PO HS Metoprolol Succinate (ER) [Toprol XL] 25 mg PO HS Morphine Sulfate ER [Ms Contin] 30 mg PO TID Ergocalciferol (Vitamin D2) [Drisdol (50,000 Iu)] 1,250 mcg PO MO Gabapentin [Neurontin] 300 mg PO TID Vit C/E/Zn/Coppr/Lutein/Zeaxan [Preservision Areds 2 Softgel] 1 cap PO BID amLODIPine [Norvasc] 10 mg PO QAM HYDROcodone/APAP 7.5-325MG [[place] 7.5-325] 1 tab PO BID Cyclobenzaprine [Flexeril] 5 mg PO TID #90 tab QUEtiapine [SEROquel] 12.5 mg PO BID 30 Days #30 tab Aspirin [Adult Low Dose Aspirin EC] 81 mg PO DAILY Discharge Medication List Simvastatin [Zocor] 40 mg PO HS 02/18/15 [History] Venlafaxine HCl 150 mg PO BID 02/18/15 [History] Amitriptyline HCl 50 mg PO HS #30 tablet 03/22/15 [Rx] Fenofibrate,Micronized [Fenofibrate] 134 mg PO HS 12/01/16 [History] Meloxicam 15 mg PO HS 10/14/18 [History] Metoprolol Succinate (ER) [Toprol XL] 25 mg PO HS 05/06/19 [History] Morphine Sulfate ER [Ms Contin] 30 mg PO TID 02/28/20 [History] Ergocalciferol (Vitamin D2) [Drisdol (50,000 Iu)] 1,250 mcg PO MO 07/05/22 [History] Gabapentin [Neurontin] 300 mg PO TID 07/05/22 [History] Vit C/E/Zn/Coppr/Lutein/Zeaxan [Preservision Areds 2 Softgel] 1 cap PO BID 07/05/22 [History] HYDROcodone/APAP 7.5-325MG [[place] 7.5-325] 1 tab PO BID 05/07/23 [History] amLODIPine [Norvasc] 10 mg PO QAM 05/07/23 [History] Cyclobenzaprine [Flexeril] 5 mg PO TID #90 tab 05/09/23 [Rx] QUEtiapine [SEROquel] 12.5 mg PO BID 30 Days #30 tab 05/09/23 [Rx] Aspirin [Adult Low Dose Aspirin EC] 81 mg PO DAILY 10/16/23 [History] HYDROcodone/APAP 10-325MG [[place] 10-325] 1 tab PO Q4-6H PRN #42 tab 10/22/23 [Rx] Sennosides/Docusate Sodium [Senna Plus 8.6-50 mg Tablet] 1 each PO DAILY PRN #20 tablet 10/22/23 [Rx] cefaDROXiL [Duricef] 500 mg PO Q12HR #10 cap 10/22/23 [Rx] Follow up Appointment(s)/Referral(s): [facility] [NON-STAFF] - As Needed ([facility] will call you to schedule your in home nursing and physical therapy visits. ) Zain Carmona DO [Doctor of Osteopathic Medicine] - 2 Weeks Milton Skinner MD [Primary Care Provider] - 1 Week Activity/Diet/Wound Care/Special Instructions: Spine Discharge and Recovery Instructions Date of Surgery: 10/18/2023 Diagnosis: 1. L4-5 SPONDYLOLISTHESIS GRADE I UNSTABLE 2. L4-5 SPONDYLOSIS WITH STENOSIS 3. LE RADICULOPATHY 4. LOW BACK PAIN Procedure: L4-L5 MIS PLIF Medications: See medication list All medication refills should be obtained through your primary care doctor or your clinic spine surgeon. Please discuss prescription refills at your follow up appointment. Do not call the hospital for medication refills. Dressing: Leave your dressing in place for a total of 5 days post operatively. Then you may remove your dressing and leave open to air. Keep the area clean and if not able to keep area clean, then cover with sterile gauze and tape. Showering: You may shower 3 days after your procedure allowing soap and water to run over incision. Do not scrub. Do not soak. Blot dry. Follow up: Please confirm a follow up appointment with your surgeon 3 weeks post operatively. Please make an appointment to follow up with your PCP in 1-2 weeks after surgery for evaluation 3 phase, 3-week plan POST OP WEEKS 1-3 1. Lifting/carrying/pushing/pulling limited to less than 5 pounds. 2. Do not sit for longer than 15 minutes at one time. Get up and walk around. Prolonged sitting is NOT advised. If you lay down, see if you can tolerate laying down on you front (belly side) 3. Walk for periods of 15 minutes = 1 mile but no longer; do it multiple times times each day. 4. Ice your low back after activity. POST OP WEEKS 3-6 1. Lifting limited to less than 20 pounds. 2. Do not sit for longer than 30 minutes at a time. Frequently change positions. Use a sit-to stand workstation or take frequent breaks from sitting if you have returned to work. 3. Walk for 30 minutes each day. If possible, do these three or more times a day POST OP WEEKS 6+ At your 6-week appointment we will give you a physical therapy referral to focus on a core stabilization and strengthening program. You should also work on leg & buttock strengthening, hamstring & quadriceps stretching, and continue a low impact aerobic activity program such as swimming, walking, or riding a stationary bicycle. During the initial 6 weeks after your surgery, you are at the highest risk of re-injuring your spine. You should generally avoid BLTs (bending, lifting and twisting combination motions) and follow the above guidelines to reduce the chance of reinjury. You can anticipate post op appointments in our office at approximately 3 weeks and 6 weeks after your surgery. INCISION CARE: If your incision is not draining you do NOT need to cover it with a dressing. Keep your incision clean, dry and intact. In most cases, we apply skin glue, tim or sutures to the incision at the time of surgery. This will be like a crust or have the appearance of a scab and will fall off in time on its own. The stitches or tim need to be removed at 3 weeks post op appointment. You may begin to shower 3 days after surgery (this allows the glue to olsen well). However, please avoid scrubbing the incision site or peeling off any of the skin glue. This will ensure optimal healing of your incision. Also, during this time avoid soaking the incision area in water - this includes swimming pools, hot tubs or baths. No ointments, lotions or oils on the incision until your surgeon allows. Leave tim, sutures or glue in place. Neurological dysfunction that comes on suddenly can also be a sign of a stroke. Below some common symptoms of a stroke are listed: B - balance difficulty such as sudden onset walking or leaning to one side - N EW E - eye problem such as sudden double vision or trouble seeing on one side - NEW F - Facial weakness or numbness on one side - NEW A - Arm or leg weakness or numbness on one side - NEW S - Slurred speech or difficulty with word finding - NEW T - Time is BRAIN! Call 911 as soon as you recognize these symptoms Diet: Consume a regular diet rich in vegetables and lean protein such as chicken or fish. You should consume in a ratio of approximately 20% fats|40% carbohydrates|40%protein. Vegetables, sweet potatoes, brown rice or quinoa are examples of good carbohydrates. Chips, white bread, cookies and sweets/sugar are examples of bad carbohydrates. Limit your bad carbs, go wild with good carbs. "Life's Simple 7" Guidelines as per [place] [employer] These will help you reclaim your life after surgery and surveyor helper rod in your recovery, keeping in mind your restrictions. (1) Get Active. Physical activity can help people lose weight, control high blood pressure and cholesterol, feel emotionally better, and sleep better. (2) Control Cholesterol. Avoid a diet high in saturated fat, trans fat, & cholesterol. Limit whole milk & cream, ice cream, butter, egg yolks, processed meats (like sausage and hot dogs), and fatty meats. Choose healthy foods that are low in saturated fat, trans fat and cholesterol which include: Fruits and vegetables, fiber rich grain products (like whole grain pasta and brown rice), lean meat such as chicken, fish, nuts, seeds, and legumes. (3) Eat Better. Eat small portions. Shop at the grocery with a list and do not stray from it. Tips for a healthy diet include: Limit sodium intake to less than 1500mg daily, avoid prepackaged, processed, and fast foods, choose a diet rich in fruits, vegetables, and whole grain, high fiber foods, and limit saturated & cholesterol in your diet. (4) Manage Blood Pressure. If you have high blood pressure, you should have a cuff at home so that you can check your blood pressure regularly. Be sure you have a good cuff. An arm one is generally better than a wrist one. Bring the cuff to a doctor's appointment to validate that the measurements that your cuff are taking are accurate. Take your blood pressure twice daily when you are sitting down and relaxing. Record the numbers in a log and bring this log with you to your doctors' appointments. (5) Lose Weight if your BMI is above 25. A healthy BMI is between 19-25. To calculate Your BMI, you may use a Standard BMI Calculator on the NIH BMI website: <www.nhlbi.nih.gov/guidelines/obesity/BMI/bmicalc.htm>. Weigh oneself daily. If you are overweight, set a goal to lose weight. A pound a week loss if needed is a good target. (6) Reduce Blood Sugar. Limit foods and liquids with "added sugars." (Added sugars include sucrose, fructose, glucose, maltose, dextrose, high fructose corn syrup, corn syrup, concentrated fruit juice and honey). (7) Stop Smoking. If you smoke, quitting smoking is one of the best things that you can do for your health. Smoking increases your risk of heart attack, stroke, and peripheral vascular disease, which is a build-up of plaque in your arteries. Please discard all the cigarettes and lighters in your house. Have a plan for what you will do when you have the urge to smoke. Direct and second- hand smoke shortens your life as well as the lives of your family, friends and others around you. For your health and the health of those around you, please consider quitting! Proper Bending Body Mechanics: Maintain a wide stance with one foot slightly in front of the other. Keep your back straight. Bend utilizing the strength in your hips and knees. Do not bend at the waist. Maintain the lifted object at your waist-level close to your body. Avoid lifting weight that causes immediately pain or pain anywhere in the body afterwards. Smoking/Nicotine If there was ever one thing that you could do to increase your overall health, decrease your risk of cardiovascular problems by about 39% the second you make the choice, it is to STOP SMOKING. Your body's most instant gratification is the second you stop smoking. We have all heard the studies, read the articles but it is true, smoking is extremely bad for your overall health, and moreover it is detrimental to your bone health. Nicotine, IN ANY FORM, kills bone cells, prevents your body from healing fractures, and significantly prolongs healing after surgery. In spine surgery specifically, it increases your risk of not healing your bones to create a fusion and increases your risk of having a revision surgery due to this up to 60%. I know it is hard. I know it feels impossible. But there are ways. Take control of your life. We are here to help you through it. And when you are ready, ask us and we can direct you to help if you desire. Use the START Plan to Quit Smoking (please visit the Helpguide.org website listed below for more information): S = Set a quit date. Choose a date within the next 2 weeks, so you have enough time to prepare without losing your motivation to quit. If you mainly smoke at work, quit on the weekend, so you have a few days to adjust to the change. T = Tell family, friends, and co-workers that you plan to quit. Let your friends and family in on your plan to quit smoking and tell them you need their support and encouragement to stop. Look for a quit carson who wants to stop smoking as well. You can help each other get through the rough times. A = Anticipate and plan for the challenges you'll face while quitting. Most people who begin smoking again do so within the first 3 months. You can help yourself make it through by preparing ahead for common challenges, such as nicotine withdrawal and cigarette cravings. R = Remove cigarettes and other tobacco products from your home, car, and work. Throw away all your cigarettes (no emergency pack!), lighters, ashtrays, and matches. Wash your clothes and freshen up anything that smells like smoke. Shampoo your car, clean your drapes and carpet, and steam your furniture. T = Talk to your doctor about getting help to quit. Your doctor can prescribe medication to help with withdrawal and suggest other alternatives. If you can't see a doctor, you can get many products over the counter at your local pharmacy or grocery store, including the nicotine patch, nicotine lozenges, and nicotine gum. Resources for Quitting Smoking: <https://www.[facility].gov/documents/[facility]/Quit_Tobacco_Resources_for_patients_313480_7.pdf> Supplementation: Take recommended dosages of Vitamin D and Calcium to help fortify your bones and help them to heal. See your health maintenance packet for dosages and recommended levels. DVT/VTE prophylaxis: You will be given compression stockings from the hospital. Wear these daily for the first two weeks after surgery. You may take them off at night. You may be prescribed a medication to help thin your blood. Take this as directed. If you are not prescribed this medication, early and frequent ambulation has been shown to be the best prophylaxis to deep vein thrombosis and sequelae related to this event. Discharge Disposition: HOME WITH HOME HEALTH SERVICES
[2023-10-22] MEDS: HYDROcodone/APAP 10-325MG 1 EACH TAB PO PRN (10:17)
[2023-10-22 11:17] LABS: Glucose,Whole Blood 195 mg/dL (70-110)
--- NOTE | 2023-10-22 15:37 | P.PN ---
Subjective Progress Note Date: 10/22/23 This is a 63-year-old female patient who presented for an elective L4 to L5 laminectomy and fusion with Dr. Saavedra on 10/18/2023. patient has a past medical history of low back and bilateral lower extremity pain with lower infection many numbness that failed conservative management. Additional medical history includes, hyperlipidemia, hypertension, diabetes mellitus, osteoarthritis, osteomyelitis, anxiety and depression. At this time patient is currently postop day 1. She is resting comfortably in bed is complaining of some pain and inability to sleep. Patient denies chest pain or shortness of breath. Patient denies nausea vomiting or diarrhea. Patient denies any urinary frequency. Patient does have a low-grade temp at 99.4. Will order a urinary analysis and chest x-ray. On 10/20/2023 patient was seen and examined on the medical floor she is alert and oriented 3 in no apparent distress, patient is doing well, yesterday, she had low-grade fever, urine analysis and chest x-ray were done and were within normal limits, today there are no new episodes of elevated temperature, she is still complaining of pain at the surgical site, otherwise she denies any complaints, there is no fever or chills no headache or dizziness no chest pain no shortness of breath no cough no nausea or vomiting no abdominal pain no diarrhea and no urinary symptoms On 10/21/2023 patient is alert and oriented 3. Patient started having some pain especially with sitting. Her vital signs temp 98.6, rate 79, respiratory rate 17, blood pressure 112 hours on pulse ox of 98% on room air patient denies chest pain or shortness breath. Patient denies nausea vomiting or diarrhea. Patient denies any urinary burning or frequency On 10/22/2023 patient was seen and examined on the medical floor she is alert and oriented 3 in no apparent distress, patient is doing well, yesterday, she had low-grade fever, urine analysis and chest x-ray were done and were within normal limits, today there are no new episodes of elevated temperature, she is still complaining of pain at the surgical site, otherwise she denies any complaints, there is no fever or chills no headache or dizziness no chest pain no shortness of breath no cough no nausea or vomiting no abdominal pain no diarrhea and no urinary symptoms Objective - Vital Signs Vital signs: Vital Signs Temp 99.7 F H 03/11/24 07:11 Pulse 97 10/22/23 07:11 Resp 16 10/22/23 07:11 BP 102/57 10/22/23 07:11 Pulse Ox 94 L 10/22/23 07:11 FiO2 Intake & Output 10/21/23 10/22/23 10/22/23 18:59 06:59 18:59 Output Total 450 Balance -450 Output: Urine 450 Other: # Voids 3 3 1 - Exam Head normocephalic Neck supple Lungs clear to auscultation bilaterally no wheezing or crackles Heart regular rate and rhythm S1-S2, no rub or gallop Abdomen is soft nontender nondistended positive bowel sounds no hepatosplenomegaly Extremities no edema Neuro alert and orientated to 3 - Labs CBC & Chem 7: 10/22/23 05:12 10/22/23 05:12 Labs: Abnormal Lab Results - Last 24 Hours (Table) 10/21/23 10/21/23 10/21/23 Range/Units 11:40 16:34 20:16 RBC (4.10-5.20) X 10*6/uL Hgb (12.0-15.0) g/dL Hct (37.2-46.3) % Lymphocytes # (0.90-5.00) X 10*3/uL Glucose (70-110) mg/dL POC Glucose (mg/dL) 145 H 189 H 243 H (70-110) mg/dL Albumin (3.8-4.9) g/dL Albumin/Globulin Ratio (1.60-3.17) Ratio 10/22/23 10/22/23 10/22/23 Range/Units 05:12 05:12 05:52 RBC 3.53 L (4.10-5.20) X 10*6/uL Hgb 10.2 L (12.0-15.0) g/dL Hct 31.4 L (37.2-46.3) % Lymphocytes # 0.79 L (0.90-5.00) X 10*3/uL Glucose 121 H (70-110) mg/dL POC Glucose (mg/dL) 130 H (70-110) mg/dL Albumin 3.6 L (3.8-4.9) g/dL Albumin/Globulin Ratio 1.33 L (1.60-3.17) Ratio Microbiology - Last 24 Hours (Table) 10/19/23 11:23 Blood Culture - Preliminary Blood Assessment and Plan Assessment: 1. Status post L4 to L5 laminectomy and fusion on 10/18/2023 2. Febrile. UA and chest x-ray ordered 3. Previous history of cervical surgery in 2022 4. History of chronic pain syndrome maintained on morphine 5. History of depression 6. History of peripheral neuropathy 7. History of hypertension 8. History of hyperlipidemia DVT prophylaxis will defer to surgical services GI prophylaxis Protonix Thank you for this consultation we'll continue to follow patient closely throughout stay Chest x-ray and urinary analysis ordered
[2023-10-22 15:48] VITALS: BP 110/63; PULSE 89; RESP 17; TEMP 98.5
== END 2023-10-22 16:16 | disposition home health service (06) ==
LOC: OR 11:12 → 4SSUR 16:42 → OR 16:42 → 4SSUR 17:43
PROVIDERS: ADMIT Orthopaedic Surgery; ATTEND Orthopaedic Surgery
DX: M43.16 Spondylolisthesis, lumbar region (principal); M47.26 Other spondylosis with radiculopathy, lumbar region; M48.061 Spinal stenosis, lumbar region without neurogenic claudication; R50.9 Fever, unspecified; E78.5 Hyperlipidemia, unspecified; I10 Essential (primary) hypertension; F41.9 Anxiety disorder, unspecified; F32.A Depression, unspecified; F03.90 Unspecified dementia, unspecified severity, without behavioral disturbance, psychotic disturbance, mood disturbance, and anxiety; E11.42 Type 2 diabetes mellitus with diabetic polyneuropathy; G89.4 Chronic pain syndrome; Z87.891 Personal history of nicotine dependence; Z79.1 Long term (current) use of non-steroidal anti-inflammatories (NSAID); Z79.82 Long term (current) use of aspirin; Z79.899 Other long term (current) drug therapy
CPT/HCPCS: 22633; 96376 ×4; 96365; 96366; 96375; 97116; 97530; 97161; 97166; 80053 ×2; 80048; 85025 ×3; 81003; 87040; 72100; 71045; 72131; 22853; 20931; 20936; G0378 ×5; C1713; C1762; C1734; J2250; J0330; J1100; J2710; J2175; J0690 ×2; J2405; J2001; J3010; J1170 ×7; J2704; J2371; J0665

== ENCOUNTER → 2024-01-21 | Outpatient (CLI) | payer MEDICARE, OTHER ==
--- NOTE | 2024-01-22 09:14 | MM ---
Reason for Exam: Screening (asymptomatic). Last screening mammogram was performed 12 month(s) ago. Patient History: Menarche at age 12. First Full-Term at age 23. Postmenopausal. Breast cancer, right, age 59. Bilateral Benign Excisional Biopsy. 05/08/2019, Lumpectomy on the Right side. 05/08/2019, Malignant Core Biopsy on the right side. 10/30/2018, Malignant Core Biopsy on the right side. 2019, Radiation Therapy. 2018, Chemotherapy. 2019, Chemotherapy. 2019, Radiation Therapy on the right side. 05/08/2019, US discontinued breast loc RT on the right side. Maternal aunt had breast cancer, age 50. Sister had breast cancer, age 43. Prior Study Comparison: 10/21/2020 Bilateral Diagnostic Mammogram, [facility]. 11/11/2021 Bilateral Diagnostic Mammogram, [facility]. 01/19/2023 Bilateral MG 3D screening mammo w/cad, [facility]. Tissue Density: The breasts are heterogeneously dense, which may obscure small masses. Findings: Analyzed By CAD. There is no suspicious group of microcalcifications or new suspicious mass in either breast. Overall Assessment: Benign, BI-RAD 2 Management: Screening Mammogram of both breasts in 1 year. . Patient should continue monthly self-breast exams. A clinical breast exam by your physician is recommended on an annual basis. This exam should not preclude additional follow-up of suspicious palpable abnormalities. Note on Sussy scores and lifetime risk: 1. A Sussy score greater than 3% is considered moderate risk. If this is the case, consider specialist referral to assess eligibility for a risk reducing agent. 2. If overall lifetime risk for the development of breast cancer is 20% or higher, the patient may qualify for future screening with alternating mammogram and breast MRI. Electronically signed and approved by: Nitish Villa M.D. Radiologis
== END | disposition home or self-care (01) ==
LOC: RADMAMWWP 11:07
PROVIDERS: ATTEND Internal Medicine Hematology & Oncology
DX: Z12.31 Encounter for screening mammogram for malignant neoplasm of breast (principal); C50.111 Malignant neoplasm of central portion of right female breast; E11.9 Type 2 diabetes mellitus without complications; D51.1 Vitamin B12 deficiency anemia due to selective vitamin B12 malabsorption with proteinuria; D63.0 Anemia in neoplastic disease; D64.89 Other specified anemias; Z80.3 Family history of malignant neoplasm of breast; Z78.0 Asymptomatic menopausal state
CPT/HCPCS: 77063; 77067

== ENCOUNTER → 2024-05-01 | Outpatient (CLI) | payer MEDICARE, OTHER ==
--- NOTE | 2024-05-02 12:46 | CT ---
EXAMINATION TYPE: CT lumbar spine wo con DATE OF EXAM: 05/01/2024 COMPARISON: 10/19/2023 HISTORY: 64-year-old female M43.26 Chronic back pain. TECHNIQUE: Contiguous axial scanning of the lumbar spine without IV contrast. Coronal and sagittal re constructions performed. CT DLP: 979 mGycm Automated exposure control for dose reduction was used. FINDINGS: There is a small fatty umbilical hernia. 3.6 cm centrally located cyst lower pole left kidney. Mild t o moderate atherosclerotic calcifications infrarenal abdominal aorta and common iliac arteries. Some heterotopic ossification and scar tissue is present along the posterior paraspinal musculature a t the level of patient's posterior lumbar fusion. There is L4-L5 anterior and interbody lumbar fusion change. 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 There is a component of congenital spinal canal narrowi ng with AP canal dimension of 1.1 cm. Alignment is maintained. Prominent metal artifact limiting assessment of the spinal canal along the fused levels. Assessment also limited above the fusion at L3-L4. Possible at least mild to moderate spinal canal st enosis at this level due to bulging disc and ligamentum flavum thickening as well as severe facet art hropathy. Again, assessment is very limited here. There is moderate right and mild left foraminal hector nosis here. Possible moderate bilateral neuroforaminal stenosis at L4-L5 and mild on both sides at L5-S1 due to r esidual hyperostotic changes. IMPRESSION: 1. PATIENT STATUS POST L4-L5 POSTERIOR AND INTERBODY FUSION. MATURE BONY ANKYLOSIS ACROSS L5-S1 WE LL. 2. ASSESSMENT OF THE SPINAL CANAL HERE AND JUST ABOVE THE FUSION AT L3-L4 IS VERY LIMITED DUE TO THE EXTENSIVE HARDWARE ARTIFACTS. UNABLE TO EXCLUDE MILD OR MODERATE SPINAL CANAL STENOSIS AT L3-4 DUE TO DISC BULGE, LIGAMENTUM FLAVUM THICKENING, AND HYPERTROPHIC FACET ARTHROPATHY. 3. THERE IS AN UNDERLYING CONGENITAL SPINAL CANAL NARROWING WITH [place] AP CANAL DIMENSION OF 1.1 CM. 4. ABOVE THE FUSION AT L3-L4, SEVERE FACET ARTHROPATHY AND BULGING DISC CONTRIBUTES TO MODERATE RIGHT AND MILD LEFT NEUROFORAMINAL STENOSIS. 5. POSSIBLE MODERATE BILATERAL NEUROFORAMINAL STENOSIS AT L4-L5 AND MILD ON BOTH SIDES AT L5-S1 DUE T O RESIDUAL HYPEROSTOTIC CHANGES. [facility], Workstation: [email or web address], 05/02/2024 12:44 PM
== END | disposition home or self-care (01) ==
LOC: RADCTMAIN 14:58
PROVIDERS: ATTEND Orthopaedic Surgery
DX: M43.26 Fusion of spine, lumbar region
CPT/HCPCS: 72131

== ENCOUNTER → 2025-01-21 | Outpatient (CLI) | payer MEDICARE, OTHER ==
--- NOTE | 2025-01-21 12:37 | MM ---
Reason for Exam: Screening (asymptomatic). Last screening mammogram was performed 12 month(s) ago. Patient History: Menarche at age 12. First Full-Term at age 23. Postmenopausal. Breast cancer, right, age 59. Bilateral Benign Excisional Biopsy. 05/08/2019, Lumpectomy on the Right side. 05/08/2019, Malignant Core Biopsy on the right side. 10/30/2018, Malignant Core Biopsy on the right side. 2019, Radiation Therapy. 2019, Chemotherapy. 2019, Chemotherapy. 2019, Radiation Therapy on the right side. 05/08/2019, US discontinued breast loc RT on the right side. Maternal aunt had breast cancer, age 50. Sister had breast cancer, age 43. Prior Study Comparison: 11/11/2021 Bilateral Diagnostic Mammogram, [facility]. 01/19/2023 Bilateral MG 3D screening mammo w/cad, [facility]. 01/21/2024 Bilateral MG 3D screening mammo w/cad, [facility]. Tissue Density: The breasts are heterogeneously dense, which may obscure small masses. Findings: Analyzed By CAD. Posttreatment changes right breast with diminished size, asymmetric skin thickening, and surgical clips superiorly are redemonstrated. There are some scattered small benign-appearing round calcifications bilaterally redemonstrated. There is no suspicious group of microcalcifications or new suspicious mass in either breast. Overall Assessment: Benign, BI-RAD 2 Management: Screening Mammogram of both breasts in 1 year. . Patient should continue monthly self-breast exams. A clinical breast exam by your physician is recommended on an annual basis. This exam should not preclude additional follow-up of suspicious palpable abnormalities. Note on Sussy scores and lifetime risk: 1. A Sussy score greater than 3% is considered moderate risk. If this is the case, consider specialist referral to assess eligibility for a risk reducing agent. 2. If overall lifetime risk for the development of breast cancer is 20% or higher, the patient may qualify for future screening with alternating mammogram and breast MRI. [facility], , 01/21/2025 12:34 PM. Electronically signed and approved by: Ac Marques M.D.
== END | disposition home or self-care (01) ==
LOC: RADMAMWWP 11:00
PROVIDERS: ATTEND Internal Medicine Hematology & Oncology
DX: Z12.31 Encounter for screening mammogram for malignant neoplasm of breast (principal); R92.333 Mammographic heterogeneous density, bilateral breasts; Z78.0 Asymptomatic menopausal state; Z80.3 Family history of malignant neoplasm of breast; Z85.3 Personal history of malignant neoplasm of breast
CPT/HCPCS: 77063; 77067